=== PATIENT | female | born 1935 | race Caucasian/White ===

== ENCOUNTER 2018-08-31 19:42 | Inpatient (IN) | payer OTHER ==
--- OUTSIDE RECORDS SUMMARY | 2018-08-31 19:45 | XMS REPORT | Clinical Summary ---
:1935 Author Organization [facility] Address [address] [place] [address] Care Team Providers Name Role Phone Ranjith Pope MD Primary Care Provider Allergies No Known Allergies Medications Medication Sig Dispensed Refills Start Date End Date Status traMADol (ULTRAM) Take 50 mg by 0 Active 50 mg tablet mouth every 8 (eight) hours as needed for moderate pain. allopurinol Take 300 mg by 0 Active (ZYLOPRIM) 300 MG mouth daily. tablet candesartan Take 32 mg by 0 Active (ATACAND) 32 MG mouth daily. tablet simvastatin (ZOCOR) Take 10 mg by 0 Active 10 MG tablet mouth nightly. levothyroxine Take 75 mcg by 0 Active (SYNTHROID, mouth every LEVOXYL) 75 mcg morning. tablet DULoxetine Take 60 mg by 0 Active (CYMBALTA) 60 MG mouth daily. capsule metoprolol tartrate Take 100 mg by 0 10/05/2017 Discontinued (LOPRESSOR) 100 mg mouth daily. tablet metoprolol tartrate Take 1 tablet 60 tablet 0 10/05/2017 11/04/2017 (LOPRESSOR) 50 mg (50 mg total) tablet by mouth 2 (two) times a day for 30 days. ceFAZolin in 0.9% Infuse 50 mL 3600 mL 0 10/05/2017 10/29/2017 sodium chloride (2 g total) (ANCEF) 2 gram/50 into a venous mL IVPB catheter every 8 (eight) hours for 24 days. Active Problems Problem Noted Date HTN (hypertension), malignant 09/29/2017 Hematemesis with nausea 09/29/2017 Overview: Added automatically from request for surgery [id number] Encounters Date Type Specialty Care Team Description Anesthesia Gastroenterology Maude, 8 Event Corrie Chappell MD Surgery Gastroenterology [place], ESOPHAGOGASTRODUODENOSCOPY 8 Farideh Leos (EGD) with biopsy [facility] Internal Ranjith Pope Hematemesis with nausea 8 - Encounter Medicine MD Luci (Primary Dx) 8 after 08/30/2017 Social History Tobacco Use Types Packs/Day Years Used Date Former Smoker Sex Assigned at Date Recorded Not on file Job Start Date Occupation Industry Not on file Not on file Not on file Travel History Travel Start Travel End No recent travel history available. Last Filed Vital Signs Vital Sign Reading Time Taken Blood Pressure 165/81 10/05/2017 3:15 PM CDT Pulse 85 10/05/2017 3:15 PM CDT Temperature 35.9 C (96.6 F) 10/05/2017 3:15 PM CDT Respiratory Rate 18 10/05/2017 3:15 PM CDT Oxygen Saturation 96% 10/05/2017 3:15 PM CDT Inhaled Oxygen Concentration - - Weight 109 kg (240 lb 1 oz) 10/05/2017 5:29 AM CDT Height 172.7 cm (5' 8") 09/30/2017 9:00 AM CDT Body Mass Index 36.5 10/05/2017 5:29 AM CDT Plan of Treatment Health Maintenance Due Date Last Done Comments SHINGLES VACCINES (#1) 02/12/1986 65+ PNEUMOCOCCAL VACCINE (1 of 2 - PCV13) 02/12/2001 PNEUMOCOCCAL POLYSACCHARIDE VACCINE AGE 65 AND OVER 02/12/2001 INFLUENZA VACCINE 12/21/2018 Procedures Procedure Name Priority Date/Time Associated Comments Diagnosis ZZESTIMATED GFR Routine 10/05/2017 Results for 3:30 AM CDT this procedure are in the results section. MAGNESIUM LEVEL Routine 10/05/2017 Results for 3:30 AM CDT this procedure are in the results section. COMPREHENSIVE METABOLIC PANEL Routine 10/05/2017 Results for 3:30 AM CDT this procedure are in the results section. HC COMPLETE BLD COUNT W/AUTO Routine 10/05/2017 Results for DIFF 3:30 AM CDT this procedure are in the results section. ECHOCARDIOGRAM 2D COMPLETE W Routine 10/04/2017 Results for MMODE SPECTRAL COLOR DOPPLER 4:42 PM CDT this procedure (70013) are in the results section. SURGICAL PATHOLOGY REQUEST Routine 10/04/2017 Results for 10:50 AM CDT this procedure are in the results section. ESOPHAGOGASTRODUODENOSCOPY (EGD) 10/04/2017 Hematemesis with 10:10 AM CDT nausea POC GLUCOSE Routine 10/04/2017 Results for 7:14 AM CDT this procedure are in the results section. PROTHROMBIN TIME WITH INR Routine 10/04/2017 Results for 5:38 AM CDT this procedure are in the results section. ZZESTIMATED GFR Routine 10/04/2017 Results for 5:38 AM CDT this procedure are in the results section. MAGNESIUM LEVEL Routine 10/04/2017 Results for 5:38 AM CDT this procedure are in the results section. COMPREHENSIVE METABOLIC PANEL Routine 10/04/2017 Results for 5:38 AM CDT this procedure are in the results section. HC COMPLETE BLD COUNT W/AUTO Routine 10/04/2017 Results for DIFF 5:38 AM CDT this procedure are in the results section. CT ABDOMEN PELVIS W CONTRAST Routine 10/03/2017 Results for 7:12 PM CDT this procedure are in the results section. OCCULT BLOOD, STOOL Routine 10/03/2017 Results for 4:20 PM CDT this procedure are in the results section. POC GLUCOSE Routine 10/03/2017 Results for 11:35 AM CDT this procedure are in the results section. POC GLUCOSE Routine 10/03/2017 Results for 7:23 AM CDT this procedure are in the results section. MANUAL DIFFERENTIAL Routine 10/03/2017 Results for 4:51 AM CDT this procedure are in the results section. TROPONIN Routine 10/03/2017 Results for 4:51 AM CDT this procedure are in the results section. ZZESTIMATED GFR Routine 10/03/2017 Results for 4:51 AM CDT this procedure are in the results section. MAGNESIUM LEVEL Routine 10/03/2017 Results for 4:51 AM CDT this procedure are in the results section. COMPREHENSIVE METABOLIC PANEL Routine 10/03/2017 Results for 4:51 AM CDT this procedure are in the results section. CBC WITH PLATELET AND Routine 10/03/2017 Results for DIFFERENTIAL 4:51 AM CDT this procedure are in the results section. ECG 12-LEAD Routine 10/03/2017 Results for 3:45 AM CDT this procedure are in the results section. ECG 12-LEAD Routine 10/02/2017 Results for 10:57 PM CDT this procedure are in the results section. TROPONIN Timed 10/02/2017 Results for 10:42 PM CDT this procedure are in the results section. TYPE AND SCREEN Routine 10/02/2017 Results for 5:05 PM CDT this procedure are in the results section. ZZESTIMATED GFR STAT 10/02/2017 Results for 5:05 PM CDT this procedure are in the results section. PROTHROMBIN TIME WITH INR STAT 10/02/2017 Results for 5:05 PM CDT this procedure are in the results section. PARTIAL THROMBOPLASTIN TIME STAT 10/02/2017 Results for (PTT) 5:05 PM CDT this procedure are in the results section. COMPREHENSIVE METABOLIC PANEL STAT 10/02/2017 Results for 5:05 PM CDT this procedure are in the results section. HC COMPLETE BLD COUNT W/AUTO STAT 10/02/2017 Results for DIFF 5:05 PM CDT this procedure are in the results section. LACTIC ACID LEVEL, SEPSIS - NOW Timed 10/02/2017 Results for AND REPEAT 2X EVERY 3 HOURS 5:05 PM CDT this procedure are in the results section. ECG 12-LEAD STAT 10/02/2017 Results for 3:48 PM CDT this procedure are in the results section. TROPONIN Timed 10/02/2017 Results for 3:37 PM CDT this procedure are in the results section. XR ABDOMEN 1 VW STAT 10/02/2017 Results for 1:07 PM CDT this procedure are in the results section. OCCULT BLOOD, GASTRIC Routine 10/02/2017 Results for 11:55 AM CDT this procedure are in the results section. ZZESTIMATED GFR Routine 10/02/2017 Results for 9:20 AM CDT this procedure are in the results section. BASIC METABOLIC PANEL Routine 10/02/2017 Results for 9:20 AM CDT this procedure are in the results section. POC GLUCOSE Routine 10/02/2017 Results for 7:58 AM CDT this procedure are in the results section. HC COMPLETE BLD COUNT W/AUTO Routine 10/02/2017 Results for DIFF 6:27 AM CDT this procedure are in the results section. MRI LUMBAR SPINE WO CONTRAST Routine 10/01/2017 Results for 9:49 PM CDT this procedure are in the results section. BLOOD CULTURE, AEROBIC & Routine 10/01/2017 Results for ANAEROBIC 4:05 AM CDT this procedure are in the results section. ZZESTIMATED GFR Routine 10/01/2017 Results for 3:45 AM CDT this procedure are in the results section. BASIC METABOLIC PANEL Routine 10/01/2017 Results for 3:45 AM CDT this procedure are in the results section. BLOOD CULTURE, AEROBIC & Routine 10/01/2017 Results for ANAEROBIC 3:45 AM CDT this procedure are in the results section. URINALYSIS SCREEN AND Routine 09/30/2017 Results for MICROSCOPY, WITH REFLEX TO 12:30 PM CDT this procedure CULTURE are in the results section. GRAM STAIN Routine 09/30/2017 Results for 12:30 PM CDT this procedure are in the results section. URINE CULTURE Routine 09/30/2017 Results for 12:30 PM CDT this procedure are in the results section. CT HEAD WO CONTRAST Routine 09/30/2017 Results for 6:38 AM CDT this procedure are in the results section. MANUAL DIFFERENTIAL Routine 09/30/2017 Results for 5:10 AM CDT this procedure are in the results section. TROPONIN Routine 09/30/2017 Results for 5:10 AM CDT this procedure are in the results section. LACTIC ACID LEVEL, SEPSIS - NOW Timed 09/30/2017 Results for AND REPEAT 2X EVERY 3 HOURS 5:10 AM CDT this procedure are in the results section. ZZESTIMATED GFR Routine 09/30/2017 Results for 5:10 AM CDT this procedure are in the results section. MAGNESIUM LEVEL Routine 09/30/2017 Results for 5:10 AM CDT this procedure are in the results section. COMPREHENSIVE METABOLIC PANEL Routine 09/30/2017 Results for 5:10 AM CDT this procedure are in the results section. CBC WITH PLATELET AND Routine 09/30/2017 Results for DIFFERENTIAL 5:10 AM CDT this procedure are in the results section. LACTIC ACID LEVEL Timed 09/30/2017 Results for 2:05 AM CDT this procedure are in the results section. TROPONIN Timed 09/29/2017 Results for 11:55 PM CDT this procedure are in the results section. BLOOD CULTURE, AEROBIC & Routine 09/29/2017 Results for ANAEROBIC 10:55 PM CDT this procedure are in the results section. LACTIC ACID LEVEL, SEPSIS - NOW Timed 09/29/2017 Results for AND REPEAT 2X EVERY 3 HOURS 10:24 PM CDT this procedure are in the results section. AMMONIA LEVEL STAT 09/29/2017 Results for 10:24 PM CDT this procedure are in the results section. BLOOD CULTURE, AEROBIC & Routine 09/29/2017 Results for ANAEROBIC 10:24 PM CDT this procedure are in the results section. URINALYSIS SCREEN AND STAT 09/29/2017 Results for MICROSCOPY, WITH REFLEX TO 9:35 PM CDT this procedure CULTURE are in the results section. GRAM STAIN STAT 09/29/2017 Results for 9:35 PM CDT this procedure are in the results section. URINE CULTURE STAT 09/29/2017 Results for 9:35 PM CDT this procedure are in the results section. ARTERIAL BLOOD GAS STAT 09/29/2017 Results for 8:40 PM CDT this procedure are in the results section. MANUAL DIFFERENTIAL Timed 09/29/2017 Results for 8:15 PM CDT this procedure are in the results section. PROTHROMBIN TIME WITH INR STAT 09/29/2017 Results for 8:15 PM CDT this procedure are in the results section. ZZESTIMATED GFR Timed 09/29/2017 Results for 8:15 PM CDT this procedure are in the results section. TROPONIN Timed 09/29/2017 Results for 8:15 PM CDT this procedure are in the results section. MAGNESIUM LEVEL Timed 09/29/2017 Results for 8:15 PM CDT this procedure are in the results section. COMPREHENSIVE METABOLIC PANEL Timed 09/29/2017 Results for 8:15 PM CDT this procedure are in the results section. CBC WITH PLATELET AND Timed 09/29/2017 Results for DIFFERENTIAL 8:15 PM CDT this procedure are in the results section. ARTERIAL BLOOD GAS STAT 09/29/2017 Results for 7:40 PM CDT this procedure are in the results section. ECG 12-LEAD Routine 09/29/2017 Results for 7:35 PM CDT this procedure are in the results section. after 08/30/2017 Results Estimated GFR (10/05/2017 3:30 AM CDT)Only the most recent of8 resultswithin the time period is included. GFR Non Af Amer 69 mL/min/1.73 m2 [facility] DEPARTMENT OF PATHOLOGY AND GENOMIC MEDICINE GFR Af Amer 83 mL/min/1.73 m2 [facility] DEPARTMENT OF Comment: PATHOLOGY AND GENOMIC Chronic kidney disease: <60 mL/min/1.73m2 MEDICINE Kidney failure: <15 mL/min/1.73m2 The estimated GFR is calculated from the IDMS-traceable Modification of Diet in Renal Disease Equation. The accuracy of the calculation is poor when the creatinine is normal. Calculated values >90 mL/min/1.73m2 are not reported. This equation has not been validated in children (<18 years), women, the elderly (>70 years), or ethnic groups other than Caucasians and Americans. Specimen Plasma specimen Performing Organization Address City/State/Zipcode Phone Number [facility] DEPARTMENT OF PATHOLOGY [id number] [facility] [place] [address] AND GENOMIC MEDICINE CBC with platelet and differential (10/05/2017 3:30 AM CDT)Only the most recent of7 resultswithin the time period is included. WBC 13.1 (H) 4.5 - 11.0 k/uL [facility] DEPARTMENT OF PATHOLOGY AND GENOMIC MEDICINE RBC 3.96 (L) 4.20 - 5.50 m/uL [facility] DEPARTMENT OF PATHOLOGY AND GENOMIC MEDICINE HGB 11.3 (L) 12.0 - 16.0 g/dL [facility] DEPARTMENT OF PATHOLOGY AND GENOMIC MEDICINE HCT 33.9 (L) 37.0 - 47.0 % [facility] DEPARTMENT OF PATHOLOGY AND GENOMIC MEDICINE MCV 85.6 82.0 - 100.0 fL [facility] DEPARTMENT OF PATHOLOGY AND GENOMIC MEDICINE MCH 28.5 27.0 - 34.0 pg [facility] DEPARTMENT OF PATHOLOGY AND GENOMIC MEDICINE MCHC 33.3 31.0 - 37.0 g/dL [facility] DEPARTMENT OF PATHOLOGY AND GENOMIC MEDICINE RDW - SD 43.9 37.0 - 55.0 fL [facility] DEPARTMENT OF PATHOLOGY AND GENOMIC MEDICINE MPV 10.1 6.9 - 11.0 fL [facility] DEPARTMENT OF PATHOLOGY AND GENOMIC MEDICINE Platelet count 169 150 - 400 K/uL [facility] DEPARTMENT OF PATHOLOGY AND GENOMIC MEDICINE Nucleated RBC 0.00 /100 WBC [facility] DEPARTMENT OF PATHOLOGY AND GENOMIC MEDICINE Neutrophils 84.9 (H) 39.0 - 69.0 % [facility] DEPARTMENT OF PATHOLOGY AND GENOMIC MEDICINE Lymphocytes 4.9 (L) 25.0 - 45.0 % [facility] DEPARTMENT OF PATHOLOGY AND GENOMIC MEDICINE Monocytes 6.5 0.0 - 10.0 % [facility] DEPARTMENT OF PATHOLOGY AND GENOMIC MEDICINE Eosinophils 0.4 0.0 - 5.0 % [facility] DEPARTMENT OF PATHOLOGY AND GENOMIC MEDICINE Basophils 0.2 0.0 - 1.0 % [facility] DEPARTMENT OF PATHOLOGY AND GENOMIC MEDICINE Immature granulocytes 3.1 (H) 0.0 - 1.0 % [facility] DEPARTMENT OF PATHOLOGY AND GENOMIC MEDICINE Specimen Blood Performing Organization Address City/[facility]/Zipcode Phone Number [facility] DEPARTMENT OF PATHOLOGY [address] [place] [id number] [facility] Magnesium level (10/05/2017 3:30 AM CDT)Only the most recent of5 resultswithin the time period is included. Magnesium 2.0 1.6 - 2.4 mg/dL [facility] DEPARTMENT OF PATHOLOGY AND GENOMIC MEDICINE Specimen Plasma specimen Performing Organization Address City/[facility]/Zipcode Phone Number [facility] DEPARTMENT OF PATHOLOGY [address] [place] [phone] [facility] Comprehensive metabolic panel (10/05/2017 3:30 AM CDT)Only the most recent of6 resultswithin the time period is included. Sodium 134 (L) 135 - 148 mEq/L [facility] DEPARTMENT OF PATHOLOGY AND GENOMIC MEDICINE Potassium 3.4 (L) 3.5 - 5.0 mEq/L [facility] DEPARTMENT OF PATHOLOGY AND GENOMIC MEDICINE Chloride 95 (L) 98 - 112 mEq/L [facility] DEPARTMENT OF PATHOLOGY AND GENOMIC MEDICINE CO2 28 24 - 31 mEq/L [facility] DEPARTMENT OF PATHOLOGY AND GENOMIC MEDICINE Anion gap 11@ANIO 7 - 15 mEq/L [facility] DEPARTMENT OF PATHOLOGY AND GENOMIC MEDICINE BUN 28 (H) 8 - 23 mg/dL [facility] DEPARTMENT OF PATHOLOGY AND GENOMIC MEDICINE Creatinine 0.8 0.5 - 0.9 mg/dL [facility] DEPARTMENT OF PATHOLOGY AND GENOMIC MEDICINE Glucose 132 (H) 65 - 99 mg/dL [facility] DEPARTMENT OF PATHOLOGY AND GENOMIC MEDICINE Calcium 7.8 (L) 8.8 - 10.2 mg/dL [facility] DEPARTMENT OF PATHOLOGY AND GENOMIC MEDICINE Protein 6.1 (L) 6.3 - 8.3 g/dL [facility] DEPARTMENT OF PATHOLOGY AND GENOMIC MEDICINE Albumin 2.0 (L) 3.5 - 5.0 g/dL [facility] DEPARTMENT OF PATHOLOGY AND GENOMIC MEDICINE A/G ratio 0.5 (L) 0.7 - 3.8 [facility] DEPARTMENT OF PATHOLOGY AND GENOMIC MEDICINE Alkaline phosphatase 203 (H) 35 - 104 U/L [facility] DEPARTMENT OF PATHOLOGY AND GENOMIC MEDICINE AST 52 (H) 10 - 35 U/L [facility] DEPARTMENT OF PATHOLOGY AND GENOMIC MEDICINE ALT 28 5 - 50 U/L [facility] DEPARTMENT OF PATHOLOGY AND GENOMIC MEDICINE Total bilirubin 0.7 0.2 - 1.2 mg/dL [facility] DEPARTMENT OF PATHOLOGY AND GENOMIC MEDICINE Specimen Plasma specimen Performing Organization Address City/State/Zipcode Phone Number [facility] DEPARTMENT OF PATHOLOGY [id number] [facility] [place] [address] AND GENOMIC MEDICINE Echocardiogram complete w contrast and 3D if needed (10/04/2017 4:42 PM CDT) Ao Root Diameter 2.98 cm [facility] AoV Area, Vmax 2.84 cm2 [facility] AoV Area, VTI 2.98 cm2 [facility] AoV Mean PG 4.20 mmHg [facility] AoV Peak PG 8.10 mmHg [facility] AoV Vmax 1.42 m/s [facility] AoV VTI 0.23 m [facility] BSA Jewell 0.00 m2 [facility] BSA 0.00 m2 [facility] IVS,d 1.47 (A) 0.6 - 1.2 cm [facility] IVS/LVPW,2D 1.05 [facility] Left Atrium Dimension Anterior 4.49 cm [facility] LA Area d A4C 19.94 cm2 [facility] LV,d 3.66 cm [facility] LV EF,2D 67.49 % [facility] LV,s 2.51 cm [facility] LVOT area 3.02 cm2 [facility] LVOT Diam,S 1.96 cm [facility] LVOT Vmax 1.33 m/s [facility] LVOT VTI 0.23 m [facility] LVPWD,d 1.40 cm [facility] RVOT Vmax 1.03 m/s [facility] TR Vpeak 2.09 mm/s [facility] MV E A ratio 2.41 mmHg [facility] TR pk grad 13.08 mmHg [facility] MR Vmax 3.55 m/s [facility] E wave decelartion time 191.25 msec [facility] MV Peak A Willian 0.46 m/s [facility] MV valve area p 1/2 method 3.97 cm2 [facility] MV Peak E Willian 1.12 m/s [facility] MV stenosis pressure 1/2 time 55.46 ms [facility] AV LVOT peak gradient 7.11 mmHg [facility] Ascending aorta 2.89 cm [facility] Ao Root Diameter 2.98 cm [facility] MV mean gradient 1.39 mmHg [facility] LV SYS VOL 22.62 ml [facility] LV MOREIRA VOL 56.46 ml [facility] LV SV Teich 2D 33.84 ml [facility] LV Vol s Teich PSAX 22.62 ml [facility] MR peak grad 5.28 mmHg [facility] MV Vmax 1.15 m [facility] MV VTI Tips 0.23 m [facility] RVOT pk grad 4.24 mmHg [facility] BSA Haycock 0.00 m2 [facility] AoV Vmn 0.95 [facility] LV FS Teich 2D 31.24 [facility] MV AE ratio 0.42 [facility] LV FS Cube 2D 31.24 [facility] LVOT Vmn 0.77 [facility] Pt Size 0.00 [facility] Pt Wt 0.00 [facility] Aov area Vmn 2.45 cm2 [facility] LA Vol d MOD A4C 46.89 ml [facility] LVOT mean grad 3.03 mmHg [facility] MAX Pred HR 138.36 [facility] 85 of MPHR 117.61 [facility] Calc MPHR 138.36 bpm [facility] LV SV Cube 2D 32.96 ml [facility] LV vol d cube 2D 48.84 ml [facility] LV vol s cube 2D 15.88 ml [facility] MV Decel slope 5.84 m/s2 [facility] Pred Exer Dur R1 5.56 [facility] Pred METS R1 4.09 [facility] Velocity Ratio (V1/V2) 0.94 m/s [facility] EF 59.94 % [facility] E/A ratio 2.43 [facility] Narrative Performed At The left ventricle chamber size is normal. [facility] Left Ventricular ejection fraction is 55 - 60%. No pericardial effusion There is mild mitral valve regurgitation. Performing Organization Address City/State/Zipcode Phone Number [facility] [id number] [place] [address] Surgical pathology request (10/04/2017 10:50 AM CDT) [facility] DEPARTMENT OF PATHOLOGY AND GENOMIC MEDICINE Surgical pathology report See link below for PDF [facility] DEPARTMENT OF Lab Report PATHOLOGY AND GENOMIC MEDICINE Result status This is Final Report to [facility] DEPARTMENT OF [id number] PATHOLOGY AND GENOMIC MEDICINE Performing Organization Address City/[facility]/Zipcode Phone Number [facility] DEPARTMENT OF PATHOLOGY [id number] [facility] [place] [address] AND GENOMIC MEDICINE POC glucose (10/04/2017 7:14 AM CDT)Only the most recent of4 resultswithin the time period is included. POC glucose 92 65 - 99 mg/dL [facility] DEPARTMENT OF PATHOLOGY AND Comment: [employer] ([employer]) MEDICINE Meter ID: [id number] Home Economics Teacher: Kevin Yusuf Performing Organization Address City/State/Zipcode Phone Number [facility] DEPARTMENT OF PATHOLOGY [address] [place] [address] AND [employer] Prothrombin time with INR (10/04/2017 5:38 AM CDT)Only the most recent of3 resultswithin the time period is included. Prothrombin time 14.6 12.0 - 15.0 sec [facility] DEPARTMENT OF PATHOLOGY AND [employer] ([employer]) MEDICINE INR 1.1 [facility] DEPARTMENT OF Comment: PATHOLOGY AND GENOMIC The International Normalized Ratio (INR) is a therapeutic MEDICINE monitoring tool for patients who are stable on oral anticoagulant therapy. An INR of 2.0-3.0 is suggested for deep vein thrombosis/pulmonary embolism. Specimen Blood Performing Organization Address [facility] Centercode Phone Number [facility] DEPARTMENT OF PATHOLOGY [id number] [facility] [place] [address] [place] [address] Abdomen Pelvis W Contrast (10/03/2017 7:12 PM CDT) Narrative Performed At EXAMINATION:CT ABDOMEN PELVIS W CONTRAST RADIANT CLINICAL HISTORY:ABDOMINAL PAIN COMPARISON:None. TECHNIQUE: Multiple axial CT images of the Abdomen and pelvis were obtainedWith IV contrast Oral contrast was administered. . Sagittal and coronal reconstructions were done. CT imaging was performed with iterative reconstruction technique and/or automated exposure control to reduce radiation dose. FINDINGS: HEPATOBILIARY:Hypodensities present in the right hepatic lobe measure up to 3 cm, nonspecific. There is some mild nodularity to the liver margins. No intrahepatic biliary dilation. The main portal vein is patent. GALLBLADDER: Cholelithiasis without signs of cholecystitis. SPLEEN:No splenomegaly. PANCREAS:No focal masses or ductal dilation. ADRENALS:No adrenal nodules. KIDNEYS:No hydronephrosis, stones or solid masses. PERITONEUM/RETROPERITONEUM:No free air or free fluid. No enlarged lymph nodes. ABDOMINAL AORTA/IVC: No aneurysm or dissection. GI TRACT:The stomach is significantly distended contains air and fluid. There is no distention of the colon and small bowel. There is sequential wall thickening of the rectum with surrounding fat stranding extending to the rectosigmoid junction. A moderate amount of stool is present but without dilation. No pneumatosis. Multiple clonic diverticula present without signs of diverticulitis. There are no signs of appendicitis. PELVIC ORGANS/BLADDER:A bilobed left adnexal cyst probably ovarian combined dimension of 7.6 cm. The uterus and right ovary are unremarkable. The urinary bladder is decompressed by Casillas catheter. BONES AND SOFT TISSUES:No acute abnormalities. VISUALIZED LOWER CHEST: Small layering bilateral pleural effusions with some atelectasis of the lung bases. Heart is enlarged. A small hiatal hernia is present. 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 No pneumatosis or signs of perforation. Significant distention of the stomach. Consider gastroparesis is persistent. Complex appearing left adnexal cysts can be further evaluated with pelvic ultrasound. [facility]-[id number] Procedure Note Interface, Radiology Results Incoming - 10/03/2017 7:47 PM CDT EXAMINATION: CT ABDOMEN PELVIS W CONTRAST CLINICAL HISTORY: ABDOMINAL PAIN COMPARISON: None. TECHNIQUE: Multiple axial CT images of the Abdomen and pelvis were obtained With IV contrast Oral contrast was administered. . Sagittal and coronal reconstructions were done. CT imaging was performed with iterative reconstruction technique and/or automated exposure control to reduce radiation dose. FINDINGS: HEPATOBILIARY: Hypodensities present in the right hepatic lobe measure up to 3 cm, nonspecific. There is some mild nodularity to the liver margins. No intrahepatic biliary dilation. The main portal vein is patent. GALLBLADDER: Cholelithiasis without signs of cholecystitis. SPLEEN: No splenomegaly. PANCREAS: No focal masses or ductal dilation. ADRENALS: No adrenal nodules. KIDNEYS: No hydronephrosis, stones or solid masses. PERITONEUM/RETROPERITONEUM: No free air or free fluid. No enlarged lymph nodes. ABDOMINAL AORTA/IVC: No aneurysm or dissection. GI TRACT: The stomach is significantly distended contains air and fluid. There is no distention of the colon and small bowel. There is sequential wall thickening of the rectum with surrounding fat stranding extending to the rectosigmoid junction. A moderate amount of stool is present but without dilation. No pneumatosis. Multiple clonic diverticula present without signs of diverticulitis. There are no signs of appendicitis. PELVIC ORGANS/BLADDER: A bilobed left adnexal cyst probably ovarian combined dimension of 7.6 cm. The uterus and right ovary are unremarkable. The urinary bladder is decompressed by Casillas catheter. BONES AND SOFT TISSUES: No acute abnormalities. VISUALIZED LOWER CHEST: Small layering bilateral pleural effusions with some atelectasis of the lung bases. Heart is enlarged. A small hiatal hernia is present. 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 No pneumatosis or signs of perforation. Significant distention of the stomach. Consider gastroparesis is persistent. Complex appearing left adnexal cysts can be further evaluated with pelvic ultrasound. [facility]-[id number] Performing Organization Address City/State/Zipcode Phone Number [facility] [address] [place] [address] Occult blood, stool (10/03/2017 4:20 PM CDT) Occult blood, stool Negative for occult blood. [facility] DEPARTMENT OF Comment: PATHOLOGY AND GENOMIC Specimen Information MEDICINE Specimen Source: Stool Specimen Site: Nonpreserved Specimen Stool - Nonpreserved Performing Organization Address City/[facility]/Zipcode Phone Number [facility] DEPARTMENT OF PATHOLOGY [address] [place] [address] AND [employer] ([employer]) MEDICINE Troponin (10/03/2017 4:51 AM CDT)Only the most recent of6 resultswithin the time period is included. Troponin <0.30 0.00 - 0.30 ng/mL [facility] DEPARTMENT OF PATHOLOGY Comment: AND GENOMIC MEDICINE 0.11 - 1.49 ng/mlMay indicate increased risk of acute coronary syndrome. >=1.5 ng/mlConsistent with acute myocardial infarction. The diagnostic value of a single normal or non-diagnostic result is questionable.Serial samples at 2-6 hour intervals are required to rule out acute myocardial injury. Specimen Plasma specimen Performing Organization Address City/[facility]/Zipcode Phone Number [facility] DEPARTMENT OF PATHOLOGY [address] [place] [address] AND [employer] ([employer]) MEDICINE Manual differential (10/03/2017 4:51 AM CDT)Only the most recent of3 resultswithin the time period is included. Manual differential PERFORMED [facility] DEPARTMENT OF PATHOLOGY AND GENOMIC MEDICINE Neutrophils 75.0 (H) 39.0 - 69.0 % [facility] DEPARTMENT OF PATHOLOGY AND GENOMIC MEDICINE Lymphocytes 9.0 (L) 25.0 - 45.0 % [facility] DEPARTMENT OF PATHOLOGY AND GENOMIC MEDICINE Monocytes 15.0 (H) 0.0 - 10.0 % [facility] DEPARTMENT OF PATHOLOGY AND GENOMIC MEDICINE Eosinophils 0.0 0.0 - 5.0 % [facility] DEPARTMENT OF PATHOLOGY AND GENOMIC MEDICINE Basophils 0.0 0.0 - 1.0 % [facility] DEPARTMENT OF PATHOLOGY AND GENOMIC MEDICINE Myelocytes 1 % [facility] DEPARTMENT OF PATHOLOGY AND GENOMIC MEDICINE Nucleated RBC 1 /100 WBC [facility] DEPARTMENT OF Comment: PATHOLOGY AND GENOMIC NRBC results have been factored into the WBC count. MEDICINE No further calculation is needed. Platelet slide review Decreased (A) [facility] DEPARTMENT OF PATHOLOGY AND GENOMIC MEDICINE Anisocytosis Moderate [facility] DEPARTMENT OF PATHOLOGY AND GENOMIC MEDICINE Performing Organization Address City/[facility] Centercode Phone Number [facility] DEPARTMENT OF PATHOLOGY [id number] [place] [address] AND [employer] ([employer]) [facility] ECG 12 lead (10/03/2017 3:45 AM CDT)Only the most recent of4 resultswithin the time period is included. Ventricular rate 109 [facility] Atrial rate 102 [facility] QRSD interval 82 [facility] QT interval 318 [facility] QTC interval 428 [facility] QRS axis 1 -34 [facility] T wave axis 92 [facility] EKG impression Atrial fibrillation with rapid ventricular response with premature ventricular or aberrantly conducted complexes-Left axis deviation- Nonspecific ST and T wave abnormality-Abnormal ECG-In automated salomón [facility] MUSE rison with ECG of 02-OCT-2017 22:57,-Nonspecific T wave abnormality now evident in Lateral leads- Performing Organization Address City/[facility] Centercode Phone Number [facility] MUSE [address] [place] [address] Lactic acid level, SEPSIS - Now and repeat 2x every 3 hours (10/02/2017 5:05 PM CDT)Only the most recent of3 resultswithin the time period is included. Lactic acid 2.0 0.5 - 2.2 mmol/L [facility] DEPARTMENT OF PATHOLOGY AND GENOMIC MEDICINE Specimen Plasma specimen Performing Organization Address City/[facility] Centercode Phone Number [facility] DEPARTMENT OF PATHOLOGY [address] [place] [address] AND [facility] Partial thromboplastin time, activated (10/02/2017 5:05 PM CDT) PTT 38.2 (H) 23.0 - 36.0 sec [facility] DEPARTMENT OF Comment: PATHOLOGY AND GENOMIC PTT therapeutic range for unfractionated heparin is MEDICINE 61.0-112.0 seconds which corresponds to Anti-Xa 0.3-0.7 U/ml. Specimen Blood Performing Organization Address City/[facility]/Zipcode Phone Number [facility] DEPARTMENT OF PATHOLOGY [address] [place] [address]. [place] [address] AND [employer] ([employer]) MEDICINE Type and screen (10/02/2017 5:05 PM CDT) ABO grouping O [facility] DEPARTMENT OF PATHOLOGY AND GENOMIC MEDICINE Rh type NEG [facility] DEPARTMENT OF PATHOLOGY AND GENOMIC MEDICINE Antibody screen (gel) NEG [facility] DEPARTMENT OF PATHOLOGY AND GENOMIC MEDICINE Specimen Blood Performing Organization Address [facility] Centercode Phone Number [facility] DEPARTMENT OF PATHOLOGY [address] [place] [address]. [place] [address] AND [employer] ([employer]) [facility] XR Abdomen 1 Vw (10/02/2017 1:07 PM CDT) Narrative Performed At EXAMINATION:XR ABDOMEN 1 VW [facility] CLINICAL HISTORY:Distention, GI BLEEDING COMPARISON:None. IMPRESSION: The stomach is significantly dilated with air. No gas-filled dilated loops of large or small bowel are seen. The bones of the abdomen and pelvis are unremarkable. [id number] Procedure Note Interface, Radiology Results Incoming - 10/02/2017 1:12 PM CDT EXAMINATION: XR ABDOMEN 1 VW CLINICAL HISTORY: Distention, GI BLEEDING COMPARISON: None. IMPRESSION: The stomach is significantly dilated with air. No gas-filled dilated loops of large or small bowel are seen. The bones of the abdomen and pelvis are unremarkable. [id number] Performing Organization Address City/[facility]/Zipcode Phone Number [facility] [address] [place] [address] Occult blood, gastric (10/02/2017 11:55 AM CDT) Occult blood, fluid Positive (A) [facility] DEPARTMENT OF PATHOLOGY AND GENOMIC MEDICINE pH, gastric fluid 3.0Comment: Reference ranges [facility] DEPARTMENT OF are not established for PATHOLOGY AND GENOMIC Miscellanous specimens. MEDICINE Specimen Fluid Performing Organization Address City/[facility]/Zipcode Phone Number [facility] DEPARTMENT OF PATHOLOGY [address] [place] [address]. [place] [address] AND [employer] ([employer]) [facility] Basic metabolic panel (10/02/2017 9:20 AM CDT)Only the most recent of2 resultswithin the time period is included. Sodium 127 (L) 135 - 148 mEq/L [facility] DEPARTMENT OF PATHOLOGY AND GENOMIC MEDICINE Potassium 4.6 3.5 - 5.0 mEq/L [facility] DEPARTMENT OF PATHOLOGY AND GENOMIC MEDICINE Chloride 89 (L) 98 - 112 mEq/L [facility] DEPARTMENT OF PATHOLOGY AND GENOMIC MEDICINE CO2 28 24 - 31 mEq/L [facility] DEPARTMENT OF PATHOLOGY AND [employer]) MEDICINE Anion gap 10 7 - 15 mEq/L [facility] DEPARTMENT OF Comment: PATHOLOGY AND GENOMIC Starting from August , anion gap calculation MEDICINE no longer incorporates potassium. Please note the change. BUN 22 8 - 23 mg/dL [facility] DEPARTMENT OF PATHOLOGY AND [employer]) MEDICINE Creatinine 0.8 0.5 - 0.9 mg/dL [facility] DEPARTMENT OF PATHOLOGY AND [employer]) MEDICINE Glucose 133 (H) 65 - 99 mg/dL [facility] DEPARTMENT OF PATHOLOGY AND [employer]) MEDICINE Calcium 8.1 (L) 8.8 - 10.2 mg/dL [facility] DEPARTMENT OF PATHOLOGY AND [employer]) MEDICINE Specimen Plasma specimen Performing Organization Address City/State/Zipcode Phone Number [facility] DEPARTMENT OF PATHOLOGY [address] [facility] [place] [address] AND [employer] ([employer]) [facility] MRI Lumbar Spine Wo Contrast (10/01/2017 9:49 PM CDT) Narrative Performed At EXAMINATION: MRI LUMBAR SPINE WO CONTRAST [facility] CLINICAL HISTORY: lower back pain COMPARISON:None TECHNIQUE: Multiplanar multisequence noncontrast enhanced examination was performed of the Lumbar spine. FINDINGS: The patient cannot lie flat and is rotated on the scanner. There is some motion artifact. The patient rotation and motion limits this exam. There is rightward rotation of the lumbar spine. There are some chronic degenerative disc changes throughout the lumbar spine. There is an incidental hemangioma in the L3 vertebral body. There is multilevel spondylosis. In the lower thoracic spine at T11-T12 there is posterior spondylosis and facet hypertrophy where there appears be at least moderate severe canal narrowing with some mass effect on the distal cord. No d efinite cord signal changes identified. There is also moderate bilateral foraminal narrowing. At T12-L1 there is no definite significant canal narrowing. There is some degree of mild inferior foraminal narrowing. Axial images through the disc spaces demonstrate the following: L1-L2: There is increased T2 signal in the disc space. There is disc bulge with facet hypertrophy and moderate severe left lateral recess narrowing. There is [id number] canal and right lateral rec ess narrowing. Facet spurring and disc osteophyte complex results in moderate left foraminal stenosis. Right foramen is patent. L2-L3: There is some increased signal in the disc space. There is posterior spondylosis with canal and facet hypertrophy. There is severe left lateral recess narrowing. There is moderate severe canal na rrowing and mild to moderate right lateral recess narrowing. L3-L4: There is complete loss of disk height with posterior spondylosis and facet and ligamentum flavum hypertrophy with severe canal and bilateral lateral recess 9. There is some mass effect on the cau da equina nerve roots. Correlate for significance. There is moderate left foraminal narrowing. The right foramen is severely stenotic. L4-L5: There is disc bulge with clumping of the nerve roots posteriorly secondary to the severe stenosis above this level. There is no significant canal or lateral recess narrowing at this level. A righ t foraminal protrusion and disc osteophyte complex results in severe right foraminal narrowing. L5-S1: There is disc bulge with facet hypertrophy. There is moderate severe narrowing of the lateral recesses and spinal canal. Disc osteophyte complex and facet spurring is present with moderate severe right and minimal left foraminal narrowing. Visualized sacrum is intact. IMPRESSION: There is multilevel spondylosis with significant canal and foraminal narrowing as well as lateral recess stenosis as detailed above. All these levels could result in focal radiculopathy. Correlate for significance at each level. Despite the multilevel significant spondylosis and stenosis changes, there is no acute fracture. [facility]-[id number] Procedure Note Hm Interface, Radiology Results Incoming - 10/01/2017 10:15 PM CDT EXAMINATION: MRI LUMBAR SPINE WO CONTRAST CLINICAL HISTORY: lower back pain COMPARISON: None TECHNIQUE: Multiplanar multisequence noncontrast enhanced examination was performed of the Lumbar spine. FINDINGS: The patient cannot lie flat and is rotated on the scanner. There is some motion artifact. The patient rotation and motion limits this exam. There is rightward rotation of the lumbar spine. There are some chronic degenerative disc changes throughout the lumbar spine. There is an incidental hemangioma in the L3 vertebral body. There is multilevel spondylosis. In the lower thoracic spine at T11-T12 there is posterior spondylosis and facet hypertrophy where there appears be at least moderate severe canal narrowing with some mass effect on the distal cord. No definite cord signal changes identified. There is also moderate bilateral foraminal narrowing. At T12-L1 there is no definite significant canal narrowing. There is some degree of mild inferior foraminal narrowing. Axial images through the disc spaces demonstrate the following: L1-L2: There is increased T2 signal in the disc space. There is disc bulge with facet hypertrophy and moderate severe left lateral recess narrowing. There is [id number] canal and right lateral recess narrowing. Facet spurring and disc osteophyte complex results in moderate left foraminal stenosis. Right foramen is patent. L2-L3: There is some increased signal in the disc space. There is posterior spondylosis with canal and facet hypertrophy. There is severe left lateral recess narrowing. There is moderate severe canal narrowing and mild to moderate right lateral recess narrowing. L3-L4: There is complete loss of disk height with posterior spondylosis and facet and ligamentum flavum hypertrophy with severe canal and bilateral lateral recess 9. There is some mass effect on the cauda equina nerve roots. Correlate for significance. There is moderate left foraminal narrowing. The right foramen is severely stenotic. L4-L5: There is disc bulge with clumping of the nerve roots posteriorly secondary to the severe stenosis above this level. There is no significant canal or lateral recess narrowing at this level. A right foraminal protrusion and disc osteophyte complex results in severe right foraminal narrowing. L5-S1: There is disc bulge with facet hypertrophy. There is moderate severe narrowing of the lateral recesses and spinal canal. Disc osteophyte complex and facet spurring is present with moderate severe right and minimal left foraminal narrowing. Visualized sacrum is intact. IMPRESSION: There is multilevel spondylosis with significant canal and foraminal narrowing as well as lateral recess stenosis as detailed above. All these levels could result in focal radiculopathy. Correlate for significance at each level. Despite the multilevel significant spondylosis and stenosis changes, there is no acute fracture. [facility]-[id number] Performing Organization Address City/State/Zipcode Phone Number [facility] [address] [place] [address] Blood culture, aerobic & anaerobic (10/01/2017 4:05 AM CDT)Only the most recent of4 resultswithin the time period is included. Blood culture isolate No growth after 5 days of incubation. [facility] DEPARTMENT OF Comment: PATHOLOGY AND GENOMIC Specimen Information MEDICINE Specimen Source: Blood Specimen Site: Hand, right Specimen Blood - Hand, right Performing Organization Address City/[facility] Phone Number [facility] DEPARTMENT OF PATHOLOGY AND [address] [place] [id number] GENOMIC MEDICINE Urinalysis screen and microscopy, with reflex to culture (09/30/2017 12:30 PM CDT)Only the most recent of2 resultswithin the time period is included. Specimen site Casillas [facility] DEPARTMENT OF PATHOLOGY AND GENOMIC MEDICINE Color, UA Anne Marie [facility] DEPARTMENT OF PATHOLOGY AND GENOMIC MEDICINE Appearance, UA Sl Cloudy [facility] DEPARTMENT OF PATHOLOGY AND GENOMIC MEDICINE Specific gravity, UA 1.025 1.001 - 1.030 [facility] DEPARTMENT OF PATHOLOGY AND GENOMIC MEDICINE pH, UA 5.0 5.0 - 9.0 [facility] DEPARTMENT OF PATHOLOGY AND GENOMIC MEDICINE Protein, UA 2+ (A) Negative [facility] DEPARTMENT OF PATHOLOGY AND GENOMIC MEDICINE Glucose, UA Negative Negative [facility] DEPARTMENT OF PATHOLOGY AND GENOMIC MEDICINE Ketones, UA Negative Negative [facility] DEPARTMENT OF PATHOLOGY AND GENOMIC MEDICINE Bilirubin, UA Negative Negative [facility] DEPARTMENT OF PATHOLOGY AND GENOMIC MEDICINE Blood, UA Moderate (A) Negative [facility] DEPARTMENT OF PATHOLOGY AND GENOMIC MEDICINE Nitrite, UA Positive (A) Negative [facility] DEPARTMENT OF PATHOLOGY AND GENOMIC MEDICINE Urobilinogen, UA <2.0 <2.0 E.U./dL [facility] DEPARTMENT OF PATHOLOGY AND GENOMIC MEDICINE Leukocyte esterase, UA Negative Negative [facility] DEPARTMENT OF PATHOLOGY AND GENOMIC MEDICINE Epithelial cells, UA <1 /HPF [facility] DEPARTMENT OF PATHOLOGY AND GENOMIC MEDICINE WBC, UA 7 (H) 0 - 4 /HPF [facility] DEPARTMENT OF PATHOLOGY AND GENOMIC MEDICINE RBC, UA 4 0 - 5 /HPF [facility] DEPARTMENT OF PATHOLOGY AND GENOMIC MEDICINE Bacteria, UA Few None seen [facility] DEPARTMENT OF PATHOLOGY AND GENOMIC MEDICINE Yeast, UA None seen [facility] DEPARTMENT OF PATHOLOGY AND GENOMIC MEDICINE Yeast with pseudohyphae, UA None seen [facility] DEPARTMENT OF PATHOLOGY AND GENOMIC MEDICINE Amorphous crystals Few [facility] DEPARTMENT OF PATHOLOGY AND GENOMIC MEDICINE Specimen Urine Performing Organization Address City/[facility]/Zipcode Phone Number [facility] DEPARTMENT OF PATHOLOGY [address] [place] [address] AND GENOMIC MEDICINE Gram stain (09/30/2017 12:30 PM CDT)Only the most recent of2 resultswithin the time period is included. Gram stain result No WBC's or organisms seen. [facility] DEPARTMENT OF PATHOLOGY Comment: AND GENOMIC MEDICINE Specimen Information Specimen Source: Urine Specimen Site: Cas[place] Specimen Urine - [place] Performing Organization Address City/[facility]/Zipcode Phone Number [facility] DEPARTMENT OF PATHOLOGY AND [address] [place] [address] [facility] Urine culture (09/30/2017 12:30 PM CDT)Only the most recent of2 resultswithin the time period is included. Urine culture isolate Staphylococcus aureus [facility] DEPARTMENT OF colony count undetermined, PATHOLOGY AND GENOMIC probably due to inhibiting substance. MEDICINE This organism is Methicillin Sensitive. (A) Comment: Specimen Information Specimen Source: Urine Specimen Site: [place] Specimen Urine - Casillas Organism Antibiotic Method Susceptibility Staphylococcus aureus Ampicillin KLAUDIA mcg/mL: Resistant Staphylococcus aureus Clindamycin KLAUDIA <=0.5 mcg/mL: Susceptible Staphylococcus aureus Erythromycin KLAUDIA <=0.5 mcg/mL: Susceptible Staphylococcus aureus Nitrofurantoin KLAUDIA <=16 mcg/mL: Susceptible Staphylococcus aureus Levofloxacin KLAUDIA <=1 mcg/mL: Susceptible Staphylococcus aureus Linezolid KLAUDIA 2 mcg/mL: Susceptible Staphylococcus aureus Oxacillin KLAUDIA 1 mcg/mL: Susceptible Staphylococcus aureus Penicillin G KLAUDIA >1 mcg/mL: Resistant Staphylococcus aureus Rifampin KLAUDIA <=0.5 mcg/mL: Susceptible Staphylococcus aureus Trimethoprim/Sulfamethoxazol KLAUDIA <=0.5/9.5 mcg/mL: e Susceptible Staphylococcus aureus Tetracycline KLAUDIA <=0.5 mcg/mL: Susceptible Staphylococcus aureus Vancomycin KLAUDIA 1 mcg/mL: Susceptible Performing Organization Address City/[facility] Cent[facility]ode Phone Number [facility] DEPARTMENT OF PATHOLOGY AND [address] [place] [address] [facility] [address] Head Wo Contrast (09/30/2017 6:38 AM CDT) Narrative Performed At EXAMINATION:CT HEAD WO CONTRAST [facility] CT IMAGING WAS PERFORMED WITH ITERATIVE RECONSTRUCTION TECHNIQUE AND/OR AUTOMATED EXPOSURE CONTROL TO REDUCE RADIATION DOSE. CLINICAL HISTORY:eval for stroke COMPARISON:None. FINDINGS: 1. There is no acute intracranial abnormality. Specifically there is no intracranial hemorrhage, mass effect or acute infarction. 2.There is chronic lacunar infarction versus perivascular space in the posterior inferior basal ganglia region on the left with the latter felt to be more likely. There are minimal if any nonspecific cerebral white matter microvascular changes. 3.There is mild to moderate cerebral cortical volume loss. 4.There is minimal atherosclerotic calcification in the distal internal carotid and vertebral arteries. 5.There is minimal mucosal thickening in the ethmoid and left maxillary sinuses.. IMPRESSION: No acute abnormality. [facility]-[id number] Procedure Note [facility], Radiology Results Incoming - 09/30/2017 6:50 AM CDT EXAMINATION: CT HEAD WO CONTRAST CT IMAGING WAS PERFORMED WITH ITERATIVE RECONSTRUCTION TECHNIQUE AND/OR AUTOMATED EXPOSURE CONTROL TO REDUCE RADIATION DOSE. CLINICAL HISTORY: eval for stroke COMPARISON: None. FINDINGS: 1. There is no acute intracranial abnormality. Specifically there is no intracranial hemorrhage, mass effect or acute infarction. 2. There is chronic lacunar infarction versus perivascular space in the posterior inferior basal ganglia region on the left with the latter felt to be more likely. There are minimal if any nonspecific cerebral white matter microvascular changes. 3. There is mild to moderate cerebral cortical volume loss. 4. There is minimal atherosclerotic calcification in the distal internal carotid and vertebral arteries. 5. There is minimal mucosal thickening in the ethmoid and left maxillary sinuses.. IMPRESSION: No acute abnormality. [facility]-[id number] Performing Organization Address [facility]/Zipcode Phone Number [facility] [address] [place] [address] Lactic acid level (09/30/2017 2:05 AM CDT) Lactic acid 2.4 (H) 0.5 - 2.2 mmol/L [facility] DEPARTMENT OF PATHOLOGY AND GENOMIC MEDICINE Specimen Plasma specimen Performing Organization Address City/[facility]/Zipcode Phone Number [facility] DEPARTMENT OF PATHOLOGY [id number] [place] [address] AND [facility] Ammonia level (09/29/2017 10:24 PM CDT) Ammonia 34 11 - 51 umol/L [facility] DEPARTMENT OF PATHOLOGY AND GENOMIC MEDICINE Specimen Plasma specimen Performing Organization Address [facility]/Zipcode Phone Number [facility] DEPARTMENT OF PATHOLOGY [id number] [address] [place] [address] AND [facility] Arterial blood gas (09/29/2017 8:40 PM CDT)Only the most recent of2 resultswithin the time period is included. pH, arterial 7.45 7.35 - 7.45 [facility] DEPARTMENT OF PATHOLOGY AND GENOMIC MEDICINE pCO2, arterial 41 35 - 45 mmHg [facility] DEPARTMENT OF PATHOLOGY AND GENOMIC MEDICINE pO2, arterial 63 (L) 80 - 90 mmHg [facility] DEPARTMENT OF PATHOLOGY AND GENOMIC MEDICINE Bicarbonate, arterial 28.0 21.0 - 28.0 mmol/L [facility] DEPARTMENT OF PATHOLOGY AND GENOMIC MEDICINE Base excess, arterial 4 (H) -2 - 2 mEq/L [facility] DEPARTMENT OF PATHOLOGY AND GENOMIC MEDICINE O2 saturation, arterial 94 (L) 95 - 100 % [facility] DEPARTMENT OF PATHOLOGY AND GENOMIC MEDICINE Specimen Blood Performing Organization Address City/State/Zipcode Phone Number [facility] DEPARTMENT OF PATHOLOGY [address] [place] [address] AND [employer] MEDICINE after 08/30/2017 Insurance Payer Benefit Plan / Group Subscriber ID Type Phone Address MEDICARE MEDICARE PART A AND B xxxxxxxxxx Medicare [place], [place] TRICARE [employer] xxxxxxxxx Advance Directives Patient has advance care planning documents on file. For more information, please contact:Naif Banks[address] [place] [address]
[2018-08-31 20:21] LABS: Absolute Lymphocytes (CBC) 0.9 K/uL (0.7-4.9); Absolute Monocytes 0.3 K/uL (0.1-1.3); Absolute Neutrophil 2.2 K/uL (1.8-8.0); Basophils % 0.8 % (0-1.3); Eosinophils % 3.3 % (0-4.4); Hematocrit 41.1 % (36.0-45.0); Lymphocytes % 24.2 % (15.3-44.8); MPV 8.6 fL (7.6-11.3); Monocytes % 8.9 % (3.3-12.3); RBC Red Blood Cell Count 4.93 M/uL (3.86-4.86)
[2018-08-31 20:39] LABS: Albumin 3.3 g/dL (3.4-5.0); Bilirubin Direct 0.1 mg/dL (0-0.2); Bilirubin Total 0.4 mg/dL (0.2-1.0); Protein, Total 7.3 g/dL (6.4-8.2)
[2018-08-31 20:43] LABS: Urine Blood TRACE (NEG); Urine Glucose NEGATIVE (NEG); Urine Protein NEGATIVE (NEG); Urine pH 6.5 (5.0-7.0)
[2018-08-31 20:50] LABS: Urine Bacteria >50 /HPF (<20); Urine Culture Reflex Order REFLEXED; Urine RBC <5 /HPF (NONE SEEN)
--- NOTE | 2018-08-31 23:43 | ER ---
Nurse's Notes [facility] Name: Rachna Peña Age: 83 yrs Sex: Female : 1935 Arrival Date: 08/31/2018 Time: 19:49 Bed 14 Private MD: Diagnosis: Large bowel obstruction;Left sided colitis with intestinal obstruction;Left adnexal mass Presentation: 08/31 19:40 Presenting complaint: EMS states: Pt reports diarrhea and lower abdominal pain. Her jb4 nurse reports that she has recurrent episodes of diarrhea only this time it was much more than usual. Denies bloody/ tarry stools. Pt had some dizziness when standing, Is hydrating well. 19:40 Transition of care: patient was not received from another setting of care. Onset of jb4 symptoms was August 31, 2018. Risk Assessment: Do you want to hurt yourself or someone else? Patient reports no desire to harm self or others. Initial Sepsis Screen: Does the patient meet any 2 criteria? No. Patient's initial sepsis screen is negative. Does the patient have a suspected source of infection? No. Patient's initial sepsis screen is negative. Care prior to arrival: None. 19:40 Method Of Arrival: [facility] jb4 19:40 Acuity: JENNIFER 3 jb4 Historical: - Allergies: 19:40 No Known Allergies; jb4 - Home Meds: 19:40 allopurinol 300 mg Oral tab 1 tab once daily [Active]; metoprolol tartrate 25 mg oral jb4 tab [Active]; furosemide 20 mg Oral tab 1 tab once daily [Active]; simvastatin 10 mg Oral tab 1 tab once daily [Active]; levetiracetam 500 mg oral tab 1 tab 2 times per day [Active]; meloxicam 7.5 mg oral tab 1 tab once daily [Active]; gabapentin 400 mg oral cap 1 cap 3 times per day [Active]; duloxetine 60 mg Oral cpDR 1 cap once daily [Active]; amlodipine 2.5 mg tab 1 tab once daily [Active]; levothyroxine 75 mcg tab 1 tab once daily [Active]; - PMHx: 19:40 Arthritis; Gout; High Cholesterol; Hypertension; Hypothyroidism; knee pain; jb4 - PSHx: 19:40 foot; cataract; jb4 - Immunization history:: Adult Immunizations unknown. - Social history:: Smoking status: Patient/guardian denies using tobacco, Patient/guardian denies using alcohol. - Ebola Screening: : No symptoms or risks identified at this time. Screenin:40 Abuse screen: Denies threats or abuse. Nutritional screening: No deficits noted. jb4 Tuberculosis screening: No symptoms or risk factors identified. Fall Risk IV access (20 points). Gait- Impaired (20 pts.). Total Haile Fall Scale indicates Low Risk Score (25-44 pts). Fall prevention measures have been instituted. Side Rails Up X 2 Placed close to Nursing Station Frequent Obs/Assesments occuring Family Present and informed to notify staff if they need to leave bedside. Assessment: 19:40 General: Appears in no apparent distress. comfortable, Behavior is calm, cooperative, jb4 appropriate for age. Pain: Complains of pain in abdomen Pain does not radiate. Pain currently is 0 out of 10 on a pain scale. Quality of pain is described as crampy. Neuro: Level of Consciousness is awake, alert, obeys commands, Oriented to person, place, time, situation. Cardiovascular: Patient's skin is warm and dry. Respiratory: Airway is patent Respiratory effort is even, unlabored, Respiratory pattern is regular, symmetrical. GI: Abdomen is round non-distended, Bowel sounds present X 4 quads. Abd is soft and non tender X 4 quads. : [place] in place Urine is cloudy. EENT: No signs and/or symptoms were reported regarding the EENT system. Derm: Skin is intact, Skin is pink, warm \T\ dry. Musculoskeletal: Circulation, motion, and sensation intact. 21:00 Reassessment: Patient appears in no apparent distress at this time. Patient and/or jb4 family updated on plan of care and expected duration. Pain level reassessed. Patient is alert, oriented x 3, equal unlabored respirations, skin warm/dry/pink. 22:00 Reassessment: Patient appears in no apparent distress at this time. Patient and/or jb4 family updated on plan of care and expected duration. Pain level reassessed. Patient is alert, oriented x 3, equal unlabored respirations, skin warm/dry/pink. 23:32 Reassessment: Patient appears in no apparent distress at this time. Patient and/or jb4 family updated on plan of care and expected duration. Pain level reassessed. Patient is alert, oriented x 3, equal unlabored respirations, skin warm/dry/pink. Provider is at the bedside. 09/01 00:30 Reassessment: Patient appears in no apparent distress at this time. Patient and/or jb4 family updated on plan of care and expected duration. Pain level reassessed. Patient is alert, oriented x 3, equal unlabored respirations, skin warm/dry/pink. 01:30 Reassessment: Patient appears in no apparent distress at this time. Patient and/or jb4 family updated on plan of care and expected duration. Pain level reassessed. Patient is alert, oriented x 3, equal unlabored respirations, skin warm/dry/pink. 02:45 Reassessment: Patient appears in no apparent distress at this time. Patient and/or jb4 family updated on plan of care and expected duration. Pain level reassessed. Patient is alert, oriented x 3, equal unlabored respirations, skin warm/dry/pink. Pt taken up by bed with solution engineer. A\T\o4, family at the bedside. Vital Signs: 08/31 19:40 BP 158 / 90; Pulse 72; Resp 16; Temp 98.1(O); Pulse Ox 96% on R/A; Weight 94.8 kg (R); jb4 Height 5 ft. 8 in. (172.72 cm) (R); Pain 8/10; 20:30 BP 163 / 91; Pulse 68; Resp 16; Pulse Ox 94% on R/A; jb4 21:30 BP 156 / 87; Pulse 76; Resp 16; Pulse Ox 96% on R/A; jb4 22:30 BP 159 / 80; Pulse 81; Resp 16; Pulse Ox 94% on R/A; jb4 23:30 BP 152 / 89; Pulse 83; Resp 16; Pulse Ox 96% on R/A; jb4 09/01 00:30 BP 152 / 100; Pulse 66; Resp 16; Pulse Ox 95% on R/A; jb4 01:30 BP 160 / 89; Pulse 68; Resp 16; Pulse Ox 96% on R/A; jb4 02:30 BP 160 / 104; Pulse 77; Resp 56; Pulse Ox 94% on R/A; jb4 08/31 19:40 Body Mass Index 31.78 (94.80 kg, 172.72 cm) [facility] ED Course: 08/31 19:40 Arm band placed on left wrist. jb4 19:40 Patient has correct armband on for positive identification. Bed in low position. Call [facility] light in reach. Side rails up X 1. Pulse ox on. NIBP on. 19:49 Patient arrived in ED. jb4 19:51 Gene Holland MD is Attending Physician. tw4 19:52 Triage completed. jb4 20:00 Claus Chanel RN is Primary Nurse. jb4 20:00 Initial lab(s) drawn, by in, sent to lab. Inserted saline lock: 20 gauge in right jb4 antecubital area, using aseptic technique. Blood collected. 20:10 Radiology exam delayed due to lab results not completed at this time. (BUN/Creatinine) vr IV insertion attempt and/or patient not having appropriate IV at this time. 20:21 Radiology exam delayed due to lab results not completed at this time. (BUN/Creatinine). vm2 20:[address] vr 21:09 CT completed. Patient tolerated procedure well. Patient moved back from CT. 2 21:16 CT Abd/Pelvis - W/Contrast In Process Unspecified. EDSD 23:39 Jonnie Patel MD is Hospitalizing Provider. [facility] 04 02:45 No provider procedures requiring assistance completed. Patient admitted, IV remains in jb4 place. Administered Medications: No medications were administered Outcome: 08/31 23:41 Decision to Hospitalize by Provider. tw4 09/01 02:45 Admitted to Med/surg accompanied by tech, family with patient, via stretcher, room 211, [facility] with chart, Report called to SHAWN Valentino Condition: stable Discharge instructions given to patient, family, Instructed on the need for admit, Demonstrated understanding of follow-up care. 03:04 Patient left the ED. [facility] Signatures: Dispatcher [employer] Dacia Marrufo James, RN RN [facility] Dacia Antunez [facility] Gene Holland MD MD [facility] Corrections: (The following items were deleted from the chart) 08/31 23:32 19:40 EENT: [place] [id number]
--- NOTE | 2018-08-31 23:43 | EDPHYS ---
Physician Documentation [facility] Name: Rachna Peña Age: 83 yrs Sex: Female : 1935 Arrival Date: 08/31/2018 Time: 19:49 Bed 14 Private MD: ED Physician Gene Holland HPI: 09/01 05:44 This 83 yrs old Female presents to ER via EMS with complaints of nausea and tw4 abdominal pain. 05:44 The patient presents with abdominal pain that is diffuse. Onset: The symptoms/episode tw4 began/occurred today. The symptoms do not radiate. Associated signs and symptoms: none. Modifying factors: The symptoms are alleviated by nothing, the symptoms are aggravated by nothing. Severity of pain: At its worst the pain was moderate in the emergency department the pain is unchanged. Historical: - Allergies: 08/31 19:40 No Known Allergies; jb4 - Home Meds: 19:40 allopurinol 300 mg Oral tab 1 tab once daily [Active]; metoprolol tartrate 25 mg oral jb4 tab [Active]; furosemide 20 mg Oral tab 1 tab once daily [Active]; simvastatin 10 mg Oral tab 1 tab once daily [Active]; levetiracetam 500 mg oral tab 1 tab 2 times per day [Active]; meloxicam 7.5 mg oral tab 1 tab once daily [Active]; gabapentin 400 mg oral cap 1 cap 3 times per day [Active]; duloxetine 60 mg Oral cpDR 1 cap once daily [Active]; amlodipine 2.5 mg tab 1 tab once daily [Active]; levothyroxine 75 mcg tab 1 tab once daily [Active]; - PMHx: 19:40 Arthritis; Gout; High Cholesterol; Hypertension; Hypothyroidism; knee pain; jb4 - PSHx: 19:40 foot; cataract; jb4 - Immunization history:: Adult Immunizations unknown. - Social history:: Smoking status: Patient/guardian denies using tobacco, Patient/guardian denies using alcohol. - Ebola Screening: : No symptoms or risks identified at this time. ROS: 09/01 05:44 Constitutional: Negative for fever, chills, and weight loss, Eyes: Negative for injury, tw4 pain, redness, and discharge, Cardiovascular: Negative for chest pain, palpitations, and edema, Respiratory: Negative for shortness of breath, cough, wheezing, and pleuritic chest pain, Abdomen/GI: Negative for abdominal pain, nausea, vomiting, diarrhea, and constipation, Back: Negative for injury and pain, MS/Extremity: Negative for injury and deformity, Skin: Negative for injury, rash, and discoloration, Neuro: Negative for headache, weakness, numbness, tingling, and seizure. Exam: 05:44 Constitutional: This is a well developed, well nourished patient who is awake, alert, tw4 and in no acute distress. Head/Face: Normocephalic, atraumatic. Chest/axilla: Normal chest wall appearance and motion. Nontender with no deformity. No lesions are appreciated. Cardiovascular: Regular rate and rhythm with a normal S1 and S2. No gallops, murmurs, or rubs. Normal PMI, no JVD. No pulse deficits. Respiratory: Lungs have equal breath sounds bilaterally, clear to auscultation and percussion. No rales, rhonchi or wheezes noted. No increased work of breathing, no retractions or nasal flaring. MS/ Extremity: Pulses equal, no cyanosis. Neurovascular intact. Full, normal range of motion. Neuro: Awake and alert, GCS 15, oriented to person, place, time, and situation. Cranial nerves II-XII grossly intact. Motor strength 5/5 in all extremities. Sensory grossly intact. Cerebellar exam normal. Normal gait. 05:44 Abdomen/GI: Inspection: distension, that is moderate, Bowel sounds: diminished, in all quadrants, Palpation: mild abdominal tenderness, in all quadrants. Vital Signs: 08/31 19:40 BP 158 / 90; Pulse 72; Resp 16; Temp 98.1(O); Pulse Ox 96% on R/A; Weight 94.8 kg (R); jb4 Height 5 ft. 8 in. (172.72 cm) (R); Pain 8/10; 20:30 BP 163 / 91; Pulse 68; Resp 16; Pulse Ox 94% on R/A; jb4 21:30 BP 156 / 87; Pulse 76; Resp 16; Pulse Ox 96% on R/A; jb4 22:30 BP 159 / 80; Pulse 81; Resp 16; Pulse Ox 94% on R/A; jb4 23:30 BP 152 / 89; Pulse 83; Resp 16; Pulse Ox 96% on R/A; 09/01 00:30 BP 152 / 100; Pulse 66; Resp 16; Pulse Ox 95% on R/A; 01:30 BP 160 / 89; Pulse 68; Resp 16; Pulse Ox 96% on R/A; 4 02:30 BP 160 / 104; Pulse 77; Resp 56; Pulse Ox 94% on R/A; 4 08/31 19:40 Body Mass Index 31.78 (94.80 kg, 172.72 cm) [facility] MDM: 08/31 19:51 Patient medically screened. 09/01 05:44 Differential diagnosis: bowel obstruction, diverticulitis, Peritonitis, Pyelonephritis, tw4 Ureterolithiasis. Data reviewed: vital signs, nurses notes. Data interpreted: Pulse oximetry: Interpretation: normal. Counseling: I had a detailed discussion with the patient and/or guardian regarding: the historical points, exam findings, and any diagnostic results supporting the discharge/admit diagnosis. Physician consultation: Jonnie Patel MD regarding admission, need to come to ED to see patient, and will see patient in ED. Special discussion:. ED course: Pts Ct scan revealed left ovarian mass measuring 7.7 cm with colitis in the rectal and sigmoid colon. 08/31 19:52 Order name: Basic Metabolic Panel 08/31 19:52 Order name: CBC with Diff; Complete Time: 23:36 08/31 23:36 Interpretation: Normal except: WBC 3.5; RBC 4.93; MCV 83.5; PLT 107. 08/31 19:52 Order name: Creatinine for Radiology; Complete Time: 23:37 08/31 19:52 Order name: Hepatic Function; Complete Time: 23:36 08/31 23:36 Interpretation: AST 13; ALB 3.3; GLOB 4.0; A/G 0.8. 08/31 19:52 Order name: Lipase; Complete Time: 23:36 08/31 23:37 Interpretation: Within normal limits: LIP 41. 08/31 19:52 Order name: Urine Microscopic Only; Complete Time: 23:37 08/31 23:37 Interpretation: Normal except: UWBC >50; UBACT >50. 08/31 20:39 Order name: Urine Dipstick--Ancillary (enter results); Complete Time: 23:35 cm6 08/31 20:51 Order name: Urine Culture [facility] 09/01 01:23 Order name: CBC with Automated Diff [facility] 09/01 01:23 Order name: Comprehensive Metabolic Panel [facility] 09/01 01:23 Order name: Lipase [facility] 09/01 01:23 Order name: Magnesium [facility] 09/01 01:23 Order name: Phosphorus [facility] 09/01 01:23 Order name: Protime (+INR) [facility] 08/31 19:52 Order name: IV Saline Lock; Complete Time: 20:24 tw 08/31 19:52 Order name: Labs collected and sent; Complete Time: 20:24 [facility] 08/31 19:52 Order name: Urine Dipstick-Ancillary (obtain specimen); Complete Time: 20:55 [facility] 08/31 20:09 Order name: CT Abd/Pelvis - W/Contrast [facility] 09/01 01:23 Order name: CONS Physician Consult [facility] 09/01 01:23 Order name: NPO [facility] 09/01 01:23 Order name: PTT, Activated Partial Thromb [facility] Administered Medications: No medications were administered Disposition: 08/31/18 23:41 Hospitalization ordered by Jonnie Patel for Inpatient Admission. Preliminary diagnosis are Large bowel obstruction, Left sided colitis with intestinal obstruction, Left adnexal mass. - Bed requested for Telemetry/MedSurg (Inpatient). - Status is Inpatient Admission. jb4 - Condition is Stable. - Problem is an ongoing problem. - Symptoms are unchanged. UTI on Admission? No Signatures: Dispatcher [facility] William Cornelia Claus Ortiz, RN RN jb4 Gene Holland MD MD tw4 Corrections: (The following items were deleted from the chart) :08/31 23:41 Hospitalization Ordered by Jonnie Patel MD for Inpatient Admission. ms Preliminary diagnosis is Large bowel obstruction; Left sided colitis with intestinal obstruction; Left adnexal mass. Bed requested for Telemetry/MedSurg (Inpatient). Status is Inpatient Admission. Condition is Stable. Problem is an ongoing problem. Symptoms are unchanged. UTI on Admission? No. tw4 09/01 03:04 01:29 08/31/2018 23:41 Hospitalization Ordered by Jonnie Patel MD for Inpatient jb4 Admission. Preliminary diagnosis is Large bowel obstruction; Left sided colitis with intestinal obstruction; Left adnexal mass. Bed requested for Telemetry/MedSurg (Inpatient). Status is Inpatient Admission. Condition is Stable. Problem is an ongoing problem. Symptoms are unchanged. UTI on Admission? No. ms
[2018-09-01] MEDS ORDERED: HYDROMORPHONE HCL 1 MG/ML INJ IV PRN (01:11)
[2018-09-01] MEDS ORDERED: ACETAMINOPHEN 650MG/RECT SUPP RECT PRN (01:11)
[2018-09-01] MEDS ORDERED: ONDANSETRON 4 MG/2 ML VIAL IV PRN (01:11)
[2018-09-01] MEDS ORDERED: Levofloxacin500mg IV 500 MG/100 ML BAG IV SCH (02:00)
[2018-09-01] MEDS: Ringers Lactate 1,000 ML IV SCH ×2 (03:11→18:00)
[2018-09-01] MEDS: KCL 20 MEQ/100 mL IVPB 20 MEQ/100 ML BAG IV SCH ×2 (04:27→06:00)
[2018-09-01 06:57] LABS: Absolute Lymphocytes (CBC) 0.8 K/uL (0.7-4.9); Absolute Monocytes 0.3 K/uL (0.1-1.3); Absolute Neutrophil 2.6 K/uL (1.8-8.0); Basophils % 0.4 % (0-1.3); Eosinophils % 2.9 % (0-4.4); Hematocrit 39.9 % (36.0-45.0); Lymphocytes % 21.3 % (15.3-44.8); MPV 9.9 fL (7.6-11.3); Monocytes % 8.8 % (3.3-12.3); RBC Red Blood Cell Count 4.82 M/uL (3.86-4.86)
[2018-09-01 06:58] LABS: Protime INR 1.08
[2018-09-01 07:18] LABS: Albumin 3.1 g/dL (3.4-5.0); Bilirubin Total 0.5 mg/dL (0.2-1.0); Magnesium 2.1 mg/dL (1.8-2.4); Phosphorus 2.8 mg/dL (2.5-4.9); Potassium 3.2 mmol/L (3.5-5.1); Protein, Total 6.9 g/dL (6.4-8.2)
--- NOTE | 2018-09-01 08:33 | P.HP ---
Certification for Inpatient Patient admitted to: Inpatient With expected LOS: >2 Midnights Patient will require the following post-hospital care: None Practitioner: I am a practitioner with admitting privileges, knowledge of patient current condition, hospital course, and medical plan of care. Services: Services provided to patient in accordance with Admission requirements found in Title 42 Section 412.3 of the Code of Federal Regulations Patient History Date of Service: 09/01/18 Reason for admission: QUESTIONABLE LARGE BOWEL OBSTRUCTION AND ADNEXAL MASS History of Present Illness: PATIENT IS AN 83-YEAR-OLD FEMALE WHO CAME TO THE HOSPITAL WITH ABDOMINAL DISTENTION. SHE HAS NOT HAD ANY NAUSEA OR VOMITING BUT HAS FELT VERY NAUSEATED OVER THE LAST FEW DAYS. HER ABDOMEN HAS BECOME MORE AND MORE DISTENDED. PATIENT HAS AN ADNEXAL MASS WHICH SHE HAS KNOWN ABOUT. SHE WAS TOLD THAT IT PROBABLY WAS NOT MALIGNANT. HOWEVER, OUR IMAGING STUDIES APPEAR TO SHOW SOMETHING DIFFERENT. SHE ALSO APPEARS SO POSSIBLY HAVE A COLONIC MASS WHICH IS CAUSING THE SIGMOID COLON TO BE DISTENDED. SHE HAS NOT HAD A COLONOSCOPY IN OVER 5 YEARS. WILL GO AND KEEP HER NPO AND GET GENERAL SURGERY AND GI EVALUATION. SHE WILL PROBABLY NEED TO FOLLOW WITH GYNECOLOGY AN OUTPATIENT. WILL SEE IF THE ADNEXAL MASSES CAUSING THE COLONIC OBSTRUCTION. PATIENT IS ALSO BEEN HARD OF HEARING FOR MANY YEARS. THIS STARTED WHEN SHE WAS A CHILD. SHE WEARS A DEVICE THAT HELPS WITH HER CARING WHEN SHE IS TALKING WITH PEOPLE. SHE APPEARS TO BE A LITTLE FORGETFUL WHEN I ASK HER QUESTIONS BECAUSE SHE HAS A LOT OF HER FAMILY MEMBERS ANSWER THE QUESTIONS. BUT THEN AT THE SAME TIME HER FAMILY TELLS ME THAT HER MEMORY IS BETTER THAN THEIRS. AT THIS TIME WILL WIRE COATER HER FOR HER COLONIC OBSTRUCTION AND NEUROLOGIC WORKUP CAN BE DONE AN OUTPATIENT. Allergies No Known Allergies Allergy (Unverified 03/15/17 01:19) Home Medications: Allopurinol [Zyloprim*] 300 mg PO DAILY 09/01/18 Amlodipine Besylate [Norvasc] 2.5 mg PO DAILY 09/01/18 Duloxetine [Cymbalta Dalayed Release Pellets] 60 mg PO DAILY 09/01/18 Furosemide [Lasix] 20 mg PO DAILY 09/01/18 Gabapentin [Neurontin] 400 mg PO TID 09/01/18 Levetiracetam [Keppra Xr] 500 mg PO BID 09/01/18 Levothyroxine [Synthroid] 75 mcg PO [id number] 09/01/18 Meloxicam [Mobic] 7.5 mg PO DAILY 09/01/18 Metoprolol Tartrate [Lopressor] 25 mg PO BID 09/01/18 Simvastatin 10 mg PO DAILY 09/01/18 - Past Medical/Surgical History Has patient received pneumonia vaccine in the past: No Diabetic: No -: arthritis -: gout -: HLD -: HTN -: knee pain -: hypothyroid -: irwin cataract -: right foot sx - Family History Father Family History: Reviewed- Non-Contributory - Social History Smoking Status: Never smoker Alcohol use: No CD- Drugs: No Caffeine use: No Place of Residence: Home Review of Systems 10-point ROS is otherwise unremarkable Physical Examination - Vital Signs Temperature: 97.9 F Blood Pressure: 165/77 Pulse: 77 Respirations: 16 Pulse Ox (%): 95 - Physical Exam General: Alert, In no apparent distress, Oriented x3 HEENT: Atraumatic, PERRLA, Mucous membr. moist/pink, EOMI, Sclerae nonicteric Neck: Supple, 2+ carotid pulse no bruit, No LAD, Without JVD or thyroid abnormality Respiratory: Clear to auscultation bilaterally, Normal air movement Cardiovascular: Regular rate/rhythm, Normal S1 S2, No murmurs Gastrointestinal: Normal bowel sounds, Soft and benign, No tenderness, No rebound, No guarding, Distended Musculoskeletal: No clubbing, No swelling, No tenderness Integumentary: No rashes Neurological: Normal speech, Normal tone, Sensation intact, Cranial nerves 3-12 intact, Normal affect, Abnormal gait, Abnormal strength Lymphatics: No axilla or inguinal lymphadenopathy - Studies Laboratory Data (last 24 hrs) 08/31/18 20:00: Creatinine 0.75 08/31/18 20:00: WBC 3.5 L, Hgb 13.3, Hct 41.1, Plt Count 107 L 08/31/18 20:00: Sodium 141, Potassium 3.0 L, BUN 12, Creatinine 0.76, Glucose 113 H, Total Bilirubin 0.4, AST 13 L, ALT 19, Alkaline Phosphatase 64, Lipase 41 L Assessment & Plan - Problems (Diagnosis) (1) Adnexal mass Current Visit: Yes Status: Acute (2) Large bowel obstruction Current Visit: Yes Status: Acute (3) Osteoarthritis Current Visit: Yes Status: Acute (4) Gout Current Visit: Yes Status: Acute (5) Hypothyroid Current Visit: Yes Status: Acute - Plan Plan: 1. General surgery and GI consultation 2. NPO 3. Aggressive IV hydration 4. Outpatient gynecology follow-up 5. Ultrasound of the abdomen to the workup hepatic lesions 6. Outpatient follow with Neurology as she does appear little forgetful 7. GI and DVT prophylaxis Discharge Plan: Home Plan to discharge in: Greater than 2 days - Advance Directives Does patient have a Living Will: Yes Does patient have a Durable POA for Healthcare: Yes - Code Status/Comfort Care Code Status Assessed: Yes Code Status: Full Code Critical Care: No Time Spent Managing PTS Care (In Minutes): 55
[2018-09-01] MEDS ORDERED: ENOXAPARIN 30 MG/0.3 ML SQ SCH (09:00)
--- NOTE | 2018-09-01 10:30 | RAD REPORT ---
EXAM DESCRIPTION: US - Abdomen Exam Complete - 09/01/2018 10:07 am CLINICAL HISTORY: Liver lesions, abnormal CT study COMPARISON: None. FINDINGS: Gallbladder size is normal. Several small gallstones are present. No active gallbladder pr ocess. Common bile duct is normal with no common duct stone identified. The liver and spleen are both normal in size. No suspicious splenic finding seen. There is poor sonographic penetrance of the live r. This is believed to be due to body habitus. Fatty liver disease is not suspected in was not eviden t on the CT study. The multiple cystic lesions seen on the CT study are very poorly visualized on the examination. Confirmation of simple cyst cannot be made on this examination. Based on the CT study, likely of an aggressive process is felt to be low. The pancreas is too obscured for assessment No hydronephrosis or suspicious mass in either kidney. Aorta and IVC mostly obscured. No acute findings on the CT study reported separately. No bulky lympha denopathy. IMPRESSION: Small gallstones are seen but no acute gallbladder process suspected. No biliary tree di latation. The liver was too poorly visualized to evaluate the multiple liver parenchymal cystic structures seen on the prior day CT study. Likelihood of a more aggressive liver process is felt to be low. If the additional findings detailed on the CT report are not malignant or worrisome, a follow-up exam ination in 4-[address] or MRI could be performed to evaluate the liver.
--- NOTE | 2018-09-01 11:41 | RAD REPORT ---
EXAM DESCRIPTION: CT - Abdomen Pelvis W Contrast - 08/31/2018 10:19 pm CLINICAL HISTORY: 83 years Female ABD PAIN COMPARISON: None TECHNIQUE: Images were obtained in axial, sagittal, and coronal planes. Intravenous contrast was adm inistered. This exam was performed according to our departmental dose-optimization program which includes use of Automated Exposure Control, adjustment of the mA and/or kV according to patient size and/or use of i terative reconstruction technique. FINDINGS: Abnormal mucosal thickening rectosigmoid colon and rectum. Marked dilatation sigmoid colon proximal to region of mucosal thickening. Focal stricture or mucosal thickening at zone of transitio n in this region difficult to exclude. Sigmoid colon measures 9.8 cm in greatest anterior posterior d imension. No perforation or abscess. No associated diverticular change. No definite evidence for volv ulus. Marked stool right colon. Appendix not well identified. No secondary signs for appendicitis. Multiple low-attenuation lesions involving the liver likely hepatic cysts. Additional calcified granu irving involving the liver. Calcified granuloma involving the spleen. Mild fatty replacement of pancrea s. Cholelithiasis. No obstructing renal calcifications bilaterally. Right renal cyst. No hydronephrosis bilaterally. Fol ey catheter balloon within the bladder. Bladder is decompressed. Septated cystic lesion left pelvis measuring 7.7 cm in transverse dimension, 5.8 cm superior-inferior dimension, and 3.8 cm in anterior posterior dimension. Septal calcification is present. 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 Minimal pelvic fluid. Right pleural effusion. Airspace attenuation right lower lobe consistent with infiltrate and atelecta tic change. Chronic parenchymal stranding lower lobes bilaterally. Pleural thickening on left. No acute osseous abnormality. Severe multilevel osteoarthritic change. IMPRESSION: Abnormal mucosal thickening rectosigmoid colon and rectum likely colitis. Critically dil ated sigmoid and rectosigmoid colon proximal to region of mucosal thickening. Possible stricture or n eoplasm at transition zone. Correlation with colonoscopy would be suggested to further characterize t hese findings. No associated perforation. 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 Pelvic ultrasound correlat ion suggested for further characterization. Cholelithiasis. Suspected multiple hepatic cysts. Ultrasound correlation could be performed for confi rmation and to exclude more aggressive etiology. Small right pleural effusion. Chronic changes lower lungs bilaterally. Electronically signed by: Christine Ballesteros MD 08/31/2018 10:10 PM CDT Due to temporary technical issues with the PACS/Fluency reporting system, reports are being signed by the in house radiologist as a courtesy to ensure prompt reporting. The interpreting radiologist is f ully responsible for the content of the report.
[2018-09-01] MEDS: METRONIDAZOLE 500mg IVPB 500 MG/100 ML BAG IV SCH ×2 (12:36→18:06)
--- NOTE | 2018-09-01 18:49 | CON ---
Date of Consultation: 09/01/2018 Diagnoses: Abdominal distention, large bowel obstruction, adnexal mass, colitis, probably colonic tu mor. History Of Present Illness: This is a case of an 83-year-old patient, comes to us with abdominal dis tention. The patient has some mild tenderness all over the area. She was told in the past that she has an adnexal mass, but apparently what we can get from the information from her since it is limited , she is saying it was nothing malignant. Now on the CAT scan shows, she has a colonic mass with sev ere colitis causing a great distention and causing bowel obstruction. She was admitted here to the [facility] now in the afternoon and tell me about it and they asked me to see the patient. We have no molina llection of any colonoscopy within the last 5 years or least. Most of the information is obtained fr om the chart. She is hard of hearing and she also has some limitation and knowledge of her condition s. Allergies: NONE. Past Medical Problems: Include gout, hypertension. Past Surgical History: Include cataract and right foot surgery. Family History: Unknown. Social History: She does smoke. She does drink alcohol. Review of Systems: General: The patient is awake, in no distress. Chest: No shortness of breath. Abdomen: Distended. She has been like that for a long time, very distended and hard, although there is no rebound tenderness. Extremities: Good capillary refill. Rectal: Deferred. Laboratory Data: Blood work shows WBC count of 3.9 with hemoglobin of 13.1. White count of 36. CAT scan of abdomen and pelvis shows what they claimed last night as a critical distention of her colon due to a colonic mass with severe thickening of that area. There is also a septated adnexal mass rig ht near the area of obstruction too, may be a combination of a colonic obstruction from a mass plus t he adnexal mass, not allowing this to properly distend and causing a colon obstruction. Assessment And Plan: An 83-year-old patient with colonic obstruction, colonic mass associated with a dnexal mass. I believe this patient should be in a tertiary center with Colorectal Service and Oncol ogical Service for child care. This institution does not provide those 2 services. I further disc ussed that with the primary doctor in this area. This patient, I believe should be moved from the ER to Colorectal Surgery. They came to this floor and still I believe it should be by a colorectal amanda geon while they can address not only colonic mass and the obstruction, but also if they find that the adnexa is associated with it at least they have the way how to get any specialty in that area to jus t address 2 issues at the same time. I fully instructed the primary doctor to initiate transfers to a place where they can provide a service that she needs. Right now, she does not have peritonitis. If she stay here overnight, we would like to do an x-ray tomorrow morning to look out for any worseni ng of her condition. RODRIGUEZ/MAUDE Voice ID: [id number] Report ID: [id number]
[2018-09-01] MEDS ORDERED: KCL 20 MEQ/100 mL IVPB 20 MEQ/100 ML BAG IV SCH (20:00)
== END 2018-09-01 22:20 | disposition short-term general hospital (02) | DRG 390 ==
LOC: ER 19:42 → ERHOLD 09-01 01:28 → 2ND 09-01 02:37
PROVIDERS: ADMIT Hospitalist; ATTEND Family Medicine
DX: K56.609 Unspecified intestinal obstruction, unspecified as to partial versus complete obstruction (principal); E03.9 Hypothyroidism, unspecified; E78.5 Hyperlipidemia, unspecified; M10.9 Gout, unspecified; M19.90 Unspecified osteoarthritis, unspecified site; R19.09 Other intra-abdominal and pelvic swelling, mass and lump; K52.9 Noninfective gastroenteritis and colitis, unspecified; I10 Essential (primary) hypertension
CPT/HCPCS: 36415; 74177; 76700; 80048; 80053; 80076; 81003; 81015; 83690; 83735; 84100; 84132; 85025; 85610; 85730; 87077; 87086; 87088; 87186; 99285; J1170; J1650; Q9967

== ENCOUNTER 2019-01-11 04:37 | Emergency (ER) | payer OTHER ==
--- OUTSIDE RECORDS SUMMARY | 2019-01-11 04:39 | XMS REPORT | Clinical Summary ---
:1935 Author Organization [facility] Address [address] [place] [address] Care Team Providers Name Role Phone Ranjith Pope MD Primary Care Provider Allergies No Known Allergies Medications Medication Sig Dispensed Refills Start Date End Date Status traMADol (ULTRAM) 50 mg Take 50 mg by 0 Active tablet mouth every 8 (eight) hours as needed for moderate pain. allopurinol (ZYLOPRIM) Take 300 mg by 0 Active 300 MG tablet mouth daily. candesartan (ATACAND) Take 32 mg by 0 Active 32 MG tablet mouth daily. simvastatin (ZOCOR) 10 Take 10 mg by 0 Active MG tablet mouth nightly. levothyroxine Take 75 mcg by 0 Active (SYNTHROID, LEVOXYL) 75 mouth every mcg tablet morning. DULoxetine (CYMBALTA) Take 60 mg by 0 Active 60 MG capsule mouth daily. Active Problems Problem Noted Date HTN (hypertension), malignant 09/29/2017 Hematemesis with nausea 09/29/2017 Overview: Added automatically from request for surgery [id number] Social History Tobacco Use Types Packs/Day Years Used Date Former Smoker Sex Assigned at Date Recorded Not on file Job Start Date Occupation Industry Not on file Not on file Not on file Travel History Travel Start Travel End No recent travel history available. Last Filed Vital Signs Not on file Plan of Treatment Health Maintenance Due Date Last Done Comments SHINGLES VACCINES (#1) 02/12/1986 65+ PNEUMOCOCCAL VACCINE (1 of 2 - PCV13) 02/12/2001 INFLUENZA VACCINE 12/21/2018 Results Not on fileafter 01/10/2018 Insurance Payer Benefit Plan / Subscriber ID Effective Dates Phone Address Type Group MEDICARE MEDICARE PART A xxxxxxxxxx 2001-Present [place], [place] Medicare AND B [facility] xxxxxxxxx 2017-Present [employer] (Home) [place] [address] Advance Directives For more information, please contact: [phone] Type Date Recorded Patient Network Desktop Support Specialist Explanation Advance Directives, Living Will and Medical Power of [employer]
--- OUTSIDE RECORDS SUMMARY | 2019-01-11 04:40 | XMS REPORT | Clinical Summary ---
:[address] [facility] Address [address] [place] [address] Care Team Providers Name Role Phone Unavailable Primary Care Provider Unavailable Allergies No Known Allergies Medications Medication Sig Dispensed Refills Start Date End Date Status DULoxetine Take 60 mg by 0 Active (CYMBALTA) 20 MG mouth daily. capsule levothyroxine Take 75 mcg 0 Active (SYNTHROID, by mouth LEVOTHROID) 75 MCG Every morning tablet on an empty stomach. metoprolol Take 25 mg by 0 Active (LOPRESSOR) 25 MG mouth 2 (two) tablet times daily. meloxicam (MOBIC) Take 7.5 mg 0 Active 7.5 MG tablet by mouth daily. gabapentin Take 400 mg 0 Active (NEURONTIN) 400 MG by mouth 3 capsule (three) times daily. simvastatin (ZOCOR) Take 10 mg by 0 Active 10 MG tablet mouth daily. allopurinol Take 300 mg 0 Active (ZYLOPRIM) 300 MG by mouth tablet daily. levETIRAcetam Take 500 mg 0 Active (KEPPRA) 500 MG by mouth 2 tablet (two) times daily. amLODIPine (NORVASC) Take 1 tablet 30 tablet 0 09/08/2018 Active 5 MG tablet (5 mg total) by mouth daily. polyethylene glycol Take 17 g by 30 each 0 09/07/2018 Active (GLYCOLAX) 17 gram mouth daily. packet amLODIPine (NORVASC) Take 2.5 mg 0 09/07/2018 Discontinued 2.5 MG tablet by mouth daily. furosemide (LASIX) Take 20 mg by 0 09/07/2018 Discontinued 20 MG tablet mouth daily. Active Problems Problem Noted Date Partial small bowel obstruction 09/02/2018 Bowel obstruction 09/02/2018 Encounters Date Type Specialty Care Team Description 09/03/2018 Surgery Gastroenterology Hudson Alejandra SIGMOIDOSCOPY MD Anthony 09/03/2018 Anesthesia Event [facility]astroenterology [facility] ([facility] (Primary Dx); - Encounter Gabe Wyman MD Partial small bowel obstruction (HCC); 09/07/2018 Brann, Uncontrolled hypertension; Christopher Hypothyroidism, unspecified type MD Jose Angel Martin Heather Renee, MD after 01/10/2018 Social History Tobacco Use Types Packs/Day Years Used Date Never Smoker Smokeless Tobacco: Never Used Alcohol Use Drinks/Week oz/Week Comments No Alcohol Habits Answer Date Recorded How often do you have a drink containing alcohol? Never 09/03/2018 How many drinks containing alcohol do you have on a typical Not asked day when you are drinking? How often do you have six or more drinks on one occasion? Not asked Sex Assigned at Date Recorded Not on file Job Start Date Occupation Industry Not on file Not on file Not on file Travel History Travel Start Travel End No recent travel history available. Last Filed Vital Signs Vital Sign Reading Time Taken Blood Pressure 135/69 09/07/2018 11:33 AM CDT Pulse 84 09/07/2018 11:33 AM CDT Temperature 35.8 C (96.5 F) 09/07/2018 11:33 AM CDT Respiratory Rate 18 09/07/2018 11:33 AM CDT Oxygen Saturation 96% 09/07/2018 11:33 AM CDT Inhaled Oxygen Concentration 21% 09/04/2018 10:00 PM CDT Weight - - Height - - Body Mass Index - - Plan of Treatment Not on file Procedures Procedure Name Priority Date/Time Associated Comments Diagnosis RHYTHM STRIP - SCAN 09/08/2018 11:50 AM CDT BASIC METABOLIC PANEL Routine 09/07/2018 8:37 Results for this (7) AM CDT procedure are in the results section. PHOSPHORUS Routine 09/07/2018 8:37 Results for this AM CDT procedure are in the results section. MAGNESIUM Routine 09/07/2018 8:37 Results for this AM CDT procedure are in the results section. POCT-GLUCOSE METER Routine 09/07/2018 7:43 Results for this AM CDT procedure are in the results section. BASIC METABOLIC PANEL Routine 09/06/2018 8:01 Results for this (7) AM CDT procedure are in the results section. PHOSPHORUS Routine 09/06/2018 8:01 Results for this AM CDT procedure are in the results section. MAGNESIUM Routine 09/06/2018 8:01 Results for this AM CDT procedure are in the results section. CBC W/PLT COUNT & AUTO Routine 09/05/2018 4:35 Results for this DIFFERENTIAL AM CDT procedure are in the results section. PHOSPHORUS Routine 09/05/2018 4:35 Results for this AM CDT procedure are in the results section. MAGNESIUM Routine 09/05/2018 4:35 Results for this AM CDT procedure are in the results section. COMPREHENSIVE METABOLIC Routine 09/05/2018 4:35 Results for this PANEL AM CDT procedure are in the results section. CBC W/PLT COUNT & AUTO Routine 09/05/2018 4:35 Results for this DIFFERENTIAL AM CDT procedure are in the results section. CARCINOEMBRYONIC ANTIGEN Routine 09/04/2018 5:59 Results for this (CEA) PM CDT procedure are in the results section. CANCER ANTIGEN 125 (CA Routine 09/04/2018 5:59 Results for this 125) PM CDT procedure are in the results section. CARBOHYDRATE ANTIGEN Routine 09/04/2018 5:59 Results for this 19-9 (CA 19-9) PM CDT procedure are in the results section. CBC W/PLT COUNT & AUTO Routine 09/04/2018 4:28 Results for this DIFFERENTIAL AM CDT procedure are in the results section. COMPREHENSIVE METABOLIC Routine 09/04/2018 4:28 Results for this PANEL AM CDT procedure are in the results section. CBC W/PLT COUNT & AUTO Routine 09/04/2018 4:28 Results for this DIFFERENTIAL AM CDT procedure are in the results section. US PELVIS Routine 09/04/2018 2:21 Results for this AM CDT procedure are in the results section. POCT-GLUCOSE METER Routine 09/03/2018 5:35 Results for this PM CDT procedure are in the results section. REPORT OF PROCEDURE - 09/03/2018 3:30 ENDOSCOPY URL PM CDT SIGMOIDOSCOPY 09/03/2018 3:16 ESRD (end stage PM CDT renal disease) (HCC) POCT-GLUCOSE METER Routine 09/03/2018 12:59 Results for this PM CDT procedure are in the results section. XR ABDOMEN 1 VIEW Routine 09/03/2018 12:08 Results for this PM CDT procedure are in the results section. POCT-GLUCOSE METER Routine 09/03/2018 8:21 Results for this AM CDT procedure are in the results section. CBC W/PLT COUNT & AUTO Routine 09/02/2018 3:26 Results for this DIFFERENTIAL AM CDT procedure are in the results section. MAGNESIUM Routine 09/02/2018 3:26 Results for this AM CDT procedure are in the results section. COMPREHENSIVE METABOLIC Routine 09/02/2018 3:26 Results for this PANEL AM CDT procedure are in the results section. CBC W/PLT COUNT & AUTO Routine 09/02/2018 3:26 Results for this DIFFERENTIAL AM CDT procedure are in the results section. after 01/10/2018 Results RHYTHM STRIP - SCAN (09/08/2018 11:50 AM CDT) Narrative Performed At Phosphorus (09/07/2018 8:37 AM CDT)Only the most recent of3 resultswithin the time period is included. Phosphorus 3.9 2.3 - 4.7 mg/dL [facility] Specimen Blood Performing Organization Address City/[facility] Phone Number [address] [address] [phone] CENTER Magnesium (09/07/2018 8:37 AM CDT)Only the most recent of4 resultswithin the time period is included. Magnesium 2.1 1.6 - 2.6 mg/dL [facility] Specimen Blood Performing Organization Address City/[facility]/Zipcode Phone Number [address] [phone] [place] Basic Metabolic Panel (09/07/2018 8:37 AM CDT)Only the most recent of2 resultswithin the time period is included. Sodium 140 136 - 145 meq/L [facility] Potassium 3.8 3.5 - 5.1 meq/L [facility] Chloride 105 98 - 107 meq/L [facility] CO2 28 22 - 29 meq/L [facility] BUN 10 7 - 21 mg/dL [facility] Creatinine 0.70 0.57 - 1.25 mg/dL [facility] Glucose 99 70 - 105 mg/dL [facility] Calcium 9.2 8.4 - 10.2 mg/dL [facility] EGFR 80Comment: ESTIMATED GFR IS mL/min/1.73 sq m [facility] NOT ACCURATE CREATININE [facility] CENTER CLEARANCE IN PREDICTING GLOMERULAR FILTRATION RATE. ESTIMATED GFR IS NOT APPLICABLE FOR DIALYSIS PATIENTS. Specimen Blood Performing Organization Address City/[facility]/[place] [address] [place] POC-Glucose meter (09/07/2018 7:43 AM CDT)Only the most recent of4 resultswithin the time period is included. POC-Glucose Meter 106Comment: TESTED AT 70 - 110 mg/dL [facility] BSC [address] [place] [address] Specimen Blood Performing Organization Address City/[facility] [place] [address] [phone] [place] CBC with platelet count + automated diff (09/05/2018 4:35 AM CDT)Only the most recent of3 resultswithin the time period is included. WBC 5.1 3.5 - 10.5 K/L [facility] RBC 4.59 3.93 - 5.22 M/L [facility] Hemoglobin 12.3 11.2 - 15.7 GM/DL [facility] Hematocrit 38.0 34.1 - 44.9 % [facility] MCV 82.8 79.4 - 94.8 fL [facility] MCH 26.8 25.6 - 32.2 pg [facility] MCHC 32.4 32.2 - 35.5 GM/DL [facility] RDW 16.4 (H) 11.7 - 14.4 % [facility] Platelets 120 (L) 150 - 450 K/CU MM [facility] MPV 11.2 9.4 - 12.3 fL [facility] nRBC 0 0 - 0 /100 WBC [facility] % Neutros 71 % [facility] % Lymphs 15 % [facility] % Monos 12 % [facility] % Eos 1 % [facility] % Baso 0 % [facility] # Neutros 3.63 1.56 - 6.13 K/L [facility] # Lymphs 0.77 (L) 1.18 - 3.74 K/L [facility] # Monos 0.61 (H) 0.24 - 0.36 K/L [facility] # Eos 0.07 0.04 - 0.36 K/L [facility] # Baso 0.01 0.01 - 0.08 K/L [facility] Immature Granulocytes-Relative 0 0 - 1 % [facility] Specimen Blood Performing Organization Address City/State/Zipcode Phone Number [facility] [address] [place] [address] CENTER Comprehensive metabolic panel (09/05/2018 4:35 AM CDT)Only the most recent of3 resultswithin the time period is included. Protein, Total 6.1 6.0 - 8.3 gm/dL [facility] Albumin 3.1 (L) 3.5 - 5.0 g/dL [facility] Alkaline Phosphatase 56 40 - 150 U/L [facility] Total Bilirubin 1.0 0.2 - 1.2 mg/dL [facility] Sodium 137 136 - 145 meq/L [facility] Potassium 2.8 (L) 3.5 - 5.1 meq/L [facility] Chloride 103 98 - 107 meq/L [facility] CO2 25 22 - 29 meq/L [facility] BUN 6 (L) 7 - 21 mg/dL [facility] Creatinine 0.61 0.57 - 1.25 mg/dL [facility] Glucose 101 70 - 105 mg/dL [facility] Calcium 9.0 8.4 - 10.2 mg/dL [facility] AST 19 5 - 34 U/L [facility] ALT 17 6 - 55 U/L [facility] EGFR 94Comment: ESTIMATED GFR mL/min/1.73 sq m [facility] IS NOT ACCURATE [facility] CREATININE CLEARANCE IN PREDICTING GLOMERULAR FILTRATION RATE. ESTIMATED GFR IS NOT APPLICABLE FOR DIALYSIS PATIENTS. Specimen Blood Performing Organization Address City/[facility] Phone Number [facility] [address] [place] [address] [phone] CENTER Carbohydrate antigen 19-9 (CA 19-9) (09/04/2018 5:59 PM CDT) CA 19-9 16 <34 U/mL [facility] Comment: This test was performed using the Siemens Chemiluminescent method. Values obtained from different assay methods cannot be used interchangeably. CA19-9 levels, regardless of value, should not be interpreted as absolute evidence of the presence or absence of disease. Specimen Blood Narrative Performed At Performing Lab [facility] [place] [address] [place] [address] Nuria Payan MD, PhD, ZEFERINO Performing Organization Address City/[facility] Hospital[facility] [place] [address] [facility]OR[facility] [address] [facility] Cancer Antigen 125 (CA 125) (09/04/2018 5:59 PM CDT) CA 125 11 <35 U/mL [facility] Comment: This test was performed using the Khur[employer] [place] Chemiluminescent method. Values obtained from different assay methods cannot be used interchangeably. CA 125 levels, regardless of value, should not be interpreted as absolute evidence of the presence or absence of disease. Specimen Blood Narrative Performed At Performing Lab [facility] [employer] [facility] [address] [place] [address] Nuria Payan MD, PhD, ZEFERINO Performing Organization Address City/[facility]/Zipcode Phone Number [facility], [place] [address] [facility] [address] [facility] Carcinoembryonic Antigen (CEA) (09/04/2018 5:59 PM CDT) CEA, SERUM 3.0 0.0 - 5.0 ng/mL [facility] Specimen Blood Performing Organization Address City/[facility] Phone Number [place] [phone] [place] [address] CENTER US pelvis (09/04/2018 2:21 AM CDT) Specimen Narrative Performed At FINAL REPORT [facility] US, PELVIS CLINICAL INDICATION: large adnexal mass per outside hospital COMPARISON: None TECHNIQUE:Ultrasound imaging of the pelvis was performed transabdominally through a distended urinary bladder followed by transvaginal examination postvoid. Color and spectral Doppler evaluation was also performed. FINDINGS: Uterus Orientation: Anteverted Size: 5.9 x 8.7 x 2.9 cm Masses: None Endometrial thickness: 0.8 cm. Cervix: Unremarkable Adnexa: Right Ovary: Right ovary is not definitely identified Left Ovary: Left ovary is not definitely identified Free fluid: None. Additional findings: None IMPRESSION: Limited transabdominal exam due to patient discomfort. Per the electronic medical record, outside images indicate and a left adnexal mass obstructing the sigmoid colon, which is not well-seen on current exam. Additionally, multiple gas-filled loops of bowel obscured the adnexa on transabdominal imaging. Uploading outside images referenced with an electronic medical record would be very helpful for targeted transvaginal exam given degree of patient discomfort. If these are not available, recommend repeat CT imaging. Signed: Magda Abel MD Report Verified Date/Time:09/04/2018 04:00:55 Reading Location: [address] Neuro Reading Room Procedure Note Interface, External Ris In - 09/04/2018 4:03 AM CDT FINAL REPORT US, PELVIS CLINICAL INDICATION: large adnexal mass per outside hospital COMPARISON: None TECHNIQUE: Ultrasound imaging of the pelvis was performed transabdominally through a distended urinary bladder followed by transvaginal examination postvoid. Color and spectral Doppler evaluation was also performed. FINDINGS: Uterus Orientation: Anteverted Size: 5.9 x 8.7 x 2.9 cm Masses: None Endometrial thickness: 0.8 cm. Cervix: Unremarkable Adnexa: Right Ovary: Right ovary is not definitely identified Left Ovary: Left ovary is not definitely identified Free fluid: None. Additional findings: None IMPRESSION: Limited transabdominal exam due to patient discomfort. Per the electronic medical record, outside images indicate and a left adnexal mass obstructing the sigmoid colon, which is not well-seen on current exam. Additionally, multiple gas-filled loops of bowel obscured the adnexa on transabdominal imaging. Uploading outside images referenced with an electronic medical record would be very helpful for targeted transvaginal exam given degree of patient discomfort. If these are not available, recommend repeat CT imaging. Signed: Magda Abel MD Report Verified Date/Time: 09/04/2018 04:00:55 Reading Location: [address] Neuro Reading Room Performing Organization Address City/State/Zipcode Phone Number [facility] REPORT OF PROCEDURE - ENDOSCOPY URL (09/03/2018 3:30 PM CDT) Narrative Performed At XR abdomen / KUB 1 view (09/03/2018 12:08 PM CDT) Specimen Narrative Performed At FINAL REPORT [facility] Abdomen , one view History: Evaluate for colonic obstruction Comparison:none Findings: Moderate diffuse colonic distention.No definite pneumoperitoneum, although assessment is limited by supine patient positioning.No definite bowel pneumatosis or portal venous gas.No calcifications along the expected course of the urinary tract. Impression: Moderate diffuse colonic distention. Distal large bowel obstruction cannot be excluded. Signed: Kai Uriostegui MD Report Verified Date/Time:09/03/2018 13:20:58 Reading Location: [facility] B1 C013Y CT Body Reading Room Procedure Note Interface, External Ris In - 09/03/2018 1:23 PM CDT FINAL REPORT Abdomen , one view History: Evaluate for colonic obstruction Comparison:none Findings: Moderate diffuse colonic distention. No definite pneumoperitoneum, although assessment is limited by supine patient positioning. No definite bowel pneumatosis or portal venous gas. No calcifications along the expected course of the urinary tract. Impression: Moderate diffuse colonic distention. Distal large bowel obstruction cannot be excluded. Signed: Kai Uriostegui MD Report Verified Date/Time: 09/03/2018 13:20:58 Reading Location: [facility] B1 C013Y CT Body Reading Room Performing Organization Address City/State/Zipcode Phone Number [facility] after 01/10/2018 Insurance Payer Benefit Plan / Group Subscriber ID Type Phone Address MEDICARE MEDICARE A B xxxxxxxxxxx Medicare FOR LIFE xxxxxxxxx Other Govt (, [place], [facility], etc.) (Home) [place] [address] Advance Directives For more information, please contact:[address] [phone] Code Status Date Activated Date Inactivated Comments Full Code 09/02/2018 1:47 AM 09/07/2018 5:52 PM This code status was determined by: Patient
--- OUTSIDE RECORDS SUMMARY | 2019-01-11 04:40 | XMS REPORT ---
:1935 Author Organization [facility] Address [address] [place] [address] [address] [place] [address] Care Team Providers Name Role Phone ANA PATEL Unavailable Unavailable Problems This patient has no known problems. Allergies, Adverse Reactions, Alerts This patient has no known allergies or adverse reactions. Medications This patient has no known medications. Results Test Description Test Time Test Comments Text Results Atomic Results Result Comments PHOSPHORUS 2018-09-07 09:22:00 Test Item Value Reference Range Comments PHOSPHORUS (BEAKER) (test gsrm=771) 3.9 mg/dL 2.3-4.7 [id number] 09:22:00 Test Item Value Reference Range Comments MAGNESIUM (BEAKER) (test bkss=114) 2.1 mg/dL 1.6-2.6 BASIC METABOLIC [id number] 09:22:00 Test Item Value Reference Range Comments SODIUM (BEAKER) (test 140 meq/L 136-145 iqrx=408) POTASSIUM (BEAKER) (test 3.8 meq/L 3.5-5.1 rovz=400) CHLORIDE (BEAKER) (test 105 meq/L 98-107 dwws=110) CO2 (BEAKER) (test 28 meq/L 22-29 oxnr=278) BLOOD UREA NITROGEN 10 mg/dL 7-21 (BEAKER) (test zqyd=152) CREATININE (BEAKER) (test 0.70 mg/dL 0.57-1.25 tdwc=320) GLUCOSE RANDOM (BEAKER) 99 mg/dL 70-105 (test eami=107) CALCIUM (BEAKER) (test 9.2 mg/dL 8.4-10.2 wtqg=233) EGFR (BEAKER) (test 80 mL/min/1.73 sq m ESTIMATED GFR IS NOT bnam=6327) ACCURATE CREATININE CLEARANCE IN PREDICTING GLOMERULAR FILTRATION RATE. ESTIMATED GFR IS NOT APPLICABLE FOR DIALYSIS PATIENTS. POCT-GLUCOSE [id number] 07:46:00 Test Item Value Reference Range Comments POC-GLUCOSE METER (BEAKER) 106 mg/dL 70-110 TESTED AT [facility] [address] [facility] (test mvaw=4769) [facility] [address] [id number] 08:36:00 Test Item Value Reference Range Comments PHOSPHORUS (BEAKER) (test aljv=867) 3.4 mg/dL 2.3-4.7 [id number] 08:36:00 Test Item Value Reference Range Comments MAGNESIUM (BEAKER) (test wrst=828) 2.1 mg/dL 1.6-2.6 BASIC METABOLIC [id number] 08:36:00 Test Item Value Reference Range Comments SODIUM (BEAKER) (test 140 meq/L 136-145 hmyx=386) POTASSIUM (BEAKER) (test 3.7 meq/L 3.5-5.1 jrsq=150) CHLORIDE (BEAKER) (test 106 meq/L 98-107 bqqo=383) CO2 (BEAKER) (test 29 meq/L 22-29 mrwb=006) BLOOD UREA NITROGEN 9 mg/dL 7-21 (BEAKER) (test fhui=908) CREATININE (BEAKER) (test 0.69 mg/dL 0.57-1.25 nyoy=881) GLUCOSE RANDOM (BEAKER) 97 mg/dL 70-105 (test wpmk=252) CALCIUM (BEAKER) (test 9.1 mg/dL 8.4-10.2 qodg=126) EGFR (BEAKER) (test 81 mL/min/1.73 sq m ESTIMATED GFR IS NOT szvr=7081) ACCURATE CREATININE CLEARANCE IN PREDICTING GLOMERULAR FILTRATION RATE. ESTIMATED GFR IS NOT APPLICABLE FOR DIALYSIS PATIENTS. [id number] 06:08:00 Test Item Value Reference Range Comments PHOSPHORUS (BEAKER) (test csoa=073) 2.9 mg/dL 2.3-4.7 [id number] 06:08:00 Test Item Value Reference Range Comments MAGNESIUM (BEAKER) (test uxkz=943) 1.8 mg/dL 1.6-2.6 COMPREHENSIVE METABOLIC [id number] 06:08:00 Test Item Value Reference Range Comments TOTAL PROTEIN (BEAKER) 6.1 gm/dL 6.0-8.3 (test xjmk=857) ALBUMIN (BEAKER) (test 3.1 g/dL 3.5-5.0 bqzd=7854) ALKALINE PHOSPHATASE 56 U/L 40-150 (BEAKER) (test mdpb=410) BILIRUBIN TOTAL (BEAKER) 1.0 mg/dL 0.2-1.2 (test nmwf=267) SODIUM (BEAKER) (test 137 meq/L 136-145 lvum=394) POTASSIUM (BEAKER) (test 2.8 meq/L 3.5-5.1 ivlb=342) CHLORIDE (BEAKER) (test 103 meq/L 98-107 bbdk=931) CO2 (BEAKER) (test 25 meq/L 22-29 bywo=126) BLOOD UREA NITROGEN 6 mg/dL 7-21 (BEAKER) (test aotq=027) CREATININE (BEAKER) (test 0.61 mg/dL 0.57-1.25 okwi=382) GLUCOSE RANDOM (BEAKER) 101 mg/dL 70-105 (test okbd=399) CALCIUM (BEAKER) (test 9.0 mg/dL 8.4-10.2 ebew=099) AST (SGOT) (BEAKER) (test 19 U/L 5-34 gjig=555) ALT (SGPT) (BEAKER) (test 17 U/L 6-55 xawr=412) EGFR (BEAKER) (test 94 mL/min/1.73 sq m ESTIMATED GFR IS NOT fwad=2544) ACCURATE CREATININE CLEARANCE IN PREDICTING GLOMERULAR FILTRATION RATE. ESTIMATED GFR IS NOT APPLICABLE FOR DIALYSIS PATIENTS. CBC W/PLT COUNT & AUTO [id number] 05:28:00 Test Item Value Reference Range Comments WHITE BLOOD CELL COUNT (BEAKER) (test xhym=263) 5.1 K/ L 3.5-10.5 RED BLOOD CELL COUNT (BEAKER) (test piqi=119) 4.59 M/ L 3.93-5.22 HEMOGLOBIN (BEAKER) (test vxbx=193) 12.3 GM/DL 11.2-15.7 HEMATOCRIT (BEAKER) (test mdbr=876) 38.0 % 34.1-44.9 MEAN CORPUSCULAR VOLUME (BEAKER) (test nwpx=372) 82.8 fL 79.4-94.8 MEAN CORPUSCULAR HEMOGLOBIN (BEAKER) (test 26.8 pg 25.6-32.2 ynow=669) MEAN CORPUSCULAR HEMOGLOBIN CONC (BEAKER) (test 32.4 GM/DL 32.2-35.5 thkf=514) RED CELL DISTRIBUTION WIDTH (BEAKER) (test 16.4 % 11.7-14.4 ycjx=514) PLATELET COUNT (BEAKER) (test inao=761) 120 K/CU MM 150-450 MEAN PLATELET VOLUME (BEAKER) (test nskf=097) 11.2 fL 9.4-12.3 NUCLEATED RED BLOOD CELLS (BEAKER) (test 0 /100 WBC 0-0 gnxi=636) NEUTROPHILS RELATIVE PERCENT (BEAKER) (test 71 % sibh=863) LYMPHOCYTES RELATIVE PERCENT (BEAKER) (test 15 % erid=936) MONOCYTES RELATIVE PERCENT (BEAKER) (test 12 % idci=798) EOSINOPHILS RELATIVE PERCENT (BEAKER) (test 1 % cinv=473) BASOPHILS RELATIVE PERCENT (BEAKER) (test 0 % jlsg=848) NEUTROPHILS ABSOLUTE COUNT (BEAKER) (test 3.63 K/ L 1.56-6.13 ryhw=220) LYMPHOCYTES ABSOLUTE COUNT (BEAKER) (test 0.77 K/ L 1.18-3.74 knfj=512) MONOCYTES ABSOLUTE COUNT (BEAKER) (test 0.61 K/ L 0.24-0.36 omza=511) EOSINOPHILS ABSOLUTE COUNT (BEAKER) (test 0.07 K/ L 0.04-0.36 bitb=774) BASOPHILS ABSOLUTE COUNT (BEAKER) (test 0.01 K/ L 0.01-0.08 usjk=050) IMMATURE GRANULOCYTES-RELATIVE PERCENT (BEAKER) 0 % 0-1 (test ppwa=9456) CARCINOEMBRYONIC ANTIGEN (CEA)2018-09-04 19:23:00 Test Item Value Reference Range Comments CARCINOEMBRYONIC ANTIGEN (BEAKER) (test gcxr=551) 3.0 ng/mL 0.0-5.0 COMPREHENSIVE METABOLIC [id number] 07:54:00 Test Item Value Reference Range Comments TOTAL PROTEIN (BEAKER) 6.6 gm/dL 6.0-8.3 (test yluk=444) ALBUMIN (BEAKER) (test 3.4 g/dL 3.5-5.0 axbf=9901) ALKALINE PHOSPHATASE 61 U/L 40-150 (BEAKER) (test blfq=949) BILIRUBIN TOTAL (BEAKER) 0.8 mg/dL 0.2-1.2 (test hhin=344) SODIUM (BEAKER) (test 130 meq/L 136-145 zmlf=141) POTASSIUM (BEAKER) (test 2.7 meq/L 3.5-5.1 puka=520) CHLORIDE (BEAKER) (test 96 meq/L 98-107 pooa=610) CO2 (BEAKER) (test 26 meq/L 22-29 obng=981) BLOOD UREA NITROGEN 9 mg/dL 7-21 (BEAKER) (test umqm=872) CREATININE (BEAKER) (test 0.62 mg/dL 0.57-1.25 tcce=165) GLUCOSE RANDOM (BEAKER) 110 mg/dL 70-105 (test htbw=190) CALCIUM (BEAKER) (test 9.1 mg/dL 8.4-10.2 wthv=856) AST (SGOT) (BEAKER) (test 15 U/L 5-34 covu=056) ALT (SGPT) (BEAKER) (test 10 U/L 6-55 cddt=381) EGFR (BEAKER) (test 92 mL/min/1.73 sq m ESTIMATED GFR IS NOT fcdm=9497) ACCURATE CREATININE CLEARANCE IN PREDICTING GLOMERULAR FILTRATION RATE. ESTIMATED GFR IS NOT APPLICABLE FOR DIALYSIS PATIENTS. CBC W/PLT COUNT & AUTO [id number] 07:28:00 Test Item Value Reference Range Comments WHITE BLOOD CELL COUNT (BEAKER) (test qcnv=930) 7.4 K/ L 3.5-10.5 RED BLOOD CELL COUNT (BEAKER) (test akhk=783) 4.79 M/ L 3.93-5.22 HEMOGLOBIN (BEAKER) (test mczt=798) 13.0 GM/DL 11.2-15.7 HEMATOCRIT (BEAKER) (test jrer=905) 39.7 % 34.1-44.9 MEAN CORPUSCULAR VOLUME (BEAKER) (test syne=128) 82.9 fL 79.4-94.8 MEAN CORPUSCULAR HEMOGLOBIN (BEAKER) (test 27.1 pg 25.6-32.2 wxqj=298) MEAN CORPUSCULAR HEMOGLOBIN CONC (BEAKER) (test 32.7 GM/DL 32.2-35.5 jguk=229) RED CELL DISTRIBUTION WIDTH (BEAKER) (test 16.1 % 11.7-14.4 jxwf=887) PLATELET COUNT (BEAKER) (test kahu=372) 127 K/CU MM 150-450 MEAN PLATELET VOLUME (BEAKER) (test oqhk=362) 11.2 fL 9.4-12.3 NUCLEATED RED BLOOD CELLS (BEAKER) (test 0 /100 WBC 0-0 zwpn=358) NEUTROPHILS RELATIVE PERCENT (BEAKER) (test 81 % oktc=721) LYMPHOCYTES RELATIVE PERCENT (BEAKER) (test 9 % rdys=843) MONOCYTES RELATIVE PERCENT (BEAKER) (test 9 % cbbe=133) EOSINOPHILS RELATIVE PERCENT (BEAKER) (test 0 % jgqj=677) BASOPHILS RELATIVE PERCENT (BEAKER) (test 0 % poxx=373) NEUTROPHILS ABSOLUTE COUNT (BEAKER) (test 6.00 K/ L 1.56-6.13 wqxb=798) LYMPHOCYTES ABSOLUTE COUNT (BEAKER) (test 0.67 K/ L 1.18-3.74 aett=687) MONOCYTES ABSOLUTE COUNT (BEAKER) (test 0.63 K/ L 0.24-0.36 mfal=258) EOSINOPHILS ABSOLUTE COUNT (BEAKER) (test 0.02 K/ L 0.04-0.36 cgpc=779) BASOPHILS ABSOLUTE COUNT (BEAKER) (test 0.02 K/ L 0.01-0.08 raab=412) IMMATURE GRANULOCYTES-RELATIVE PERCENT (BEAKER) 0 % 0-1 (test pycp=4968) U/S, [id number] 04:00:00Reason for exam:->large adnexal mass per outside hospitalFINAL REPORT US, PELVIS CLINICAL INDICATION: large adnexal mass per outside hospital COMPARISON: None TECHNIQUE : Ultrasound imaging of the pelvis was performed transabdominallythrough a distended urinary bladder followed by transvaginal examination postvoid. Color and spectral Doppler evaluation was also performed. FINDINGS: Uterus Orientation: Anteverted Size: 5.9 x 8.7 x 2.9 cm Masses: None Endometrial thickness: 0.8 cm. Cervix: Unremarkable Adnexa:Right Ovary: Right ovary is not definitely identified Left Ovary: Left ovary is not definitely identified Free fluid: None. Additional findings: None IMPRESSION: Limited transabdominal exam due to patient discomfort. Per the electronic medical record, outside images indicate and a left adnexal massobstructing the sigmoid colon, which is not well-seen on current exam. Additionally, multiple gas-filled loops of bowel obscured the adnexa on transabdominal imaging. Uploading outside images referenced with an electronic medical record would be very helpful for targeted transvaginal exam given degreeof patient discomfort. If these are not available, recommend repeat CT imaging. Signed: Magda Abel Verified Date/Time: 09/04/2018 04:00:55 Reading Location: [facility] B1 C013V Neuro Reading Room POCT-GLUCOSE [id number] 17:44:00 Test Item Value Reference Range Comments POC-GLUCOSE METER (BEAKER) 111 mg/dL 70-110 TESTED AT [address] (test bthn=0963) [place] [address] RAD, ABDOMEN/KUB, 1 VIEW [id number] 13:20:00Reason for exam:->evaluate for colonic obstructionFINAL REPORT Abdomen , one view History: Evaluate for colonic obstruction Comparison:none Findings:Moderate diffuse colonic distention. No definite pneumoperitoneum, although assessment is limited by supine patient positioning. No definite bowel pneumatosis or portal venous gas. No calcifications along the expected course of the urinary tract. Impression:Moderate diffuse colonic distention. Distal large bowel obstruction cannot be excluded. Signed: Kai Uriostegui Verified Date/ Time: 09/03/2018 13:20:58 Reading Location: [facility] C013Y CT Body Reading Room POCT- GLUCOSE [id number] 13:01:00 Test Item Value Reference Range Comments POC-GLUCOSE METER (BEAKER) 88 mg/dL 70-110 TESTED AT [address] (test qkca=4171) [place] [address] POCT-GLUCOSE [id number] 08:32:00 Test Item Value Reference Range Comments POC-GLUCOSE METER (BEAKER) 86 mg/dL 70-110 TESTED AT [address] (test vcib=5736) [place] [address] [id number] 09:48:00 Test Item Value Reference Range Comments MAGNESIUM (BEAKER) (test 2.2 mg/dL 1.6-2.6 Specimen slightly hemolyzed tkvq=584) COMPREHENSIVE METABOLIC [id number] 09:48:00 Test Item Value Reference Range Comments TOTAL PROTEIN (BEAKER) 7.0 gm/dL 6.0-8.3 Specimen slightly (test iebm=117) hemolyzed ALBUMIN (BEAKER) (test 3.4 g/dL 3.5-5.0 Specimen slightly buoq=1403) hemolyzed ALKALINE PHOSPHATASE 52 U/L 40-150 (BEAKER) (test uthm=296) BILIRUBIN TOTAL (BEAKER) 0.6 mg/dL 0.2-1.2 Specimen slightly (test skfm=220) hemolyzed SODIUM (BEAKER) (test 139 meq/L 136-145 rlod=941) POTASSIUM (BEAKER) (test 3.5 meq/L 3.5-5.1 Specimen slightly njki=170) hemolyzed CHLORIDE (BEAKER) (test 102 meq/L 98-107 back=674) CO2 (BEAKER) (test 24 meq/L 22-29 biwz=076) BLOOD UREA NITROGEN 11 mg/dL 7-21 (BEAKER) (test havm=595) CREATININE (BEAKER) (test 0.73 mg/dL 0.57-1.25 Specimen slightly vqgy=439) hemolyzed GLUCOSE RANDOM (BEAKER) 91 mg/dL 70-105 (test gmjd=704) CALCIUM (BEAKER) (test 9.1 mg/dL 8.4-10.2 xmcg=884) AST (SGOT) (BEAKER) (test 13 U/L 5-34 Specimen slightly bije=952) hemolyzed ALT (SGPT) (BEAKER) (test 9 U/L 6-55 Specimen slightly ohzz=543) hemolyzed EGFR (BEAKER) (test 76 mL/min/1.73 sq m ESTIMATED GFR IS NOT bdhy=4413) ACCURATE CREATININE CLEARANCE IN PREDICTING GLOMERULAR FILTRATION RATE. ESTIMATED GFR IS NOT APPLICABLE FOR DIALYSIS PATIENTS. CBC W/PLT COUNT & AUTO [id number] 06:28:00 Test Item Value Reference Range Comments WHITE BLOOD CELL COUNT (BEAKER) (test kspj=165) 4.6 K/ L 3.5-10.5 RED BLOOD CELL COUNT (BEAKER) (test gdtm=072) 4.72 M/ L 3.93-5.22 HEMOGLOBIN (BEAKER) (test jlwo=792) 12.6 GM/DL 11.2-15.7 HEMATOCRIT (BEAKER) (test zsbt=395) 40.1 % 34.1-44.9 MEAN CORPUSCULAR VOLUME (BEAKER) (test pwze=620) 85.0 fL 79.4-94.8 MEAN CORPUSCULAR HEMOGLOBIN (BEAKER) (test 26.7 pg 25.6-32.2 ekmj=285) MEAN CORPUSCULAR HEMOGLOBIN CONC (BEAKER) (test 31.4 GM/DL 32.2-35.5 eynp=755) RED CELL DISTRIBUTION WIDTH (BEAKER) (test 15.8 % 11.7-14.4 yoir=387) PLATELET COUNT (BEAKER) (test eiqz=949) 109 K/CU MM 150-450 MEAN PLATELET VOLUME (BEAKER) (test sist=445) 11.1 fL 9.4-12.3 NUCLEATED RED BLOOD CELLS (BEAKER) (test 0 /100 WBC 0-0 nznq=775) NEUTROPHILS RELATIVE PERCENT (BEAKER) (test 77 % qhui=561) LYMPHOCYTES RELATIVE PERCENT (BEAKER) (test 14 % aqbs=321) MONOCYTES RELATIVE PERCENT (BEAKER) (test 7 % uajj=885) EOSINOPHILS RELATIVE PERCENT (BEAKER) (test 1 % ezqh=122) BASOPHILS RELATIVE PERCENT (BEAKER) (test 0 % xfar=604) NEUTROPHILS ABSOLUTE COUNT (BEAKER) (test 3.56 K/ L 1.56-6.13 gywt=654) LYMPHOCYTES ABSOLUTE COUNT (BEAKER) (test 0.63 K/ L 1.18-3.74 hfuc=227) MONOCYTES ABSOLUTE COUNT (BEAKER) (test 0.33 K/ L 0.24-0.36 nyib=757) EOSINOPHILS ABSOLUTE COUNT (BEAKER) (test 0.06 K/ L 0.04-0.36 okes=398) BASOPHILS ABSOLUTE COUNT (BEAKER) (test 0.02 K/ L 0.01-0.08 feew=183) IMMATURE GRANULOCYTES-RELATIVE PERCENT (BEAKER) 0 % 0-1 (test ycrb=9181)
[2019-01-11 05:43] LABS: Absolute Lymphocytes (CBC) 0.7 K/uL (0.7-4.9); Basophils % 0.2 % (0-1.3); Hematocrit 40.4 % (36.0-45.0); Lymphocytes % 8.7 % (15.3-44.8); MPV 8.4 fL (7.6-11.3); RBC Red Blood Cell Count 4.57 M/uL (3.86-4.86)
[2019-01-11 06:00] LABS: ALT/SGPT 29 U/L (12-78); AST/SGOT 19 U/L (15-37); Albumin 3.4 g/dL (3.4-5.0); Alkaline Phosphatase 74 U/L (45-117); BUN Blood Urea Nitrogen 18 mg/dL (7-18); Bicarbonate 31 mmol/L (21-32); Bilirubin Direct < 0.1 mg/dL (0-0.2); Bilirubin Total 0.3 mg/dL (0.2-1.0); Glucose Level 108 mg/dL (74-106); Lipase 74 U/L (73-393); Potassium 4.3 mmol/L (3.5-5.1); Protein, Total 7.4 g/dL (6.4-8.2); Sodium Level 136 mmol/L (136-145)
[2019-01-11] MEDS ORDERED: NA CHLORIDE 0.9% 1,000 ML ONE (06:14)
--- NOTE | 2019-01-11 09:01 | RAD REPORT ---
EXAM DESCRIPTION: CT - Abdomen Pelvis W Contrast - 01/11/2019 8:32 am CLINICAL HISTORY: Rectal bleeding, abdominal pain, possible rectal mass COMPARISON: CT study August 2018, pelvic ultrasound June 2014 TECHNIQUE: Biphasic, helical CT imaging of the abdomen and pelvis was performed following 100 ml non -ionic IV contrast. Oral contrast was given. All CT scans are performed using dose optimization technique as appropriate and may include automated exposure control or mA/KV adjustment according to patient size. FINDINGS: Small right pleural effusion is present. This is smaller than the August examination. No le ft-sided pleural effusion. No pericardial effusion seen. Arterial phase imaging shows an overall nodular liver capsule contour. No portal vein thrombosis seen . A few punctate liver parenchymal calcifications are present. In the subcapsular dome of the right l obe liver there is a 20 mm AP x 12 mm TR homogeneous fluid attenuation mass. In the medial inferior r ight lobe there is a 31 mm AP x 26 mm TR homogeneous fluid attenuation mass. Attenuation characterist ics do not change between arterial and venous phase imaging. No clearly solid mass or suspicious mass of the liver seen. Liver findings are stable from the short interval August study. Numerous granulomatous calcifications present in the spleen. No focal splenic abnormality. No acute p ancreatic process seen. Several gallstones are seen in the small gallbladder. No active biliary or ga llbladder process seen. Symmetric renal function is seen with no hydronephrosis or suspicious renal mass. No pyelonephritis o r acute parenchymal process. Small cyst is seen in the lateral mid right kidney. Urinary bladder is f ully contracted around a Cas[place] catheter. No adrenal abnormalities. No gastric dilatation or gastric wall thickening. No dilation of small bowel. No appendicitis finding s. Oral contrast has reached the proximal descending colon. From cecum through the descending colon n o wall thickening, mass or acute colon process identified. Patient has diverticulosis within a tortuo us and redundant sigmoid colon. Sigmoid colon loops into the anterior upper abdomen. The distal porti on of the sigmoid colon in the right mid abdomen shows wall thickening without adjacent inflammatory stranding. This portion of the colon is decompressed. Mild circumferential wall thickening is seen al ellen the course of the rectum. There is stranding in the perirectal fat. Colon moralez are prominent ny r the rectal anal junction. No gross mass lesions seen. No free air, free fluid or pneumatosis. Small uterine fibroids are present matching the prior study. Right ovary contains a 2.[address] Left ovary contains 2 cysts measuring 4.1 cm and 4.2 cm in size. These remnant ovarian or paraova roe cysts are not clearly different over this short interval back to August. Complex cystic mass in t he left adnexum was detailed on the 2014 study likely representing the currently visualized cysts. Di rect comparison is limited. The general description would support that the left adnexal mass has not substantially changed and therefore not likely malignant. No hernia, mass or bulky lymphadenopathy. Patient has advanced bony degenerative change. Degenerative changes relatively mild at the hip joints , advanced at each SI joint and advanced in the lumbar spine. No clearly pathologic bone process seen . IMPRESSION: Patient has mild circumferential rectal wall thickening more pronounced near the rectal anal junction. A larger clearly defined mass is not identified in this region. Long segment of the distal sigmoid colon shows wall thickening in a decompressed limiting compared to all the remaining portions of the colon. A long segment mass is unusual. This could be colitis elder e. Patient has a redundant and tortuous sigmoid colon that extends to the upper abdomen. The degree of d ilation seen on the August study is not present on the current examination. Nodular liver capsule questionable for cirrhosis or hepatic parenchymal disease. No solid mass lesion of the liver seen. Bilateral ovarian or paraovarian cystic masses. From limited available comparison the dominant left a dnexal cystic mass structures are probably not substantially different from 2015.
--- NOTE | 2019-01-11 09:41 | ER ---
Nurse's Notes [facility] Name: Rachna Peña Age: 83 yrs Sex: Female : 1935 Arrival Date: 01/11/2019 Time: 04:42 Bed 17 Private MD: Diagnosis: Rectal Bleeding;Proctitis Presentation: 01/11 04:54 Presenting complaint: EMS states: Called for patient with rectal mass; Patient states lp1 going to bathroom this morning and when she wiped "it felt like a ball and there was blood"; Patient's daughter states seeing mass to rectum; Patient denies any pain on arrival to ED. Transition of care: patient was not received from another setting of care. Onset of symptoms was January 11, 2019. Risk Assessment: Do you want to hurt yourself or someone else? Patient reports no desire to harm self or others. Initial Sepsis Screen: Does the patient meet any 2 criteria? No. Patient's initial sepsis screen is negative. Does the patient have a suspected source of infection? No. Patient's initial sepsis screen is negative. Care prior to arrival: None. 04:54 Method Of Arrival: EMS: [facility] lp1 04:54 Acuity: JENNIFER 3 lp1 Historical: - Allergies: 04:59 No Known Allergies; lp1 - Home Meds: 04:59 allopurinol 300 mg Oral tab 1 tab once daily [Active]; duloxetine 60 mg Oral cpDR 1 cap lp1 once daily [Active]; amlodipine 2.5 mg tab 1 tab once daily [Active]; metoprolol tartrate 25 mg Oral tab [Active]; levothyroxine 75 mcg tab 1 tab once daily [Active]; meloxicam 7.5 mg Oral tab 1 tab once daily [Active]; levetiracetam 500 mg Oral tab 1 tab 2 times per day [Active]; gabapentin 400 mg Oral cap 1 cap 3 times per day [Active]; simvastatin 10 mg Oral tab 1 tab once daily [Active]; - PMHx: 04:59 Arthritis; Hypertension; Hypothyroidism; High Cholesterol; Gout; knee pain; lp1 - PSHx: 04:59 Tubal ligation; cataract surgery; foot surgery; lp1 - Immunization history:: Adult Immunizations up to date. - Social history:: Smoking status: Patient/guardian denies using tobacco. - Ebola Screening: : No symptoms or risks identified at this time. Screenin:00 Abuse screen: Denies threats or abuse. Denies injuries from another. Nutritional lp1 screening: No deficits noted. Tuberculosis screening: No symptoms or risk factors identified. Fall Risk Total Haile Fall Scale indicates High Risk Score (45 or more points). Fall prevention measures have been instituted. Side Rails Up X 2 As available patient and family educated on Fall Prevention Program and Strategies. Assessment: 05:00 General: Appears in no apparent distress. Behavior is calm, cooperative, appropriate lp1 for age. Pain: Denies pain. Neuro: Level of Consciousness is awake, alert, obeys commands, Oriented to person, place, situation. Cardiovascular: Patient's skin is warm and dry. Respiratory: Respiratory effort is even, unlabored. GI: Abdomen is non-distended, Abd is soft and non tender X 4 quads. : [place] in place to gravity drainage. EENT: No signs and/or symptoms were reported regarding the EENT system. Derm: Skin is intact, is thin, Skin is dry, Skin is pink, warm \\T\\ dry. Musculoskeletal: Range of motion: intact in all extremities. 06:20 Reassessment: Patient drinking oral contrast at this time. lp1 06:27 Reassessment: CT notified of patient completing oral contrast. lp1 07:50 Reassessment: Patient is alert, oriented x 3, equal unlabored respirations, skin aa5 warm/dry/pink. Patient denies pain at this time. Pt's daughter at bedside. Awaiting CT scan, pt and family notified of wait time. . 08:30 Reassessment: Patient is alert, oriented x 3, equal unlabored respirations, skin aa5 warm/dry/pink. Pt to CT via stretcher. . 09:28 Reassessment: PA at bedside. Rectal exam completed by PA. . aa5 09:48 Reassessment: Patient is alert, oriented x 3, equal unlabored respirations, skin aa5 warm/dry/pink. Vital Signs: 04:55 BP 114 / 77; Pulse 62; Resp 18; Temp 97.7(O); Pulse Ox 99% on R/A; Weight 100.7 kg; lp1 Height 5 ft. 8 in. (172.72 cm); Pain 0/10; 06:00 BP 118 / 64; Pulse 65; Resp 18; Pulse Ox 97% on R/A; lp1 07:55 BP 122 / 61; Pulse 73; Resp 16 S; Temp 97.9(TE); Pulse Ox 98% on R/A; Pain 0/10; aa5 04:55 Body Mass Index 33.75 (100.70 kg, 172.72 cm) lp1 ED Course: 04:42 Patient arrived in ED. ag3 04:55 Triage completed. lp1 04:55 Arm band placed on left wrist. lp1 05:00 Patient has correct armband on for positive identification. Bed in low position. Call lp1 light in reach. Side rails up X2. Pulse ox on. NIBP on. 05:08 Reese Mario MD is Attending Physician. pkl 05:35 Missed attempt(s): 22 gauge in right antecubital area. Inserted saline lock: 22 gauge lp1 in left antecubital area, using aseptic technique. 06:19 Kaylee Almodovar, SHAWN is Primary Nurse. lp1 07:10 Jigar Pizano PA is PHCP. jr8 07:22 Warm blanket given. jl7 08:33 CT Abd/Pelvis - PO and IV Contrast In Process Unspecified. EDMS 09:39 Lucas Onofre MD is Referral Physician. jr8 09:48 No provider procedures requiring assistance completed. IV discontinued, intact, aa5 bleeding controlled, No redness/swelling at site. Pressure dressing applied. Administered Medications: 06:19 Drug: NS 0.9% 1000 ml Route: IV; Rate: 125 ml/hr; Site: left antecubital; lp1 09:48 Follow up: IV Status: Order to discontinue infusion aa5 09:48 Drug: Cipro 500 mg Route: PO; aa5 09:48 Follow up: Response: Medication administered at discharge. aa5 09:48 Drug: Flagyl 500 mg Route: PO; aa5 09:48 Follow up: Response: Medication administered at discharge. aa5 Point of Care Testing: Guaiac: 05:15 Stool Guaiac: Positive; Stool Hemoccult Control: Pass; lp1 Outcome: 09:40 Discharge ordered by . jr8 10:10 Discharged to home via [facility] aa5 10:10 Condition: stable 10:10 Discharge instructions given to patient, family, Instructed on discharge instructions, follow up and referral plans. medication usage, Demonstrated understanding of instructions, follow-up care, medications, Prescriptions given X 2. 10:12 Patient left the ED. aa5 Signatures: Dispatcher [employer] EDMS Reese Mario MD MD pkBrittany Cortez RN RN aa5 Kaylee Almodovar RN RN lp1 Jigar Pizano PA PA 8 Jumana Cooper RN RN jl7 Jenifer [id number] Corrections: (The following items were deleted from the chart) 15:12 09:28 Reassessment: PA at bedside . aa5 aa5
--- NOTE | 2019-01-11 09:42 | EDPHYS ---
Physician Documentation [facility] Name: Rachna Peña Age: 83 yrs Sex: Female : 1935 Arrival Date: 01/11/2019 Time: 04:42 Bed 17 Private MD: ED Physician Reese Mario HPI: 01/11 05:22 This 83 yrs old Female presents to ER via EMS with complaints of Rectal pkl Bleeding - Mass. 05:22 The patient presents to the emergency department with bleeding from the rectum/anus, pkl Possible rectal mass. Onset: The symptoms/episode began/occurred just prior to arrival, 1 hour(s) ago. Patient was admitted here in August this year for colitis and possible bowel obstruction. Was [place] [facility] [place] [facility] [place] [place]. Historical: - Allergies: 04:59 No Known Allergies; lp1 - Home Meds: 04:59 allopurinol 300 mg Oral tab 1 tab once daily [Active]; duloxetine 60 mg Oral cpDR 1 cap lp1 once daily [Active]; amlodipine 2.5 mg tab 1 tab once daily [Active]; metoprolol tartrate 25 mg Oral tab [Active]; levothyroxine 75 mcg tab 1 tab once daily [Active]; meloxicam 7.5 mg Oral tab 1 tab once daily [Active]; levetiracetam 500 mg Oral tab 1 tab 2 times per day [Active]; gabapentin 400 mg Oral cap 1 cap 3 times per day [Active]; simvastatin 10 mg Oral tab 1 tab once daily [Active]; - PMHx: 04:59 Arthritis; Hypertension; Hypothyroidism; High Cholesterol; Gout; knee pain; lp1 - PSHx: 04:59 Tubal ligation; cataract surgery; foot surgery; lp1 - Immunization history:: Adult Immunizations up to date. - Social history:: Smoking status: Patient/guardian denies using tobacco. - Ebola Screening: : No symptoms or risks identified at this time. ROS: 05:22 Eyes: Negative for injury, pain, redness, and discharge, ENT: Negative for injury, pkl pain, and discharge, Neck: Negative for injury, pain, and swelling, Cardiovascular: Negative for chest pain, palpitations, and edema, Respiratory: Negative for shortness of breath, cough, wheezing, and pleuritic chest pain. 05:22 Abdomen/GI: Positive for rectal bleeding. 05:22 Back: Negative for acute changes. 05:22 : Negative for urinary symptoms. 05:22 MS/extremity: Negative for acute changes. 05:22 Skin: Negative for rash. 05:22 Neuro: Negative for altered mental status. Exam: 05:22 Head/Face: Normocephalic, atraumatic. Eyes: Pupils equal round and reactive to light, pkl extra-ocular motions intact. Lids and lashes normal. Conjunctiva and sclera are non-icteric and not injected. Cornea within normal limits. Periorbital areas with no swelling, redness, or edema. ENT: Nares patent. No nasal discharge, no septal abnormalities noted. Tympanic membranes are normal and external auditory canals are clear. Oropharynx with no redness, swelling, or masses, exudates, or evidence of obstruction, uvula midline. Mucous membranes moist. Neck: Trachea midline, no thyromegaly or masses palpated, and no cervical lymphadenopathy. Supple, full range of motion without nuchal rigidity, or vertebral point tenderness. No Meningismus. Chest/axilla: Normal chest wall appearance and motion. Nontender with no deformity. No lesions are appreciated. Cardiovascular: Regular rate and rhythm with a normal S1 and S2. No gallops, murmurs, or rubs. Normal PMI, no JVD. No pulse deficits. Respiratory: Lungs have equal breath sounds bilaterally, clear to auscultation and percussion. No rales, rhonchi or wheezes noted. No increased work of breathing, no retractions or nasal flaring. 05:22 Abdomen/GI: Inspection: distension, that is mild, Bowel sounds: normal, Palpation: abdomen is soft and non-tender, in all quadrants, Rectal exam: Stool: guaiac positive, mass, is not appreciated, the exam is chaperoned by the nurse. 05:22 Back: Exam negative for acute changes. 05:22 : Exam negative for acute changes. 05:22 Musculoskeletal/extremity: Exam is negative for acute changes. 05:22 Skin: Exam negative for rash. 05:22 Neuro: Orientation: is normal, Mentation: is normal, Cranial nerves: grossly normal, Motor: is normal. Vital Signs: 04:55 BP 114 / 77; Pulse 62; Resp 18; Temp 97.7(O); Pulse Ox 99% on R/A; Weight 100.7 kg; lp1 Height 5 ft. 8 in. (172.72 cm); Pain 0/10; 06:00 BP 118 / 64; Pulse 65; Resp 18; Pulse Ox 97% on R/A; lp1 07:55 BP 122 / 61; Pulse 73; Resp 16 S; Temp 97.9(TE); Pulse Ox 98% on R/A; Pain 0/10; aa5 04:55 Body Mass Index 33.75 (100.70 kg, 172.72 cm) lp1 MDM: 05:08 Patient medically screened. pkl 09:24 Data reviewed: vital signs, nurses notes, lab test result(s), radiologic studies, CT jr8 scan. Data interpreted: Pulse oximetry: on room air is 98 %. Interpretation: normal. 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 ED course: Rechecked rectum. No active bleeding currently. Brown stool. No pain. VS stable. No anemia present. No active bleeding present. CT shows rectal inflammation without identifiable mass. Recommended abx and to schedule to f/u for sigmoidoscopy and/or colonoscopy. Knows to come back if bleeding occurs again . 01/11 05:21 Order name: Basic Metabolic Panel; Complete Time: 06:09 pkl 01/11 05:21 Order name: CBC with Diff; Complete Time: 06:09 pkl 01/11 05:21 Order name: Creatinine for Radiology; Complete Time: 06:09 pkl 01/11 05:21 Order name: Hepatic Function; Complete Time: 06:09 pkl 01/11 05:21 Order name: Lipase; Complete Time: 06:09 pkl 01/11 05:21 Order name: Type And Screen; Complete Time: 07:53 pkl 01/11 05:21 Order name: IV Saline Lock; Complete Time: 05:46 pkl 01/11 05:21 Order name: Labs collected and sent; Complete Time: 05:46 pkl 01/11 05:56 Order name: CT Abd/Pelvis - PO and IV Contrast; Complete Time: 09:20 pkl Administered Medications: 06:19 Drug: NS 0.9% 1000 ml Route: IV; Rate: 125 ml/hr; Site: left antecubital; lp1 09:48 Follow up: IV Status: Order to discontinue infusion aa5 09:48 Drug: Cipro 500 mg Route: PO; aa5 09:48 Follow up: Response: Medication administered at discharge. aa5 09:48 Drug: Flagyl 500 mg Route: PO; aa5 09:48 Follow up: Response: Medication administered at discharge. aa5 Point of Care Testing: Guaiac: 05:15 Stool Guaiac: Positive; Stool Hemoccult Control: Pass; lp1 Disposition: 01/11/19 09:40 Discharged to Home. Impression: Rectal Bleeding, Proctitis . - Condition is Stable. - Discharge Instructions: Rectal Bleeding, Proctitis. - Prescriptions for Cipro 500 mg Oral Tablet - take 1 tablet by ORAL route every 12 hours for 10 days; 20 tablet. Flagyl 500 mg Oral Tablet - take 1 tablet by ORAL route every 6 hours for 10 days; 40 tablet. - Medication Reconciliation Form, Thank You Letter, Antibiotic Education, Prescription Opioid Use form. - Follow up: Lucas Onofre MD; When: 5 - 6 days; Reason: Recheck today's complaints, Continuance of care, Re-evaluation by your physician. - Problem is new. - Symptoms have improved. Addendum: 01/14/2019 19:02 Co-signature as Attending Physician, Reese Mario MD. p chris Signatures: Dispatcher [employer] EDUT Reese Mario MD MD pkl Brittany García RN RN aa5 Kaylee Almodovar RN RN lp1 Jigar Pizano PA PA jr8 Corrections: (The following items were deleted from the chart) 01/11 10:12 09:40 01/11/2019 09:40 Discharged to Home. Impression: Rectal Bleeding; Proctitis . aa5 Condition is Stable. Forms are Medication Reconciliation Form, Thank You Letter, Antibiotic Education, Prescription Opioid Use. Follow up: Lucas Onofre; When: 5 - 6 days; Reason: Recheck today's complaints, Continuance of care, Re-evaluation by your physician. Problem is new. Symptoms have improved. jr8
[2019-01-11] MEDS ORDERED: CIPROFLOXACIN HCL 500 MG TAB ONE (09:51)
[2019-01-11] MEDS ORDERED: metroNIDAZOLE 500 MG TABLET ONE (09:51)
== END 2019-01-11 10:12 | disposition home or self-care (01) ==
LOC: ER 04:37
DX: K62.89 Other specified diseases of anus and rectum (principal); I10 Essential (primary) hypertension; E03.9 Hypothyroidism, unspecified; E78.00 Pure hypercholesterolemia, unspecified
CPT/HCPCS: 96361; 85025; 80048; 36415; 86900; 86850; 86901; 80076; 83690; 74177; 96360; 99284; Q9967; J7030

== ENCOUNTER 2019-04-25 16:41 | Emergency (ER) | payer OTHER ==
--- OUTSIDE RECORDS SUMMARY | 2019-04-25 16:44 | XMS REPORT ---
:1935 [facility] Address [address] [place] [address] [address]. [address] [place] [address] Care Team Providers Name Role Phone ANA PATEL Unavailable Unavailable Problems This patient has no known problems. Allergies, Adverse Reactions, Alerts This patient has no known allergies or adverse reactions. Medications This patient has no known medications. Results Test Description Test Time Test Comments Text Results Atomic Results Result Comments PHOSPHORUS 2018-09-07 09:22:00 Test Item Value Reference Range Comments PHOSPHORUS (BEAKER) (test enzh=951) 3.9 mg/dL 2.3-4.7 [id number] 09:22:00 Test Item Value Reference Range Comments MAGNESIUM (BEAKER) (test naat=302) 2.1 mg/dL 1.6-2.6 BASIC METABOLIC [id number] 09:22:00 Test Item Value Reference Range Comments SODIUM (BEAKER) (test 140 meq/L 136-145 bdqh=506) POTASSIUM (BEAKER) (test 3.8 meq/L 3.5-5.1 bppx=596) CHLORIDE (BEAKER) (test 105 meq/L 98-107 fmfi=303) CO2 (BEAKER) (test 28 meq/L 22-29 gtqv=226) BLOOD UREA NITROGEN 10 mg/dL 7-21 (BEAKER) (test qidr=333) CREATININE (BEAKER) (test 0.70 mg/dL 0.57-1.25 nfud=896) GLUCOSE RANDOM (BEAKER) 99 mg/dL 70-105 (test fhcr=745) CALCIUM (BEAKER) (test 9.2 mg/dL 8.4-10.2 ovms=860) EGFR (BEAKER) (test 80 mL/min/1.73 sq m ESTIMATED GFR IS NOT ulvm=9403) ACCURATE CREATININE CLEARANCE IN PREDICTING GLOMERULAR FILTRATION RATE. ESTIMATED GFR IS NOT APPLICABLE FOR DIALYSIS PATIENTS. POCT-GLUCOSE [id number] 07:46:00 Test Item Value Reference Range Comments POC-GLUCOSE METER (BEAKER) 106 mg/dL 70-110 [facility] AT [facility] [address] [facility] (test nqrq[facility]6380) [facility] [address] [id number] 08:36:00 Test Item Value Reference Range Comments PHOSPHORUS (BEAKER) (test ioix=290) 3.4 mg/dL 2.3-4.7 [id number] 08:36:00 Test Item Value Reference Range Comments MAGNESIUM (BEAKER) (test pkfg=927) 2.1 mg/dL 1.6-2.6 BASIC METABOLIC [id number] 08:36:00 Test Item Value Reference Range Comments SODIUM (BEAKER) (test 140 meq/L 136-145 loxd=870) POTASSIUM (BEAKER) (test 3.7 meq/L 3.5-5.1 tmak=427) CHLORIDE (BEAKER) (test 106 meq/L 98-107 qvvi=268) CO2 (BEAKER) (test 29 meq/L 22-29 ievp=169) BLOOD UREA NITROGEN 9 mg/dL 7-21 (BEAKER) (test hcwu=833) CREATININE (BEAKER) (test 0.69 mg/dL 0.57-1.25 mpdp=705) GLUCOSE RANDOM (BEAKER) 97 mg/dL 70-105 (test cuye=021) CALCIUM (BEAKER) (test 9.1 mg/dL 8.4-10.2 guwm=657) EGFR (BEAKER) (test 81 mL/min/1.73 sq m ESTIMATED GFR IS NOT hfyx=8497) ACCURATE CREATININE CLEARANCE IN PREDICTING GLOMERULAR FILTRATION RATE. ESTIMATED GFR IS NOT APPLICABLE FOR DIALYSIS PATIENTS. [id number] 06:08:00 Test Item Value Reference Range Comments PHOSPHORUS (BEAKER) (test szmx=966) 2.9 mg/dL 2.3-4.7 [id number] 06:08:00 Test Item Value Reference Range Comments MAGNESIUM (BEAKER) (test fubs=196) 1.8 mg/dL 1.6-2.6 COMPREHENSIVE METABOLIC [id number] 06:08:00 Test Item Value Reference Range Comments TOTAL PROTEIN (BEAKER) 6.1 gm/dL 6.0-8.3 (test xfbn=231) ALBUMIN (BEAKER) (test 3.1 g/dL 3.5-5.0 vmme=7844) ALKALINE PHOSPHATASE 56 U/L 40-150 (BEAKER) (test lkbc=335) BILIRUBIN TOTAL (BEAKER) 1.0 mg/dL 0.2-1.2 (test nhjd=904) SODIUM (BEAKER) (test 137 meq/L 136-145 fmet=097) POTASSIUM (BEAKER) (test 2.8 meq/L 3.5-5.1 dbvu=479) CHLORIDE (BEAKER) (test 103 meq/L 98-107 trny=504) CO2 (BEAKER) (test 25 meq/L 22-29 dgwm=024) BLOOD UREA NITROGEN 6 mg/dL 7-21 (BEAKER) (test obgu=397) CREATININE (BEAKER) (test 0.61 mg/dL 0.57-1.25 gpar=879) GLUCOSE RANDOM (BEAKER) 101 mg/dL 70-105 (test nbig=797) CALCIUM (BEAKER) (test 9.0 mg/dL 8.4-10.2 jmib=395) AST (SGOT) (BEAKER) (test 19 U/L 5-34 amdn=694) ALT (SGPT) (BEAKER) (test 17 U/L 6-55 thlo=759) EGFR (BEAKER) (test 94 mL/min/1.73 sq m ESTIMATED GFR IS NOT ezmg=9726) ACCURATE CREATININE CLEARANCE IN PREDICTING GLOMERULAR FILTRATION RATE. ESTIMATED GFR IS NOT APPLICABLE FOR DIALYSIS PATIENTS. CBC W/PLT COUNT & AUTO [id number] 05:28:00 Test Item Value Reference Range Comments WHITE BLOOD CELL COUNT (BEAKER) (test snjv=648) 5.1 K/ L 3.5-10.5 RED BLOOD CELL COUNT (BEAKER) (test hcsb=700) 4.59 M/ L 3.93-5.22 HEMOGLOBIN (BEAKER) (test spar=842) 12.3 GM/DL 11.2-15.7 HEMATOCRIT (BEAKER) (test ydvb=380) 38.0 % 34.1-44.9 MEAN CORPUSCULAR VOLUME (BEAKER) (test dwvl=684) 82.8 fL 79.4-94.8 MEAN CORPUSCULAR HEMOGLOBIN (BEAKER) (test 26.8 pg 25.6-32.2 jcxf=787) MEAN CORPUSCULAR HEMOGLOBIN CONC (BEAKER) (test 32.4 GM/DL 32.2-35.5 oumb=620) RED CELL DISTRIBUTION WIDTH (BEAKER) (test 16.4 % 11.7-14.4 fpbr=338) PLATELET COUNT (BEAKER) (test iark=387) 120 K/CU MM 150-450 MEAN PLATELET VOLUME (BEAKER) (test hiaq=368) 11.2 fL 9.4-12.3 NUCLEATED RED BLOOD CELLS (BEAKER) (test 0 /100 WBC 0-0 sxkp=280) NEUTROPHILS RELATIVE PERCENT (BEAKER) (test 71 % kxww=841) LYMPHOCYTES RELATIVE PERCENT (BEAKER) (test 15 % oujm=827) MONOCYTES RELATIVE PERCENT (BEAKER) (test 12 % ccju=529) EOSINOPHILS RELATIVE PERCENT (BEAKER) (test 1 % mqvv=044) BASOPHILS RELATIVE PERCENT (BEAKER) (test 0 % vnbu=687) NEUTROPHILS ABSOLUTE COUNT (BEAKER) (test 3.63 K/ L 1.56-6.13 zqth=768) LYMPHOCYTES ABSOLUTE COUNT (BEAKER) (test 0.77 K/ L 1.18-3.74 qzhu=617) MONOCYTES ABSOLUTE COUNT (BEAKER) (test 0.61 K/ L 0.24-0.36 dyyr=392) EOSINOPHILS ABSOLUTE COUNT (BEAKER) (test 0.07 K/ L 0.04-0.36 ssyi=370) BASOPHILS ABSOLUTE COUNT (BEAKER) (test 0.01 K/ L 0.01-0.08 jvvz=055) IMMATURE GRANULOCYTES-RELATIVE PERCENT (BEAKER) 0 % 0-1 (test wwmt=4479) CARCINOEMBRYONIC ANTIGEN (CEA)2018-09-04 19:23:00 Test Item Value Reference Range Comments CARCINOEMBRYONIC ANTIGEN (BEAKER) (test imnf=128) 3.0 ng/mL 0.0-5.0 COMPREHENSIVE METABOLIC [id number] 07:54:00 Test Item Value Reference Range Comments TOTAL PROTEIN (BEAKER) 6.6 gm/dL 6.0-8.3 (test azor=767) ALBUMIN (BEAKER) (test 3.4 g/dL 3.5-5.0 sdzk=4472) ALKALINE PHOSPHATASE 61 U/L 40-150 (BEAKER) (test accs=654) BILIRUBIN TOTAL (BEAKER) 0.8 mg/dL 0.2-1.2 (test oygw=801) SODIUM (BEAKER) (test 130 meq/L 136-145 sbcw=749) POTASSIUM (BEAKER) (test 2.7 meq/L 3.5-5.1 srdb=422) CHLORIDE (BEAKER) (test 96 meq/L 98-107 wqdb=427) CO2 (BEAKER) (test 26 meq/L 22-29 zboy=718) BLOOD UREA NITROGEN 9 mg/dL 7-21 (BEAKER) (test ekcx=141) CREATININE (BEAKER) (test 0.62 mg/dL 0.57-1.25 gywd=366) GLUCOSE RANDOM (BEAKER) 110 mg/dL 70-105 (test zsjj=488) CALCIUM (BEAKER) (test 9.1 mg/dL 8.4-10.2 ceat=697) AST (SGOT) (BEAKER) (test 15 U/L 5-34 tzlk=132) ALT (SGPT) (BEAKER) (test 10 U/L 6-55 ftts=259) EGFR (BEAKER) (test 92 mL/min/1.73 sq m ESTIMATED GFR IS NOT qpsj=6089) ACCURATE CREATININE CLEARANCE IN PREDICTING GLOMERULAR FILTRATION RATE. ESTIMATED GFR IS NOT APPLICABLE FOR DIALYSIS PATIENTS. CBC W/PLT COUNT & AUTO [id number] 07:28:00 Test Item Value Reference Range Comments WHITE BLOOD CELL COUNT (BEAKER) (test uvpj=478) 7.4 K/ L 3.5-10.5 RED BLOOD CELL COUNT (BEAKER) (test cfse=683) 4.79 M/ L 3.93-5.22 HEMOGLOBIN (BEAKER) (test lfyf=440) 13.0 GM/DL 11.2-15.7 HEMATOCRIT (BEAKER) (test miyc=703) 39.7 % 34.1-44.9 MEAN CORPUSCULAR VOLUME (BEAKER) (test jjmx=489) 82.9 fL 79.4-94.8 MEAN CORPUSCULAR HEMOGLOBIN (BEAKER) (test 27.1 pg 25.6-32.2 kimq=110) MEAN CORPUSCULAR HEMOGLOBIN CONC (BEAKER) (test 32.7 GM/DL 32.2-35.5 xrsc=064) RED CELL DISTRIBUTION WIDTH (BEAKER) (test 16.1 % 11.7-14.4 wnnp=811) PLATELET COUNT (BEAKER) (test gusg=274) 127 K/CU MM 150-450 MEAN PLATELET VOLUME (BEAKER) (test zxth=864) 11.2 fL 9.4-12.3 NUCLEATED RED BLOOD CELLS (BEAKER) (test 0 /100 WBC 0-0 vxrt=187) NEUTROPHILS RELATIVE PERCENT (BEAKER) (test 81 % qhzj=550) LYMPHOCYTES RELATIVE PERCENT (BEAKER) (test 9 % lqbr=980) MONOCYTES RELATIVE PERCENT (BEAKER) (test 9 % agew=050) EOSINOPHILS RELATIVE PERCENT (BEAKER) (test 0 % aivm=414) BASOPHILS RELATIVE PERCENT (BEAKER) (test 0 % zewg=551) NEUTROPHILS ABSOLUTE COUNT (BEAKER) (test 6.00 K/ L 1.56-6.13 mdsa=458) LYMPHOCYTES ABSOLUTE COUNT (BEAKER) (test 0.67 K/ L 1.18-3.74 tizs=233) MONOCYTES ABSOLUTE COUNT (BEAKER) (test 0.63 K/ L 0.24-0.36 jxgw=390) EOSINOPHILS ABSOLUTE COUNT (BEAKER) (test 0.02 K/ L 0.04-0.36 ujub=898) BASOPHILS ABSOLUTE COUNT (BEAKER) (test 0.02 K/ L 0.01-0.08 azim=605) IMMATURE GRANULOCYTES-RELATIVE PERCENT (BEAKER) 0 % 0-1 (test retp=4397) U/S, [id number] 04:00:00Reason for exam:->large adnexal mass per outside [...] Abel Verified Date/Time: 09/04/2018 04:00:55 Reading Location: [facility] B1 C013V Neuro Reading Room POCT-GLUCOSE [id number] 17:44:00 Test Item Value Reference Range Comments POC-GLUCOSE METER (BEAKER) 111 mg/dL 70-110 TESTED AT [address] (test otam=5175) [place] [address] RAD, ABDOMEN/KUB, 1 VIEW [id number] 13:20:00Reason for exam:->evaluate for colonic obstructionFINAL REPORT [...] Verified Date/ Time: 09/03/2018 13:20:58 Reading Location: [facility] C013Y CT Body Reading Room POCT- GLUCOSE [id number] 13:01:00 Test Item Value Reference Range Comments POC-GLUCOSE METER (BEAKER) 88 mg/dL 70-110 TESTED AT [address] (test bhei=8873) [place] [address] POCT-GLUCOSE [id number] 08:32:00 Test Item Value Reference Range Comments POC-GLUCOSE METER (BEAKER) 86 mg/dL 70-110 TESTED AT [address] (test eyzh=6820) [place] [address] [id number] 09:48:00 Test Item Value Reference Range Comments MAGNESIUM (BEAKER) (test 2.2 mg/dL 1.6-2.6 Specimen slightly hemolyzed ztep=333) COMPREHENSIVE METABOLIC [id number] 09:48:00 Test Item Value Reference Range Comments TOTAL PROTEIN (BEAKER) 7.0 gm/dL 6.0-8.3 Specimen slightly (test vtxc=157) hemolyzed ALBUMIN (BEAKER) (test 3.4 g/dL 3.5-5.0 Specimen slightly jhid=6395) hemolyzed ALKALINE PHOSPHATASE 52 U/L 40-150 (BEAKER) (test gqoj=593) BILIRUBIN TOTAL (BEAKER) 0.6 mg/dL 0.2-1.2 Specimen slightly (test noaf=424) hemolyzed SODIUM (BEAKER) (test 139 meq/L 136-145 ussf=352) POTASSIUM (BEAKER) (test 3.5 meq/L 3.5-5.1 Specimen slightly qpph=679) hemolyzed CHLORIDE (BEAKER) (test 102 meq/L 98-107 mgzk=385) CO2 (BEAKER) (test 24 meq/L 22-29 uodj=014) BLOOD UREA NITROGEN 11 mg/dL 7-21 (BEAKER) (test vcar=203) CREATININE (BEAKER) (test 0.73 mg/dL 0.57-1.25 Specimen slightly gxws=412) hemolyzed GLUCOSE RANDOM (BEAKER) 91 mg/dL 70-105 (test caog=161) CALCIUM (BEAKER) (test 9.1 mg/dL 8.4-10.2 nbqy=384) AST (SGOT) (BEAKER) (test 13 U/L 5-34 Specimen slightly syor=350) hemolyzed ALT (SGPT) (BEAKER) (test 9 U/L 6-55 Specimen slightly cibv=125) hemolyzed EGFR (BEAKER) (test 76 mL/min/1.73 sq m ESTIMATED GFR IS NOT pvnb=2550) ACCURATE CREATININE CLEARANCE IN PREDICTING GLOMERULAR FILTRATION RATE. ESTIMATED GFR IS NOT APPLICABLE FOR DIALYSIS PATIENTS. CBC W/PLT COUNT & AUTO [id number] 06:28:00 Test Item Value Reference Range Comments WHITE BLOOD CELL COUNT (BEAKER) (test gaoq=502) 4.6 K/ L 3.5-10.5 RED BLOOD CELL COUNT (BEAKER) (test vksk=044) 4.72 M/ L 3.93-5.22 HEMOGLOBIN (BEAKER) (test uena=870) 12.6 GM/DL 11.2-15.7 HEMATOCRIT (BEAKER) (test trqt=490) 40.1 % 34.1-44.9 MEAN CORPUSCULAR VOLUME (BEAKER) (test ybqb=236) 85.0 fL 79.4-94.8 MEAN CORPUSCULAR HEMOGLOBIN (BEAKER) (test 26.7 pg 25.6-32.2 hdwx=457) MEAN CORPUSCULAR HEMOGLOBIN CONC (BEAKER) (test 31.4 GM/DL 32.2-35.5 xmrl=346) RED CELL DISTRIBUTION WIDTH (BEAKER) (test 15.8 % 11.7-14.4 xppp=724) PLATELET COUNT (BEAKER) (test gfsm=597) 109 K/CU MM 150-450 MEAN PLATELET VOLUME (BEAKER) (test uguk=961) 11.1 fL 9.4-12.3 NUCLEATED RED BLOOD CELLS (BEAKER) (test 0 /100 WBC 0-0 thcl=192) NEUTROPHILS RELATIVE PERCENT (BEAKER) (test 77 % oltr=664) LYMPHOCYTES RELATIVE PERCENT (BEAKER) (test 14 % nsuy=864) MONOCYTES RELATIVE PERCENT (BEAKER) (test 7 % dtbh=813) EOSINOPHILS RELATIVE PERCENT (BEAKER) (test 1 % bktl=767) BASOPHILS RELATIVE PERCENT (BEAKER) (test 0 % vqdw=937) NEUTROPHILS ABSOLUTE COUNT (BEAKER) (test 3.56 K/ L 1.56-6.13 geeq=433) LYMPHOCYTES ABSOLUTE COUNT (BEAKER) (test 0.63 K/ L 1.18-3.74 vrxo=976) MONOCYTES ABSOLUTE COUNT (BEAKER) (test 0.33 K/ L 0.24-0.36 holv=984) EOSINOPHILS ABSOLUTE COUNT (BEAKER) (test 0.06 K/ L 0.04-0.36 fhdo=303) BASOPHILS ABSOLUTE COUNT (BEAKER) (test 0.02 K/ L 0.01-0.08 kuia=240) IMMATURE GRANULOCYTES-RELATIVE PERCENT (BEAKER) 0 % 0-1 (test ashi=1224)
[2019-04-25 18:20] LABS: Absolute Lymphocytes (CBC) 0.3 K/uL (0.7-4.9); Basophils % 0.4 % (0-1.3); Hematocrit 31.3 % (36.0-45.0); Lymphocytes % 3.7 % (15.3-44.8); MPV 7.6 fL (7.6-11.3); RBC Red Blood Cell Count 3.68 M/uL (3.86-4.86)
[2019-04-25 18:29] LABS: Protime INR 1.17
[2019-04-25 18:59] LABS: Albumin 2.3 g/dL (3.4-5.0); Bilirubin Total 0.4 mg/dL (0.2-1.0); Potassium 3.6 mmol/L (3.5-5.1); Protein, Total 6.3 g/dL (6.4-8.2)
--- NOTE | 2019-04-25 18:59 | ER ---
Nurse's Notes [facility] [place], [place] Name: Rachna Peña Age: 84 yrs Sex: Female : 1935 Arrival Date: 04/25/2019 Time: 16:43 Bed 19 Private MD: Diagnosis: Candidiasis;Drug reaction;Petechial rash Presentation: 04/25 16:43 Presenting complaint: EMS states: GEN WEAKNESS AND LEFT LEG RASH x3 DAYS. Transition of bp care: patient was not received from another setting of care. Onset of symptoms is unknown. Risk Assessment: Do you want to hurt yourself or someone else? Patient reports no desire to harm self or others. Initial Sepsis Screen: Does the patient meet any 2 criteria? No. Patient's initial sepsis screen is negative. Does the patient have a suspected source of infection? No. Patient's initial sepsis screen is negative. Care prior to arrival: IV initiated. 20 GA, in the right wrist, Glucose check: 183. 16:43 Method Of Arrival: EMS[facility] bp 16:43 Acuity: JENNIFER 3 bp Triage Assessment: 16:49 General: Appears in no apparent distress. comfortable, obese, Behavior is calm, bp cooperative, appropriate for age. Pain: Denies pain. EENT: No deficits noted. Neuro: No deficits noted. Cardiovascular: No deficits noted. Respiratory: No deficits noted. GI: No signs and/or symptoms were reported involving the gastrointestinal system. : No signs and/or symptoms were reported regarding the genitourinary system. Derm: Rash noted that is red. Musculoskeletal: No deficits noted. Historical: - Allergies: 16:49 No Known Allergies; bp - Home Meds: 16:49 allopurinol 300 mg Oral tab 1 tab once daily [Active]; gabapentin 400 mg Oral cap 1 cap bp 3 times per day [Active]; levetiracetam 500 mg Oral tab 1 tab 2 times per day [Active]; metoprolol tartrate 25 mg Oral tab [Active]; simvastatin 10 mg Oral tab 1 tab once daily [Active]; levothyroxine 75 mcg tab 1 tab once daily [Active]; amlodipine 2.5 mg tab 1 tab once daily [Active]; meloxicam 7.5 mg Oral tab 1 tab once daily [Active]; duloxetine 60 mg Oral cpDR 1 cap once daily [Active]; - PMHx: 16:49 Hypertension; Atrial Fib; COPD; Seizures; Arthritis; Gout; Sleep Apnea; Hypothyroidism; bp High Cholesterol; knee pain; Myocardial infarction; - Immunization history:: Adult Immunizations up to date. - Social history:: Smoking status: Patient/guardian denies using tobacco. - Ebola Screening: : No symptoms or risks identified at this time. Screenin:30 Abuse screen: Denies threats or abuse. Denies injuries from another. Nutritional bp screening: No deficits noted. Tuberculosis screening: No symptoms or risk factors identified. Fall Risk None identified. Assessment: 17:00 General: SEE TRIAGE NOTE. bp 18:29 Reassessment: PER HOME HEALTH REQUEST, POSADAS EXCHANGED. bp 19:15 Reassessment: Patient appears in no apparent distress at this time. Patient and/or family updated on plan of care and expected duration. Pain level reassessed. Patient is alert, oriented x 3, equal unlabored respirations, skin warm/dry/pink. Vital Signs: 16:49 BP 123 / 63; Pulse 81; Resp 16; Temp 98.1; Pulse Ox 94% ; Weight 104.33 kg; bp 17:00 BP 105 / 61; Pulse 82; Resp 16; Pulse Ox 94% ; bp 18:00 BP 114 / 65; Pulse 89; Resp 16; Pulse Ox 96% ; bp 19:30 BP 126 / 77; Pulse 79; Resp 18; Pulse Ox 94% on R/A; ED Course: 16:43 Patient arrived in ED. bp 16:44 Triage completed. bp 16:49 Arm band placed on. bp 16:51 Bulmaro Montague RN is Primary Nurse. bp 16:53 Ervin Treadwell MD is Attending Physician. ps1 17:00 Maintain EMS IV. Dressing intact. Good blood return noted. Site clean \T\ dry. Gauge \T\ bp site: 20 GAUGE R WRIST. 18:30 Patient has correct armband on for positive identification. Bed in low position. Call bp light in reach. Side rails up X2. Adult w/ patient. 18:35 Posadas cath removed intact, balloon deflated. dh3 18:40 Posadas cath inserted, using sterile technique, 16 Fr., by ks, balloon inflated, to dh3 gravity drainage, urine specimen collected. returned clear yellow urine. Patient tolerated well. 19:30 No provider procedures requiring assistance completed. IV discontinued, intact, bleeding controlled, No redness/swelling at site. Administered Medications: No medications were administered Outcome: 18:58 Discharge ordered by . ps1 19:30 Discharged to home Via ambulance, Pt bed bound, notified Charge Nurse, EMS on the way for transport 19:30 Condition: stable 19:30 Discharge instructions given to patient, family, Instructed on discharge instructions, follow up and referral plans. medication usage, POC Demonstrated understanding of instructions, follow-up care, medications, POC Prescriptions given X 2. 20:15 Condition: Report given to [facility] 20:15 Patient left the ED. Signatures: Elizabeth Schilling 3 Les Ding Bulmaro Montague, RN RN Ervin Kirkland MD MD ps1
--- NOTE | 2019-04-25 18:59 | EDPHYS ---
Physician Documentation [facility] Name: Rachna Peña Age: 84 yrs Sex: Female : 1935 Arrival Date: 04/25/2019 Time: 16:43 Bed 19 Private MD: ED Physician Ervin Treadwell HPI: 04/25 18:35 This 84 yrs old Female presents to ER via EMS with complaints of General ps1 Weakness, Rash. 18:35 Patient has been treated with Bactrim DS for a "staph" infection localized to the left ps1 leg. She has been on the medication for 8 days and developed a hemorrhagic / petechial rash covering the majority of her body. She does not have a fever. Has a history of CAD/Afib not on anticoagulants. . Historical: - Allergies: 16:49 No Known Allergies; bp - Home Meds: 16:49 allopurinol 300 mg Oral tab 1 tab once daily [Active]; gabapentin 400 mg Oral cap 1 cap bp 3 times per day [Active]; levetiracetam 500 mg Oral tab 1 tab 2 times per day [Active]; metoprolol tartrate 25 mg Oral tab [Active]; simvastatin 10 mg Oral tab 1 tab once daily [Active]; levothyroxine 75 mcg tab 1 tab once daily [Active]; amlodipine 2.5 mg tab 1 tab once daily [Active]; meloxicam 7.5 mg Oral tab 1 tab once daily [Active]; duloxetine 60 mg Oral cpDR 1 cap once daily [Active]; - PMHx: 16:49 Hypertension; Atrial Fib; COPD; Seizures; Arthritis; Gout; Sleep Apnea; Hypothyroidism; bp High Cholesterol; knee pain; Myocardial infarction; - Immunization history:: Adult Immunizations up to date. - Social history:: Smoking status: Patient/guardian denies using tobacco. - Ebola Screening: : No symptoms or risks identified at this time. ROS: 18:35 Constitutional: Negative for fever, chills, and weight loss, Eyes: Negative for injury, ps1 pain, redness, and discharge, Cardiovascular: Negative for chest pain, palpitations, and edema, Respiratory: Negative for shortness of breath, cough, wheezing, and pleuritic chest pain, Abdomen/GI: Negative for abdominal pain, nausea, vomiting, diarrhea, and constipation, MS/Extremity: Negative for injury and deformity, Neuro: Negative for headache, weakness, numbness, tingling, and seizure, Psych: Negative for depression, anxiety, suicide ideation, homicidal ideation, and hallucinations. 18:35 Skin: Positive for rash, diffusely. Exam: 18:35 Constitutional: This is a well developed, well nourished patient who is awake, alert, ps1 and in no acute distress. Head/Face: Normocephalic, atraumatic. Eyes: Pupils equal round and reactive to light, extra-ocular motions intact. Lids and lashes normal. Conjunctiva and sclera are non-icteric and not injected. Cardiovascular: Regular rate and rhythm. No gallops, murmurs, or rubs. Normal PMI, no JVD. No pulse deficits. Respiratory: Lungs have equal breath sounds bilaterally, clear to auscultation and percussion. No rales, rhonchi or wheezes noted. No increased work of breathing, no retractions or nasal flaring. Abdomen/GI: Soft, non-tender, with normal bowel sounds. No distension or tympany. No guarding or rebound. No evidence of tenderness throughout. Back: No spinal tenderness. No costovertebral tenderness. Full range of motion. 18:35 : a rodriguez is noted, to gravity drainage, urine is cloudy, blood tinged. 18:35 Skin: rash a moderate rash is noted, rash can be described as papular, ps1 petechial/hemorrhagic rash diffusely. . Vital Signs: 16:49 BP 123 / 63; Pulse 81; Resp 16; Temp 98.1; Pulse Ox 94% ; Weight 104.33 kg; bp 17:00 BP 105 / 61; Pulse 82; Resp 16; Pulse Ox 94% ; bp 18:00 BP 114 / 65; Pulse 89; Resp 16; Pulse Ox 96% ; bp 19:30 BP 126 / 77; Pulse 79; Resp 18; Pulse Ox 94% on R/A; wh MDM: 18:22 Patient medically screened. ps1 18:35 Data reviewed: vital signs, nurses notes, lab test result(s), and as a result, I will ps1 discharge patient. 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 04/25 17:44 Order name: CBC with Diff [facility] 04/25 17:44 Order name: CMP [facility] 04/25 17:45 Order name: PT-INR; Complete Time: 18:42 ps1 04/25 18:54 Order name: Urine Microscopic Only dh3 04/25 18:55 Order name: Urine Dipstick--Ancillary (enter results) 04/25 19:20 Order name: Urine Culture EDAK 04/25 17:44 Order name: Urine Dipstick-Ancillary (obtain specimen); Complete Time: 18:48 ps1 04/25 19:43 Order name: CBC Smear Scan EDAK Administered Medications: No medications were administered Disposition: 04/25/19 18:58 Discharged to Home. Impression: Candidiasis, Drug reaction, Petechial rash. - Condition is Stable. - Discharge Instructions: Drug Rash, Skin Yeast Infection. - Prescriptions for Fluconazole 150 mg Oral Tablet - take 1 tablet by ORAL route once daily for 7 days; 7 tablet. Nystatin- Triamcinolone 100,000-0.1 unit/g-% Topical Cream - apply 1 application by TOPICAL route 2 times per day; 1 tube. - Medication Reconciliation Form, Thank You Letter, Antibiotic Education, Prescription Opioid Use form. - SBAR form (04/25/19 20:18). cm6 - Follow up: Emergency Department; When: As needed; Reason: Fever > 102 F, Worsening of condition. Follow up: Private Physician; When: 48 Hours; Reason: Further diagnostic work-up, Recheck today's complaints, Continuance of care, Re-evaluation by your physician. - Problem is new. - Symptoms have improved. Signatures: Dispatcher [employer] EDMS Les Ding Brian, RN RN Ervin Kirkland MD MD ps1 Dot Paula cm6 Corrections: (The following items were deleted from the chart) 20:15 18:58 04/25/2019 18:58 Discharged to Home. Impression: Candidiasis; Drug reaction; wh Petechial rash. Condition is Stable. Forms are Medication Reconciliation Form, Thank You Letter, Antibiotic Education, Prescription Opioid Use. Follow up: Emergency Department; When: As needed; Reason: Fever > 102 F, Worsening of condition. Follow up: Private Physician; When: 48 Hours; Reason: Further diagnostic work-up, Recheck today's complaints, Continuance of care, Re-evaluation by your physician. Problem is new. Symptoms have improved. ps1
[2019-04-25 19:07] LABS: Urine Blood 2+ (NEG); Urine Glucose NEGATIVE (NEG); Urine Protein NEGATIVE (NEG); Urine pH 6.5 (5.0-7.0)
[2019-04-25 19:19] LABS: Urine Bacteria 20-50 /HPF (<20); Urine Culture Reflex Order REFLEXED; Urine RBC <5 /HPF (NONE SEEN)
[2019-04-25 19:42] LABS: Blood Morphology Comment NOT SEEN (NOT SEEN); Platelet Estimate DECR; Urine White Blood Cell Casts OK
[2019-04-25 22:07] VITALS: TEMP 98.1
[2019-04-26 20:56] VITALS: BP 126/77; O2SAT 94
== END 2019-04-25 20:15 | disposition home or self-care (01) ==
LOC: ER 16:41
DX: B37.9 Candidiasis, unspecified (principal); R23.3 Spontaneous ecchymoses; T36.8X5A Adverse effect of other systemic antibiotics, initial encounter; Y92.9 Unspecified place or not applicable; I25.10 Atherosclerotic heart disease of native coronary artery without angina pectoris; I48.91 Unspecified atrial fibrillation; I10 Essential (primary) hypertension; E03.9 Hypothyroidism, unspecified; E78.00 Pure hypercholesterolemia, unspecified; I25.2 Old myocardial infarction; J44.9 Chronic obstructive pulmonary disease, unspecified
CPT/HCPCS: 36415; 80053; 81003; 81015; 85025; 85610; 87086; 87088; 99284

== ENCOUNTER 2021-03-22 20:43 | Inpatient (IN) | payer OTHER ==
[2021-03-22 21:57] LABS: Absolute Lymphocytes (CBC) 0.2 K/uL (0.7-4.9); Basophils % 0.2 % (0-1.3); Hematocrit 41.2 % (36.0-45.0); Lymphocytes % 1.8 % (15.3-44.8); RBC Red Blood Cell Count 4.76 M/uL (3.86-4.86)
[2021-03-22 22:00] LABS: Protime INR 1.28
--- NOTE | 2021-03-22 22:07 | RAD REPORT ---
EXAM DESCRIPTION: [facility] Single View03/22/2021 9:09 pm CLINICAL HISTORY: Confusion COMPARISON: none FINDINGS: The lungs appear clear of acute infiltrate. The heart is mildly enlarged IMPRESSION: No acute abnormalities displayed
[2021-03-22 22:12] LABS: ALT/SGPT 27 U/L (12-78); AST/SGOT 17 U/L (15-37); Albumin 2.8 g/dL (3.4-5.0); Alkaline Phosphatase 61 U/L (45-117); Amylase 23 U/L (25-115); BUN Blood Urea Nitrogen 15 mg/dL (7-18); Bicarbonate 30 mmol/L (21-32); Bilirubin Direct 0.3 mg/dL (0-0.2); Bilirubin Total 0.8 mg/dL (0.2-1.0); Creatine Phosphokinase 17 U/L (26-192); Glucose Level 189 mg/dL (74-106); Lipase 46 U/L (73-393); Potassium 3.9 mmol/L (3.5-5.1); Protein, Total 7.9 g/dL (6.4-8.2); Sodium Level 134 mmol/L (136-145); Troponin (Emerg Dept Use Only) < 0.02 ng/mL (0.0-0.045)
[2021-03-22 22:13] LABS: CKMB Creatine Kinase MB < 1.0 ng/mL (1.0-3.6)
[2021-03-22 22:15] LABS: Urine Bacteria LOADED /HPF (<20); Urine RBC 20-50 /HPF (NONE SEEN)
[2021-03-22 22:51] LABS: Blood Morphology Comment NOT SEEN (NOT SEEN); Platelet Estimate ADEQ
[2021-03-22] MEDS ORDERED: NA CHLORIDE 0.9% 3,000 ML ONE (22:54)
--- NOTE | 2021-03-22 22:54 | ER ---
Nurse's Notes [facility] Name: Rachna Peña Age: 86 yrs Sex: Female : 1935 Arrival Date: 03/22/2021 Time: 20:49 Bed 3 Private MD: Diagnosis: UTI/ Urinary tract infection, site not specified;Altered mental status, unspecified Presentation: 03/22 20:56 Chief complaint: Patient states: that she fell the other day and that her back is lh3 aching. EMS states: that daughter says that patient has had increase AMS, since yesterday. Casillas catheter was changed 2 days ago and patient tends to get a UTI after it has been changed. BG 142, Temp 99.0, BP- 178/106. Pt has hearing device. Allergy to bactrim, COVID vaccinated. Patient is bed bound and lives at home with daughter. Coronavirus screen: Vaccine status: Patient reports receiving the 2nd dose of the covid vaccine. Date March 22, 2021. Ebola Screen: Patient negative for fever greater than or equal to 101.5 degrees Fahrenheit, and additional compatible Ebola Virus Disease symptoms Patient denies exposure to infectious person. Patient denies travel to an Ebola-affected area in the 21 days before illness onset. No symptoms or risks identified at this time. Initial Sepsis Screen: Does the patient meet any 2 criteria? Altered Mental Status. Yes Does the patient have a suspected source of infection? Yes:. Risk Assessment: Do you want to hurt yourself or someone else? Patient reports no desire to harm self or others. Onset of symptoms was March 22, 2021. Care prior to arrival:. Care prior to arrival: IV access and NS. 20:56 Method Of Arrival: EMS 3 20:56 Acuity: JENNIFER 2 lh3 21:07 Chief complaint:. lh3 Triage Assessment: 21:05 General: Appears in no apparent distress. Behavior is calm, cooperative, appropriate lh3 for age. Pain: Complains of pain in back. Historical: - Allergies: 21:05 Bactrim; lh3 - PMHx: 21:05 Arthritis; Atrial Fib; COPD; Gout; High Cholesterol; Hypertension; Hypothyroidism; knee lh3 pain; Myocardial infarction; Seizures; Sleep Apnea; - Immunization history:: Client reports receiving the 2nd dose of the Covid vaccine, Date received: 2020. - Social history:: Smoking status: Patient/guardian denies using tobacco. Screenin/01 01:13 Abuse screen: Denies threats or abuse. Denies injuries from another. Nutritional 3 screening: No deficits noted. Tuberculosis screening: No symptoms or risk factors identified. Fall Risk IV access (20 points). Assessment: 03/22 21:08 General: Appears in no apparent distress. Behavior is calm, cooperative, appropriate [facility] for age. 03/23 01:38 Reassessment: ED provider notified pt is moaning saying hurt, hurt, cold new orders bb received pt medicated see JUL. 02:05 Reassessment: ED provider notified pt has temp of 101.5 rectal new orders received pt bb medicated see JUL. Vital Signs: 03/22 20:56 BP 140 / 74; Pulse 102; Resp 18; Temp 99(O); Pulse Ox 90% on R/A; Weight 108.77 kg; 3 Height 5 ft. 8 in. (172.72 cm); 22:00 BP 120 / 61; Pulse 96; Resp 18; Pulse Ox 97% on 3 lpm NC; 3 03/23 00:00 BP 142 / 68; Pulse 92; Resp 18; Pulse Ox 95% on 3 lpm NC; 3 01:00 BP 141 / 76; Pulse 91; Resp 18; Pulse Ox 95% on 3 lpm NC; 3 03/22 20:56 Body Mass Index 36.46 (108.77 kg, 172.72 cm) [facility] ED Course: 03/22 20:49 Patient arrived in ED. mw2 20:52 Lucy Tena MD is Attending Physician. sp3 21:05 Triage completed. lh3 21:05 Arm band placed on left wrist. lh3 21:08 Chest Single View XRAY In Process Unspecified. EDMS 21:49 Nusrat Redmond, SHAWN is Primary Nurse. lh3 21:50 Amylase, Serum Sent. lh3 21:50 Basic Metabolic Panel Sent. lh3 21:50 Blood Culture Adult (2) Sent. lh3 21:50 CBC with Diff Sent. lh3 21:50 CPK Sent. lh3 21:50 Ckmb Sent. lh3 21:50 LFT's Sent. lh3 21:50 Lactate Sent. lh3 21:50 Lipase Sent. lh3 21:50 Procalcitonin Sent. lh3 21:50 Protime (+inr) Sent. lh3 21:50 Ptt, Activated Sent. lh3 21:50 Troponin (emerg Dept Use Only) Sent. lh3 21:50 Urine Microscopic Only Sent. lh3 22:53 Samir Weir DO is Hospitalizing Provider. sp3 23:05 CT Head Brain wo Cont In Process Unspecified. EDMS 23:23 CT Abd/Pelvis - IV Contrast Only In Process Unspecified. EDMS 03/23 00:00 Jonnie Patel MD is Hospitalizing Provider. la1 01:14 Patient has correct armband on for positive identification. Bed in low position. Call 3 light in reach. Side rails up X 1. 01:14 No provider procedures requiring assistance completed. Inserted saline lock: 22 gauge 3 in right hand, using aseptic technique. 01:14 Patient admitted, IV remains in place. 3 Administered Medications: 03/22 22:10 Drug: NS 0.9% (30 ml/kg) 30 ml/kg Route: IV; Rate: bolus; Site: right wrist; lh3 03/23 00:51 Follow up: Response: No adverse reaction; IV Status: Infusion continued upon admission lh3 00:20 Drug: Cefepime 2 grams Route: IVPB; Rate: 200 ml/hr; Infused Over: 30 mins; Site: right lh3 wrist; 01:43 Drug: Zofran (Ondansetron) 4 mg Route: IVP; Site: right hand; bb 02:23 Follow up: Response: No adverse reaction bb 01:45 Drug: morphine 4 mg {Note: RASS 0.} Route: IVP; Site: right hand; bb 02:22 Follow up: Response: No adverse reaction; RASS: Restless (+1) bb 02:07 Drug: Tylenol Suppository 650 mg Route: NE; bb Outcome: 03/22 22:53 Decision to Hospitalize by Provider. sp3 03/23 01:23 Admitted to Med/surg accompanied by nurse, room 212. [facility] Condition: good 02:25 Patient left the ED. bb Signatures: Dispatcher [employer] EDUT Evelyn Hays RN RN bb Juni Mg, KITCHEN AND COUNTER WORKER-C KITCHEN AND COUNTER WORKER-Carmel1 Aide Mejia mw2 Lucy Tena MD MD sp3 Nusrat Redmond RN RN lh3 Corrections: (The following items were deleted from the chart) 03/22 21:08 20:56 Chief complaint: Patient states: that she fell the other day and that her back is lh3 aching. EMS states: that daughter says that patient has had increase AMS, since yesterday. Casillas catheter was changed 2 days ago and patient tends to get a UTI after it has been changed. BG 142, Temp 99.0, BP- 178/106. Pt has hearing device. Allergy to bactrim, COVID vaccinated lh3
--- NOTE | 2021-03-22 22:54 | EDPHYS ---
Physician Documentation [facility] Name: Rachna Peña Age: 86 yrs Sex: Female : 1935 Arrival Date: 03/22/2021 Time: 20:49 Bed 3 Private MD: ED Physician Lucy Tena HPI: 03/22 21:04 This 86 yrs old Female presents to ER via Unassigned with complaints of sp3 Altered mental status. 21:04 86-year-old female with multiple medical problems including hypertension, seizure sp3 history, COPD, obesity, hearing impairment now presents from home for altered mental status. Patient has an indwelling Casillas which allegedly was changed several days ago. There is limited history and limited physical secondary to patient's baseline mental status. In 2019 she had a colonic mass requiring admission.. Historical: - Allergies: 21:05 Bactrim; lh3 - PMHx: 21:05 Arthritis; Atrial Fib; COPD; Gout; High Cholesterol; Hypertension; Hypothyroidism; knee lh3 pain; Myocardial infarction; Seizures; Sleep Apnea; - Immunization history:: Client reports receiving the 2nd dose of the Covid vaccine, Date received: 2020. - Social history:: Smoking status: Patient/guardian denies using tobacco. ROS: 21:07 Unable to obtain ROS due to altered mental status, baseline dementia. sp3 Exam: 21:07 Chest/axilla: Normal chest wall appearance and motion. Nontender with no deformity. sp3 No lesions are appreciated. Cardiovascular: Regular rate and rhythm with a normal S1 and S2. No gallops, murmurs, or rubs. Normal PMI, no JVD. No pulse deficits. Respiratory: Lungs have equal breath sounds bilaterally, clear to auscultation and percussion. No rales, rhonchi or wheezes noted. No increased work of breathing, no retractions or nasal flaring. Abdomen/GI: Soft, non-tender, with normal bowel sounds. No distension or tympany. No guarding or rebound. No evidence of tenderness throughout. 21:07 Constitutional: The patient appears Patient is alert and follows commands but does not give coherent answers to questions. She cannot answer as to why she is in the hospital or if she is having any pain or not. Patient appears no acute distress. 21:07 Neuro: Neurologically patient is grossly intact with cranial nerves II through XII grossly intact; patient moves all extremities and withdraws to pain without any difficulty.. 22:17 ECG was reviewed by the Attending Physician. Demonstrates normal sinus rhythm at 96 bpm sp3 with mild left axis deviation and nonspecific ST/T changes diffusely without evidence of ischemia. Vital Signs: 20:56 BP 140 / 74; Pulse 102; Resp 18; Temp 99(O); Pulse Ox 90% on R/A; Weight 108.77 kg; 3 Height 5 ft. 8 in. (172.72 cm); 22:00 BP 120 / 61; Pulse 96; Resp 18; Pulse Ox 97% on 3 lpm NC; 3 11 00:00 BP 142 / 68; Pulse 92; Resp 18; Pulse Ox 95% on 3 lpm NC; 3 01:00 BP 141 / 76; Pulse 91; Resp 18; Pulse Ox 95% on 3 lpm NC; 3 03/22 20:56 Body Mass Index 36.46 (108.77 kg, 172.72 cm) [facility] MDM: 03/22 20:55 Patient medically screened. 3 21:09 Data reviewed: vital signs, nurses notes. ED course: Given complex medical history and 3 past medical history, we will cast a wide net including CT scans of the head, abdomen and pelvis, laboratory values, UA, Casillas change, cardiac markers, EKG. At this point I am not highly suspicious for intracranial hemorrhage, meningitis, acute coronary syndrome, pulmonary embolism, vascular compromise including thoracic aortic aneurysm or AAA. Patient likely has UTI/pyelonephritis or early sepsis. Patient will require admission regardless to the hospitalist service. We will start empiric antibiotics as needed and get patient admitted.. 22:52 ED course: Cefepime started for UTI. Casillas has also been changed. Will admit to [facility] hospital service.. 03/22 20:54 Order name: Amylase, Serum sp3 03/22 20:54 Order name: Basic Metabolic Panel 3 03/22 20:54 Order name: Blood Culture Adult (2) sp3 03/22 20:54 Order name: CBC with Diff sp3 03/22 20:54 Order name: CPK; Complete Time: 22:19 sp3 03/22 20:54 Order name: Ckmb; Complete Time: 22:19 3 03/22 20:54 Order name: LFT's; Complete Time: 22:19 [facility] 03/22 20:54 Order name: Lactate; Complete Time: 22:12 [facility] 03/22 20:54 Order name: Lipase; Complete Time: 22:19 [facility] 03/22 20:54 Order name: Procalcitonin; Complete Time: 22:43 [facility] 03/22 20:54 Order name: Protime (+inr); Complete Time: 22:12 [facility] 03/22 20:54 Order name: Ptt, Activated; Complete Time: 22:12 [facility] 03/22 20:54 Order name: Troponin (emerg Dept Use Only); Complete Time: 22:19 [facility] 03/22 20:54 Order name: Urine Microscopic Only; Complete Time: 22:19 [facility] 03/22 20:54 Order name: Chest Single View XRAY; Complete Time: 22:12 [facility] 03/22 20:54 Order name: CT Head Brain wo Cont [facility] 03/22 20:55 Order name: Amylase; Complete Time: 22:19 [facility] 03/22 20:55 Order name: Basic Metabolic Panel; Complete Time: 22:19 [facility] 03/22 20:55 Order name: Blood Culture [facility] 03/22 20:55 Order name: CBC with Automated Diff; Complete Time: 22:51 [facility] 03/22 21:10 Order name: CT Abd/Pelvis - IV Contrast Only [facility] 03/22 22:02 Order name: Manual Differential; Complete Time: 22:51 [facility] 03/22 22:16 Order name: Urine Culture [facility] 03/22 23:45 Order name: SARS-COV-2 RT PCR [facility] 03/22 20:54 Order name: Accucheck; Complete Time: 21:51 [facility] 03/22 20:54 Order name: Cardiac monitoring; Complete Time: 21:50 [facility] 03/22 20:54 Order name: EKG - Nurse/Tech; Complete Time: 21:50 [facility] 03/22 20:54 Order name: IV Saline Lock - Large Bore; Complete Time: 21:50 [facility] 03/22 20:54 Order name: Labs collected and sent; Complete Time: 21:50 [facility] 03/22 20:54 Order name: O2 Per Protocol; Complete Time: 21:50 [facility] 03/22 20:54 Order name: O2 Sat Monitoring; Complete Time: 21:50 [facility] 03/22 20:54 Order name: Urine Dipstick-Ancillary (obtain specimen); Complete Time: 21:50 sp3 03/22 22:54 Order name: Misc. Order: Please replace Casillas catheter; Complete Time: 00:51 la1 Administered Medications: 22:10 Drug: NS 0.9% (30 ml/kg) 30 ml/kg Route: IV; Rate: bolus; Site: right wrist; 3 03/23 00:51 Follow up: Response: No adverse reaction; IV Status: Infusion continued upon admission 3 00:20 Drug: Cefepime 2 grams Route: IVPB; Rate: 200 ml/hr; Infused Over: 30 mins; Site: right lh3 wrist; 01:43 Drug: Zofran (Ondansetron) 4 mg Route: IVP; Site: right hand; bb 02:23 Follow up: Response: No adverse reaction bb 01:45 Drug: morphine 4 mg {Note: RASS 0.} Route: IVP; Site: right hand; bb 02:22 Follow up: Response: No adverse reaction; RASS: Restless (+1) bb 02:07 Drug: Tylenol Suppository 650 mg Route: RI; bb Disposition Summary: 03/22/21 22:53 Hospitalization Ordered Hospitalization Status: Inpatient Admission sp3 Location: Telemetry/[facility] (Inpatient) sp3 Condition: Stable sp3 Problem: an acute exacerbation sp3 Symptoms: have worsened sp3 Bed/Room Type: Standard sp3 Provider: Jonnie Patel(03/23/21 00:00) la1 Room Assignment: [facility](03/23/21 00:42) Diagnosis - UTI/ Urinary tract infection, site not specified sp3 - Altered mental status, unspecified sp3 Forms: - Medication Reconciliation Form sp3 - SBAR form sp3 Signatures: Dispatcher [employer] EDMS Evelyn Hays RN RN bb Juni Mg FNP-C BUSINESS EDITOR-Cla1 Caitie Simeon RN RN cg Lucy Tena MD MD sp3 Nusrat Redmond RN RN 3 Corrections: (The following items were deleted from the chart) 03/22 23:45 23:02 CORONAVIRUS+MR.LAB.BRZ ordered. EDMS EDMS 11/01 00:00 03/22 22:53 Samir Weir sp3 la1 03/23 00:42 03/22 22:53 sp3 cg
--- NOTE | 2021-03-23 00:18 | P.HP ---
Certification for Inpatient Patient admitted to: Inpatient With expected LOS: >2 Midnights Patient will require the following post-hospital care: None Practitioner: I am a practitioner with admitting privileges, knowledge of patient current condition, hospital course, and medical plan of care. Services: Services provided to patient in accordance with Admission requirements found in Title 42 Section 412.3 of the Code of Federal Regulations <Juni Mg - Last Filed: 03/23/21 00:11> Patient History Date of Service: 03/23/21 Primary Care Provider: Dr. Zelaya Reason for admission: UTI, AMS History of Present Illness: 86-year-old female with history of atrial fibrillation not on chronic anticoagulation, hypertension, hyperlipidemia, gout, sleep apnea, hypothyroidism, severe arthritis and chronic Casillas catheter use presents emerge department for altered mental status. Patient lives with her daughter is mostly bedbound but can get up and ambulate, typically oriented x4 daughter reports patient is been more altered last few days and urine has been very cloudy in catheter. Daughter believes catheter was likely replaced a few days ago by home health. Patient was evaluated in the emergency department labs were significant for white blood cell count 11.9 platelet 104 8% bands sodium 134 chloride 97 glucose 189 procalcitonin 3.99 lactic acid 1.3 urinalysis white blood cell too numerous to count bacteria loaded urine and blood cultures obtained patient given cefepime in the emergency department, ED provider wishes to admit for further evaluation and management. - Past Medical/Surgical History Diabetic: No -: arthritis -: gout -: HLD -: HTN -: knee pain -: hypothyroid -: AF -: irwin cataract -: right foot sx Psychosocial/ Personal History: Lives at home with daughter - Family History Family History: Reviewed- Non-Contributory - Social History Smoking Status: Never smoker Alcohol use: No CD- Drugs: No Caffeine use: No Place of Residence: Home <Juni Mg - Last Filed: 03/23/21 00:11> Date of Service: 03/23/21 <Jonnie Patel - Last Filed: 03/27/21 02:41> Allergies No Known Allergies Allergy (Unverified 03/15/17 01:19) Home Medications: Amlodipine Besylate [Norvasc] 2 tab PO DAILY 09/01/18 Duloxetine [Cymbalta Dalayed Release Pellets] 60 mg PO DAILY 09/01/18 Gabapentin [Neurontin] 400 mg PO TID 09/01/18 Levothyroxine [Synthroid] 75 mcg PO [id number] 09/01/18 Meloxicam [Mobic] 7.5 mg PO DAILY 09/01/18 Metoprolol Tartrate [Lopressor] 25 mg PO BID 09/01/18 Simvastatin 10 mg PO DAILY 09/01/18 allopurinoL [Zyloprim*] 300 mg PO DAILY 09/01/18 Review of Systems 10-point ROS is otherwise unremarkable General: Chills, Weakness, Malaise Neurological: Confusion <Juni Mg - Last Filed: 03/23/21 00:11> Physical Examination - Physical Exam General: Alert, In no apparent distress, Oriented x3, Obese HEENT: Atraumatic Neck: Supple Respiratory: Diminished Cardiovascular: No edema, Normal S1 S2 Capillary refill: <2 Seconds Gastrointestinal: Normal bowel sounds, Soft and benign Musculoskeletal: No contractures, No erythema, No tenderness Integumentary: No significant lesion, No tenderness/swelling, No erythema Neurological: Normal speech, Normal tone - Studies Laboratory Data (last 24 hrs) 03/22/21 21:27: PT 14.7 H, INR 1.28, APTT 38.7 H 03/22/21 21:27: WBC 11.90 H, Hgb 13.3, Hct 41.2, Plt Count 104 L 03/22/21 21:27: Sodium 134 L, Potassium 3.9, BUN 15, Creatinine 1.00, Glucose 189 H, Total Bilirubin 0.8, AST 17, ALT 27, Alkaline Phosphatase 61, Amylase 23 L, Lipase 46 L <Juni Mg - Last Filed: 03/23/21 00:11> - Studies Microbiology Data (last 24 hrs): 03/22/21 21:39 Clean Catch Urine [place] Count - Final >100,000 CFU/ML. 03/22/21 21:39 Clean Catch Urine - Final Enterococcus Faecalis Escherichia Coli Morganella Morganii <Jonnie Patel - Last Filed: 03/27/21 02:41> Assessment and Plan - Plan Assessment: Toxic metabolic encephalopathy secondary to complicated urinary tract infection with chronic Casillas catheter use Atrial fibrillation not on chronic anticoagulation therapy Hypertension Hyperlipidemia Hypothyroidism Severe arthritis Gout Plan: Toxic metabolic encephalopathy secondary to complicated urinary tract infection with chronic Casillas catheter use: Blood and urine cultures obtained, continue with cefepime at this time. Patient with periodic episodes of confusion, extremely difficult of hearing wears device with headphones to assist in hearing. Daughter reports patient thickly ANO x4 mostly bedbound but can get up and exercise a few times per day. Physical therapy evaluate patient as well. Atrial fibrillation not on chronic anticoagulation therapy: Metoprolol continued, patient not on any chronic anticoagulation therapy. Hypertension: Have continued home medications Hyperlipidemia: Have continued home medications Hypothyroidism: Have continued home medications Severe arthritis: Have continued home medications Gout: Have continued home medications DVT PPX: Lovenox Code status: Full Discharge Plan: Home Plan to discharge in: Greater than 2 days - Advance Directives Does patient have a Living Will: Yes Does patient have a Durable POA for Healthcare: Yes - Code Status/Comfort Care Code Status Assessed: Yes (full code ) Critical Care: No Time Spent Managing Pts Care (In Minutes): 55 <Juni Mg - Last Filed: 03/23/21 00:11> - Problems (Diagnosis) (1) UTI (urinary tract infection) Current Visit: Yes Status: Acute (2) Sepsis Current Visit: Yes Status: Acute (3) Hard of hearing Current Visit: Yes Status: Acute <Jonnie Patel - Last Filed: 03/27/21 02:41> Date of Service: 03/23/21 Subjective Agree with HPI a as mentioned above. Continue with plan of care as mentioned below Review of Systems 10-point ROS is otherwise unremarkable Physical Examination - Vital Signs Reviewed - Physical Exam General: Alert, In no apparent distress HEENT: Atraumatic, PERRLA, EOMI Neck: Supple, JVD not distended Respiratory: Clear to auscultation bilaterally, Normal air movement Cardiovascular: Regular rate/rhythm, Normal S1 S2 Gastrointestinal: Normal bowel sounds, No tenderness Musculoskeletal: No tenderness Integumentary: No rashes Neurological: Normal speech, Normal tone, Normal affect Lymphatics: No axilla or inguinal lymphadenopathy Assessment & Plan - Problems (Diagnosis) (1) UTI (urinary tract infection) with bacteremia Current Visit: Yes Status: Acute (2) Sepsis Current Visit: Yes Status: Acute (3) Hard of hearing Current Visit: Yes Status: Acute - Plan Continue with plan of care as mentioned below: 1. IVFS 2. ANTIBIOTICS 3. MONITOR LABS 4. CULTURES PENDING 5. OOB AND AMBULATE Discharge Plan: Home Plan to discharge in: Greater than 2 days - Advance Directives Does patient have a Living Will: Yes Does patient have a Durable POA for Healthcare: Yes - Code Status/Comfort Care Code Status Assessed: Yes Code Status: Full Code Critical Care: No Time Spent Managing PTS Care (In Minutes): 35 <Jonnie Patel - Last Filed: 03/27/21 02:41>
[2021-03-23] MEDS ORDERED: CEFEPIME 1 GM/VIAL ONE (01:09)
[2021-03-23] MEDS ORDERED: NA CHLORIDE 0.9% 100 ML ONE (01:11)
[2021-03-23] MEDS ORDERED: ONDANSETRON 4 MG/2 ML VIAL IV PRN (01:20)
[2021-03-23] MEDS ORDERED: MORPHINE 4 MG/ML SYR ONE (02:39)
[2021-03-23] MEDS ORDERED: ONDANSETRON 4 MG/2 ML VIAL ONE (02:39)
[2021-03-23] MEDS ORDERED: ACETAMINOPHEN 650MG/RECT SUPP PR ONE (03:10)
[2021-03-23] MEDS: NA CHLORIDE 0.9% 1,000 ML IV SCH ×2 (03:23→10:59)
[2021-03-23 04:45] VITALS: BMI 36.4
[2021-03-23 05:57] LABS: Absolute Lymphocytes (CBC) 0.2 K/uL (0.7-4.9); Basophils % 0.1 % (0-1.3); Hematocrit 38.8 % (36.0-45.0); Lymphocytes % 1.3 % (15.3-44.8); MPV 7.9 fL (7.6-11.3); RBC Red Blood Cell Count 4.45 M/uL (3.86-4.86)
[2021-03-23 06:19] LABS: Albumin 2.5 g/dL (3.4-5.0); Bilirubin Total 0.6 mg/dL (0.2-1.0); Magnesium 2.1 mg/dL (1.8-2.4); Potassium 3.5 mmol/L (3.5-5.1); Protein, Total 7.1 g/dL (6.4-8.2); Thyroid Stimulating Hormone 1.04 uIU/mL (0.360-3.740)
[2021-03-23] MEDS: METOPROLOL TAR 25 MG TAB PO SCH ×2 (08:00→17:27)
[2021-03-23] MEDS ORDERED: CEFEPIME 1 GM/VIAL IV SCH (09:00)
[2021-03-23] MEDS: AMLODIPINE 2.5 MG TAB PO SCH (09:00)
[2021-03-23] MEDS: ENOXAPARIN 40 MG/0.4 ML SQ SCH (10:59)
[2021-03-23] MEDS: allopurinoL 300 MG TAB PO SCH (11:00)
--- NOTE | 2021-03-23 11:00 | RAD REPORT ---
EXAM DESCRIPTION: CT - Head Brain Wo Cont - 03/23/2021 6:02 am CLINICAL HISTORY: 86 years Female Altered mental status TECHNIQUE: Contiguous axial CT images obtained through the brain without IV contrast. This CT exam was performed according to our departmental dose-optimization program, which includes on e or more of the following dose reduction techniques: automated exposure control, adjustment of the m A and/or kV according to patient size, and/or use of iterative reconstruction technique. COMPARISON: No prior exams provided for comparison. FINDINGS: There is no intracranial hemorrhage, extraaxial collection, or evidence of acute transcort ical infarction. Scattered foci of low attenuation within the periventricular and subcortical white matter are most co mpatible with chronic microvascular disease. The ventricles and sulci are symmetric without midline s hift or mass effect. Vascular calcifications are noted. No lesion of the skull base or calvarium is identified. The parana tammi sinuses and mastoid air cells are clear. IMPRESSION: Mild chronic microvascular changes without acute intracranial finding. Electronically signed by: Kelley Mario MD 03/22/2021 11:18 PM CDT Due to temporary technical issues with the PACS/Fluency reporting system, reports are being signed by the in house radiologists without review as a courtesy to insure prompt reporting. The interpreting radiologist is fully responsible for the content of the report.
[2021-03-23] MEDS: LEVOTHYROXINE SOD 0.075 MG TAB PO SCH (11:01)
[2021-03-23] MEDS: GABAPENTIN 300 MG CAP PO PRN ×2 (11:01→20:25)
[2021-03-23] MEDS: DULOXETINE 30 MG CAP PO SCH (11:02)
[2021-03-23] MEDS: MELOXICAM 7.5 MG TAB PO SCH (11:02)
[2021-03-23] MEDS: levETIRAcetam 500 MG TAB PO SCH ×2 (11:02→20:23)
--- NOTE | 2021-03-23 11:08 | RAD REPORT ---
EXAM DESCRIPTION: CT - Abdomen Pelvis W Contrast - 03/23/2021 6:03 am COMPARISON: None. CLINICAL HISTORY: [facility] MAIN ABD PAIN TECHNIQUE: CT of the abdomen and pelvis was acquired with IV contrast material. Coronal and sagitt al reconstructions were obtained. Automated exposure control was utilized on this examination as a dose lowering technique. FINDINGS: Lung bases: Cardiomegaly with bibasilar atelectasis. Liver: The liver is enlarged measuring 18.5 cm with mild nodularity. Hypoenhancing circumscribed lesi ons are noted in the right liver measuring up to 5.8 cm. These are favored to represent Gallbladder and biliary: Small gallstones are present. Unremarkable biliary tree. Pancreas: Normal. Spleen: Punctate granulomas are noted in the spleen. Adrenal glands: Normal adrenal glands. Kidneys: Mild bilateral perinephric stranding with mild hydroureter bilaterally. Punctate nonobstruct ing left renal calculus is present. Stomach and Small Bowel: Normal stomach. A few mildly dilated loops of small bowel are noted. Urinary bladder: Decompressed with Casillas catheter in place. Uterus and Adnexa: Bilateral ovarian cysts are present measuring up to 5.4 cm on the left and 5.7 cm on the right. Colon and Appendix: Moderate sigmoid diverticulosis. No evidence of appendicitis. Retroperitoneum and lymph nodes: Normal. Vascular: Moderate multivessel atherosclerosis. Peritoneal cavity: Trace dependent fluid. Musculoskeletal and soft tissues: Soft tissues are unremarkable. S-shaped lumbar scoliosis. Severe dustin mbar spondylosis is present. Chronic degenerative changes of the sacroiliac joints. No aggressive bon e lesions. No compression fracture. IMPRESSION: ABDOMEN/PELVIS IMPRESSION 1. A few mildly dilated loops of small bowel are noted. Findings may represent ileus or enteritis. 2. Mild hepatomegaly with mild hepatic nodularity which could indicate early cirrhosis. Hypoenhanci ng circumscribed lesions of the right liver could represent benign lesions such as cysts or hemangiom as, however if liver disease is present, recommend further evaluation with MRI or CT with multiphasic liver protocol to exclude neoplasm. 3. Mild bilateral perinephric stranding with mild hydroureter bilaterally. This is nonspecific but could indicate ascending urinary tract infection. 4. Bilateral ovarian cysts measuring up to 5.4 cm on the left and 5.7 cm on the right. Recommend fo llow-up ultrasound in 6-12 months. 5. Cholelithiasis. 6. Moderate sigmoid diverticulosis. 7. Cardiomegaly. Electronically signed by: Chema Miranda MD 03/22/2021 11:43 PM CDT Due to temporary technical issues with the PACS/Fluency reporting system, reports are being signed by the in house radiologists without review as a courtesy to insure prompt reporting. The interpreting radiologist is fully responsible for the content of the report.
[2021-03-23] MEDS ORDERED: POTASSIUM 25 MEQ EFFERV TAB PO ONE (16:00)
[2021-03-23] MEDS: ATORVASTATIN 10 MG TAB PO SCH (20:23)
[2021-03-24 03:59] LABS: Absolute Lymphocytes (CBC) 0.3 K/uL (0.7-4.9); Basophils % 0.1 % (0-1.3); Hematocrit 34.9 % (36.0-45.0); Lymphocytes % 2.5 % (15.3-44.8); MPV 7.8 fL (7.6-11.3); RBC Red Blood Cell Count 3.95 M/uL (3.86-4.86)
[2021-03-24] MEDS: NA CHLORIDE 0.9% 1,000 ML IV SCH ×2 (04:00→17:20)
[2021-03-24 04:06] LABS: Albumin 2.1 g/dL (3.4-5.0); Bilirubin Total 0.3 mg/dL (0.2-1.0); Magnesium 2.3 mg/dL (1.8-2.4); Potassium 4.5 mmol/L (3.5-5.1); Protein, Total 6.7 g/dL (6.4-8.2)
[2021-03-24] MEDS: METOPROLOL TAR 25 MG TAB PO SCH ×2 (05:09→17:29)
[2021-03-24] MEDS: LEVOTHYROXINE SOD 0.075 MG TAB PO SCH (05:10)
[2021-03-24] MEDS: ACETAMINOPHEN 500 MG TAB PO PRN (05:10)
[2021-03-24] MEDS: DULOXETINE 30 MG CAP PO SCH (08:33)
[2021-03-24] MEDS: levETIRAcetam 500 MG TAB PO SCH ×2 (08:33→19:46)
[2021-03-24] MEDS: MELOXICAM 7.5 MG TAB PO SCH (08:34)
[2021-03-24] MEDS: AMLODIPINE 2.5 MG TAB PO SCH (08:34)
[2021-03-24] MEDS: ENOXAPARIN 40 MG/0.4 ML SQ SCH ×2 (08:34→08:47)
[2021-03-24] MEDS: allopurinoL 300 MG TAB PO SCH (08:35)
[2021-03-24] MEDS: ATORVASTATIN 10 MG TAB PO SCH (19:46)
[2021-03-24] MEDS: CEFEPIME 1 GM/100 ML BAG IV SCH ×2 (23:08)
[2021-03-25] MEDS: ACETAMINOPHEN 500 MG TAB PO PRN ×3 (00:16→13:08)
[2021-03-25 03:47] LABS: Absolute Lymphocytes (CBC) 0.3 K/uL (0.7-4.9); Basophils % 0.2 % (0-1.3); Hematocrit 33.3 % (36.0-45.0); Lymphocytes % 4.7 % (15.3-44.8); MPV 7.9 fL (7.6-11.3); RBC Red Blood Cell Count 3.78 M/uL (3.86-4.86)
[2021-03-25 04:00] LABS: Albumin 2.1 g/dL (3.4-5.0); Bilirubin Total 0.3 mg/dL (0.2-1.0); Magnesium 2.4 mg/dL (1.8-2.4); Potassium 4.2 mmol/L (3.5-5.1); Protein, Total 6.7 g/dL (6.4-8.2)
[2021-03-25] MEDS: METOPROLOL TAR 25 MG TAB PO SCH ×2 (05:08→16:53)
[2021-03-25] MEDS: LEVOTHYROXINE SOD 0.075 MG TAB PO SCH (05:09)
[2021-03-25] MEDS: allopurinoL 300 MG TAB PO SCH (08:50)
[2021-03-25] MEDS: AMLODIPINE 2.5 MG TAB PO SCH (08:50)
[2021-03-25] MEDS: levETIRAcetam 500 MG TAB PO SCH ×2 (08:50→22:05)
[2021-03-25] MEDS: DULOXETINE 30 MG CAP PO SCH (08:51)
[2021-03-25] MEDS: MELOXICAM 7.5 MG TAB PO SCH (08:51)
[2021-03-25] MEDS: NA CHLORIDE 0.9% 1,000 ML IV SCH ×2 (08:55→20:00)
[2021-03-25 10:58] VITALS: O2SAT 94
[2021-03-25] MEDS: ATORVASTATIN 10 MG TAB PO SCH (22:04)
[2021-03-26] MEDS ORDERED: HYDRALAZINE HCL 20 MG/ML VIAL IV PRN (00:33)
[2021-03-26] MEDS: CEFEPIME 1 GM/100 ML BAG IV SCH ×3 (00:43→23:42)
[2021-03-26] MEDS: ACETAMINOPHEN 500 MG TAB PO PRN ×2 (01:25→23:57)
[2021-03-26 04:08] LABS: Absolute Lymphocytes (CBC) 0.2 K/uL (0.7-4.9); Basophils % 0.3 % (0-1.3); Hematocrit 33.9 % (36.0-45.0); Lymphocytes % 5.7 % (15.3-44.8); MPV 7.8 fL (7.6-11.3); RBC Red Blood Cell Count 3.83 M/uL (3.86-4.86)
[2021-03-26 04:47] LABS: Albumin 2.1 g/dL (3.4-5.0); Bilirubin Total 0.3 mg/dL (0.2-1.0); Magnesium 2.4 mg/dL (1.8-2.4); Potassium 4.2 mmol/L (3.5-5.1); Protein, Total 6.9 g/dL (6.4-8.2)
[2021-03-26] MEDS ORDERED: MORPHINE 2 MG/ML SYR IV ONE (04:53)
[2021-03-26] MEDS: METOPROLOL TAR 25 MG TAB PO SCH ×2 (05:53→17:51)
[2021-03-26] MEDS: NA CHLORIDE 0.9% 1,000 ML IV SCH ×2 (05:53→22:40)
[2021-03-26] MEDS: LEVOTHYROXINE SOD 0.075 MG TAB PO SCH (06:30)
[2021-03-26] MEDS: DULOXETINE 30 MG CAP PO SCH (09:41)
[2021-03-26] MEDS: allopurinoL 300 MG TAB PO SCH (09:42)
[2021-03-26] MEDS: levETIRAcetam 500 MG TAB PO SCH ×2 (09:42→20:40)
[2021-03-26] MEDS: MELOXICAM 7.5 MG TAB PO SCH (09:42)
[2021-03-26] MEDS: AMLODIPINE 2.5 MG TAB PO SCH (09:42)
--- NOTE | 2021-03-26 16:44 | P.PN ---
Subjective Date of Service: 03/24/21 Patient awake and following commands; clinically doing ok Review of Systems 10-point ROS is otherwise unremarkable Physical Examination - Vital Signs Temperature: 98.2 F Blood Pressure: 135/63 Pulse: 94 Respirations: 20 Pulse Ox (%): 95 - Physical Exam General: Alert, In no apparent distress HEENT: Atraumatic, PERRLA, EOMI Neck: Supple, JVD not distended Respiratory: Clear to auscultation bilaterally, Normal air movement Cardiovascular: Regular rate/rhythm, Normal S1 S2 Gastrointestinal: Normal bowel sounds, No tenderness Musculoskeletal: No tenderness Integumentary: No rashes Neurological: Normal speech, Normal tone, Normal affect Lymphatics: No axilla or inguinal lymphadenopathy - Studies Microbiology Data (last 24 hrs): 03/22/21 21:39 Clean Catch Urine [place] Count - Final >100,000 CFU/ML. 03/22/21 21:39 Clean Catch Urine - Final Enterococcus Faecalis Escherichia Coli Morganella Morganii Medications List Reviewed: Yes Assessment & Plan - Problems (Diagnosis) (1) UTI (urinary tract infection) Current Visit: Yes Status: Acute (2) Sepsis Current Visit: Yes Status: Acute (3) Hard of hearing Current Visit: Yes Status: Acute - Plan Plan: 1. IVFS 2. ANTIBIOTICS 3. MONITOR LABS 4. CULTURES PENDING 5. OOB AND AMBULATE Discharge Plan: Home Plan to discharge in: Greater than 2 days - Advance Directives Does patient have a Living Will: Yes Does patient have a Durable POA for Healthcare: Yes - Code Status/Comfort Care Code Status Assessed: Yes Code Status: Full Code Critical Care: No Time Spent Managing PTS Care (In Minutes): 35
--- NOTE | 2021-03-26 16:45 | P.PN ---
Date of Service: 03/25/21 Subjective PT DOING WELL WITH NO NEW COMPLAINTS Review of Systems 10-point ROS is otherwise unremarkable Physical Examination - Vital Signs REVIEWED - Physical Exam General: Alert, In no apparent distress Respiratory: Clear to auscultation bilaterally, Normal air movement Cardiovascular: Regular rate/rhythm, Normal S1 S2 Gastrointestinal: Normal bowel sounds, No tenderness Neurological: Normal speech, Normal tone, Normal affect Assessment & Plan - Problems (Diagnosis) (1) UTI (urinary tract infection) Current Visit: Yes Status: Acute (2) Sepsis Current Visit: Yes Status: Acute (3) Hard of hearing Current Visit: Yes Status: Acute - Plan Plan: CONT. POC MENTIONED BELOW: 1. IVFS 2. ANTIBIOTICS 3. MONITOR LABS 4. CULTURES PENDING 5. OOB AND AMBULATE
[2021-03-26] MEDS: ATORVASTATIN 10 MG TAB PO SCH (20:40)
[2021-03-27] MEDS: CEFEPIME 1 GM/100 ML BAG IV SCH (00:50)
--- NOTE | 2021-03-27 02:40 | P.PN ---
Date of Service: 03/26/21 Subjective Patient had been doing well. However, was having some pain in the morning and was given morphine. Patient has been a little lethargic since then. Will reassess. Continue with antibiotic therapy. Schedule for evaluation. If mentation not improving then will give further imaging. Review of Systems 10-point ROS is otherwise unremarkable Physical Examination - Vital Signs REVIEWED - Physical Exam General: Lethargic Respiratory: Clear to auscultation bilaterally, Normal air movement Cardiovascular: Regular rate/rhythm, Normal S1 S2 Gastrointestinal: Normal bowel sounds, No tenderness Neurological: Normal speech, Normal tone, Normal affect Assessment & Plan - Problems (Diagnosis) (1) UTI (urinary tract infection) with bacteremia Current Visit: Yes Status: Acute (2) Sepsis Current Visit: Yes Status: Acute (3) Hard of hearing Current Visit: Yes Status: Acute (4) Generalized weakness Current Visit: Yes Status: Acute - Plan Plan: CONT. POC MENTIONED BELOW: 1. Continue with IVFS 2. continue with ANTIBIOTICS; Levaquin and Zosyn 3. MONITOR LABS 4. Cultures and urine positive for E coli, Enterococcus, Morganella; blood cultures positive for E coli 5. Continue with physical therapy evaluation 6. Hold pain medications are all sedatives 7. Discharge planning
[2021-03-27] MEDS: METOPROLOL TAR 25 MG TAB PO SCH ×2 (05:17→17:17)
[2021-03-27] MEDS: LEVOTHYROXINE SOD 0.075 MG TAB PO SCH (05:17)
[2021-03-27] MEDS: ACETAMINOPHEN 500 MG TAB PO PRN (05:25)
[2021-03-27 05:38] LABS: Absolute Lymphocytes (CBC) 0.3 K/uL (0.7-4.9); Basophils % 0.3 % (0-1.3); Hematocrit 33.8 % (36.0-45.0); Lymphocytes % 7.3 % (15.3-44.8); MPV 7.7 fL (7.6-11.3); RBC Red Blood Cell Count 3.81 M/uL (3.86-4.86)
[2021-03-27 05:53] LABS: Albumin 2.2 g/dL (3.4-5.0); Bilirubin Total 0.4 mg/dL (0.2-1.0); Protein, Total 6.9 g/dL (6.4-8.2)
[2021-03-27] MEDS: NA CHLORIDE 0.9% 1,000 ML IV SCH (08:26)
[2021-03-27] MEDS: levETIRAcetam 500 MG TAB PO SCH (08:27)
[2021-03-27] MEDS: DULOXETINE 30 MG CAP PO SCH ×2 (08:27→08:28)
[2021-03-27] MEDS: allopurinoL 300 MG TAB PO SCH (08:28)
[2021-03-27] MEDS: GABAPENTIN 300 MG CAP PO PRN ×2 (08:28→14:59)
--- NOTE | 2021-03-27 08:29 | RAD REPORT ---
EXAM DESCRIPTION: CT Head/Brain Without Contrast CLINICAL HISTORY: Altered mental status COMPARISON: CT Head/Brain Without Contrast 03/22/2021 TECHNIQUE: Head/brain axial images acquired without contrast. Coronal and sagittal reformats created . Exam performed according to departmental dose-optimization program which includes automated exposur e control, adjustment of mA and/or kV according to patient size, and/or use of iterative reconstructi on technique. FINDINGS: No midline shift, mass effect, intracranial hemorrhage, or hydrocephalus. Paranasal sinuses clear. Mastoid air cells clear. Frontal skull hyperostosis (normal variant). Calcified atherosclerotic intracranial internal carotid and vertebral arteries. IMPRESSION: No CT evidence of acute intracranial abnormality. Electronically signed by: Giles Coto MD 03/27/2021 3:57 AM CDT Due to temporary technical issues with the PACS/Fluency reporting system, reports are being signed by the in house radiologist without review as a courtesy to ensure prompt reporting. The interpreting r adiologist is fully responsible for the content of the report.
[2021-03-27] MEDS: AMLODIPINE 2.5 MG TAB PO SCH (08:32)
[2021-03-27] MEDS: MELOXICAM 7.5 MG TAB PO SCH (08:32)
--- NOTE | 2021-03-27 11:34 | RAD REPORT ---
EXAM DESCRIPTION: MRI - Brain Wo Cont - 03/27/2021 10:59 am CLINICAL HISTORY: AMS Headache, drowsiness COMPARISON: Head Brain Wo Cont dated 03/27/2021 TECHNIQUE: Multi-sequence, multiplanar MR imaging of the brain was performed without contrast. FINDINGS: No intracranial hemorrhage, hydrocephalus or extra-axial fluid collections.Moderate genera lized brain atrophy is present. No edema or shift of midline structures. No findings to suspect brain mass. DWI is negative for acute CVA. Midline structures are normally formed. Mastoid air cells and paranasal sinuses are clear. IMPRESSION: Negative for acute CVA or other acute intracranial abnormality. Moderate generalized brain atrophy.
[2021-03-27 17:38] VITALS: TEMP 99.1
--- NOTE | 2021-03-27 17:43 | P.DS ---
Discharge Date: 03/27/21 Primary Care Provider: Dr. Zelaya Disposition: DC HOME/HOME HEALTH CARE Discharge Condition: GOOD Reason for Admission: UTI, AMS - Problems (1) UTI (urinary tract infection) Current Visit: Yes Status: Acute (2) Sepsis Current Visit: Yes Status: Acute (3) Hard of hearing Current Visit: Yes Status: Acute Brief History of Present Illness: Patient is an 86-year-old female with history of atrial fibrillation not on chronic anticoagulation, hypertension, hyperlipidemia, gout, sleep apnea, hypothyroidism, severe arthritis and chronic Casillas catheter use presents emerge department for altered mental status. Patient lives with her daughter is mostly bedbound but can get up and ambulate, typically oriented x4 daughter reports patient is been more altered last few days and urine has been very cloudy in catheter. Daughter believes catheter was likely replaced a few days ago by home health. Patient was evaluated in the emergency department labs were significant for white blood cell count 11.9 platelet 104 8% bands sodium 134 chloride 97 glucose 189 procalcitonin 3.99 lactic acid 1.3 urinalysis white blood cell too numerous to count bacteria loaded urine and blood cultures obtained patient given cefepime in the emergency department, ED provider wishes to admit for further evaluation and management. Hospital Course: Patient has done well. Patient did have an episode were patient was confused. CT of the brain was negative. MRI the following day was negative. Most likely related to morphine that patient had received. Patient had multiple positive cultures including Morganella, Enterococcus, and E coli. Patient will be discharged on antibiotic therapy. Patient was bacteremic as well. We will need to arrange for home health. At this time, patient is stable for discharge home. Vital Signs/Physical Exam: Temp Pulse Resp BP Pulse Ox 99.1 F 109 H 22 H 175/77 H 97 03/27/21 16:00 03/27/21 17:17 03/27/21 16:00 03/27/21 17:17 03/27/21 16:00 General: Alert, In no apparent distress, Oriented x2 Laboratory Data at Discharge: WBC 4.30 K/uL (4.3-10.9) 03/27/21 05:12 Hgb 10.7 g/dL (12.0-15.0) L 03/27/21 05:12 Hct 33.8 % (36.0-45.0) L 03/27/21 05:12 Plt Count 103 K/uL (152-406) L 03/27/21 05:12 PT 14.7 SECONDS (9.5-12.5) H 03/22/21 21:27 INR 1.28 03/22/21 21:27 APTT 38.7 SECONDS (24.3-36.9) H 03/22/21 21:27 Sodium 143 mmol/L (136-145) 03/27/21 05:12 Potassium 4.0 mmol/L (3.5-5.1) 03/27/21 05:12 BUN 19 mg/dL (7-18) H 03/27/21 05:12 Creatinine 0.78 mg/dL (0.55-1.3) 03/27/21 05:12 Glucose 130 mg/dL (74-106) H 03/27/21 05:12 Magnesium 2.4 mg/dL (1.8-2.4) 03/26/21 03:22 Total Bilirubin 0.4 mg/dL (0.2-1.0) 03/27/21 05:12 AST 56 U/L (15-37) H 03/27/21 05:12 ALT 104 U/L (12-78) H 03/27/21 05:12 Alkaline Phosphatase 79 U/L (45-117) 03/27/21 05:12 Triglycerides 94 mg/dL (<150) 03/23/21 05:36 Cholesterol 94 mg/dL (<200) 03/23/21 05:36 HDL Cholesterol 40 mg/dL (40-60) 03/23/21 05:36 Cholesterol/HDL Ratio 2.35 03/23/21 05:36 Amylase 23 U/L (25-115) L 03/22/21 21:27 Lipase 46 U/L (73-393) L 03/22/21 21:27 Home Medications: Amlodipine Besylate [Norvasc] 2 tab PO DAILY 09/01/18 Duloxetine [Cymbalta *] 60 mg PO DAILY 09/01/18 Gabapentin [Neurontin*] 400 mg PO TID 09/01/18 Levothyroxine [Synthroid*] 75 mcg PO [id number] 09/01/18 Meloxicam [Mobic*] 7.5 mg PO DAILY 09/01/18 Simvastatin 10 mg PO DAILY 09/01/18 allopurinoL [Zyloprim*] 300 mg PO DAILY 09/01/18 Amoxicillin/Potassium Clav [Augmentin 875-125 Tablet] 1 each PO BID #10 tablet 03/27/21 Metoprolol Tartrate 50 mg PO BID #60 tablet 03/27/21 levETIRAcetam [Keppra*] 500 mg PO BID #60 tab 03/27/21 levoFLOXacin [Levaquin] 500 mg PO DAILY #7 tab 03/27/21 New Medications: Amoxicillin/Potassium Clav [Augmentin 875-125 Tablet] 1 each PO BID #10 tablet levETIRAcetam [Keppra*] 500 mg PO BID #60 tab levoFLOXacin [Levaquin] 500 mg PO DAILY #7 tab Metoprolol Tartrate 50 mg PO BID #60 tablet Physician Discharge Instructions: OK TO DC IV AND DC HOME FOLLOW-UP WITH PRIMARY CARE PROVIDER IN 1-2 WEEKS FOLLOW-UP WITH NEUROLOGY IN 1-2 WEEKS RETURN TO THE ER IF symptoms worsen CALL or TEXT DR. VEGA AT [phone] IF ANY QUESTIONS REGARDING HOSPITAL STAY. PLEASE CALL THE FLOOR AT [phone] IF ANY MEDICATION OR NURSING QUESTIONS. Diet: AHA Activity: Fall precautions Followup: Gordon Yeung MD [ASSOCIATE-ACTIVE - CAN ADMIT] - Unknown,U [Primary Care Provider] -
[2021-03-27 17:49] VITALS: BP 157/93
--- OUTSIDE RECORDS SUMMARY | 2021-04-04 03:51 | XMS REPORT | Continuity of Care Document ---
:1935 Author Organization [facility] t Address [address] [place] [address] Care Team Providers Name Role Phone Doctor Unassigned, Name Attending Clinician Unavailable Garo PATEL Attending Clinician Unavailable Garo PATEL Admitting Clinician Unavailable Payers Payer Name Policy Type Policy Number Effective Date Expiration Date S ource Problems Condition Condition Condition Status Onset Resolution Last Treating Co mments Source Name Details Category Date Date Treatment Clinician Date Hypercapni Hypercapni Disease Active U nivers a a 02-11 ity of 00:00: [address] Allergies, Adverse Reactions, Alerts This patient has no known allergies or adverse reactions. Social History Social Habit Start Date Stop Date Quantity Comments Source Tobacco use and 2018-02-12 2018-02-12 Never used Universit y of exposure 00:00:00 00:00:00 [facility] Alcohol intake 2018-02-12 2018-02-12 Current University of 00:00:00 00:00:00 non-drinker of [facility] alcohol Branch (finding) Tobacco Comment 2018-02-11 2018-02-11 second hand Universi ty of 00:00:00 00:00:00 exposure [facility] Sex Assigned At [birth year] Universit y of 00:00:00 00:00:00 [facility] Smoking Status Start Date Stop Date Source Never smoker [facility] Medications Ordered Filled Start Stop Current Ordering Indication Dosage Frequency Signature Comments Components Source Medication Medication Date Date Medication? Clinician (SIG) Name Name furosemide Yes 40mg Take 40 mg U nivers 40 mg - by mouth ity of tablet 00:13: daily. [place] [address] Medical Branch meloxicam 2017-0 Yes 7.5mg Take 7.5 Uni vers 7.5 mg 9-29 mg by ity of tablet 00:13: mouth [place] [address] daily. Medical Branch levothyroxi 2017-0 Yes 75ug Take 75 Uni vers ne 75 mcg 9-29 mcg by ity of tablet 00:13: mouth [place] [address] every Medical morning. Branch allopurinol 2018-0 Yes 300mg Take 300 U nivers 300 mg 9-29 mg by ity of tablet 00:13: mouth [place] [address] daily. Medical Branch DULoxetine 2018-0 Yes 60mg Take 60 mg U nivers 60 mg 9-29 by mouth ity of capsule 00:13: daily. [place] [address] Medical Branch atorvastati 2017-0 Yes 10mg Take 10 mg Univers n 10 mg 9-29 by mouth ity of tablet 00:13: at [place] [address] bedtime. Medical Branch gabapentin 2017-0 Yes 300mg Take 300 Un shy 300 mg 9-29 mg by ity of capsule 00:13: mouth 2 [place] [address] (two) Medical times Branch daily. docusate 2018-0 Yes 100mg Take 100 Univ ers 100 mg 9-29 mg by ity of capsule 00:13: mouth 2 [place] [address] (two) Medical times Branch daily. traMADOL 50 2018-0 Yes 50mg Take 50 mg Univers mg tablet 9-29 by mouth 3 ity of 00:13: (three) [place] [address] times Medical daily. Branch furosemide 0 Yes 40mg Take 40 mg U nivers 40 mg 9-29 by mouth ity of tablet 00:13: daily. [place] [address] Medical Branch meloxicam 2017-0 Yes 7.5mg Take 7.5 Uni vers 7.5 mg 9-29 mg by ity of tablet 00:13: mouth [place] [address] daily. Medical Branch levothyroxi 2018-0 Yes 75ug Take 75 Uni vers ne 75 mcg 9-29 mcg by ity of tablet 00:13: mouth [place] [address] every Medical morning. Branch allopurinol 2018-0 Yes 300mg Take 300 U nivers 300 mg 9-29 mg by ity of tablet 00:13: mouth [place] [address] daily. Medical Branch DULoxetine 2018-0 Yes 60mg Take 60 mg U nivers 60 mg 9-29 by mouth ity of capsule 00:13: daily. [place] [address] Medical Branch atorvastati 2018-0 Yes 10mg Take 10 mg Univers n 10 mg 9-29 by mouth ity of tablet 00:13: at [place] [address] bedtime. Medical Branch gabapentin 2017-0 Yes 300mg Take 300 Un shy 300 mg 9-29 mg by ity of capsule 00:13: mouth 2 [place] [address] (two) Medical times Branch daily. docusate 2018 Yes 100mg Take 100 Univ ers 100 mg 9-29 mg by ity of capsule 00:13: mouth 2 [place] [address] (two) Medical times Branch daily. traMADOL 50 Yes 50mg Take 50 mg Univers mg tablet 9-29 by mouth 3 ity of 00:13: (three) [place] 52 times Medical daily. Branch Procedures Procedure Date / Time Performed Performing Clinician [facility] e HOME HEALTH - OTHER 2020-11-10 05:01:00 Doctor Unassigned, No Un iversity of [facility] HOME HEALTH - OTHER 2019-11-03 05:01:00 Doctor Unassigned, No Un iversity of [facility] Encounters Start End Encounter Admission Attending Care Care Encounter Source Date/Time Date/Time Type Type Clinicians Facility Department ID 2020-11-10 2020-11-10 Orders Doctor XIN [id number] Univers 00:00:00 00:00:00 Only Unassigned, SALEEM [id number] ity of [facility] [id number] Leon[place] as [id number] [facility] 009 Branch 2019-11-03 2019-11-03 Orders Doctor XIN [id number] 00:00:00 00:00:00 Only Unassigned, SALEEM [id number] [facility] [id number] [id number] 009 2019-11-03 2019-11-03 Orders Doctor XIN [id number] Univers 00:00:00 00:00:00 Only Unassigned, SALEEM [id number] ity of [facility] [id number] [place] as [id number] [place] [address] Branch Results Test Description Test Time Test Comments Results Result Comments Source PHOSPHORUS 2018-09-07 09:22:00 Test Item Value Reference Range Interpretation Comme nts PHOSPHORUS (BEAKER) (test code = 604) 3.9 mg/dL 2.3-4.7 [id number] 09:22:00 Test Item Value Reference Range Interpretation Comments MAGNESIUM (BEAKER) (test code = 2.1 mg/dL 1.6-2.6 627) BASIC METABOLIC [id number] 09:22:00 Test Item Value Reference Range Interpretation Comments SODIUM (BEAKER) 140 meq/L 136-145 (test code = 381) POTASSIUM (BEAKER) 3.8 meq/L 3.5-5.1 (test code = 379) CHLORIDE (BEAKER) 105 meq/L 98-107 (test code = 382) CO2 (BEAKER) (test 28 meq/L 22-29 code = 355) BLOOD UREA NITROGEN 10 mg/dL 7-21 (BEAKER) (test code = 354) CREATININE (BEAKER) 0.70 mg/dL 0.57-1.25 (test code = 358) GLUCOSE RANDOM 99 mg/dL 70-105 (BEAKER) (test code = 652) CALCIUM (BEAKER) 9.2 mg/dL 8.4-10.2 (test code = 697) EGFR (BEAKER) (test 80 mL/min/1.73 ESTIMA NOLAN GFR IS code = 1092) sq m NOT ACCURATE CREATININE CLEARANCE IN PREDICTING GLOMERULAR FILTRATION RATE . ESTIMATED GFR I S NOT APPLICABLE FOR DIALYSIS PATIEN TS. POCT-GLUCOSE [id number] 07:46:00 Test Item Value Reference Range Interpretation Comments POC-GLUCOSE METER 106 mg/dL 70-110 TESTED AT [facility] 6720 (BEAKER) (test code = [place] 1538) [address] [id number] 08:36:00 Test Item Value Reference Range Interpretation Comments PHOSPHORUS (BEAKER) (test code = 3.4 mg/dL 2.3-4.7 604) [id number] 08:36:00 Test Item Value Reference Range Interpretation Comments MAGNESIUM (BEAKER) (test code = 2.1 mg/dL 1.6-2.6 627) BASIC METABOLIC [id number] 08:36:00 Test Item Value Reference Range Interpretation Comments SODIUM (BEAKER) 140 meq/L 136-145 (test code = 381) POTASSIUM (BEAKER) 3.7 meq/L 3.5-5.1 (test code = 379) CHLORIDE (BEAKER) 106 meq/L 98-107 (test code = 382) CO2 (BEAKER) (test 29 meq/L 22-29 code = 355) BLOOD UREA NITROGEN 9 mg/dL 7-21 (BEAKER) (test code = 354) CREATININE (BEAKER) 0.69 mg/dL 0.57-1.25 (test code = 358) GLUCOSE RANDOM 97 mg/dL 70-105 (BEAKER) (test code = 652) CALCIUM (BEAKER) 9.1 mg/dL 8.4-10.2 (test code = 697) EGFR (BEAKER) (test 81 mL/min/1.73 ESTIMA NOLAN GFR IS code = 1092) sq m NOT ACCURATE CREATININE CLEARANCE IN PREDICTING GLOMERULAR FILTRATION RATE . ESTIMATED GFR I S NOT APPLICABLE FOR DIALYSIS PATIEN TS. [id number] 06:08:00 Test Item Value Reference Range Interpretation Comments PHOSPHORUS (BEAKER) (test code = 2.9 mg/dL 2.3-4.7 604) [id number] 06:08:00 Test Item Value Reference Range Interpretation Comments MAGNESIUM (BEAKER) (test code = 1.8 mg/dL 1.6-2.6 627) COMPREHENSIVE METABOLIC [id number] 06:08:00 Test Item Value Reference Range Interpretation Comments TOTAL PROTEIN 6.1 gm/dL 6.0-8.3 (BEAKER) (test code = 770) ALBUMIN (BEAKER) 3.1 g/dL 3.5-5.0 L (test code = 1145) ALKALINE PHOSPHATASE 56 U/L 40-150 (BEAKER) (test code = 346) BILIRUBIN TOTAL 1.0 mg/dL 0.2-1.2 (BEAKER) (test code = 377) SODIUM (BEAKER) (test 137 meq/L 136-145 code = 381) POTASSIUM (BEAKER) 2.8 meq/L 3.5-5.1 L (test code = 379) CHLORIDE (BEAKER) 103 meq/L 98-107 (test code = 382) CO2 (BEAKER) (test 25 meq/L 22-29 code = 355) BLOOD UREA NITROGEN 6 mg/dL 7-21 L (BEAKER) (test code = 354) CREATININE (BEAKER) 0.61 mg/dL 0.57-1.25 (test code = 358) GLUCOSE RANDOM 101 mg/dL 70-105 (BEAKER) (test code = 652) CALCIUM (BEAKER) 9.0 mg/dL 8.4-10.2 (test code = 697) AST (SGOT) (BEAKER) 19 U/L 5-34 (test code = 353) ALT (SGPT) (BEAKER) 17 U/L 6-55 (test code = 347) EGFR (BEAKER) (test 94 mL/min/1.73 ESTIMA NOLAN GFR IS code = 1092) sq m NOT ACCURATE CREATININE CLEARANCE IN PREDICTING GLOMERULAR FILTRATION RATE . ESTIMATED GFR I S NOT APPLICABLE FOR DIALYSIS PATIEN TS. CBC W/PLT COUNT & AUTO [id number] 05:28:00 Test Item Value Reference Range Interpretation Comments WHITE BLOOD CELL COUNT (BEAKER) 5.1 K/ L 3.5-10.5 (test code = 775) RED BLOOD CELL COUNT (BEAKER) 4.59 M/ L 3.93-5.22 (test code = 761) HEMOGLOBIN (BEAKER) (test code = 12.3 GM/DL 11.2-15.7 410) HEMATOCRIT (BEAKER) (test code = 38.0 % 34.1-44.9 411) MEAN CORPUSCULAR VOLUME (BEAKER) 82.8 fL 79.4-94.8 (test code = 753) MEAN CORPUSCULAR HEMOGLOBIN 26.8 pg 25.6-32.2 (BEAKER) (test code = 751) MEAN CORPUSCULAR HEMOGLOBIN CONC 32.4 GM/DL 32.2-35.5 (BEAKER) (test code = 752) RED CELL DISTRIBUTION WIDTH 16.4 % 11.7-14.4 H (BEAKER) (test code = 412) PLATELET COUNT (BEAKER) (test 120 K/CU MM 150-450 L code = 756) MEAN PLATELET VOLUME (BEAKER) 11.2 fL 9.4-12.3 (test code = 754) NUCLEATED RED BLOOD CELLS 0 /100 WBC 0-0 (BEAKER) (test code = 413) NEUTROPHILS RELATIVE PERCENT 71 % (BEAKER) (test code = 429) LYMPHOCYTES RELATIVE PERCENT 15 % (BEAKER) (test code = 430) MONOCYTES RELATIVE PERCENT 12 % (BEAKER) (test code = 431) EOSINOPHILS RELATIVE PERCENT 1 % (BEAKER) (test code = 432) BASOPHILS RELATIVE PERCENT 0 % (BEAKER) (test code = 437) NEUTROPHILS ABSOLUTE COUNT 3.63 K/ L 1.56-6.13 (BEAKER) (test code = 670) LYMPHOCYTES ABSOLUTE COUNT 0.77 K/ L 1.18-3.74 L (BEAKER) (test code = 414) MONOCYTES ABSOLUTE COUNT (BEAKER) 0.61 K/ L 0.24-0.36 H (test code = 415) EOSINOPHILS ABSOLUTE COUNT 0.07 K/ L 0.04-0.36 (BEAKER) (test code = 416) BASOPHILS ABSOLUTE COUNT (BEAKER) 0.01 K/ L 0.01-0.08 (test code = 417) IMMATURE GRANULOCYTES-RELATIVE 0 % 0-1 PERCENT (BEAKER) (test code = 2801) CARCINOEMBRYONIC ANTIGEN (CEA)2018-09-04 19:23:00 Test Item Value Reference Range Interpretation Comments CARCINOEMBRYONIC ANTIGEN (BEAKER) 3.0 ng/mL 0.0-5.0 (test code = 685) COMPREHENSIVE METABOLIC [id number] 07:54:00 Test Item Value Reference Range Interpretation Comments TOTAL PROTEIN 6.6 gm/dL 6.0-8.3 (BEAKER) (test code = 770) ALBUMIN (BEAKER) 3.4 g/dL 3.5-5.0 L (test code = 1145) ALKALINE PHOSPHATASE 61 U/L 40-150 (BEAKER) (test code = 346) BILIRUBIN TOTAL 0.8 mg/dL 0.2-1.2 (BEAKER) (test code = 377) SODIUM (BEAKER) (test 130 meq/L 136-145 L code = 381) POTASSIUM (BEAKER) 2.7 meq/L 3.5-5.1 L (test code = 379) CHLORIDE (BEAKER) 96 meq/L 98-107 L (test code = 382) CO2 (BEAKER) (test 26 meq/L 22-29 code = 355) BLOOD UREA NITROGEN 9 mg/dL 7-21 (BEAKER) (test code = 354) CREATININE (BEAKER) 0.62 mg/dL 0.57-1.25 (test code = 358) GLUCOSE RANDOM 110 mg/dL 70-105 H (BEAKER) (test code = 652) CALCIUM (BEAKER) 9.1 mg/dL 8.4-10.2 (test code = 697) AST (SGOT) (BEAKER) 15 U/L 5-34 (test code = 353) ALT (SGPT) (BEAKER) 10 U/L 6-55 (test code = 347) EGFR (BEAKER) (test 92 mL/min/1.73 ESTIMA NOLAN GFR IS code = 1092) sq m NOT ACCURATE CREATININE CLEARANCE IN PREDICTING GLOMERULAR FILTRATION RATE . ESTIMATED GFR I S NOT APPLICABLE FOR DIALYSIS PATIEN TS. CBC W/PLT COUNT & AUTO [id number] 07:28:00 Test Item Value Reference Range Interpretation Comments WHITE BLOOD CELL COUNT (BEAKER) 7.4 K/ L 3.5-10.5 (test code = 775) RED BLOOD CELL COUNT (BEAKER) 4.79 M/ L 3.93-5.22 (test code = 761) HEMOGLOBIN (BEAKER) (test code = 13.0 GM/DL 11.2-15.7 410) HEMATOCRIT (BEAKER) (test code = 39.7 % 34.1-44.9 411) MEAN CORPUSCULAR VOLUME (BEAKER) 82.9 fL 79.4-94.8 (test code = 753) MEAN CORPUSCULAR HEMOGLOBIN 27.1 pg 25.6-32.2 (BEAKER) (test code = 751) MEAN CORPUSCULAR HEMOGLOBIN CONC 32.7 GM/DL 32.2-35.5 (BEAKER) (test code = 752) RED CELL DISTRIBUTION WIDTH 16.1 % 11.7-14.4 H (BEAKER) (test code = 412) PLATELET COUNT (BEAKER) (test 127 K/CU MM 150-450 L code = 756) MEAN PLATELET VOLUME (BEAKER) 11.2 fL 9.4-12.3 (test code = 754) NUCLEATED RED BLOOD CELLS 0 /100 WBC 0-0 (BEAKER) (test code = 413) NEUTROPHILS RELATIVE PERCENT 81 % (BEAKER) (test code = 429) LYMPHOCYTES RELATIVE PERCENT 9 % (BEAKER) (test code = 430) MONOCYTES RELATIVE PERCENT 9 % (BEAKER) (test code = 431) EOSINOPHILS RELATIVE PERCENT 0 % (BEAKER) (test code = 432) BASOPHILS RELATIVE PERCENT 0 % (BEAKER) (test code = 437) NEUTROPHILS ABSOLUTE COUNT 6.00 K/ L 1.56-6.13 (BEAKER) (test code = 670) LYMPHOCYTES ABSOLUTE COUNT 0.67 K/ L 1.18-3.74 L (BEAKER) (test code = 414) MONOCYTES ABSOLUTE COUNT (BEAKER) 0.63 K/ L 0.24-0.36 H (test code = 415) EOSINOPHILS ABSOLUTE COUNT 0.02 K/ L 0.04-0.36 L (BEAKER) (test code = 416) BASOPHILS ABSOLUTE COUNT (BEAKER) 0.02 K/ L 0.01-0.08 (test code = 417) IMMATURE GRANULOCYTES-RELATIVE 0 % 0-1 PERCENT (BEAKER) (test code = 2801) U/S, [id number] 04:00:00Reason for exam:->large adnexal mass per outside [...] recommend repeat CT imaging. Signed: Magda Abel MDReport Verified Date/Time: 09/04/2018 04:00:55 Reading Location: [address] Neuro Reading Room POCT-GLUCOSE [id number] 17:44:00 Test Item Value Reference Range Interpretation Comments POC-GLUCOSE METER 111 mg/dL 70-110 H TESTED AT [facility] 67 ([facility]) (test code = [place] [facility] 1538) [address] RAD, ABDOMEN/KUB, 1 VIEW [id number] 13:20:00Reason for exam:->evaluate for colonic obstructionFINAL REPORT [...] obstruction cannot be excluded. Signed: Kai Uriostegui MDReport Verified Date/Time: 09/03/2018 13:20:58 Reading Location: [address] Body Reading Room -GLUCOSE [id number] 13:01:00 Test Item Value Reference Range Interpretation Comments POC-GLUCOSE METER 88 mg/dL 70-110 TESTED AT [facility] 67 ([facility]) (test code = [place] [facility] [address] 1538) POCT-GLUCOSE [id number] 08:32:00 Test Item Value Reference Range Interpretation Comments POC-GLUCOSE METER 86 mg/dL 70-110 TESTED AT [place] [address] ([facility]) (test code = [place] [facility] [address] 1538) [id number] 09:48:00 Test Item Value Reference Range Interpretation Comments MAGNESIUM ([facility]) 2.2 mg/dL 1.6-2.6 Specimen slightly (test code = 627) hemolyzed COMPREHENSIVE METABOLIC [id number] 09:48:00 Test Item Value Reference Range Interpretation Comments TOTAL PROTEIN 7.0 gm/dL 6.0-8.3 Specimen sl[facility]ly [facility] (test code = hemoly zed 770) ALBUMIN ([facility]) 3.4 g/dL 3.5-5.0 L Specimen sl ightly (test code = 1145) hemolyzed ALKALINE PHOSPHATASE 52 U/L 40-150 (BEAKER) (test code = 346) BILIRUBIN TOTAL 0.6 mg/dL 0.2-1.2 Specimen sli ghtly (BEAKER) (test code = hemoly zed 377) SODIUM (BEAKER) (test 139 meq/L 136-145 code = 381) POTASSIUM (BEAKER) 3.5 meq/L 3.5-5.1 Specimen slightly (test code = 379) hemolyzed CHLORIDE (BEAKER) 102 meq/L 98-107 (test code = 382) CO2 (BEAKER) (test 24 meq/L 22-29 code = 355) BLOOD UREA NITROGEN 11 mg/dL 7-21 (BEAKER) (test code = 354) CREATININE (BEAKER) 0.73 mg/dL 0.57-1.25 Specimen slightly (test code = 358) hemolyzed GLUCOSE RANDOM 91 mg/dL 70-105 (BEAKER) (test code = 652) CALCIUM (BEAKER) 9.1 mg/dL 8.4-10.2 (test code = 697) AST (SGOT) (BEAKER) 13 U/L 5-34 Specimen slightly (test code = 353) hemolyzed ALT (SGPT) (BEAKER) 9 U/L 6-55 Specimen slightly (test code = 347) hemolyzed EGFR (BEAKER) (test 76 mL/min/1.73 ESTIMA NOLAN GFR IS code = 1092) sq m NOT ACCURATE CREATININE CLEARANCE IN PREDICTING GLOMERULAR FILTRATION RATE . ESTIMATED GFR I S NOT APPLICABLE FOR DIALYSIS PATIEN TS. CBC W/PLT COUNT & AUTO [id number] 06:28:00 Test Item Value Reference Range Interpretation Comments WHITE BLOOD CELL COUNT (BEAKER) 4.6 K/ L 3.5-10.5 (test code = 775) RED BLOOD CELL COUNT (BEAKER) 4.72 M/ L 3.93-5.22 (test code = 761) HEMOGLOBIN (BEAKER) (test code = 12.6 GM/DL 11.2-15.7 410) HEMATOCRIT (BEAKER) (test code = 40.1 % 34.1-44.9 411) MEAN CORPUSCULAR VOLUME (BEAKER) 85.0 fL 79.4-94.8 (test code = 753) MEAN CORPUSCULAR HEMOGLOBIN 26.7 pg 25.6-32.2 (BEAKER) (test code = 751) MEAN CORPUSCULAR HEMOGLOBIN CONC 31.4 GM/DL 32.2-35.5 L (BEAKER) (test code = 752) RED CELL DISTRIBUTION WIDTH 15.8 % 11.7-14.4 H (BEAKER) (test code = 412) PLATELET COUNT (BEAKER) (test 109 K/CU MM 150-450 L code = 756) MEAN PLATELET VOLUME (BEAKER) 11.1 fL 9.4-12.3 (test code = 754) NUCLEATED RED BLOOD CELLS 0 /100 WBC 0-0 (BEAKER) (test code = 413) NEUTROPHILS RELATIVE PERCENT 77 % (BEAKER) (test code = 429) LYMPHOCYTES RELATIVE PERCENT 14 % (BEAKER) (test code = 430) MONOCYTES RELATIVE PERCENT 7 % (BEAKER) (test code = 431) EOSINOPHILS RELATIVE PERCENT 1 % (BEAKER) (test code = 432) BASOPHILS RELATIVE PERCENT 0 % (BEAKER) (test code = 437) NEUTROPHILS ABSOLUTE COUNT 3.56 K/ L 1.56-6.13 (BEAKER) (test code = 670) LYMPHOCYTES ABSOLUTE COUNT 0.63 K/ L 1.18-3.74 L (BEAKER) (test code = 414) MONOCYTES ABSOLUTE COUNT (BEAKER) 0.33 K/ L 0.24-0.36 (test code = 415) EOSINOPHILS ABSOLUTE COUNT 0.06 K/ L 0.04-0.36 (BEAKER) (test code = 416) BASOPHILS ABSOLUTE COUNT (BEAKER) 0.02 K/ L 0.01-0.08 (test code = 417) IMMATURE GRANULOCYTES-RELATIVE 0 % 0-1 PERCENT (BEAKER) (test code = 1)
== END 2021-03-27 17:59 | disposition home health service (06) | DRG 871 ==
LOC: ER 20:43 → ERHOLD 03-23 00:04 → 2ND 03-23 02:25
PROVIDERS: ADMIT Hospitalist; ATTEND Hospitalist
DX: A41.9 Sepsis, unspecified organism (principal); G92.8 Other toxic encephalopathy; J96.00 Acute respiratory failure, unspecified whether with hypoxia or hypercapnia; N39.0 Urinary tract infection, site not specified; I48.91 Unspecified atrial fibrillation; I10 Essential (primary) hypertension; E78.5 Hyperlipidemia, unspecified; R65.20 Severe sepsis without septic shock; M10.9 Gout, unspecified; B95.2 Enterococcus as the cause of diseases classified elsewhere; B96.20 Unspecified Escherichia coli [E. coli] as the cause of diseases classified elsewhere; B96.89 Other specified bacterial agents as the cause of diseases classified elsewhere; E03.9 Hypothyroidism, unspecified; G47.30 Sleep apnea, unspecified; M19.90 Unspecified osteoarthritis, unspecified site; H91.90 Unspecified hearing loss, unspecified ear; Z20.822 Contact with and (suspected) exposure to COVID-19; Z96.0 Presence of urogenital implants
CPT/HCPCS: 36415; 70450; 70551; 71045; 74177; 80048; 80053; 80061; 80076; 81015; 82150; 82550; 82553; 83605; 83690; 83735; 84145; 84439; 84443; 84484; 85025; 85610; 85730; 87040; 87077; 87086; 87088; 87186; 87205; 93005; 97110; 97116; 97161; 97530; 99285; J0360; J0692; J1650; J2270; J2405; J7030; Q9967; U0003

== ENCOUNTER 2021-10-06 09:25 | Inpatient (IN) | payer OTHER ==
--- OUTSIDE RECORDS SUMMARY | 2021-10-06 09:28 | XMS REPORT | Continuity of Care Document ---
:1935 Author Organization [facility] t Address [address] [place] [address] Care Team Providers Name Role Phone Doctor [...] nivers a a 02-11 ity of 00:00: [address] Allergies, Adverse Reactions, Alerts This patient has no known allergies or adverse reactions. Social History Social Habit Start Date Stop Date Quantity Comments Source Tobacco use and 2018-02-12 2018-02-12 Never used Universit y of exposure 00:00:00 00:00:00 [facility] Alcohol intake 2018-02-12 2018-02-12 Current University of 00:00:00 00:00:00 non-drinker of [facility] alcohol Branch (finding) Tobacco Comment 2018-02-11 2018-02-11 second hand Universi ty of 00:00:00 00:00:00 exposure [facility] Sex Assigned At [birth year] Universit y of 00:00:00 00:00:00 [facility] Smoking Status Start Date Stop Date Source Never smoker [facility] Medications Ordered Filled Start Stop Current Ordering Indication Dosage Frequency Signature Comments Components Source Medication Medication Date Date Medication? Clinician (SIG) Name Name furosemide Yes 40mg Take 40 mg U nivers 40 mg - by mouth ity of tablet 00:13: daily. [place] [address] Medical Branch meloxicam 2017-0 Yes 7.5mg Take 7.5 Uni vers 7.5 mg 9-29 mg by ity of tablet 00:13: mouth [place] [address] daily. Medical Branch levothyroxi 2017-0 Yes 75ug Take 75 Uni vers ne 75 mcg 9-29 mcg by ity of tablet 00:13: mouth [place] [address] every Medical morning. Branch allopurinol 2018-0 Yes 300mg Take 300 U nivers 300 mg 9-29 mg by ity of tablet 00:13: mouth [place] [address] daily. Medical Branch DULoxetine 2018-0 Yes 60mg Take 60 mg U nivers 60 mg 9-29 by mouth ity of capsule 00:13: daily. [place] [address] Medical Branch atorvastati 2017-0 Yes 10mg Take 10 mg Univers n 10 mg 9-29 by mouth ity of tablet 00:13: at [place] [address] bedtime. Medical Branch gabapentin 2017-0 Yes 300mg Take 300 Un shy 300 mg 9-29 mg by ity of capsule 00:13: mouth 2 [place] [address] (two) Medical times Branch daily. docusate 2018-0 Yes 100mg Take 100 Univ ers 100 mg 9-29 mg by ity of capsule 00:13: mouth 2 [place] [address] (two) Medical times Branch daily. traMADOL 50 2018-0 Yes 50mg Take 50 mg Univers mg tablet 9-29 by mouth 3 ity of 00:13: (three) [place] [address] times Medical daily. Branch furosemide 0 Yes 40mg Take 40 mg U nivers 40 mg 9-29 by mouth ity of tablet 00:13: daily. [place] [address] Medical Branch meloxicam 2017-0 Yes 7.5mg Take 7.5 Uni vers 7.5 mg 9-29 mg by ity of tablet 00:13: mouth [place] [address] daily. Medical Branch levothyroxi 2018-0 Yes 75ug Take 75 Uni vers ne 75 mcg 9-29 mcg by ity of tablet 00:13: mouth [place] [address] every Medical morning. Branch allopurinol 2018-0 Yes 300mg Take 300 U nivers 300 mg 9-29 mg by ity of tablet 00:13: mouth [place] [address] daily. Medical Branch DULoxetine 2018-0 Yes 60mg Take 60 mg U nivers 60 mg 9-29 by mouth ity of capsule 00:13: daily. [place] [address] Medical Branch atorvastati 2018-0 Yes 10mg Take 10 mg Univers n 10 mg 9-29 by mouth ity of tablet 00:13: at [place] [address] bedtime. Medical Branch gabapentin 2017- Yes 300mg Take 300 Un shy 300 mg 9-29 mg by ity of capsule 00:13: mouth 2 [place] [address] (two) Medical times Branch daily. docusate 2018 Yes 100mg Take 100 Univ ers 100 mg 9-29 mg by ity of capsule 00:13: mouth 2 [place] [address] (two) Medical times Branch daily. traMADOL 50 Yes 50mg Take 50 mg Univers mg tablet 9-29 by mouth 3 ity of 00:13: (three) [place] 52 times Medical daily. Branch Procedures Procedure Date / Time Performed Performing Clinician [facility] e HOME HEALTH - OTHER 2020-11-10 05:01:00 Doctor Unassigned, No Un iversity of [facility] HOME HEALTH - OTHER 2019-11-03 05:01:00 Doctor Unassigned, No Un i[facility]ity of [facility] Encounters Start End Encounter Admission Attending Care Care Encounter Source Date/Time Date/Time Type Type Clinicians Facility Department ID 2020-11-10 2020-11-10 Orders Doctor XIN [id number] Univers 00:00:00 00:00:00 Only Unassigned, SALE[place] [id number] [facility] [id number] Leon[place] as [id number] [address] 2019-11-03 2019-11-03 Orders Doctor XIN [id number] Univers 00:00:00 00:00:00 Only Unassigned, SALE[place] [id number] [facility] [id number] Leonidas as [id number] [address] 2019-11-03 2019-11-03 Orders Doctor XIN [id number] 00:00:00 00:00:00 Only Unassigned, [place] [id number] [facility] [id number] Results Test Description Test Time Test Comments Results Result Comments Source PHOSPHORUS 2018-09-07 09:22:00 Test Item Value Reference Range Interpretation Comme nts PHOSPHORUS (BEAKER) (test code = 604) 3.9 mg/dL 2.3-4.7 [id number] 09:22:00 Test Item Value Reference Range Interpretation Comments MAGNESIUM (BEAKER) (test code = 2.1 mg/dL 1.6-2.6 627) BASIC METABOLIC [id number] 09:22:00 Test Item Value Reference Range Interpretation [...] NOT APPLICABLE FOR DIALYSIS PATIEN TS. POCT-GLUCOSE [id number] 07:46:00 Test Item Value Reference Range Interpretation Comments POC-GLUCOSE METER 106 mg/dL 70-[address] [facility] (BEAKER) (test code = [place] 1538) [address] [id number] 08:36:00 Test Item Value Reference Range Interpretation Comments PHOSPHORUS (BEAKER) (test code = 3.4 mg/dL 2.3-4.7 604) [id number] 08:36:00 Test Item Value Reference Range Interpretation Comments MAGNESIUM (BEAKER) (test code = 2.1 mg/dL 1.6-2.6 627) BASIC METABOLIC [id number] 08:36:00 Test Item Value Reference Range Interpretation [...] S NOT APPLICABLE FOR DIALYSIS PATIEN TS. [id number] 06:08:00 Test Item Value Reference Range Interpretation Comments PHOSPHORUS (BEAKER) (test code = 2.9 mg/dL 2.3-4.7 604) [id number] 06:08:00 Test Item Value Reference Range Interpretation Comments MAGNESIUM (BEAKER) (test code = 1.8 mg/dL 1.6-2.6 627) COMPREHENSIVE METABOLIC [id number] 06:08:00 Test Item Value Reference Range Interpretation [...] PATIEN TS. CBC W/PLT COUNT & AUTO [id number] 05:28:00 Test Item Value Reference Range Interpretation [...] 0.0-5.0 (test code = 685) COMPREHENSIVE METABOLIC [id number] 07:54:00 Test Item Value Reference Range Interpretation [...] PATIEN TS. CBC W/PLT COUNT & AUTO [id number] 07:28:00 Test Item Value Reference Range Interpretation [...] PERCENT (BEAKER) (test code = 2801) U/S, [id number] 04:00:00Reason for exam:->large adnexal mass per outside [...] MDReport Verified Date/Time: 09/04/2018 04:00:55 Reading Location: [address] Neuro Reading Room POCT-GLUCOSE [id number] 17:44:00 Test Item Value Reference Range Interpretation Comments POC-GLUCOSE METER 111 mg/dL 70-[address] [facility] ([facility]) (test code = BEATRICE Echeverria [facility] 1538) [address] RAD, ABDOMEN/KUB, 1 VIEW [id number] 13:20:00Reason for exam:->evaluate for colonic obstructionFINAL REPORT [...] MDReport Verified Date/Time: 09/03/2018 13:20:58 Reading Location: [address] Body Reading Room -GLUCOSE [id number] 13:01:00 Test Item Value Reference Range Interpretation Comments POC-GLUCOSE METER 88 mg/dL 70-[address] [facility] ([facility]) (test code = BEATRICE Echeverria [facility] [address] 1538) POCT-GLUCOSE [id number] 08:32:00 Test Item Value Reference Range Interpretation Comments POC-GLUCOSE METER 86 mg/dL 70-110 TESTED AT [place] [address] ([facility]) (test code = BEATRICE Echeverria [facility] [address] 1538) [id number] 09:48:00 Test Item Value Reference Range Interpretation Comments MAGNESIUM ([facility]) 2.2 mg/dL 1.6-2.6 Specimen slightly (test code = 627) hemolyzed COMPREHENSIVE METABOLIC [id number] 09:48:00 Test Item Value Reference Range Interpretation Comments TOTAL PROTEIN 7.0 gm/dL 6.0-8.3 Specimen sligh tly ([facility]) (test code = hemoly zed 770) ALBUMIN ([facility]) 3.4 g/dL 3.5-5.0 L Specimen sl ightly [...] PATIEN TS. CBC W/PLT COUNT & AUTO [id number] 06:28:00 Test Item Value Reference Range Interpretation [...] % 0-1 PERCENT (BEAKER) (test code = 4451)
[2021-10-06 10:35] LABS: Absolute Lymphocytes (CBC) 0.6 K/uL (0.7-4.9); Hematocrit 41.3 % (36.0-45.0); Lymphocytes % 7.6 % (15.3-44.8); MPV 7.9 fL (7.6-11.3); RBC Red Blood Cell Count 4.82 M/uL (3.86-4.86)
[2021-10-06] MEDS ORDERED: ONDANSETRON 4 MG/2 ML VIAL ONE ×3 (10:35→18:11)
[2021-10-06 10:36] LABS: Protime INR 1.06
[2021-10-06 10:49] LABS: Albumin 3.4 g/dL (3.4-5.0); Bilirubin Total 0.4 mg/dL (0.2-1.0); Potassium 3.7 mmol/L (3.5-5.1); Protein, Total 7.8 g/dL (6.4-8.2)
[2021-10-06 11:36] LABS: Urine Blood 3+ (Negative); Urine Glucose Negative (Negative); Urine Protein 3+ (Negative); Urine Specific Gravity 1.025 (1.005-1.030)
[2021-10-06 14:50] LABS: Urine Amorphous Sediment 2+ /HPF (NONE SEEN); Urine Bacteria >50 /HPF (<20); Urine Mucus 1+ /HPF (NONE SEEN); Urine RBC 20-50 /HPF (NONE SEEN); Urine Urothelial Cells <5 /HPF (NONE SEEN)
--- NOTE | 2021-10-06 14:53 | EDPHYS ---
Physician Documentation [facility] Name: Rachna Peña Age: 86 yrs Sex: Female : 1935 Arrival Date: 10/06/2021 Time: 09:38 Bed 25 Private MD: ED Physician Leo Davis HPI: 10/06 09:54 This 86 yrs old Female presents to ER via EMS with complaints of Urinary Problem. pm1 09:54 The patient presents with urinary symptoms, hematuria. Onset: The symptoms/episode pm1 began/occurred today. Modifying factors: The symptoms are alleviated by nothing, the symptoms are aggravated by nothing. Associated signs and symptoms: Pertinent positives: nausea, Pertinent negatives: diarrhea, fever, vomiting. Severity of symptoms: in the emergency department the symptoms are unchanged. Patient with history of urinary tract infections and indwelling Casillas catheter for many months. The patient has not recently seen a physician. Historical: - Allergies: 09:41 Bactrim; ph - Home Meds: 09:41 allopurinol 300 mg Oral tab 1 tab once daily [Active]; gabapentin 400 mg Oral cap 1 cap ph 3 times per day [Active]; levetiracetam 500 mg Oral tab 1 tab 2 times per day [Active]; simvastatin 10 mg Oral tab 1 tab once daily [Active]; metoprolol tartrate 25 mg Oral tab [Active]; amlodipine 2.5 mg tab 1 tab once daily [Active]; duloxetine 60 mg Oral cpDR 1 cap once daily [Active]; levothyroxine 75 mcg tab 1 tab once daily [Active]; - PMHx: 09:41 Arthritis; Atrial Fib; COPD; Gout; High Cholesterol; Hypertension; Hypothyroidism; knee ph pain; Myocardial infarction; Seizures; Sleep Apnea; - Immunization history:: Adult Immunizations unknown. - Social history:: Smoking status: Patient denies any tobacco usage or history of. ROS: 09:54 Positive for hematuria, Negative for flank pain. pm1 09:54 Constitutional: Negative for fever, chills, and weight loss, Cardiovascular: Negative for chest pain, palpitations, and edema, Respiratory: Negative for shortness of breath, cough, wheezing, and pleuritic chest pain. 09:54 MS/Extremity: Negative for injury and deformity, Skin: Negative for injury, rash, and discoloration. 09:54 Abdomen/GI: Positive for nausea, Negative for abdominal pain, vomiting, diarrhea, constipation. 09:54 All other systems are negative. Exam: 09:54 Constitutional: This is a well developed, well nourished patient who is awake, alert, pm1 and in no acute distress. Head/Face: Normocephalic, atraumatic. 09:54 Back: No spinal tenderness. No costovertebral tenderness. Full range of motion. Skin: Warm, dry with normal turgor. Normal color with no rashes, no lesions, and no evidence of cellulitis. MS/ Extremity: Pulses equal, no cyanosis. Neurovascular intact. Full, normal range of motion. 09:54 Cardiovascular: Exam negative for acute changes, Rate: normal, Rhythm: regular, Pulses: no pulse deficits are appreciated. 09:54 Respiratory: Exam negative for acute changes, respiratory distress, shortness of breath. 09:54 Abdomen/GI: Exam negative for acute changes, Inspection: obese Palpation: abdomen is soft and non-tender, in all quadrants. 09:54 Neuro: Exam negative for acute changes, Orientation: is normal, Mentation: is normal, Motor: is normal, moves all fours. 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 Vital Signs: 09:56 BP 174 / 101; Pulse 74; Resp 18; Temp 97.9; Pulse Ox 97% on R/A; ph 11:01 BP 168 / 98; Pulse 72; Resp 18; Pulse Ox 98% on R/A; ph 13:09 BP 168 / 94; Pulse 86; Resp 18; Pulse Ox 95% on R/A; ph 14:00 BP 152 / 78; Pulse 81; Resp 18; Pulse Ox 98% on R/A; ph 15:00 BP 168 / 92; Pulse 84; Resp 16; Pulse Ox 97% on R/A; ph 16:30 BP 149 / 89; Pulse 76; Resp 16; Pulse Ox 97% on R/A; ph 18:30 BP 154 / 101; Pulse 78; Resp 18; Temp 97.9(TE); Pulse Ox 97% on R/A; ph MDM: 09:42 Patient medically screened. pm1 14:51 Data reviewed: vital signs. Data interpreted: Pulse oximetry: on room air is 95 %. pm1 Interpretation: normal. 14:51 Counseling: I had a detailed discussion with the patient and/or guardian regarding: the pm1 historical points, exam findings, and any diagnostic results supporting the discharge/admit diagnosis, lab results, the need for outpatient follow up, to return to the emergency department if symptoms worsen or persist or if there are any questions or concerns that arise at home. 19:27 ED course: Patient with vomiting prior to EMS picking her up to take home from pm1 discharge. Patient without episodes of vomiting throughout ER visit but has been nauseated. EMS reports that when they picked her up she was vomiting. Will admit the patient due to concerns that she might get dehydrated and unable to keep her antibiotic treatment down due to continued nausea despite antiemetic treatment. 10/06 09:54 Order name: Urine Microscopic Only; Complete Time: 14:51 pm1 10/06 09:54 Order name: CBC with Diff; Complete Time: 10:40 pm1 10/06 09:54 Order name: CMP; Complete Time: 11:42 pm1 10/06 09:54 Order name: PT-INR; Complete Time: 10:40 pm1 10/06 11:36 Order name: Urine Dipstick-Ancillary; Complete Time: 11:42 EDVT 10/06 14:53 Order name: Urine Culture [facility] 10/06 09:54 Order name: Casillas; Complete Time: 10:39 pm1 10/06 09:54 Order name: Urine Dipstick-Ancillary (obtain specimen); Complete Time: 10:39 pm1 10/06 09:54 Order name: IV Saline Lock; Complete Time: 10:39 pm1 10/06 18:56 Order name: COVID-19 SARS RT PCR (Document "Date of Onset" if Symptomatic) iw Administered Medications: 10:40 Drug: Zofran (Ondansetron) 4 mg Route: IVP; Site: left antecubital; ph 11:30 Follow up: Response: No adverse reaction ph 15:00 Drug: Zofran (Ondansetron) 4 mg Route: IVP; Site: left antecubital; ph 16:00 Follow up: Response: No adverse reaction ph 20:03 Not Given (Pt actively vomitingg): LevaQUIN (levofloxacin) 500 mg PO once ph Disposition Summary: 10/06/21 18:47 Hospitalization Ordered Provider: Daysi Walker pm1 Condition: Stable(10/06/21 18:47) pm1 Problem: new(10/06/21 18:47) pm1 Symptoms: have improved(10/06/21 18:47) pm1 Bed/Room Type: Standard pm1 Hospitalization Status: Inpatient Admission(10/07/21 12:16) ss Location: Telemetry/MedSurg (Inpatient)(10/07/21 12:16) Room Assignment: [facility](10/07/21 12:16) Diagnosis - UTI/ Urinary tract infection, site not specified(10/06/21 18:47) pm1 - Vomiting pm1 Forms: - Medication Reconciliation Form pm1 - SBAR form pm1 Signatures: Dispatcher [employer] EDJacinda Reinoso RN RN ss Renate Gandhi RN SHAWN Caitie Simeon RN RN cg Marinas, Patrick, HAND MEAT SALTER HAND MEAT SALTER pm1 Corrections: (The following items were deleted from the chart) 18:46 14:52 Home pm1 pm1 18:46 14:52 new pm1 pm1 18:46 14:52 have improved pm1 pm1 18:46 14:52 Stable pm1 pm1 18:46 14:52 UTI/ Urinary tract infection, site not specified pm1 pm1 19:39 19:21 Abdomen/GI: Rectal exam: Stool: guaiac negative, hemorrhoid(s), external, without pm1 bleeding, without inflammation, without thrombosis, without pain, pm1 20:18 18:47 Telemetry/MedSurg (observation) pm1 cg 20:18 18:47 pm1 cg 10/07 12:16 10/06 18:47 Observation pm1 ss 10/07 12:16 10/06 20:[address] [facility] ER HOLD cg 10/07 12:16 10/06 20:18 ERHOLD- [facility]
--- NOTE | 2021-10-06 14:53 | ER ---
Nurse's Notes [facility] Name: Rachna Peña Age: 86 yrs Sex: Female : 1935 Arrival Date: 10/06/2021 Time: 09:38 Bed 25 Private MD: Diagnosis: UTI/ Urinary tract infection, site not specified;Vomiting Presentation: 10/06 09:39 Chief complaint: EMS states: Pt from home, has a rodriguez, blood in urine x 2 days, family ph believes she has a UTI, VSS 124/69, 72 HR, 18 R, 97.6 T, 128 BGL. Coronavirus screen: Vaccine status: Patient reports receiving the 2nd dose of the covid vaccine. Ebola Screen: No symptoms or risks identified at this time. Initial Sepsis Screen: Does the patient meet any 2 criteria? No. Patient's initial sepsis screen is negative. Does the patient have a suspected source of infection? Yes: Catheter related infection (Rodriguez/dialysis/PICC/central line). Risk Assessment: Do you want to hurt yourself or someone else? Patient reports no desire to harm self or others. Onset of symptoms was October 06, 2021. 09:39 Method Of Arrival: [facility] 09:39 Acuity: JENNIFER 3 ph Historical: - Allergies: 09:41 Bactrim; ph - Home Meds: 09:41 allopurinol 300 mg Oral tab 1 tab once daily [Active]; gabapentin 400 mg Oral cap 1 cap ph 3 times per day [Active]; levetiracetam 500 mg Oral tab 1 tab 2 times per day [Active]; simvastatin 10 mg Oral tab 1 tab once daily [Active]; metoprolol tartrate 25 mg Oral tab [Active]; amlodipine 2.5 mg tab 1 tab once daily [Active]; duloxetine 60 mg Oral cpDR 1 cap once daily [Active]; levothyroxine 75 mcg tab 1 tab once daily [Active]; - PMHx: 09:41 Arthritis; Atrial Fib; COPD; Gout; High Cholesterol; Hypertension; Hypothyroidism; knee ph pain; Myocardial infarction; Seizures; Sleep Apnea; - Immunization history:: Adult Immunizations unknown. - Social history:: Smoking status: Patient denies any tobacco usage or history of. Screenin:56 Abuse screen: Denies threats or abuse. Denies injuries from another. Nutritional ph screening: No deficits noted. Tuberculosis screening: No symptoms or risk factors identified. Fall Risk None identified. Assessment: 09:53 General: Appears in no apparent distress. comfortable, obese, well groomed, Behavior is ph calm, cooperative, appropriate for age. Pain: Denies pain. Neuro: Level of Consciousness is awake, alert, obeys commands, Oriented to person, place, time, situation. Cardiovascular: Capillary refill < 3 seconds in bilateral fingers Patient's skin is warm and dry. Respiratory: Airway is patent Respiratory effort is even, unlabored. GI: Abdomen is round Reports nausea, Patient currently denies abdominal pain. : Rodriguez in place to gravity drainage Urine is cloudy, blood tinged, blood tinged urine noted in diaper, urine appears to be leaking around catheter. Derm: Skin is fragile, is thin, Skin is pink, warm \T\ dry. Musculoskeletal: Circulation, motion, and sensation intact. Range of motion: intact in all extremities. 13:09 Reassessment: Patient appears in no apparent distress at this time. Patient and/or ph family updated on plan of care and expected duration. Pain level reassessed. Patient is alert, oriented x 3, equal unlabored respirations, skin warm/dry/pink. 14:00 Reassessment: Patient appears in no apparent distress at this time. Patient and/or ph family updated on plan of care and expected duration. Pain level reassessed. Patient is alert, oriented x 3, equal unlabored respirations, skin warm/dry/pink. 15:00 Reassessment: Patient appears in no apparent distress at this time. Patient and/or ph family updated on plan of care and expected duration. Pain level reassessed. Patient is alert, oriented x 3, equal unlabored respirations, skin warm/dry/pink. 15:30 Reassessment: Contacted pt's daughter for a ride home who stated that she needed to be ph transported home by ambulance. 16:30 Reassessment: Patient appears in no apparent distress at this time. Patient and/or ph family updated on plan of care and expected duration. Pain level reassessed. Patient is alert, oriented x 3, equal unlabored respirations, skin warm/dry/pink. Awaiting transport. 17:22 Reassessment: Patient appears in no apparent distress at this time. ph 18:15 Reassessment: [facility] at bedside, pt actively vomiting, ERP notified. ph 18:30 Reassessment: Pt actively vomiting, ERP to admit pt for vomiting, concerned that pt ph will be unable to tolerate PO antibiotics at home. Vital Signs: 09:56 BP 174 / 101; Pulse 74; Resp 18; Temp 97.9; Pulse Ox 97% on R/A; ph 11:01 BP 168 / 98; Pulse 72; Resp 18; Pulse Ox 98% on R/A; ph 13:09 BP 168 / 94; Pulse 86; Resp 18; Pulse Ox 95% on R/A; ph 14:00 BP 152 / 78; Pulse 81; Resp 18; Pulse Ox 98% on R/A; ph 15:00 BP 168 / 92; Pulse 84; Resp 16; Pulse Ox 97% on R/A; ph 16:30 BP 149 / 89; Pulse 76; Resp 16; Pulse Ox 97% on R/A; ph 18:30 BP 154 / 101; Pulse 78; Resp 18; Temp 97.9(TE); Pulse Ox 97% on R/A; ph Vitals: 13:09 Cardiac Rhythm Assessment Atrial fibrillation. ph ED Course: 09:38 Patient arrived in ED. ph 09:41 Triage completed. ph 09:41 Arm band placed on Patient placed in a hallway bed, on a stretcher, on monitor technician, ph on pulse oximetry. 09:42 Maxi Cueto NP is PHCP. pm1 09:42 Leo Davis MD is Attending Physician. pm1 09:53 Renate Gandhi, RN is Primary Nurse. ph 09:56 Patient has correct armband on for positive identification. Placed in gown. Bed in low ph position. Call light in reach. Side rails up X2. Pulse ox on. NIBP on. 10:30 Initial lab(s) drawn, by me, sent to lab. Inserted saline lock: 22 gauge in left ph antecubital area, using aseptic technique. Blood collected. 10:38 Urine collected: Rodriguez catheter specimen, cloudy. Rodriguez cath inserted, using sterile mh5 technique, 18 Fr., by me. 10:38 EKG done, by ED staff, reviewed by Leo Davis MD. [facility] 10:39 phototypesetting equipment monitor on. [facility] 10:39 Urine Microscopic Only Sent. [facility] 18:47 Daysi Walker PA is Hospitalizing Provider. pm1 19:11 Primary Nurse role handed off by Renate Gandhi, RN mw2 20:09 No provider procedures requiring assistance completed. Patient admitted, IV remains in ph place. Administered Medications: 10:40 Drug: Zofran (Ondansetron) 4 mg Route: IVP; Site: left antecubital; ph 11:30 Follow up: Response: No adverse reaction ph 15:00 Drug: Zofran (Ondansetron) 4 mg Route: IVP; Site: left antecubital; ph 16:00 Follow up: Response: No adverse reaction ph 20:03 Not Given (Pt actively vomitingg): LevaQUIN (levofloxacin) 500 mg PO once ph Medication: 09:56 VIS not applicable for this client. ph Outcome: 14:52 Discharge ordered by MD. pm1 18:47 Decision to Hospitalize by Provider. pm1 20:09 Condition: stable ph 21:10 Admitted to ER Hold. Please see [facility] for further documentation. naman 21:10 Instructed on the need for admit. 10/07 13:40 Patient left the ED. ss Signatures: Jacinda Talbert RN RN Renate Gandhi RN RN Maxi Cueto NP ORDER TAKERS SUPERVISOR [facility] Cornelia Mayes [facility] Qasim Castillo RN RN Aide Mejia mw2 Corrections: (The following items were deleted from the chart) 10/06 19:34 16:02 LevaQUIN (levofloxacin) 500 mg PO ph ph
[2021-10-06] MEDS ORDERED: levoFLOXacin 500 MG TAB ONE (15:49)
[2021-10-06] MEDS ORDERED: ONDANSETRON 4 MG (ODT) TAB ONE (18:11)
[2021-10-06] MEDS ORDERED: Levofloxacin500mg IV 500 MG/100 ML BAG IV SCH (21:03)
[2021-10-06] MEDS ORDERED: ACETAMINOPHEN 500 MG TAB PO PRN (21:03)
[2021-10-06] MEDS ORDERED: HYDRALAZINE HCL 20 MG/ML VIAL IV PRN (21:03)
--- NOTE | 2021-10-06 21:42 | P.HP ---
Certification for Inpatient Patient admitted to: Observation With expected LOS: <2 Midnights Patient will require the following post-hospital care: None Practitioner: I am a practitioner with admitting privileges, knowledge of patient current condition, hospital course, and medical plan of care. Services: Services provided to patient in accordance with Admission requirements found in Title 42 Section 412.3 of the Code of Federal Regulations Patient History Date of Service: 10/06/21 Primary Care Provider: Nathalie Reason for admission: UTI, Intractable Vomiting History of Present Illness: Patient is an 86-year-old female with past medical history of hypertension, hypothyroidism, afib (not on chronic anticoagulation), indwelling Casillas catheter with recurrent UTIs who presented to the ED with family with concern for hematuria and UTI. Urine did reveal UTI with hematuria. New Casillas was placed. WBC WNL. Urine culture sent. Patient orientedx4. ED was planning to discharge, however patient had several episodes of emesis without relief despite antiemetics and could not tolerate PO. Will admit patient for observ ation. Allergies No Known Allergies Allergy (Unverified 03/15/17 01:19) Home medications list reviewed: Yes Home Medications: Amlodipine Besylate [Norvasc] 10 mg PO DAILY 09/01/18 Duloxetine [Cymbalta *] 60 mg PO DAILY 09/01/18 Gabapentin [Neurontin*] 400 mg PO TID 09/01/18 Levothyroxine [Synthroid*] 75 mcg PO [id number] 09/01/18 Simvastatin 10 mg PO BEDTIME 09/01/18 allopurinoL [Zyloprim*] 300 mg PO DAILY 09/01/18 levETIRAcetam [Keppra*] 500 mg PO BID #60 tab 03/27/21 Docusate [Colace Cap] 100 mg PO DAILY PRN 10/06/21 Metoprolol Tartrate 25 mg PO BID 10/06/21 - Past Medical/Surgical History Diabetic: No -: arthritis -: gout -: HLD -: HTN -: atrial fibrillation -: hypothyroid -: HI -: irwin cataract -: right foot sx Psychosocial/ Personal History: Patient is a and lives at home alone. Her daughter lives nearby. - Family History Father -: Cancer (throat) - Social History Smoking Status: Never smoker Alcohol use: No CD- Drugs: No Caffeine use: No Place of Residence: Home Review of Systems Gastrointestinal: Nausea, Vomiting Genitourinary: Hematuria Physical Examination - Physical Exam General: Alert, In no apparent distress, Oriented x3 HEENT: Atraumatic, PERRLA, EOMI, Sclerae nonicteric Neck: Supple, 2+ carotid pulse no bruit, No LAD, Without JVD or thyroid abnormality Respiratory: Clear to auscultation bilaterally, Normal air movement Cardiovascular: Regular rate/rhythm, Normal S1 S2 Gastrointestinal: Normal bowel sounds, No tenderness Musculoskeletal: No tenderness Integumentary: No rashes Neurological: Normal speech, Normal strength at 5/5 x4 extr, Normal tone Urinary: Casillas catheter - Studies Laboratory Data (last 24 hrs) 10/06/21 10:25: PT 11.7, INR 1.06 10/06/21 10:25: Sodium 129 L, Potassium 3.7, BUN 15, Creatinine 0.85, Glucose 117 H, Total Bilirubin 0.4, AST 14 L, ALT 25, Alkaline Phosphatase 67 10/06/21 10:25: WBC 8.0, Hgb 13.8, Hct 41.3, Plt Count 150 L Assessment and Plan - Problems (Diagnosis) (1) UTI (urinary tract infection) Current Visit: Yes Status: Acute Qualifiers: Urinary tract infection type: catheter-associated UTI Indwelling urinary catheter type: indwelling urethral catheter Encounter type: initial encounter Qualified Code(s): T83.511A - Infection and inflammatory reaction due to indwelling urethral catheter, initial encounter; N39.0 - Urinary tract infection, site not specified (2) Hypertension Current Visit: Yes Status: Chronic Qualifiers: Hypertension type: primary hypertension Qualified Code(s): I10 - Essential (primary) hypertension (3) Intractable vomiting Current Visit: Yes Status: Acute (4) Hyperlipidemia Current Visit: No Status: Chronic Qualifiers: Hyperlipidemia type: mixed hyperlipidemia Qualified Code(s): E78.2 - Mixed hyperlipidemia (5) Hypothyroid Current Visit: No Status: Chronic Qualifiers: Hypothyroidism type: acquired Qualified Code(s): E03.9 - Hypothyroidism, unspecified (6) Atrial fibrillation Current Visit: No Status: Chronic Qualifiers: Atrial fibrillation type: unspecified Qualified Code(s): I48.91 - Unspecified atrial fibrillation (7) Hyponatremia Current Visit: Yes Status: Acute (8) Hard of hearing Current Visit: Yes Status: Chronic Qualifiers: Hearing loss type: unspecified Laterality: bilateral Qualified Code(s): H91.93 - Unspecified hearing loss, bilateral - Plan -Reviewed previous urine culture and sensitivities-start IV Levaquin and pend urine culture results -Zofran as needed nausea -NS at 50 cc/hr -diet as tolerated -Reconcile and continue home medications -Lovenox for DVT prophylaxis Discharge Plan: Home Plan to discharge in: 24 Hours - Advance Directives Does patient have a Living Will: Yes Does patient have a Durable POA for Healthcare: Yes - Code Status/Comfort Care Code Status Assessed: Yes (Full) Critical Care: No Time Spent Managing Pts Care (In Minutes): 70
[2021-10-06] MEDS: NA CHLORIDE 0.9% 1,000 ML IV SCH (23:01)
[2021-10-06] MEDS ORDERED: Levofloxacin500mg IV 500 MG/100 ML BAG IV ONE (23:05)
[2021-10-06] MEDS ORDERED: NA CHLORIDE 0.9% 1,000 ML ONE (23:05)
[2021-10-06 23:45] VITALS: BMI 37.4
[2021-10-07] MEDS ORDERED: ENOXAPARIN 40 MG/0.4 ML SQ ONE (08:13)
[2021-10-07] MEDS: ENOXAPARIN 40 MG/0.4 ML SQ SCH (08:53)
[2021-10-07] MEDS: Levofloxacin 750mg IV 750 MG/150 ML BAG IV SCH (16:01)
[2021-10-07] MEDS ORDERED: DOCUSATE NA 100 MG CAP PO PRN (18:11)
--- NOTE | 2021-10-07 18:11 | P.PN ---
Subjective Date of Service: 10/07/21 Primary Care Provider: Nathalie Chief Complaint: UTI, Intractable Vomiting Patient with nausea and vomiting this morning. She is awake but confused. She denies any pain. She has chronic indwelling Casillas catheter. Physical Examination - Vital Signs Temperature: 98.4 F Blood Pressure: 168/91 Pulse: 89 Respirations: 20 Pulse Ox (%): 91 - Physical Exam General: In no apparent distress, Confused, Obese HEENT: Mucous membr. moist/pink, Sclerae nonicteric Neck: Supple, JVD not distended Respiratory: Clear to auscultation bilaterally, Normal air movement Cardiovascular: No edema, Normal S1 S2, Irregular heart rate/rhythm Gastrointestinal: Soft and benign, Non-distended, No tenderness Musculoskeletal: No swelling Integumentary: No cyanosis Neurological: Other (No focal motor deficit) Assessment And Plan - Current Problems (Diagnosis) (1) Urinary tract infection associated with catheterization of urinary tract Current Visit: Yes Status: Acute (2) Intractable nausea and vomiting Current Visit: Yes Status: Acute (3) Hypertension Current Visit: Yes Status: Chronic Qualifiers: Hypertension type: primary hypertension Qualified Code(s): I10 - Essential (primary) hypertension (4) Atrial fibrillation Current Visit: No Status: Chronic Qualifiers: Atrial fibrillation type: unspecified Qualified Code(s): I48.91 - Unspecified atrial fibrillation (5) Hyponatremia Current Visit: Yes Status: Acute - Plan Patient is high risk for ESBL infection given history of recurrent UTI multiple antibiotic treatment. She was also not tolerating feeding with nausea and vomiting. Keep as inpatient and continue IV antibiotics. Follow urine culture. Resume home antihypertensives. Supportive measures with antiemetics. Resume other home medications. Continue IV normal saline and monitor BMP to follow hyponatremia.
[2021-10-07] MEDS: GABAPENTIN 400 MG CAP PO SCH (20:37)
[2021-10-07] MEDS: ATORVASTATIN 10 MG TAB PO SCH (20:37)
[2021-10-07] MEDS: levETIRAcetam 500 MG TAB PO SCH (20:37)
[2021-10-07] MEDS: NA CHLORIDE 0.9% 1,000 ML IV SCH (20:37)
[2021-10-07] MEDS: METOPROLOL TAR 25 MG TAB PO SCH (20:38)
[2021-10-07] MEDS: ONDANSETRON 4 MG/2 ML VIAL IV PRN (22:30)
[2021-10-08] MEDS: PROMETHAZINE INJ 25 MG/ML AMP IV PRN ×3 (00:14→20:38)
[2021-10-08 04:23] LABS: Absolute Lymphocytes (CBC) 0.3 K/uL (0.7-4.9); Hematocrit 40.7 % (36.0-45.0); Lymphocytes % 3.2 % (15.3-44.8); MPV 8.1 fL (7.6-11.3); RBC Red Blood Cell Count 4.72 M/uL (3.86-4.86)
[2021-10-08 04:38] LABS: Potassium 3.1 mmol/L (3.5-5.1)
[2021-10-08 05:08] LABS: Blood Morphology Comment NOT SEEN (NOT SEEN); Platelet Estimate ADEQ
[2021-10-08] MEDS: LEVOTHYROXINE SOD 0.075 MG TAB PO SCH (05:22)
--- NOTE | 2021-10-08 07:45 | EKG ---
Test Date: 2021-10-06 Test Time: 09:57:00 Front End Web Developer: IRIS MEASUREMENT RESULTS: Intervals: Rate: 87 SD: QRSD: 82 QT: 408 QTc: 490 [place]: P: SD: QRS: 25 T: 60 INTERPRETIVE STATEMENTS: Atrial fibrillation with premature ventricular or aberrantly conducted complexes Prolonged QT Abnormal ECG Compared to ECG 03/22/2021 21:44:53 Ventricular premature complex(es) now present Prolonged QT interval now present Electronically Signed On 10-08-21 07:38:01 CDT by Peterson Delgado
[2021-10-08] MEDS: ONDANSETRON 4 MG/2 ML VIAL IV PRN ×2 (08:09→16:34)
[2021-10-08] MEDS: ENOXAPARIN 40 MG/0.4 ML SQ SCH (08:11)
[2021-10-08] MEDS: GABAPENTIN 400 MG CAP PO SCH ×3 (08:21→20:31)
[2021-10-08] MEDS: METOPROLOL TAR 25 MG TAB PO SCH ×2 (08:22→20:31)
[2021-10-08] MEDS: DULOXETINE 30 MG CAP PO SCH (08:22)
[2021-10-08] MEDS: levETIRAcetam 500 MG TAB PO SCH ×2 (08:22→20:31)
[2021-10-08] MEDS: AMLODIPINE 10 MG TAB PO SCH (08:22)
[2021-10-08] MEDS: allopurinoL 300 MG TAB PO SCH (08:23)
--- NOTE | 2021-10-08 13:23 | P.PN ---
Subjective Date of Service: 10/08/21 Primary Care Provider: Nathalie Chief Complaint: UTI, Intractable Vomiting Patient with persistent nausea. She vomited once this morning She is awake and interactive. Hard of hearing She has chronic indwelling Casillas catheter. Physical Examination - Vital Signs Temperature: 99 F Blood Pressure: 167/84 Pulse: 87 Respirations: 16 Pulse Ox (%): 91 - Physical Exam General: In no apparent distress, Oriented x3, Obese, Other HEENT: Mucous membr. moist/pink, Sclerae nonicteric Neck: Supple, JVD not distended Respiratory: Clear to auscultation bilaterally, Normal air movement Cardiovascular: No edema, Regular rate/rhythm, Normal S1 S2 Capillary refill: <2 Seconds Gastrointestinal: Normal bowel sounds, Soft and benign, Non-distended, No tenderness Musculoskeletal: No swelling Integumentary: No rashes, No cyanosis Neurological: Normal strength at 5/5 x4 extr Assessment And Plan - Current Problems (Diagnosis) (1) Urinary tract infection associated with catheterization of urinary tract Current Visit: Yes Status: Acute (2) Intractable nausea and vomiting Current Visit: Yes Status: Acute (3) Hypertension Current Visit: Yes Status: Chronic Qualifiers: Hypertension type: primary hypertension Qualified Code(s): I10 - Essential (primary) hypertension (4) Atrial fibrillation Current Visit: No Status: Chronic Qualifiers: Atrial fibrillation type: unspecified Qualified Code(s): I48.91 - Unspecified atrial fibrillation (5) Hyponatremia Current Visit: Yes Status: Acute - Plan Patient is high risk for ESBL infection given history of recurrent UTI multiple antibiotic treatment. Urine culture is growing mixed growth/gram-negative rods She has persistent nausea Keep as inpatient and continue IV antibiotics. Follow urine culture organism identification and antibiotic sensitivity Continue home dose antihypertensives. Supportive measures with antiemetics. Check KUB to assess for constipation and treat accordingly Continue other home medications. Hyponatremia improving with IV normal saline. Continue IV fluid given persistent nausea.
[2021-10-08] MEDS: NA CHLORIDE 0.9% 1,000 ML IV SCH (14:19)
--- NOTE | 2021-10-08 14:47 | RAD REPORT ---
EXAM DESCRIPTION: RAD - Abdomen 1 View (KUB) - 10/08/2021 2:26 pm CLINICAL HISTORY: Constipation Pain COMPARISON: No comparisons FINDINGS: There is quite pronounced gaseous distention of the stomach seen. No suspicious calcificat ions. No significant bony findings. Mild stool burden. IMPRESSION: Quite significant gaseous distention of the stomach.
[2021-10-08] MEDS: ATORVASTATIN 10 MG TAB PO SCH (20:31)
[2021-10-08] MEDS: JUVEN PACKET PO SCH (20:31)
[2021-10-09 03:53] LABS: Potassium 3.2 mmol/L (3.5-5.1)
[2021-10-09] MEDS: LEVOTHYROXINE SOD 0.075 MG TAB PO SCH (05:17)
[2021-10-09] MEDS: NA CHLORIDE 0.9% 1,000 ML IV SCH ×2 (05:42→22:32)
[2021-10-09] MEDS: ENOXAPARIN 40 MG/0.4 ML SQ SCH (08:19)
[2021-10-09] MEDS: DULOXETINE 30 MG CAP PO SCH (08:20)
[2021-10-09] MEDS: METOPROLOL TAR 25 MG TAB PO SCH ×2 (08:20→22:24)
[2021-10-09] MEDS: allopurinoL 300 MG TAB PO SCH (08:20)
[2021-10-09] MEDS: GABAPENTIN 400 MG CAP PO SCH ×3 (08:20→22:24)
[2021-10-09] MEDS: ONDANSETRON 4 MG/2 ML VIAL IV PRN ×2 (08:20→22:32)
[2021-10-09] MEDS: AMLODIPINE 10 MG TAB PO SCH (08:20)
[2021-10-09] MEDS: levETIRAcetam 500 MG TAB PO SCH ×2 (08:20→22:24)
[2021-10-09] MEDS: JUVEN PACKET PO SCH ×2 (08:22→21:00)
[2021-10-09] MEDS: Levofloxacin 750mg IV 750 MG/150 ML BAG IV SCH (15:13)
--- NOTE | 2021-10-09 17:29 | P.PN ---
Subjective Date of Service: 10/09/21 Primary Care Provider: Nathalie Chief Complaint: UTI, Intractable Vomiting Patient she feels much better today. She reports generalized weakness. She was seen sitting up in a chair. Seen by PT for functional status evaluation. She has chronic indwelling Casillas catheter. Physical Examination - Vital Signs Temperature: 97.8 F Blood Pressure: 113/57 Pulse: 70 Respirations: 16 Pulse Ox (%): 97 - Physical Exam General: Alert, In no apparent distress HEENT: Mucous membr. moist/pink Neck: Supple, JVD not distended Respiratory: Clear to auscultation bilaterally, Normal air movement Cardiovascular: No edema, Regular rate/rhythm, Normal S1 S2 Gastrointestinal: Soft and benign, Non-distended, No tenderness Musculoskeletal: No swelling Integumentary: No cyanosis Neurological: Normal strength at 5/5 x4 extr Assessment And Plan - Current Problems (Diagnosis) (1) Urinary tract infection associated with catheterization of urinary tract Current Visit: Yes Status: Acute (2) Intractable nausea and vomiting Current Visit: Yes Status: Acute (3) Hypertension Current Visit: Yes Status: Chronic Qualifiers: Hypertension type: primary hypertension Qualified Code(s): I10 - Essential (primary) hypertension (4) Atrial fibrillation Current Visit: No Status: Chronic Qualifiers: Atrial fibrillation type: unspecified Qualified Code(s): I48.91 - Unspecified atrial fibrillation (5) Hyponatremia Current Visit: Yes Status: Acute - Plan Patient is high risk for ESBL infection given history of recurrent UTI multiple antibiotic treatment. Urine culture is growing providentia sensitive to fluoroquinolones and Bactrim. Patient is now tolerating diet though reports intermittent nausea. KUB shows significant gaseous distention which could explain patient's intermittent nausea. Continue IV antibiotics. Continue home dose antihypertensives. Supportive measures with antiemetics. Continue other home medications. Hyponatremia improved with IV normal saline. Discontinue IV fluid given good oral intake.
[2021-10-09] MEDS: ATORVASTATIN 10 MG TAB PO SCH (21:00)
[2021-10-10] MEDS: LEVOTHYROXINE SOD 0.075 MG TAB PO SCH (05:08)
[2021-10-10] MEDS: JUVEN PACKET PO SCH ×2 (09:00→21:04)
[2021-10-10] MEDS: DULOXETINE 30 MG CAP PO SCH (09:41)
[2021-10-10] MEDS: AMLODIPINE 10 MG TAB PO SCH (09:41)
[2021-10-10] MEDS: levETIRAcetam 500 MG TAB PO SCH ×2 (09:41→21:03)
[2021-10-10] MEDS: METOPROLOL TAR 25 MG TAB PO SCH ×2 (09:42→21:03)
[2021-10-10] MEDS: GABAPENTIN 400 MG CAP PO SCH ×3 (09:42→21:03)
[2021-10-10] MEDS: allopurinoL 300 MG TAB PO SCH (09:42)
[2021-10-10] MEDS: ENOXAPARIN 40 MG/0.4 ML SQ SCH (09:42)
--- NOTE | 2021-10-10 11:09 | P.PN ---
Subjective Date of Service: 10/10/21 Primary Care Provider: Nathalie Chief Complaint: UTI, Intractable Vomiting No issues overnight. She is needing assistance with transfer. She reports chest pain last night. She described sternal chest pain worse with chest and arm movement. Physical Examination - Vital Signs Temperature: 97.6 F Blood Pressure: 123/57 Pulse: 88 Respirations: 16 Pulse Ox (%): 91 - Physical Exam General: Alert, In no apparent distress, Oriented x3 HEENT: Mucous membr. moist/pink Neck: JVD not distended Respiratory: Clear to auscultation bilaterally, Normal air movement Cardiovascular: Regular rate/rhythm, Normal S1 S2 Gastrointestinal: Normal bowel sounds, Soft and benign, Non-distended, No tenderness Musculoskeletal: Tenderness (Anterior chest wall, more pronounced in the sternal area) Integumentary: No rashes Neurological: Normal strength at 5/5 x4 extr - Studies Microbiology Data (last 24 hrs): 10/06/21 14:15 Clean Catch Urine [place] Count - Final >100,000 CFU/ML. 10/06/21 14:15 Clean Catch Urine - Final Providencia Stuartii Pseudomonas Aeruginosa Assessment And Plan - Current Problems (Diagnosis) (1) Urinary tract infection associated with catheterization of urinary tract Current Visit: Yes Status: Acute (2) Intractable nausea and vomiting Current Visit: Yes Status: Acute (3) Hypertension Current Visit: Yes Status: Chronic Qualifiers: Hypertension type: primary hypertension Qualified Code(s): I10 - Essential (primary) hypertension (4) Atrial fibrillation Current Visit: No Status: Chronic Qualifiers: Atrial fibrillation type: unspecified Qualified Code(s): I48.91 - Unspecified atrial fibrillation (5) Hyponatremia Current Visit: Yes Status: Acute - Plan Patient is high risk for ESBL infection given history of recurrent UTI multiple antibiotic treatment. Urine culture is growing providentia and Pseudomonas. Patient will need double antibiotic coverage based on antibiotic sensitivity. Patient is now tolerating diet though reports intermittent nausea. KUB shows significant gaseous distention which could explain patient's intermittent nausea. Continue Levaquin. We will add IV meropenem. She will need placement in SNF for antibiotics and physical therapy. Continue home dose antihypertensives. Supportive measures with antiemetics. Continue other home medications. Hyponatremia improved with IV normal saline. Continue PT. Disposition: SNF
[2021-10-10] MEDS: NA CHLORIDE 0.9% 1,000 ML IV SCH (21:01)
[2021-10-10] MEDS: Meropenem 1,000 MG in NA CHLORIDE 0.9% 100 ML IV SCH (21:02)
[2021-10-10] MEDS: ATORVASTATIN 10 MG TAB PO SCH (21:03)
[2021-10-11] MEDS: LEVOTHYROXINE SOD 0.075 MG TAB PO SCH (05:54)
[2021-10-11 06:10] LABS: Absolute Lymphocytes (CBC) 0.7 K/uL (0.7-4.9); Hematocrit 37.9 % (36.0-45.0); Lymphocytes % 11.2 % (15.3-44.8); MPV 7.9 fL (7.6-11.3); RBC Red Blood Cell Count 4.28 M/uL (3.86-4.86)
[2021-10-11 06:25] LABS: Potassium 3.5 mmol/L (3.5-5.1)
[2021-10-11] MEDS: Meropenem 1,000 MG in NA CHLORIDE 0.9% 100 ML IV SCH ×2 (08:57→20:49)
[2021-10-11] MEDS: DULOXETINE 30 MG CAP PO SCH (08:58)
[2021-10-11] MEDS: METOPROLOL TAR 25 MG TAB PO SCH ×2 (08:58→20:50)
[2021-10-11] MEDS: levETIRAcetam 500 MG TAB PO SCH ×2 (08:58→20:49)
[2021-10-11] MEDS: allopurinoL 300 MG TAB PO SCH (08:58)
[2021-10-11] MEDS: ENOXAPARIN 40 MG/0.4 ML SQ SCH (08:58)
[2021-10-11] MEDS: AMLODIPINE 10 MG TAB PO SCH (08:58)
[2021-10-11] MEDS: GABAPENTIN 400 MG CAP PO SCH ×3 (08:58→20:50)
[2021-10-11] MEDS: JUVEN PACKET PO SCH ×2 (08:59→20:52)
--- NOTE | 2021-10-11 10:31 | P.PN ---
Subjective Date of Service: 10/11/21 Primary Care Provider: Nathalie Chief Complaint: UTI, Intractable Vomiting No issues overnight. She has no new complaint. Physical Examination - Vital Signs Temperature: 97.6 F Blood Pressure: 126/63 Pulse: 76 Respirations: 19 Pulse Ox (%): 96 - Physical Exam General: In no apparent distress, Oriented x3 HEENT: Mucous membr. moist/pink Neck: JVD not distended Respiratory: Clear to auscultation bilaterally, Normal air movement Cardiovascular: No edema, Normal S1 S2 Gastrointestinal: Soft and benign, Non-distended Musculoskeletal: No swelling Neurological: Normal strength at 5/5 x4 extr - Studies Microbiology Data (last 24 hrs): 10/06/21 14:15 Clean Catch Urine [place] Count - Final >100,000 CFU/ML. 10/06/21 14:15 Clean Catch Urine - Final Providencia Stuartii Pseudomonas Aeruginosa Assessment And Plan - Current Problems (Diagnosis) (1) Urinary tract infection associated with catheterization of urinary tract Current Visit: Yes Status: Acute (2) Intractable nausea and vomiting Current Visit: Yes Status: Acute (3) Hypertension Current Visit: Yes Status: Chronic Qualifiers: Hypertension type: primary hypertension Qualified Code(s): I10 - Essential (primary) hypertension (4) Atrial fibrillation Current Visit: No Status: Chronic Qualifiers: Atrial fibrillation type: unspecified Qualified Code(s): I48.91 - Unspecified atrial fibrillation (5) Hyponatremia Current Visit: Yes Status: Acute - Plan Urine culture is growing providentia and Pseudomonas. Patient will need double antibiotic coverage based on antibiotic sensitivity. Patient is now tolerating diet though reports intermittent nausea. KUB shows significant gaseous distention which could explain patient's intermittent nausea. Continue Levaquin and IV meropenem. She will need placement in SNF for antibiotics and physical therapy. PICC Line for outpatient IV antibiotics Continue home dose antihypertensives. Supportive measures with antiemetics. Continue other home medications. Hyponatremia improved with IV normal saline. Continue PT. Disposition: [facility]
[2021-10-11] MEDS: Levofloxacin 750mg IV 750 MG/150 ML BAG IV SCH (14:02)
[2021-10-11] MEDS: ATORVASTATIN 10 MG TAB PO SCH (20:50)
[2021-10-11] MEDS: NA CHLORIDE 0.9% 1,000 ML IV SCH (23:20)
[2021-10-12] MEDS: LEVOTHYROXINE SOD 0.075 MG TAB PO SCH (06:21)
[2021-10-12] MEDS: JUVEN PACKET PO SCH ×2 (09:00→21:20)
[2021-10-12] MEDS ORDERED: NA CHLORIDE 0.9% 100 ML ONE (09:54)
[2021-10-12] MEDS: allopurinoL 300 MG TAB PO SCH (09:55)
[2021-10-12] MEDS: levETIRAcetam 500 MG TAB PO SCH ×2 (09:55→21:19)
[2021-10-12] MEDS: DULOXETINE 30 MG CAP PO SCH (09:55)
[2021-10-12] MEDS: ENOXAPARIN 40 MG/0.4 ML SQ SCH (09:55)
[2021-10-12] MEDS: GABAPENTIN 400 MG CAP PO SCH ×3 (09:55→21:19)
[2021-10-12] MEDS: METOPROLOL TAR 25 MG TAB PO SCH ×2 (09:56→21:19)
[2021-10-12] MEDS: Meropenem 1,000 MG in NA CHLORIDE 0.9% 100 ML IV SCH ×2 (09:56→21:18)
[2021-10-12] MEDS: AMLODIPINE 10 MG TAB PO SCH (09:58)
--- NOTE | 2021-10-12 11:51 | P.PN ---
Subjective Date of Service: 10/12/21 Primary Care Provider: Nathalie Chief Complaint: UTI, Intractable Vomiting No issues overnight. No new complaint. Patient is eating well. Physical Examination - Vital Signs Temperature: 97.0 F Blood Pressure: 142/65 Pulse: 89 Respirations: 18 Pulse Ox (%): 97 - Physical Exam General: Alert, In no apparent distress HEENT: Mucous membr. moist/pink, Other (Hard of hearing) Neck: JVD not distended Respiratory: Clear to auscultation bilaterally, Normal air movement Cardiovascular: No edema, Regular rate/rhythm, Normal S1 S2 Gastrointestinal: Soft and benign, Non-distended, No tenderness Musculoskeletal: No swelling Neurological: Normal strength at 5/5 x4 extr Assessment And Plan - Current Problems (Diagnosis) (1) Urinary tract infection associated with catheterization of urinary tract Current Visit: Yes Status: Acute (2) Intractable nausea and vomiting Current Visit: Yes Status: Acute (3) Hypertension Current Visit: Yes Status: Chronic Qualifiers: Hypertension type: primary hypertension Qualified Code(s): I10 - Essential (primary) hypertension (4) Atrial fibrillation Current Visit: No Status: Chronic Qualifiers: Atrial fibrillation type: unspecified Qualified Code(s): I48.91 - Unspecified atrial fibrillation (5) Hyponatremia Current Visit: Yes Status: Acute - Plan Urine culture: providentia and Pseudomonas. Continue meropenem and Levaquin. PICC Line for outpatient IV antibiotics. She has been tolerating diet. Continue home dose antihypertensives. Supportive measures with antiemetics. Continue other home medications. Hyponatremia improved with IV normal saline and stable Continue PT. Social service assisting with arrangement for SNF placement for antibiotics and physical therapy. Disposition: SNF
--- NOTE | 2021-10-12 18:30 | RAD REPORT ---
EXAM DESCRIPTION: RAD - Chest Single View - 10/12/2021 5:51 pm CLINICAL HISTORY: PICC line placement COMPARISON: February 2021 FINDINGS: Portable chest was obtained following placement of a right upper extremity PICC line. The catheter tip is in the mid SVC.
[2021-10-12] MEDS: NA CHLORIDE 0.9% 1,000 ML IV SCH (19:00)
--- NOTE | 2021-10-12 20:31 | P.PN ---
Date of Service: 10/13/21 Subjective: ROS: 10 point RoS as noted above, otherwise negative Physical Exam General: NAD, alert HEENT: Mucous membr. moist/pink, sclera anicteric Respiratory: Clear to auscultation bilaterally, Normal air movement Cardiovascular: No edema, Regular rate/rhythm, Normal S1 S2 Gastrointestinal: Soft, Non-distended, No tenderness Musculoskeletal: No swelling, No tenderness Integumentary: No rashes, No erythema, No cyanosis Neurological: Normal strength, normal speech, hard of hearing indwelling rodriguez Assessment/Plan UTI, indwelling rodriguez catheter associated nausea/vomiting Hyponatremia, mild h/o recurrent UTIs, indwelling rodriguez h/o HTN h/o Afib, not on anticoagulation h/o hypothyroidism Urine culture: providentia and Pseudomonas. Continue meropenem and Levaquin. PICC placed 10.12 for outpatient IV antibiotics. She has been tolerating diet. IVF dc'd 10/12 Continue home dose antihypertensives. Supportive measures with antiemetics. Continue other home medications. Hyponatremia improved/stable Continue PT. Social service assisting with arrangement for SNF placement for antibiotics and physical therapy. VTE: lovenox Code: full Disposition: SNF, 1-2 days
[2021-10-12] MEDS: ATORVASTATIN 10 MG TAB PO SCH (21:19)
[2021-10-13 04:52] LABS: Absolute Lymphocytes (CBC) 0.6 K/uL (0.7-4.9); Hematocrit 32.6 % (36.0-45.0); Lymphocytes % 12.8 % (15.3-44.8); MPV 7.8 fL (7.6-11.3)
[2021-10-13 05:05] LABS: Potassium 3.9 mmol/L (3.5-5.1)
[2021-10-13] MEDS: LEVOTHYROXINE SOD 0.075 MG TAB PO SCH (05:17)
[2021-10-13] MEDS: JUVEN PACKET PO SCH (09:00)
[2021-10-13] MEDS: DULOXETINE 30 MG CAP PO SCH (11:07)
[2021-10-13] MEDS: METOPROLOL TAR 25 MG TAB PO SCH (11:07)
[2021-10-13] MEDS: levETIRAcetam 500 MG TAB PO SCH (11:07)
[2021-10-13] MEDS: GABAPENTIN 400 MG CAP PO SCH ×2 (11:08→14:41)
[2021-10-13] MEDS: AMLODIPINE 10 MG TAB PO SCH (11:08)
[2021-10-13] MEDS: allopurinoL 300 MG TAB PO SCH (11:08)
[2021-10-13] MEDS: Meropenem 1,000 MG in NA CHLORIDE 0.9% 100 ML IV SCH (11:09)
[2021-10-13] MEDS: ENOXAPARIN 40 MG/0.4 ML SQ SCH (11:09)
[2021-10-13 12:42] VITALS: O2SAT 98
[2021-10-13] MEDS: Levofloxacin 750mg IV 750 MG/150 ML BAG IV SCH (14:41)
[2021-10-13 17:43] VITALS: BP 127/66; TEMP 97.7
--- NOTE | 2021-10-13 22:51 | P.DS ---
Admission Date: 10/07/21 Discharge Date: 10/13/21 Primary Care Provider: Nathalie Disposition: TRANSFER TO SNF - MEDICAL Discharge Condition: GOOD Reason for Admission: UTI, Intractable Vomiting Procedures: Problem List UTI, indwelling rodriguez catheter associated nausea/vomiting Hyponatremia, mild h/o recurrent UTIs, indwelling rodriguez h/o HTN h/o Afib, not on anticoagulation h/o hypothyroidism Brief History of Present Illness: 86-year-old female with past medical history of hypertension, hypothyroidism, afib (not on chronic anticoagulation), indwelling Rodriguez catheter with recurrent UTIs who presented to the ED with family with concern for hematuria and UTI. Urine did reveal UTI with hematuria. New Rodriguez was placed. WBC WNL. Urine culture sent. Patient orientedx4. ED was planning to discharge, however patient had several episodes of emesis without relief despite antiemetics and could not tolerate PO. Will admit patient for observation. Hospital Course: Patient was treated for UTI. Urine grew providencia and pseudomonas. Due to sensitivities. Antibiotics were changed accordingly to meropenem (10/10) and levaquin. Patient remained afebrile, without leukocytosis. She had continued improvement of her symptoms. Discharged to SNF to complete 10 more days of antibiotics Patient has had a chronic rodriguez catheter for a very long time. It does not seem as though she has followed up with Urology in a very long time as well. Discussed with patient's daughter - recommend follow up with Urologist in near future for further evaluation. Patient is otherwise to continue on chronic home medications. Follow up with PCP within 1 week of discharge from SNF Vital Signs/Physical Exam: Temp Pulse Resp BP Pulse Ox 97.7 F 68 18 127/66 98 10/13/21 16:00 10/13/21 16:00 10/13/21 16:00 10/13/21 16:00 10/13/21 16:00 Physical Exam General: NAD, alert HEENT: Mucous membr. moist/pink, sclera anicteric Respiratory: Clear to auscultation bilaterally, Normal air movement Cardiovascular: No edema, Regular rate/rhythm Gastrointestinal: Soft, Non-distended, No tenderness Musculoskeletal: No swelling, No tenderness Neurological: Normal strength, normal speech, hard of hearing indwelling rodriguez Laboratory Data at Discharge: WBC 4.9 K/uL (4.3-10.9) D 10/13/21 04:30 Hgb 10.9 g/dL (12.0-15.0) L 10/13/21 04:30 Hct 32.6 % (36.0-45.0) L 10/13/21 04:30 Plt Count 114 K/uL (152-406) L 10/13/21 04:30 PT 11.7 SECONDS (9.5-12.5) 10/06/21 10:25 INR 1.06 10/06/21 10:25 Sodium 137 mmol/L (136-145) 10/13/21 04:30 Potassium 3.9 mmol/L (3.5-5.1) 10/13/21 04:30 BUN 19 mg/dL (7-18) H 10/13/21 04:30 Creatinine 0.88 mg/dL (0.55-1.3) 10/13/21 04:30 Glucose 148 mg/dL (74-106) H 10/13/21 04:30 Total Bilirubin 0.4 mg/dL (0.2-1.0) 10/06/21 10:25 AST 14 U/L (15-37) L 10/06/21 10:25 ALT 25 U/L (12-78) 10/06/21 10:25 Alkaline Phosphatase 67 U/L (45-117) 10/06/21 10:25 Home Medications: Amlodipine Besylate [Norvasc] 10 mg PO DAILY 09/01/18 Duloxetine [Cymbalta *] 60 mg PO DAILY 09/01/18 Gabapentin [Neurontin*] 400 mg PO TID 09/01/18 Levothyroxine [Synthroid*] 75 mcg PO [id number] 09/01/18 Simvastatin 10 mg PO BEDTIME 09/01/18 allopurinoL [Zyloprim*] 300 mg PO DAILY 09/01/18 levETIRAcetam [Keppra*] 500 mg PO BID #60 tab 03/27/21 Docusate [Colace Cap*] 100 mg PO DAILY PRN 10/06/21 Metoprolol Tartrate 25 mg PO BID 10/06/21 Followup: Jeremie Zelaya MD [Primary Care Provider] - (follow up in 1 week after discharge from [facility]. ) Time spent managing pt's care (in minutes): 45
== END 2021-10-13 18:27 | DRG 698 ==
LOC: ER 09:25 → ERHOLD 20:43 → 4TH 10-07 12:48 → OBSVTOIN 10-07 18:06 → 2ND 10-09 20:08
PROVIDERS: ADMIT Internal Medicine; ATTEND Internal Medicine
PROC: 02HV33Z Insertion of Infusion Device into Superior Vena Cava, Percutaneous Approach (ICD-10-PCS; principal; 2021-10-12)
PROC: 3E04329 Introduction of Other Anti-infective into Central Vein, Percutaneous Approach (ICD-10-PCS; 2021-10-12)
DX: T83.511A Infection and inflammatory reaction due to indwelling urethral catheter, initial encounter (principal); G93.41 Metabolic encephalopathy; E87.1 Hypo-osmolality and hyponatremia; N39.0 Urinary tract infection, site not specified; B96.5 Pseudomonas (aeruginosa) (mallei) (pseudomallei) as the cause of diseases classified elsewhere; B96.89 Other specified bacterial agents as the cause of diseases classified elsewhere; R31.9 Hematuria, unspecified; I10 Essential (primary) hypertension; I48.91 Unspecified atrial fibrillation; E03.9 Hypothyroidism, unspecified; L89.152 Pressure ulcer of sacral region, stage 2; H91.93 Unspecified hearing loss, bilateral; M10.9 Gout, unspecified; I25.2 Old myocardial infarction; E78.2 Mixed hyperlipidemia; Z87.440 Personal history of urinary (tract) infections; Z20.822 Contact with and (suspected) exposure to COVID-19
CPT/HCPCS: 36415; 36569; 51702; 71045; 74018; 80048; 80053; 81003; 81015; 85025; 85610; 87077; 87086; 87088; 87186; 93005; 96374; 97110; 97116; 97161; 97530; 99285; G0378; J0360; J1650; J2185; J2405; J2550; J7030; U0003

== ENCOUNTER 2022-06-25 21:28 | Emergency (ER) | payer OTHER ==
--- OUTSIDE RECORDS SUMMARY | 2022-06-25 21:33 | XMS REPORT | Continuity of Care Document ---
:1935 Author Organization [facility] t Address [address] [place] [place] [address] Care Team Providers Name Role Phone RIAN GLASER Primary Care Physician Unavailable NICOLÁS MORENO Attending Clinician Unavailable Nicolás Moreno MD Attending Clinician Doctor Unassigned, Innovation Attending Clinician Unavailable ANA PATEL Attending Clinician Unavailable ANA PATEL Admitting Clinician Unavailable Payers Payer Name Policy Type Policy Number Effective Date Expiration Date S ource MEDICARE PART A [id number] 2001 AND B 00:00:00 MEDICARE PART A [id number] 2001 \T\ B 00:00:00 FOR LIFE [id number] 2021 00:00:00 Problems Condition Condition Condition Status Onset Resolution Last Treating Co mments Source Name Details Category Date Date Treatment Clinician Date Postmenopa Postmenopa Disease Active 2021-05 U nivers usal usal 1-07 ity of bleeding bleeding 00:00: [place] 00 Medical Branch Partial Partial Disease Active [facility] small 4-13 [facility] bowel bowel 00:00: Medical obstructio obstructio 00 Ce nter n n Bowel Bowel Disease Active [facility] obstructio obstructio 4-13 [facility] n 00:[facility]: [facility] Hypercapni Hypercapni Disease Active U nivers a a - ity of 00:00: [address] HTN HTN Disease Active [facility] (hypertens (hypertens 5-10 st ion), ion), 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 Added automatic ally from request for surgery [id number] Allergies, Adverse Reactions, Alerts Allergy Allergy Status Severity Reaction(s) Onset Inactive Treating Comm ents Source Name Type Date Date Clinician NO KNOWN Drug Active Univers ALLERGIE Class ity of S [facility] Social History Social Habit Start Date Stop Date Quantity Comments Source History SDOH [facility] Std [facility] Cent[facility] r Drinks History SDOH [facility] Alcohol Binge Medical Guero ter History SDOH [facility] Alcohol Comment Medical C enter History of Current smoker [facility] tobacco use Exposure to 2022-03-19 2022-03-29 Not sure [facility]-CoV-2 00:00:00 14:36:00 [facility] (event) [place] Tobacco Comment 2022-03-29 2022-03-29 second hand Universi ty of 00:00:00 00:00:00 exposure [facility] Alcohol intake 2018-09-07 2018-09-[address] [facility] 00:00:00 00:00:00 non-drinker of Medical Ce nter alcohol (finding) Tobacco use and 2018-09-03 2018-09-[address] [facility] exposure 00:00:00 00:00:00 Medical Center History SDOH 2018-09-03 2018-09-[address] [facility] Alcohol Frequency 00:00:00 00:00:00 [facility] Sex Assigned At [birth year] [facility] 00:00:00 00:00:00 Smoking Status Start Date Stop Date Source Never smoked tobacco [facility] Ex-smoker 2017-09-30 00:00:00 2017-09-30 00:00:00 [facility] Medications Ordered Filled Start Stop Current Ordering Indication Dosage Frequency Signature Comments Components Source Medication Medication Date Date Medication? Clinician (SIG) Name Name simvastatin 2021-05 Yes 10mg Take 10 mg Univers 10 mg 1-07 by mouth. ity of tablet 16:03: [address] spironolact 2021-05 Yes 25mg Take 25 mg Univers one 25 mg 1-07 by mouth ity of tablet 16:03: in the [place] [address] morning. Medical Branch simvastatin 2021-05 Yes 10mg Take 10 mg Univers 10 mg 1-07 by mouth. ity of tablet 16:03: [address] spironolact 2021-05 Yes 25mg Take 25 mg Univers one 25 mg 1-07 by mouth ity of tablet 16:03: in the [place] [address] morning. Medical Branch simvastatin 2021-05 Yes 10mg Take 10 mg Univers 10 mg 1-07 by mouth. ity of tablet 16:03: [address] spironolact 2021-05 Yes 25mg Take 25 mg Univers one 25 mg 1-07 by mouth ity of tablet 16:03: in the [place] [address] morning. Medical Branch simvastatin 2021-05 Yes 10mg Take 10 mg Univers 10 mg 1-07 by mouth. ity of tablet 16:03: [address] spironolact 2021-05 Yes 25mg Take 25 mg Univers one 25 mg 1-07 by mouth ity of tablet 16:03: in the [place] [address] morning. Medical Branch simvastatin 2021-05 Yes 10mg Take 10 mg Univers 10 mg 1-07 by mouth. ity of tablet 16:03: [address] spironolact 2021-05 Yes 25mg Take 25 mg Univers one 25 mg 1-07 by mouth ity of tablet 16:03: in the [place] [address] morning. Medical Branch docusate 2021-05 Yes 100mg Take 100 Univ ers 100 mg 1-07 mg by ity of capsule 16:00: mouth 2 [place] [address] (two) Medical times Branch daily. traMADOL 50 2021-05 Yes 50mg Take 50 mg Univers mg tablet 1-07 by mouth 3 ity of 16:00: (three) [place] [address] times Medical daily. Branch furosemide 2021-05 Yes 40mg Take 40 mg U nivers 40 mg 1-07 by mouth ity of tablet 16:00: daily. [place] [address] Medical Branch meloxicam 2021-05 Yes 7.5mg Take 7.5 Uni vers 7.5 mg 1-07 mg by ity of tablet 16:00: mouth [place] [address] daily. Medical Branch levothyroxi 2021-05 Yes 75ug Take 75 Uni vers ne 75 mcg 1-07 mcg by ity of tablet 16:00: mouth [place] [address] every Medical morning. Branch allopurinol 2021-05 Yes 300mg Take 300 U nivers 300 mg 1-07 mg by ity of tablet 16:00: mouth [place] [address] daily. Medical Branch DULoxetine 2021-05 Yes 60mg Take 60 mg U nivers 60 mg 1-07 by mouth ity of capsule 16:00: daily. [place] [address] Medical Branch atorvastati 2021-05 Yes 10mg Take 10 mg Univers n 10 mg 1-07 by mouth ity of tablet 16:00: at [place] [address] bedtime. Medical Branch gabapentin 2021-05 Yes 300mg Take 300 Un shy 300 mg 1-07 mg by ity of capsule 16:00: mouth 2 [place] [address] (two) Medical times Branch daily. docusate 2021-05 Yes 100mg Take 100 Univ ers 100 mg 1-07 mg by ity of capsule 16:00: mouth 2 [place] [address] (two) Medical times Branch daily. traMADOL 50 2021-05 Yes 50mg Take 50 mg Univers mg tablet 1-07 by mouth 3 ity of 16:00: (three) [place] [address] times [facility] daily. Branch furosemide 2021-05 Yes 40mg Take 40 mg U nivers 40 mg 1-07 by mouth ity of tablet 16:00: daily. [place] [address] Medical Branch meloxicam 2021-05 Yes 7.5mg Take 7.5 Uni vers 7.5 mg 1-07 mg by ity of tablet 16:00: mouth [place] [address] daily. Medical Branch levothyroxi 2021-05 Yes 75ug Take 75 Uni vers ne 75 mcg 1-07 mcg by ity of tablet 16:00: mouth [place] [address] every Medical morning. Branch allopurinol 2021-05 Yes 300mg Take 300 U nivers 300 mg 1-07 mg by ity of tablet 16:00: mouth [place] [address] daily. Medical Branch DULoxetine 2021-05 Yes 60mg Take 60 mg U nivers 60 mg 1-07 by mouth ity of capsule 16:00: daily. [place] [address] Medical Branch atorvastati 2021-05 Yes 10mg Take 10 mg Univers n 10 mg 1-07 by mouth ity of tablet 16:00: at [place] [address] bedtime. Medical Branch gabapentin 2021-05 Yes 300mg Take 300 Un shy 300 mg 1-07 mg by ity of capsule 16:00: mouth 2 [place] [address] (two) Medical times Branch daily. docusate 2021-05 Yes 100mg Take 100 Univ ers 100 mg 1-07 mg by ity of capsule 16:00: mouth 2 [place] [address] (two) Medical times Branch daily. traMADOL 50 2021-05 Yes 50mg Take 50 mg Univers mg tablet 1-07 by mouth 3 ity of 16:00: (three) [place] [address] times Medical daily. Branch furosemide 2021-05 Yes 40mg Take 40 mg U nivers 40 mg 1-07 by mouth ity of tablet 16:00: daily. [place] [address] Medical Branch meloxicam 2021-05 Yes 7.5mg Take 7.5 Uni vers 7.5 mg 1-07 mg by ity of tablet 16:00: mouth [place] [address] daily. Medical Branch levothyroxi 2021-05 Yes 75ug Take 75 Uni vers ne 75 mcg 1-07 mcg by ity of tablet 16:00: mouth [place] [address] every Medical morning. Branch allopurinol 2021-05 Yes 300mg Take 300 U nivers 300 mg 1-07 mg by ity of tablet 16:00: mouth [place] [address] daily. Medical Branch DULoxetine 2021-05 Yes 60mg Take 60 mg U nivers 60 mg 1-07 by mouth ity of capsule 16:00: daily. [place] [address] Medical Branch atorvastati 2021-05 Yes 10mg Take 10 mg Univers n 10 mg 1-07 by mouth ity of tablet 16:00: at [place] [address] bedtime. Medical Branch gabapentin 2021-05 Yes 300mg Take 300 Un shy 300 mg 1-07 mg by ity of capsule 16:00: mouth [address] [place] [address] (two) Medical times Branch daily. docusate 2021-05 Yes 100mg Take 100 Univ ers 100 mg 1-07 mg by ity of capsule 16:00: mouth 2 [place] [address] (two) Medical times Branch daily. traMADOL 50 2021-05 Yes 50mg Take 50 mg Univers mg tablet 1-07 by mouth 3 ity of 16:00: (three) [place] [address] times Medical daily. Branch furosemide 2021-05 Yes 40mg Take 40 mg U nivers 40 mg 1-07 by mouth ity of tablet 16:00: daily. [place] [address] Medical Branch meloxicam 2021-05 Yes 7.5mg Take 7.5 Uni vers 7.5 mg 1-07 mg by ity of tablet 16:00: mouth [place] [address] daily. Medical Branch levothyroxi 2021-05 Yes 75ug Take 75 Uni vers ne 75 mcg 1-07 mcg by ity of tablet 16:00: mouth [place] [address] every Medical morning. Branch allopurinol 2021-05 Yes 300mg Take 300 U nivers 300 mg 1-07 mg by ity of tablet 16:00: mouth [place] [address] daily. Medical Branch DULoxetine 2021-05 Yes 60mg Take 60 mg U nivers 60 mg 1-07 by mouth ity of capsule 16:00: daily. [place] [address] Medical Branch atorvastati 2021-05 Yes 10mg Take 10 mg Univers n 10 mg 1-07 by mouth ity of tablet 16:00: at [place] [address] bedtime. Medical Branch gabapentin 2021-05 Yes 300mg Take 300 Un shy 300 mg 1-07 mg by ity of capsule 16:00: mouth 2 [place] [address] (two) Medical times Branch daily. docusate 2021-05 Yes 100mg Take 100 Univ ers 100 mg 1-07 mg by ity of capsule 16:00: mouth 2 [place] [address] (two) Medical times Branch daily. traMADOL 50 2021-05 Yes 50mg Take 50 mg Univers mg tablet 1-07 by mouth 3 ity of 16:00: (three) [place] [address] times [facility] daily. Branch furosemide 2021-05 Yes 40mg Take 40 mg U nivers 40 mg 1-07 by mouth ity of tablet 16:00: daily. [place] [address] Medical Branch meloxicam 2021-05 Yes 7.5mg Take 7.5 Uni vers 7.5 mg 1-07 mg by ity of tablet 16:00: mouth [place] [address] daily. Medical Branch levothyroxi 2021-05 Yes 75ug Take 75 Uni vers ne 75 mcg 1-07 mcg by ity of tablet 16:00: mouth [place] [address] every Medical morning. Branch allopurinol 2021-05 Yes 300mg Take 300 U nivers 300 mg 1-07 mg by ity of tablet 16:00: mouth [place] [address] daily. Medical Branch DULoxetine 2021-05 Yes 60mg Take 60 mg U nivers 60 mg 1-07 by mouth ity of capsule 16:00: daily. [place] [address] Medical Branch atorvastati 2021-05 Yes 10mg Take 10 mg Univers n 10 mg -07 by mouth ity of tablet 16:00: at [place] [address] bedtime. Medical Branch gabapentin 2021-05 Yes 300mg Take 300 Un shy 300 mg 1-07 mg by ity of capsule 16:00: mouth 2 [place] [address] (two) Medical times Branch daily. ciprofloxac 2021-05 Yes TAKE 1 Univ ers in HCl 500 1-03 TABLET BY ity of mg tablet 00:00: MOUTH [place] 00 EVERY 12 Medical HOURS FOR Branch 7 DAYS ciprofloxac 2021-05 Yes TAKE 1 Univ ers in HCl 500 1-03 TABLET BY ity of mg tablet 00:00: MOUTH [place] 00 EVERY 12 Medical HOURS FOR Branch 7 DAYS ciprofloxac 2021-05 Yes TAKE 1 Univ ers in HCl 500 1-03 TABLET BY ity of mg tablet 00:00: MOUTH [place] 00 EVERY 12 Medical HOURS FOR Branch 7 DAYS ciprofloxac 2021-05 Yes TAKE 1 Univ ers in HCl 500 1-03 TABLET BY ity of mg tablet 00:00: MOUTH [place] 00 EVERY 12 Medical HOURS FOR Branch 7 DAYS ciprofloxac 2021-05 Yes TAKE 1 Univ ers in HCl 500 1-03 TABLET BY ity of mg tablet 00:00: MOUTH [place] 00 EVERY 12 Medical HOURS FOR Branch 7 DAYS bumetanide 2021-0 Yes Univers 1 mg tablet 9- ity of 00:00: [place] [facility] levETIRAcet 2021-0 Yes Univer s am 500 mg 9- ity of tablet 00:00: [place] 00 Medical Branch amLODIPine 2021-0 Yes Univers 5 mg tablet 9- ity of 00:00: [place] 00 Medical Branch bumetanide 2021-0 Yes Univers 1 mg tablet 9- ity of 00:00: [place] [facility] levETIRAcet 2021-0 Yes Univer s am 500 mg 9- ity of tablet 00:00: [place] [facility] amLODIPine 2021-0 Yes Univers 5 mg tablet - ity of 00:00: [place] 00 Medical Branch bumetanide 2022-0 Yes Univers 1 mg tablet 02-12 ity of 00:00: [place] [facility] levETIRAcet 0 Yes Univer s am 500 mg 02-12 ity of tablet 00:00: [place] [facility] amLODIPine 0 Yes Univers 5 mg tablet 02-12 ity of 00:00: [place] [facility] bumetanide 0 Yes Univers 1 mg tablet 02-12 ity of 00:00: [place] [facility] levETIRAcet 0 Yes Univer s am 500 mg 02-12 ity of tablet 00:00: [place] [facility] amLODIPine 0 Yes Univers 5 mg tablet 02-12 ity of 00:00: [place] [facility] bumetanide Yes Univers 1 mg tablet 02-12 ity of 00:00: [place] [facility] levETIRAcet Yes Univer s am 500 mg 02-12 ity of tablet 00:00: [place] [facility] amLODIPine Yes Univers 5 mg tablet 02-12 ity of 00:00: [place] [facility] metoprolol Yes Univers tartrate 8-25 ity of 100 mg 00:00: [place] tablet 00 [facility] metoprolol Yes Univers tartrate 8-25 ity of 100 mg 00:00: [place] tablet 00 [facility] metoprolol 0 Yes Univers tartrate 8-25 ity of 100 mg 00:00: [place] tablet 00 [facility] metoprolol 0 Yes Univers tartrate 8-25 ity of 100 mg 00:00: [place] tablet 00 [facility] metoprolol 0 Yes Univers tartrate 8-25 ity of 100 mg 00:00: [place] tablet 00 [facility] amLODIPine Yes 5mg QD Take 1 [facility] (NORVASC) 5 4-19 tablet (5 [facility]ad es MG tablet 00:00: mg total) Med ical 00 by mouth Center daily. DULoxetine Yes 60mg QD Take [address] (CYMBALTA) 4-18 by mouth [facility] 20 MG 15:52: daily. Medical capsule 35 Center levothyroxi 2018- Yes 75ug Take [address] ne 4-18 mcg by [facility] (SYNTHROID, 15:52: mouth Medic al LEVOTHROID) 35 Every Center 75 MCG morning on tablet an empty stomach. metoprolol 2019 Yes 25mg Q.5D Take [address] (LOPRESSOR) 4-18 by mouth 2 [facility] 25 MG 15:52: (two) Medical tablet 35 times Center daily. meloxicam Yes 7.5mg QD Take 7.[address] (MOBIC) 7.5 4-18 mg by [facility] MG tablet 15:52: mouth Medical 35 daily. Center gabapentin 0 Yes 400mg [id number] Take [address] (NEURONTIN) 4-18 [id number] mg by L ukes 400 MG 15:52: 3D mouth 3 Medical capsule 35 (three) Center times daily. simvastatin Yes 10mg QD Take [address] (ZOCOR) 10 4-18 by mouth [facility] MG tablet 15:52: daily. Medica l 35 Center allopurinol Yes 300mg QD Take [address] (ZYLOPRIM) 4-18 mg by [facility] 300 MG 15:52: mouth Medical tablet 35 daily. [place] levETIRAcet Yes 500mg Q.5D Take [address] am (KEPPRA) 4-18 mg by [facility] 500 MG 15:52: mouth 2 Medical tablet 35 (two) Center times daily. polyethylen Yes 17g QD Take [address] e glycol 4-18 by mouth [facility] (GLYCOLAX) 00:00: daily. Medic al 17 gram 00 Center packet furosemide Yes 40mg Take 40 mg U nivers 40 mg 9-29 by mouth ity of tablet 00:13: daily. [place] [address] Medical Branch meloxicam Yes 7.5mg Take 7.5 Uni vers 7.5 mg 9-29 mg by ity of tablet 00:13: mouth [place] [address] daily. Medical Branch levothyroxi Yes 75ug Take 75 Uni vers ne 75 mcg 9-29 mcg by ity of tablet 00:13: mouth [place] [address] every Medical morning. Branch allopurinol Yes 300mg Take 300 U nivers 300 mg 9-29 mg by ity of tablet 00:13: mouth [place] [address] daily. Medical Branch DULoxetine Yes 60mg Take 60 mg U nivers 60 mg 9-29 by mouth ity of capsule 00:13: daily. [place] [address] Medical Branch atorvastati 2018-0 Yes 10mg Take 10 mg Univers n 10 mg 9-29 by mouth ity of tablet 00:13: at [place] [address] bedtime. Medical Branch gabapentin 2018-0 Yes 300mg Take 300 Un shy 300 mg 9-29 mg by ity of capsule 00:13: mouth 2 [place] [address] (two) Medical times Branch daily. docusate 2018-0 Yes 100mg Take 100 Univ ers 100 mg 9-29 mg by ity of capsule 00:13: mouth 2 [place] [address] (two) Medical times Branch daily. traMADOL 50 2017-0 Yes 50mg Take 50 mg Univers mg tablet 9-29 by mouth 3 ity of 00:13: (three) [place] [address] times Medical daily. Branch furosemide 2017-0 Yes 40mg Take 40 mg U nivers 40 mg 9-29 by mouth ity of tablet 00:13: daily. [place] [address] Medical Branch meloxicam 2018-0 Yes 7.5mg Take 7.5 Uni vers 7.5 mg 9-29 mg by ity of tablet 00:13: mouth [place] [address] daily. Medical Branch levothyroxi 2018-0 Yes 75ug Take 75 Uni vers ne 75 mcg 9-29 mcg by ity of tablet 00:13: mouth [place] [address] every Medical morning. Branch allopurinol 2017-0 Yes 300mg Take 300 U nivers 300 mg 9-29 mg by ity of tablet 00:13: mouth [place] [address] daily. Medical Branch DULoxetine 2018-0 Yes 60mg Take 60 mg U nivers 60 mg 9-29 by mouth ity of capsule 00:13: daily. [place] [address] Medical Branch atorvastati 2018-0 Yes 10mg Take 10 mg Univers n 10 mg 9-29 by mouth ity of tablet 00:13: at [place] [address] bedtime. Medical Branch gabapentin 2018-0 Yes 300mg Take 300 Un shy 300 mg 9-29 mg by ity of capsule 00:13: mouth 2 [place] [address] (two) Medical times Branch daily. docusate 2018-0 Yes 100mg Take 100 Univ ers 100 mg 9-29 mg by ity of capsule 00:13: mouth [address] [place] [address] (two) Medical times Branch daily. traMADOL 50 2018-0 Yes 50mg Take 50 mg Univers mg tablet 9-29 by mouth 3 ity of 00:13: (three) [place] [address] times Medical daily. Branch gabapentin 2018-0 Yes 300mg Take 300 Un shy 300 mg 9-28 mg by ity of capsule 19:13: mouth 2 [place] 52 (two) Medical times Branch daily. docusate 2018-0 Yes 100mg Take 100 Univ ers 100 mg 9-28 mg by ity of capsule 19:13: mouth 2 [place] [address] (two) Medical times Branch daily. traMADOL 50 2018-0 Yes 50mg Take 50 mg Univers mg tablet 9-28 by mouth 3 ity of 19:13: (three) [place] [address] times Medical daily. Branch furosemide 2018-0 Yes 40mg Take 40 mg U nivers 40 mg 9-28 by mouth ity of tablet 19:13: daily. [place] [address] Medical Branch meloxicam 2017-0 Yes 7.5mg Take 7.5 Uni vers 7.5 mg 9-28 mg by ity of tablet 19:13: mouth [place] 52 daily. Medical Branch levothyroxi 2018-0 Yes 75ug Take 75 Uni vers ne 75 mcg 9-28 mcg by ity of tablet 19:13: mouth [place] 52 every Medical morning. Branch allopurinol 2017-0 Yes 300mg Take 300 U nivers 300 mg 9-28 mg by ity of tablet 19:13: mouth [place] [address] daily. Medical Branch DULoxetine 2017-0 Yes 60mg Take 60 mg U nivers 60 mg 9-28 by mouth ity of capsule 19:13: daily. [place] [address] Medical Branch atorvastati 2018-0 Yes 10mg Take 10 mg Univers n 10 mg 9-28 by mouth ity of tablet 19:13: at [place] [address] bedtime. Medical Branch gabapentin 2018-0 Yes 300mg Take 300 Un shy 300 mg 9-28 mg by ity of capsule 19:13: mouth 2 [place] [address] (two) Medical times Branch daily. docusate 2018-0 Yes 100mg Take 100 Univ ers 100 mg 9-28 mg by ity of capsule 19:13: mouth 2 [place] [address] (two) Medical times Branch daily. traMADOL 50 2018-0 Yes 50mg Take 50 mg Univers mg tablet 9-28 by mouth 3 ity of 19:13: (three) [place] [address] times Medical daily. Branch furosemide 2018-0 Yes 40mg Take 40 mg U nivers 40 mg 9-28 by mouth ity of tablet 19:13: daily. [place] [address] Medical Branch meloxicam 2018-0 Yes 7.5mg Take 7.5 Uni vers 7.5 mg 9-28 mg by ity of tablet 19:13: mouth [place] [address] daily. Medical Branch levothyroxi 2018-0 Yes 75ug Take 75 Uni vers ne 75 mcg 9-28 mcg by ity of tablet 19:13: mouth [place] [address] every Medical morning. Branch allopurinol 2018-0 Yes 300mg Take 300 U nivers 300 mg 9-28 mg by ity of tablet 19:13: mouth [place] [address] daily. Medical Branch DULoxetine 2018-0 Yes 60mg Take 60 mg U nivers 60 mg 9-28 by mouth ity of capsule 19:13: daily. [place] [address] Medical Branch atorvastati 2017-0 Yes 10mg Take 10 mg Univers n 10 mg 9-28 by mouth ity of tablet 19:13: at [place] [address] bedtime. Medical Branch simvastatin 0 Yes 10mg QD Take 10 mg [facility] (ZOCOR) 10 5-[address] MG tablet 16:23: nightly. [facility] 46 l levothyroxi 20180 Yes 75ug QD Take 75 Met hodi ne 5-[address] (SYNTHROID, 16:23: mouth Hospi ta LEVOXYL) 75 46 every l mcg tablet morning. DULoxetine 0 Yes 60mg QD Take 60 mg M ethodi (CYMBALTA) 5-[address] 60 MG 16:23: daily. Hospita capsule 46 l traMADol 0 Yes 50mg Q8H Take 50 mg Met hodi (ULTRAM) 50 5-[address] mg tablet 16:23: every 8 Hospi ta 46 (eight) l hours as needed for moderate pain. allopurinol 20180 Yes 300mg QD Take 300 M [facility]i (ZYLOPRIM) 5-[address] 300 MG 16:23: mouth Hospita tablet 46 daily. l candesartan 2018-0 Yes 32mg QD Take 32 mg [facility]i (ATACAND) 5-[address] 32 MG 16:23: daily. Hospita tablet 46 l Vital Signs Vital Name Observation Time Observation Value Comments Source Systolic blood 2022-05-28 21:05:00 130 mm[Hg] Univer sity of pressure [facility] Diastolic blood 2022-05-28 21:05:00 84 mm[Hg] Unive rsity of pressure [place] [facility] Heart rate 2022-05-28 21:03:00 83 /min [facility] [place] [facility] Body temperature 2022-05-28 21:03:00 36.33 [place] Univ ers[facility] [place] [facility] Respiratory rate 2022-05-28 21:03:00 18 /min Univ ersity of [place] [facility] Body height 2022-05-28 21:03:00 175.3 cm [facility] [place] [facility] Body weight 2022-05-28 21:03:00 111.585 kg [facility] [place] [facility] BMI 2022-05-28 21:03:00 36.33 kg/m2 [facility] [place] [facility] Systolic blood 2022-03-29 21:57:00 121 mm[Hg] Univer sity of pressure [place] [facility] Diastolic blood 2022-03-29 21:57:00 75 mm[Hg] Unive rsity of pressure [place] [facility] Heart rate 2022-03-29 21:57:00 101 /min [facility] [place] [facility] Body temperature 2022-03-29 21:57:00 36.72 [place] Univ [facility] [place] [facility] Respiratory rate 2022-03-29 21:57:00 18 /min Univ ersity [facility] [place] [facility] Body height 2022-03-29 21:57:00 172.7 cm [facility] [place] [facility] Body weight 2022-03-29 21:57:00 109.317 kg [facility] [place] [facility] BMI 2022-03-29 21:57:00 36.64 kg/m2 [facility] [place] [facility] Procedures Procedure Date / Time Performed Performing Clinician Sour e EXTERNAL PROVIDER 2022-04-07 06:01:00 Doctor Unassigned, No Univ ersity of [facility] Medical Branch ASSIGNMENT OF BENEFITS 2022-03-29 20:35:08 Doctor Unassigned, No [facility] Medical Branch HOME HEALTH - OTHER 2021-12-16 05:01:00 Doctor Unassigned, No Un iversity of [facility] Medical Branch HOME HEALTH - OTHER 2020-11-10 05:01:00 Doctor Unassigned, No Un iversity of [facility] Medical Branch HOME HEALTH - OTHER 2019-11-03 05:01:00 Doctor Unassigned, No Un iversity of [facility] Medical Branch Plan of Care Planned Activity Planned Date Details Comments Source Future Scheduled 2022-05-08 COVID-19 VACCINE (#1) [facility] Test 12:36:51 [code = COVID-19 VACCINE (#1)] Future Scheduled 2022-05-08 SHINGLES VACCINES (1 Met [facility] Test 12:36:51 of 2) [code = SHINGLES VACCINES (1 of 2)] Future Scheduled 2022-05-08 65+ P[facility]UMOCOCCAL [facility] Test 12:36:51 VACCINE (1 - PCV) [code = 65+ PNEUMOCOCCAL VACCINE (1 - PCV)] Future Scheduled 2022-05-08 INFLUENZA VACCINE [facility] Test 12:36:51 [code = INFLUENZA VACCINE] Encounters Start End Encounter Admission Attending Care Care Encounter Source Date/Time Date/Time Type Type Clinicians Facility Department ID 2021-12-10 Outpatient [facility] [id number] [place] 07:24:10 [id number] Health 2022-05-28 2022-05-28 Outpatient [facility] [id number] Univers 14:30:00 15:26:38 ity of [facility] 2022-05-28 2022-05-28 Office Nicolás Moreno MARTIN [id number] Univers 14:30:00 15:26:[address] HUGGINS [id number] it y of [facility] [id number] [place] [id number] [facility] 134 Branch 2022-04-07 2022-04-07 Orders Doctor XIN [id number] Univers 00:00:00 00:00:00 Only Unassigned, [place] [id number] ity of Innovation [facility] [id number] [place] as [id number] [facility] 009 Branch 2022-03-29 2022-03-29 Outpatient [facility] [id number] Univers 15:00:00 16:39:34 ity [facility] 2022-03-29 2022-03-29 Office Nicolás Moreno GABOBBY [id number] Univers 15:00:00 16:39:[address] [place] [id number] i ty of [facility] [id number] [place] [phone] Wy dical [facility] [address] [facility] 2022-03-29 2022-03-29 Orders Doctor XIN [id number] Univers 00:00:00 00:00:00 Only Unassigned, [place] [id number] ity [facility] 4.2.7.2.686 Leon[place] as [phone] [address] 2021-12-16 2021-12-16 Orders Doctor XIN [place].[id number] [id number] Univers 00:00:00 00:00:00 Only Unassigned, [place] [id number] [facility]y [facility] 4.2.7.2.686 Leon[place] as [phone] [address] 2020-11-10 2020-11-10 Orders Doctor XIN [place].[id number] [id number] Univers 00:00:00 00:00:00 Only Unassigned, [place] [id number] [facility]y [facility] 4.2.7.2.686 [place] as [phone] [address] 2019-11-03 2019-11-03 Orders Doctor XIN [place].[id number] 00:00:00 00:00:00 Only Unassigned, [place] [id number] [facility] [id number] [phone] [facility] 2019-11-03 2019-11-03 Orders Doctor XIN [id number] Univers 00:00:00 00:00:00 Only Unassigned, [place] [id number] [facility]y [facility] 4.2.7.2.686 [place] as [phone] [address] Results Test Description Test Time Test Comments Results Result Comments Source PHOSPHORUS 2018-09-07 09:22:00 Test Item Value Reference Range Interpretation Comme nts PHOSPHORUS (BEAKER) (test code = 604) 3.9 mg/dL 2.3-4.7 [id number] 09:22:00 Test Item Value Reference Range Interpretation Comments MAGNESIUM (BEAKER) (test code = 2.1 mg/dL 1.6-2.6 627) BASIC METABOLIC [id number] 09:22:00 Test Item Value Reference Range Interpretation [...] NOT APPLICABLE FOR DIALYSIS PATIEN TS. POCT-GLUCOSE [id number] 07:46:00 Test Item Value Reference Range Interpretation Comments POC-GLUCOSE METER 106 mg/dL 70-110 TESTED AT [facility] 6720 (BEAKER) (test code = [place] 1538) [address] [id number] 08:36:00 Test Item Value Reference Range Interpretation Comments PHOSPHORUS (BEAKER) (test code = 3.4 mg/dL 2.3-4.7 604) [id number] 08:36:00 Test Item Value Reference Range Interpretation Comments MAGNESIUM (BEAKER) (test code = 2.1 mg/dL 1.6-2.6 627) BASIC METABOLIC [id number] 08:36:00 Test Item Value Reference Range Interpretation [...] S NOT APPLICABLE FOR DIALYSIS PATIEN TS. [id number] 06:08:00 Test Item Value Reference Range Interpretation Comments PHOSPHORUS (BEAKER) (test code = 2.9 mg/dL 2.3-4.7 604) [id number] 06:08:00 Test Item Value Reference Range Interpretation Comments MAGNESIUM (BEAKER) (test code = 1.8 mg/dL 1.6-2.6 627) COMPREHENSIVE METABOLIC [id number] 06:08:00 Test Item Value Reference Range Interpretation [...] PATIEN TS. CBC W/PLT COUNT & AUTO [id number] 05:28:00 Test Item Value Reference Range Interpretation [...] 0.0-5.0 (test code = 685) COMPREHENSIVE METABOLIC [id number] 07:54:00 Test Item Value Reference Range Interpretation [...] PATIEN TS. CBC W/PLT COUNT & AUTO [id number] 07:28:00 Test Item Value Reference Range Interpretation [...] PERCENT (BEAKER) (test code = 2801) U/S, [id number] 04:00:00Reason for exam:->large adnexal mass per outside [...] not available, recommend repeat CT imaging. Signed: Bean Alvarado MDReport Verified Date/Time: 09/04/2018 04:00:55 Reading Location: [facility] C013V Neuro Reading Room POCT-GLUCOSE [id number] 17:44:00 Test Item Value Reference Range Interpretation Comments POC-GLUCOSE METER 111 mg/dL 70-110 H TESTED AT [place] [address] ([facility]) (test code = BEATRICE [place] [facility] 1538) [address] RAD, ABDOMEN/KUB, 1 VIEW [id number] 13:20:00Reason for exam:->evaluate for colonic obstructionFINAL REPORT Abdomen , one view History: Evaluate for colonic obstruction Comparison:none Findings:Moderate diffuse colonic distention. No definite pneumoperitoneum, although assessment is limited by supine patient positioning. No definite bowel pneumatosis or portal venous gas. No calcifications along the expected course of the urinary tract. Impression:Moderate diffuse colonic distention. Distal large bowel obstruction cannot be excluded. Signed: Rick Uriostegui MDReport Verified Date/Time: 09/03/2018 13:20:58 Reading Location: [facility] C013Y CT Body Reading Room Electronicallysigned by: RICK URIOSTEGUI MD on 09/03/2018 01:20 PMPOCT-GLUCOSE [id number] 13:01:00 Test Item Value Reference Range Interpretation Comments POC-GLUCOSE METER 88 mg/dL 70-110 TESTED AT [place] [address] ([facility]) (test code = BEATRICE [place] [facility] [address] 1538) POCT-GLUCOSE [id number] 08:32:00 Test Item Value Reference Range Interpretation Comments POC-GLUCOSE METER 86 mg/dL 70-110 TESTED AT [place] [address] ([facility]) (test code = BEATRICE [place] [facility] [address] 1538) [id number] 09:48:00 Test Item Value Reference Range Interpretation Comments MAGNESIUM ([facility]) 2.2 mg/dL 1.6-2.6 Specimen slightly (test code = 627) hemolyzed COMPREHENSIVE METABOLIC [id number] 09:48:00 Test Item Value Reference Range Interpretation Comments TOTAL PROTEIN 7.0 gm/dL 6.0-8.3 Specimen sligh tly ([facility]) (test code = hemoly zed 770) ALBUMIN ([facility]) 3.4 g/dL 3.5-5.0 L Specimen sl ightly (test code = 1145) hemolyzed ALKALINE PHOSPHATASE 52 U/L 40-150 ([facility]) (test code = 346) BILIRUBIN TOTAL 0.6 [...] PATIEN TS. CBC W/PLT COUNT & AUTO [id number] 06:28:00 Test Item Value Reference Range Interpretation [...] % 0-1 PERCENT (BEAKER) (test code = 6071)
[2022-06-25] MEDS ORDERED: ACETAMINOPHEN 500 MG TAB ONE (22:29)
[2022-06-25 22:56] LABS: Urine Blood Negative (Negative); Urine Glucose Negative (Negative); Urine Protein Negative (Negative); Urine Specific Gravity <=1.005 (1.005-1.030); Urine pH 5.5 (5.0-7.0)
[2022-06-25 22:59] LABS: Albumin 2.7 g/dL (3.4-5.0); Bilirubin Total 0.3 mg/dL (0.2-1.0); Potassium 4.3 mmol/L (3.5-5.1); Protein, Total 7.1 g/dL (6.4-8.2)
[2022-06-25 23:17] LABS: SARS-COV-2 RT PCR POSITIVE (NEGATIVE)
[2022-06-25 23:22] LABS: Urine Bacteria <20 /HPF (<20); Urine Mucus Slight /HPF (None Seen); Urine RBC None Seen /HPF (None Seen)
--- NOTE | 2022-06-26 00:32 | EDPHYS ---
Physician Documentation [facility] Name: Rachna Peña Age: 87 yrs Sex: Female : 1935 Arrival Date: 06/25/2022 Time: 21:36 Bed 6 Private MD: ED Physician Oskar Davidson HPI: 06/25 21:52 This 87 yrs old Female presents to ER via EMS with complaints of back pain and jr11 sorethroat . 21:52 Patient is an 87-year-old female who comes in with 3-day history of lower back pain, jr11 worse with movement, denies urinary problems but has been feeling somewhat constipated. Patient also with sore throat, denies runny nose congestion. Pain is overall moderate, worsening. No fever denies exertional pain, no tearing pain, does not radiate to the back, does not cross the diaphragm. No diaphoresis, no vomiting. No syncope or near-syncope. . Historical: - Allergies: 21:47 Bactrim; pf1 - PMHx: 21:47 Arthritis; Atrial Fib; COPD; Gout; High Cholesterol; Hypertension; Hypothyroidism; pf1 - Immunization history:: Adult Immunizations unknown. - Social history:: Smoking status: unknown. ROS: 21:52 All other systems are negative. jr11 Exam: 21:52 Constitutional: no acute distress, appears chronically ill Head/Face: Normocephalic, jr11 atraumatic. Eyes: Extra-ocular motions intact. Lids and lashes normal. Conjunctiva and sclera are non-icteric and not injected. Cornea within normal limits. Periorbital areas with no swelling, redness, or edema. ENT: Nares patent. No nasal discharge, no septal abnormalities noted. Oropharynx with no redness, swelling, or masses, exudates, or evidence of obstruction, uvula midline. Mucous membranes moist. Neck: Trachea midline, no thyromegaly or masses palpated, and no cervical lymphadenopathy. Supple, full range of motion without nuchal rigidity, or vertebral point tenderness. No Meningismus. Chest/axilla: Normal chest wall appearance and motion. Nontender with no deformity. No lesions are appreciated. Cardiovascular: Regular rate and rhythm with a normal S1 and S2. No gallops, murmurs, or rubs. Normal PMI, no JVD. No pulse deficits. Respiratory: diminished at the bases Abdomen/GI: Soft, non-tender, with normal bowel sounds. No distension or tympany. No guarding or rebound. No evidence of tenderness throughout. Back: TTP lumbar, N/V intact distally Skin: Warm, dry with normal turgor. Normal color with no rashes, no lesions, and no evidence of cellulitis. Neuro: Awake and alert, GCS 15, oriented to person, place, time, and situation. No gross motor or sensory deficits. Vital Signs: 21:46 BP 102 / 54; Pulse 75; Resp 18; Temp 98.3; Pulse Ox 96% on R/A; Weight 112.04 kg; pf1 Height 5 ft. 8 in. (172.72 cm); 23:19 BP 114 / 59; Pulse 85; Resp 17; Pulse Ox 94% on R/A; jb4 06/26 00:13 BP 113 / 49; Pulse 68; Resp 18; Pulse Ox 94% on R/A; jb4 01:30 BP 103 / 51; Pulse 71; Resp 16; Pulse Ox 97% on 2 lpm NC; jb4 02:30 BP 114 / 63; Pulse 56; Resp 18; Pulse Ox 96% on 2 lpm NC; jb4 06/25 21:46 Body Mass Index 37.56 (112.04 kg, 172.72 cm) pf1 MDM: 06/25 21:40 Patient medically screened. jr11 21:52 Differential Diagnosis Patient with 2 complaints, back pain and sore throat, sore jr11 throat differential includes postnasal drip, strep, will swab also for viral markers. Patient also with back pain, differential includes sprain strain lumbago, arthritis, will rule out AAA, UTI, Henrik.. Data reviewed: vital signs, nurses notes. Care significantly affected by the following chronic conditions: Obesity. Care significantly affected by the following Social Determinants of Health: Poor access to transportation. 06/26 00:29 Consideration of Admission/Observation Escalation of care including jr11 admission/observation considered. not hypoxic but also has O2 at home, will start antiviral. Independent interpretation of the following test(s) in the Emergency Department CT Scan: My interpretation is no free fluid, no AAA. fisher swordfish: rate is 80 beats/min, Interpretation: normal rate, normal rhythm. ED course: Patient with CT evidence of arthritis, constipation, no hypoxia, will get antiviral and strict return precautions for COVID-19.. 06/25 21:47 Order name: CMP; Complete Time: 23:10 [facility] 06/25 21:47 Order name: Lipase; Complete Time: 23:10 jr 06/25 21:47 Order name: Urine Microscopic Only; Complete Time: 23:48 11 06/25 21:47 Order name: Strep; Complete Time: 00:37 jr 06/25 21:47 Order name: COVID-19/FLU A+B/RSV; Complete Time: 23:22 jr11 06/25 21:47 Order name: CT Abd/Pelvis - Without Contrast jr 06/25 21:47 Order name: Labs collected and sent; Complete Time: 23:04 [facility] 06/25 21:47 Order name: Cath; Complete Time: 22:53 [facility] 06/25 22:56 Order name: Urine Dipstick-Ancillary; Complete Time: 23:10 EDTN 06/26 00:38 Order name: Throat Culture EDMS Administered Medications: 06/25 22:30 Drug: Tylenol 1000 mg Route: PO; jb4 06/26 02:56 Follow up: Response: No adverse reaction jb4 Disposition Summary: 06/26/22 00:31 Discharge Ordered Location: Home [facility] Condition: Stable jr11 Diagnosis - COVID 19 infection, acute back pain, constipation jr11 Discharge Instructions: - Discharge Summary Sheet jr11 - Constipation, Adult jr11 - COVID-19 jr11 - 10 Things You Can Do to Manage Your COVID-19 Symptoms at Home - [facility] Forms: - Medication Reconciliation Form jr11 - Thank You Letter jr11 - Antibiotic Education jr11 - Prescription Opioid Use jr11 Prescriptions: - Miralax - take 17 gram by ORAL route bid to TID; 1 bottle; Refills: 0, Product Selection jr11 Permitted - molnupiravir 200 mg Oral capsule - take 4 capsule by ORAL route every 12 hours for 5 days; 40 capsule; Refills: 0, jr11 Product Selection Permitted Signatures: Dispatcher [employer] EDTN Claus Chanel RN RN jb4 Oskar Davidson MD MD jr11 Guillermina caputo RN RN pf1 Corrections: (The following items were deleted from the chart) 00:30 06/25 23:43 Chest Single View+RAD.RAD.BRZ ordered. EDMS EDMS
--- NOTE | 2022-06-26 00:32 | ER ---
Nurse's Notes [facility] Name: Rachna Peña Age: 87 yrs Sex: Female : 1935 Arrival Date: 06/25/2022 Time: 21:36 Bed 6 Private MD: Diagnosis: COVID 19 infection, acute back pain, constipation Presentation: 06/25 21:46 Chief complaint: Patient states: Lower back pain,onset 2-3 days with position change pf1 with sore throat pain for 3-4 days. Coronavirus screen: Client presents with at least one sign or symptom that may indicate coronavirus-19. Standard/surgical mask placed on the client. Ebola Screen: Patient negative for fever greater than or equal to 101.5 degrees Fahrenheit, and additional compatible Ebola Virus Disease symptoms. Initial Sepsis Screen: Does the patient meet any 2 criteria? No. Patient's initial sepsis screen is negative. Does the patient have a suspected source of infection? No. Patient's initial sepsis screen is negative. Risk Assessment: Do you want to hurt yourself or someone else? Patient reports no desire to harm self or others. 21:46 Method Of Arrival: EMS pf1 21:46 Acuity: JENNIFER 3 pf1 06/26 02:00 Onset of symptoms was June 23, 2022. pf1 Historical: - Allergies: 06/25 21:47 Bactrim; pf1 - PMHx: 21:47 Arthritis; Atrial Fib; COPD; Gout; High Cholesterol; Hypertension; Hypothyroidism; pf1 - Immunization history:: Adult Immunizations unknown. - Social history:: Smoking status: unknown. Screenin:48 [facility] ED Fall Risk Assessment (Adult) History of falling in the last 3 months, pf1 including since admission No falls in past 3 months (0 pts) Confusion or Disorientation No (0 pts) Intoxicated or Sedated No (0 pts) Impaired Gait Yes (1 pt) Mobility Assist Device Used Yes (1 pt) Altered Elimination Yes (1 pt) Score/Fall Risk Level 3 or more points = High Risk Oriented to surroundings, Maintained a safe environment, Educated pt \T\ family on fall prevention, incl call for assistance when getting out of bed, Assessed \T\ reinforced patient's understanding of fall precautions, Provided non-skid footwear, Hourly rounding (assess needs \T\ fall precautionary measures) done, Used ambulatory aids as needed (educated on \T\ assisted with), Used gait belt as appropriate Implemented a Fall Risk Plan of Care, Apply high fall risk patient identification: yellow non skid footwear/ fall signage, Remained w/in arm's length of patient and in sight while toileting, Offered frequent toileting (1:1 observation), Remained with patient while ambulating, Utilized family, sitter, or virtual trolley operator as indicated. 21:48 Abuse screen: Denies threats or abuse. Nutritional screening: No deficits noted. pf1 Tuberculosis screening: No symptoms or risk factors identified. Assessment: 22:30 General: Appears in no apparent distress. comfortable, Behavior is calm, cooperative, jb4 appropriate for age. Pain: Complains of pain in back Pain does not radiate. Pain currently is 5 out of 10 on a pain scale. Neuro: Level of Consciousness is awake, alert, obeys commands, Oriented to person, place, time, situation. Cardiovascular: Patient's skin is warm and dry. Respiratory: Airway is patent Respiratory effort is even, unlabored, Respiratory pattern is regular, symmetrical. GI: No signs and/or symptoms were reported involving the gastrointestinal system. : No signs and/or symptoms were reported regarding the genitourinary system. EENT: No signs and/or symptoms were reported regarding the EENT system. Derm: Skin is intact, Skin is pink, warm \T\ dry. Musculoskeletal: Circulation, motion, and sensation intact. Range of motion: intact in all extremities. 23:29 Reassessment: Patient appears in no apparent distress at this time. Patient and/or jb4 family updated on plan of care and expected duration. Pain level reassessed. Patient is alert, oriented x 3, equal unlabored respirations, skin warm/dry/pink. 02/04 00:30 Reassessment: Patient appears in no apparent distress at this time. Patient and/or jb4 family updated on plan of care and expected duration. Pain level reassessed. Patient is alert, oriented x 3, equal unlabored respirations, skin warm/dry/pink. 01:30 Reassessment: Patient appears in no apparent distress at this time. Patient and/or jb4 family updated on plan of care and expected duration. Pain level reassessed. Patient is alert, oriented x 3, equal unlabored respirations, skin warm/dry/pink. Pt is resting in bed with eyes closed, placed on 2L NC per family reporting pt being on 2L NC at home. 02:57 Reassessment: Pt resting in bed with eyes closed, respirations are even and unlabored jb4 with no s/s of pain or distress noted. Vital Signs: 06/25 21:46 BP 102 / 54; Pulse 75; Resp 18; Temp 98.3; Pulse Ox 96% on R/A; Weight 112.04 kg; pf1 Height 5 ft. 8 in. (172.72 cm); 23:19 BP 114 / 59; Pulse 85; Resp 17; Pulse Ox 94% on R/A; jb4 06/26 00:13 BP 113 / 49; Pulse 68; Resp 18; Pulse Ox 94% on R/A; jb4 01:30 BP 103 / 51; Pulse 71; Resp 16; Pulse Ox 97% on 2 lpm NC; jb4 02:30 BP 114 / 63; Pulse 56; Resp 18; Pulse Ox 96% on 2 lpm NC; jb4 06/25 21:46 Body Mass Index 37.56 (112.04 kg, 172.72 cm) pf1 ED Course: 06/25 21:36 Patient arrived in ED. wm 21:40 Oskar Davidson MD is Attending Physician. jr11 21:47 Triage completed. pf1 21:48 Patient has correct armband on for positive identification. Placed in gown. Bed in low pf1 position. Call light in reach. Side rails up X2. 21:50 Arm band placed on left wrist. pf1 22:13 Claus Chanel, RN is Primary Nurse. jb4 23:41 CT Abd/Pelvis - Without Contrast In Process Unspecified. EDMS 06/26 02:58 No provider procedures requiring assistance completed. Patient did not have IV access jb4 during this emergency room visit. Administered Medications: 06/25 22:30 Drug: Tylenol 1000 mg Route: PO; jb4 06/26 02:56 Follow up: Response: No adverse reaction jb4 Medication: 02:50 VIS not applicable for this client. pf1 Outcome: 00:31 Discharge ordered by . jr11 02:58 Discharged to home via ambulance. jb4 02:58 Condition: stable 02:58 Discharge instructions given to patient, Instructed on discharge instructions, follow up and referral plans. medication usage, Demonstrated understanding of instructions, follow-up care, medications, Prescriptions given X 1. 02:58 Patient left the ED. jb4 Signatures: Dispatcher [employer] Claus De La Cruz, RN RN jb4 Shonna Jones Jose, MD MD jr11 Guillermina caputo RN RN pf1 Corrections: (The following items were deleted from the chart) 02:57 01:30 Reassessment: Pt is resting in bed with eyes closed, placed on 2L NC per family jb4 reporting pt being on 2L NC at home. jb4 04:20 04:20 Onset of symptoms was June 23, 2022 pf1 pf1
[2022-06-26 03:03] VITALS: TEMP 98.3
[2022-06-26 03:08] VITALS: BP 114/63; O2SAT 96
--- NOTE | 2022-06-26 22:13 | RAD REPORT ---
EXAM DESCRIPTION: CT - Abdomen Pelvis Wo Contrast - 06/26/2022 6:39 am CLINICAL HISTORY: 87 years Female, acute back pain flank pain TECHNIQUE: Helical CT axial images are obtained from the lung bases to the pubic symphysis without I V contrast. No oral contrast was administered. Multiplanar reconstruction. This exam was performed ac cording to our departmental dose-optimization program, which includes automated exposure control, adj ustment of the mA and/or kV according to patient size and/or use of iterative reconstruction techniqu e. COMPARISON: 03/22/2021 FINDINGS: LUNG BASES: No basilar consolidation or effusions. Minimal bibasilar subsegmental atelect asis. LIVER: Normal in size. Normal attenuation. No change of several well-circumscribed hypodense lesio ns scattered throughout the liver with the largest measuring up to 2.5 cm compatible with benign proc ess such as cyst or hemangioma, no further workup is warranted. No suspicious hepatic lesions are see n on this nonenhanced exam. Mild hepatic surface nodularity is unchanged. HEPATOBILIARY: Contracted gallbladder with cholelithiasis. No intra- or extrahepatic ductal dilata tion. SPLEEN: Normal size. Sub-5 mm calcified granulomata. PANCREAS: Mild fatty replacement. No acute or focal abnormality. ADRENAL GLANDS: Normal size. No adrenal masses. KIDNEYS: No obstructing calculi or hydronephrosis bilaterally. No nephrolithiasis. No significant cysts are present. BOWEL AND MESENTERY: Diffuse colonic fecal retention without bowel dilatation. No small or large bow el dilatation. Sigmoid colon diverticulosis. Normal appendix. No abnormal mesenteric lymphadenopath y. No free fluid or pneumoperitoneum. RETROPERITONEUM: Normal caliber abdominal aorta without aneurysm. Mild ASVD with tortuosity. No abno rmal retroperitoneal lymphadenopathy. PELVIS: Urinary bladder is unremarkable. Bilateral ovarian cysts remain unchanged in size and mo rphology, with the largest on the left measuring up to 5.0 cm, and largest on the right measuring up to 5.5 cm. Unremarkable uterus. ABDOMINAL WALL: The abdominal wall is intact. No change of left lateral abdominal wall intercostal i ntramuscular lipoma, benign. BONES: Moderate dextroconvex scoliosis centered at L3 with severe multilevel degenerative changes of the lumbar spine and visualized thoracic spine, unchanged. No acute osseous abnormality. No suspic ious osseous lytic or blastic lesions seen. IMPRESSION: 1. No obstructing calculi or hydronephrosis bilaterally. 2. No acute intra-abdominal or pelvic disease. Normal appendix. 3. Diffuse colonic fecal retention without bowel dilatation. Correlate for constipation. 4. Sigmoid colon diverticulosis without diverticulitis. 5. Bilateral ovarian cysts remain unchanged in size and morphology, with the largest on the left me asuring up to 5.0 cm, and largest on the right measuring up to 5.5 cm. Yearly follow-up is recommende d. 6. Mild hepatic surface nodularity, suggestive of cirrhosis. 7. Contracted gallbladder with cholelithiasis. 8. Moderate dextroconvex scoliosis with severe multilevel degenerative changes of the lumbar spine and visualized thoracic spine, unchanged. Electronically signed by: Sergio Álvarez MD 06/26/2022 12:02 AM [employer] ARCHITECT Due to temporary technical issues with the PACS/Fluency reporting system, reports are being signed by the in house radiologists without review as a courtesy to insure prompt reporting. The interpreting radiologist is fully responsible for the content of the report.
== END 2022-06-26 02:58 | disposition home or self-care (01) ==
LOC: ER 21:28
DX: U07.1 COVID-19 (principal); K59.00 Constipation, unspecified; M54.9 Dorsalgia, unspecified; J44.9 Chronic obstructive pulmonary disease, unspecified; I10 Essential (primary) hypertension; I48.91 Unspecified atrial fibrillation; Z88.1 Allergy status to other antibiotic agents
CPT/HCPCS: 87070; 36415; 87081; 83690; 80053; 0241U; 74176; 99284; 81003; 81015

== ENCOUNTER 2024-02-27 23:59 | Inpatient (IN) | payer OTHER ==
[2024-02-28] MEDS ORDERED: ALBUTEROL 2.5 MG/3 ML NEB SOL ONE (00:19)
[2024-02-28] MEDS ORDERED: IPRATROPIUM BROM 0.5MG/2.5ML ONE (00:19)
[2024-02-28] MEDS ORDERED: METHYLPREDNISOLONE 125 MG INJ ONE (00:20)
[2024-02-28 01:05] LABS: Absolute Lymphocytes (CBC) 0.6 K/uL (0.7-4.9); Absolute Monocytes 0.6 K/uL (0.1-1.3); Absolute Neutrophil 4.8 K/uL (1.8-8.0); Basophils % 0.4 % (0-1.3); Eosinophils % 0.3 % (0-4.4); Hematocrit 35.2 % (36.0-45.0); Hemoglobin 11.4 g/dL (12.0-15.0); Lymphocytes % 9.9 % (15.3-44.8); MCH 29.2 pg (27.0-35.0); MCHC 32.4 g/dL (32.0-36.0); MCV 89.9 fL (80-100); MPV 7.4 fL (7.6-11.3); Monocytes % 9.5 % (3.3-12.3); Neutrophils % 79.9 % (41.7-73.7); Platelets 143 thou/uL (152-406); RBC Red Blood Cell Count 3.92 M/uL (3.86-4.86); Red Cell Distribution Width 14.8 % (12.1-15.2)
[2024-02-28 01:24] LABS: Albumin 3.2 g/dL (3.4-5.0); Albumin/Globulin Ratio 0.7 (1.1-1.8); Bilirubin Direct 0.2 mg/dL (0-0.2); Bilirubin Indirect, Calculated 0.3 mg/dL (0.2-0.8); Bilirubin Total 0.5 mg/dL (0.2-1.0); Globulin 4.6 g/dL (2.3-3.5); Magnesium 2.1 mg/dL (1.6-2.4); Protein, Total 7.8 g/dL (6.4-8.2); Troponin High Sensitivity 11.9 pg/mL (<58.9)
--- NOTE | 2024-02-28 02:47 | ER ---
Nurse's Notes [facility] Name: Rachna Peña Age: 89 yrs Sex: Female : 1935 Arrival Date: 02/27/2024 Time: 23:59 Bed 15 Private MD: Diagnosis: COPD/ Chronic obstructive pulmonary disease, unspecified;Hypoxemia;Hypo-osmolality and hyponatremia Presentation: 02/27 00:00 Chief complaint: EMS states: SHORTNESS OF BREATH. Coronavirus screen: Client denies kj2 travel out of the [place] in the last 14 days. Ebola Screen: No symptoms or risks identified at this time. Initial Sepsis Screen: Does the patient meet any 2 criteria? No. Patient's initial sepsis screen is negative. Does the patient have a suspected source of infection? No. Patient's initial sepsis screen is negative. Risk Assessment: Do you want to hurt yourself or someone else? Patient reports no desire to harm self or others. Onset of symptoms was February 27, 2024. 00:00 Method Of Arrival: [facility] kj2 00:00 Acuity: JENNIFER 3 kj2 Triage Assessment: 00:05 General: Appears in no apparent distress. Behavior is calm, cooperative. Pain: Denies kj2 pain. Neuro: Level of Consciousness is awake, alert, obeys commands, Oriented to person, place, situation. Cardiovascular: Patient's skin is warm and dry. Respiratory: Reports shortness of breath at rest since YESTERDAY Onset: The symptoms/episode began/occurred yesterday, the patient has moderate shortness of breath. GI: No signs and/or symptoms were reported involving the gastrointestinal system. : No signs and/or symptoms were reported regarding the genitourinary system. Historical: - Allergies: 00:52 Bactrim; kj2 - Home Meds: 00:52 allopurinol 300 mg Oral tab 1 tab once daily [Active]; amlodipine 2.5 mg tab 1 tab once kj2 daily [Active]; duloxetine 60 mg Oral cpDR 1 cap once daily [Active]; gabapentin 400 mg Oral cap 1 cap 3 times per day [Active]; levetiracetam 500 mg Oral tab 1 tab 2 times per day [Active]; levothyroxine 75 mcg tab 1 tab once daily [Active]; meloxicam 7.5 mg Oral tab 1 tab once daily [Active]; metoprolol tartrate 25 mg Oral tab [Active]; simvastatin 10 mg Oral tab 1 tab once daily [Active]; - PMHx: 02:18 Arthritis; Atrial Fib; COPD; Gout; High Cholesterol; Hypertension; Hypothyroidism; knee kj2 pain; Myocardial infarction; Seizures; Sleep Apnea; - Immunization history:: Adult Immunizations up to date. - Infectious Disease History:: Denies. - Family history:: not pertinent. - Social history:: Smoking status: Patient denies any tobacco usage or history of. Screenin:10 [facility] ED Fall Risk Assessment (Adult) History of falling in the last 3 months, kj2 including since admission No falls in past 3 months (0 pts) Confusion or Disorientation No (0 pts) Intoxicated or Sedated No (0 pts) Impaired Gait No (0 pts) Mobility Assist Device Used No (0 pt) Altered Elimination No (0 pt) Score/Fall Risk Level 0 - 2 = Low Risk Maintained a safe environment, Hourly rounding (assess needs \T\ fall precautionary measures) done. Abuse screen: Denies threats or abuse. Denies injuries from another. Nutritional screening: No deficits noted. Tuberculosis screening: No symptoms or risk factors identified. Assessment: 00:05 General: SEE TRIAGE ASSESSMENT. kj2 00:10 Respiratory: Respiratory effort is unlabored, Breath sounds with crackles bilaterally. kj2 01:05 Reassessment: Patient appears in no apparent distress at this time. Patient and/or kj2 family updated on plan of care and expected duration. Pain level reassessed. Patient is alert, oriented x 3, equal unlabored respirations, skin warm/dry/pink. 02:18 Reassessment: BREATHING IS UNLABORED WHILE ON NONREBREATHER. Respiratory: Airway is kj2 patent. 03:00 Reassessment: Patient appears in no apparent distress at this time. Patient and/or kj2 family updated on plan of care and expected duration. Pain level reassessed. Patient is alert, oriented x 3, equal unlabored respirations, skin warm/dry/pink. 04:13 Reassessment: Patient appears in no apparent distress at this time. Patient and/or kj2 family updated on plan of care and expected duration. Pain level reassessed. Patient is alert, oriented x 3, equal unlabored respirations, skin warm/dry/pink. 04:15 Reassessment: REPORT GIVEN TO SHAWN SANCHEZ. kj2 Vital Signs: 00:00 BP 154 / 81; Pulse 74; Resp 18; Pulse Ox 100% on NONREBREATHER 10lITERS; kj2 00:54 BP 146 / 72; Pulse 59; Resp 20; Pulse Ox 100% on NC; kj2 02:19 BP 154 / 81; Pulse 76; Resp 20; Pulse Ox 93% on 4 lpm NC; kj2 04:13 BP 152 / 62; Pulse 73; Resp 20; Pulse Ox 96% on 4 lpm NC; kj2 04:13 Temp 98(O); kj2 ED Course: 00:04 Patient arrived in ED. lg3 00:04 Britton Haddad MD is Attending Physician. rt 00:06 Adriane Boyce RN is Primary Nurse. kj2 00:50 Inserted saline lock: 22 gauge in left forearm, using aseptic technique. Blood lg3 collected. 00:52 Triage completed. kj2 00:56 XRAY Chest (1 view) In Process Unspecified. EDMS 00:57 Patient has correct armband on for positive identification. Bed in low position. Call kj2 light in reach. Side rails up X 1. Adult w/ patient. Provided Education on: CALL LIGHT. 01:27 EKG done, by ED staff. kj2 02:34 D-Dimer Sent. kj2 02:46 Stanley Lawson MD is Hospitalizing Provider. rt 04:30 Patient admitted, IV remains in place. rg5 Administered Medications: 00:27 Drug: DuoNeb Nebulize (3:1) (2.5 mg - 0.5 mg) 3 ml Nebulizer once Route: Nebulizer; rg5 02:11 Follow up: Response: No adverse reaction; Marked relief of symptoms kj2 00:47 Drug: MethylPrednisoLONE IVP 125 mg IVP once Route: IVP; Site: left wrist; kj2 02:11 Follow up: Response: No adverse reaction kj2 Medication: 02:15 VIS not applicable for this client. kj2 Outcome: 02:46 Decision to Hospitalize by Provider. rt 04:30 Admitted to Med/surg accompanied by nurse, rg5 04:30 Condition: stable 04:30 Instructed on the need for admit, 04:30 Patient left the ED. rg5 Signatures: Dispatcher [employer] Kathy Goetz, RN RN lg3 Britton Haddad MD MD rt Rajiv Chambers, RN RN rg5 Adriane Boyce RN RN kj2 Corrections: (The following items were deleted from the chart) 04:15 04:13 Pulse Ox 98%; kj2 kj2
--- NOTE | 2024-02-28 02:47 | EDPHYS ---
Physician Documentation [facility] Name: Rachna Peña Age: 89 yrs Sex: Female : 1935 Arrival Date: 02/27/2024 Time: 23:59 Bed 15 Private MD: ED Physician Britton Haddad HPI: 02/27 00:15 This 89 yrs old Female presents to ER via Unassigned with complaints of Shortness Of rt Breath. 00:15 Patient presents to the ED with shortness of breath. Patient does have a history of rt COPD, is chronically on 2 L of oxygen. Patient was noted to have an oxygen saturation in the low 80s on 2 L, the family bumped it up to 4 L, Bernice states that she was still 84%. They placed patient on nonrebreather which rapidly corrected her oxygen. She received no further medications. Denies other acute complaints at this time, symptoms are moderate in severity, no other aggravating or alleviating factors.. Historical: - Allergies: 00:52 Bactrim; kj2 - Home Meds: 00:52 allopurinol 300 mg Oral tab 1 tab once daily [Active]; amlodipine 2.5 mg tab 1 tab once kj2 daily [Active]; duloxetine 60 mg Oral cpDR 1 cap once daily [Active]; gabapentin 400 mg Oral cap 1 cap 3 times per day [Active]; levetiracetam 500 mg Oral tab 1 tab 2 times per day [Active]; levothyroxine 75 mcg tab 1 tab once daily [Active]; meloxicam 7.5 mg Oral tab 1 tab once daily [Active]; metoprolol tartrate 25 mg Oral tab [Active]; simvastatin 10 mg Oral tab 1 tab once daily [Active]; - PMHx: 02:18 Arthritis; Atrial Fib; COPD; Gout; High Cholesterol; Hypertension; Hypothyroidism; knee kj2 pain; Myocardial infarction; Seizures; Sleep Apnea; - Immunization history:: Adult Immunizations up to date. - Infectious Disease History:: Denies. - Family history:: not pertinent. - Social history:: Smoking status: Patient denies any tobacco usage or history of. ROS: 00:15 Constitutional: Negative for fever, chills, and weight loss, Cardiovascular: Negative rt for chest pain, palpitations, and edema, Abdomen/GI: Negative for abdominal pain, nausea, vomiting, diarrhea, and constipation, MS/Extremity: Negative for injury and deformity, Skin: Negative for injury, rash, and discoloration, Neuro: Negative for headache, weakness, numbness, tingling, and seizure, 00:15 Respiratory: Positive for cough, shortness of breath, Exam: 00:15 Constitutional: This is a well developed, well nourished patient who is awake, alert, rt and in no acute distress. Head/Face: Normocephalic, atraumatic. Chest/axilla: Normal chest wall appearance and motion. Nontender with no deformity. No lesions are appreciated. Cardiovascular: Regular rate and rhythm with a normal S1 and S2. No gallops, murmurs, or rubs. Normal PMI, no JVD. No pulse deficits. Abdomen/GI: Soft, non-tender, with normal bowel sounds. No distension or tympany. No guarding or rebound. No evidence of tenderness throughout. Skin: Warm, dry with normal turgor. Normal color with no rashes, no lesions, and no evidence of cellulitis. MS/ Extremity: Pulses equal, no cyanosis. Neurovascular intact. Full, normal range of motion. Neuro: Awake and alert, GCS 15, oriented to person, place, time, and situation. Cranial nerves II-XII grossly intact. Motor strength 5/5 in all extremities. Sensory grossly intact. Cerebellar exam normal. Normal gait. 00:15 Respiratory: Wheezes, diminished breath sounds heart RRR lung lehman, no respiratory distress, 01:38 ECG was reviewed by the Attending Physician. rt Vital Signs: 00:00 BP 154 / 81; Pulse 74; Resp 18; Pulse Ox 100% on NONREBREATHER 10lITERS; kj2 00:54 BP 146 / 72; Pulse 59; Resp 20; Pulse Ox 100% on NC; kj2 02:19 BP 154 / 81; Pulse 76; Resp 20; Pulse Ox 93% on 4 lpm NC; kj2 04:13 BP 152 / 62; Pulse 73; Resp 20; Pulse Ox 96% on 4 lpm NC; kj2 04:13 Temp 98(O); kj2 MDM: 00:04 Patient medically screened. rt 02:46 Differential diagnosis: COPD, CHF, pneumonia, electrolyte disturbance. Data reviewed: rt vital signs, nurses notes, lab test result(s), EKG, radiologic studies. Consideration of Admission/Observation Patient was admitted/placed on observation. Management of patient was discussed with the following: Hospitalist: Agrees to admit. I considered the following discharge prescriptions or medication management in the emergency department Medications were administered in the Emergency Department. See MAR. Independent interpretation of the following test(s) in the Emergency Department X-Ray: My interpretation is No infiltrate seen on my interpretation of x-ray images. Test considered but Not performed: CT: Low suspicion for pulmonary embolus, CT angiogram not indicated. Care significantly affected by the following chronic conditions: Hypertension, Congestive Heart Failure, Chronic Obstructive Pulmonary Disease. Counseling: I had a detailed discussion with the patient and/or guardian regarding the historical points, exam findings, and any diagnostic results supporting the discharge/admit diagnosis, lab results, radiology results, the need for further work-up and treatment in the hospital. Response to treatment: the patient's symptoms have markedly improved after treatment. 02/27 00:04 Order name: Basic Metabolic Panel rt 02/27 00:04 Order name: CBC with Diff; Complete Time: 01:25 rt 02/27 00:04 Order name: LFT's rt 02/27 00:04 Order name: Magnesium rt 02/27 00:04 Order name: NT PRO-BNP rt 02/27 00:04 Order name: Troponin HS rt 02/27 02:17 Order name: D-Dimer; Complete Time: 03:20 rt 02/27 03:41 Order name: Influenza Screen (A EDMS 02/27 03:41 Order name: Respiratory Syncytial Virus Ag EDMS 02/27 03:47 Order name: Urinalysis w/ reflexes EDMS 02/27 03:48 Order name: Osmolality, Urine EDMS 02/27 03:48 Order name: Thyroid Stimulating Hormone EDMS 02/27 03:48 Order name: UR SODIUM EDMS 02/27 00:04 Order name: XRAY Chest (1 view) rt 02/27 03:41 Order name: Chest For Pe Angio EDMS 02/27 00:04 Order name: Cardiac monitoring; Complete Time: 01:26 rt 02/27 00:04 Order name: EKG - Nurse/Tech; Complete Time: 01:26 rt 02/27 00:04 Order name: IV Saline Lock; Complete Time: 00:48 rt 02/27 00:04 Order name: Labs collected and sent; Complete Time: 00:48 rt 02/27 00:04 Order name: O2 Per Protocol; Complete Time: rt 02/27 00:04 Order name: O2 Sat Monitoring; Complete Time: rt EC:38 Rate is 86 beats/min. Rhythm is regular, A fib with Occasional PVCs. QRS Belle is rt Normal. ND interval is normal. QRS interval is normal. QT interval is normal. No Q waves. Administered Medications: 00:27 Drug: DuoNeb Nebulize (3:1) (2.5 mg - 0.5 mg) 3 ml Nebulizer once Route: Nebulizer; rg5 02:11 Follow up: Response: No adverse reaction; Marked relief of symptoms kj2 00:47 Drug: MethylPrednisoLONE IVP 125 mg IVP once Route: IVP; Site: left wrist; kj2 02:11 Follow up: Response: No adverse reaction kj2 Disposition Summary: 02/28/24 02:46 Hospitalization Ordered Notes: Hospitalization Status: Inpatient Admission rt Provider: Stanley Lawson rt [facility] rt Condition: Stable rt Problem: an acute exacerbation rt Symptoms: have improved rt Bed/Room Type: Standard rt Room Assignment: 430(02/28/24 03:55) rv1 Diagnosis - COPD/ Chronic obstructive pulmonary disease, unspecified rt - Hypoxemia rt - Hypo-osmolality and hyponatremia rt Forms: - Medication Reconciliation Form rt - SBAR form rt - Leadership Thank You Letter rt Signatures: Dispatcher [employer] Britton Winkler MD MD rt Yoselin Skelton rv1 Rajiv Chambers RN RN rg5 Adriane Boyce RN RN kj2 Corrections: (The following items were deleted from the chart) 03:55 02:46 rt rv1
--- NOTE | 2024-02-28 03:36 | P.HP ---
Certification for Inpatient With expected LOS: >2 Midnights Practitioner: I am a practitioner with admitting privileges, knowledge of patient current condition, hospital course, and medical plan of care. Services: Services provided to patient in accordance with Admission requirements found in Title 42 Section 412.3 of the Code of Federal Regulations Patient History Date of Service: 02/28/24 Reason for admission: sob History of Present Illness: Shortness of breath 89-year-old female with history of COPD, baseline on 2 L of oxygen hard of hearing, A-fib, hypothyroidism, CAD presented to the emergency room with worsening shortness of breath and hypoxemia. The patient reports that she is chronically feel short of breath. But symptoms had progressed in the last several days. She denies any fevers chills or productive cough. Patient was initially placed on nonrebreather. Currently on 4 to 5 L. Imaging was suggestive of some vascular congestion. She was also noted to have a low sodium. An elevated D-dimer. Allergies No Known Allergies Allergy (Verified 10/06/21 23:28) Home Medications: Amlodipine Besylate [Norvasc] 10 mg PO DAILY 09/01/18 Duloxetine [Cymbalta *] 60 mg PO DAILY 09/01/18 Gabapentin [Neurontin*] 400 mg PO TID 09/01/18 Levothyroxine [Synthroid*] 75 mcg PO [id number] 09/01/18 Simvastatin 10 mg PO BEDTIME 09/01/18 allopurinoL [Zyloprim*] 300 mg PO DAILY 09/01/18 levETIRAcetam [Keppra*] 500 mg PO BID #60 tab 03/27/21 Docusate [Colace Cap*] 100 mg PO DAILY PRN 10/06/21 Metoprolol Tartrate 25 mg PO BID 10/06/21 - Past Medical/Surgical History Diabetic: No -: arthritis -: gout -: HLD -: HTN -: atrial fibrillation -: hypothyroid -: [place] -: irwin cataract -: right foot sx Psychosocial/ Personal History: Patient is a and lives at home alone. Her daughter lives nearby. - Family History Father -: Cancer - Social History Alcohol use: No CD- Drugs: No Caffeine use: No Review of Systems 10-point ROS is otherwise unremarkable Respiratory: Cough, Shortness of Breath Physical Examination - Physical Exam General: Alert HEENT: Atraumatic Respiratory: Other (wheeze) Cardiovascular: Normal pulses, Regular rate/rhythm Gastrointestinal: Normal bowel sounds, Soft and benign Neurological: Normal speech - Studies Laboratory Data (last 24 hrs) 02/28/24 02/28/24 00:45 00:45 WBC 6.00 Hgb 11.4 L Hct 35.2 L Plt Count 143 L Sodium 122 L Potassium 5.0 BUN 16 Creatinine 0.82 Glucose 147 H Magnesium 2.1 Total Bilirubin 0.5 AST 11 L ALT 25 Alkaline Phosphatase 76 Assessment and Plan - Problems (Diagnosis) (1) COPD (chronic obstructive pulmonary disease) Current Visit: Yes Status: Acute (2) Hard of hearing Current Visit: No Status: Chronic Qualifiers: - Plan Shortness of breath 89-year-old female with history of COPD, baseline on 2 L of oxygen hard of hearing, A-fib, hypothyroidism, CAD presented to the emergency room with worsening shortness of breath and hypoxemia. The patient reports that she is chronically feel short of breath. But symptoms had progressed in the last several days. She denies any fevers chills or productive cough. Patient was initially placed on nonrebreather. Currently on 4 to 5 L. Imaging was suggestive of some vascular congestion. She was also noted to have a low sodium. An elevated D-dimer. #acute hypoxemic respiratory failure --likely 2/2 copd exacerbation --admit to telemetry --check ABG --check covid, flu, rsv --IV solumedrol, duo nebs, rocephin --noted to have elevated d-dimer, order CTA #LOLI --consult RT, continous pulse ox #Hyponatremia --check urine Na, urine osmolality --check TSH, await results, may benefit from fluid restriction --she mentioned she did not consume much salt #Afib #HTN #CAD #Gout #hypothyroidism --await medication reconciliation to be completed DVT: Lovenox - Advance Directives Does patient have a Living Will: Yes Does patient have a Durable POA for Healthcare: Yes
[2024-02-28 04:36] LABS: Thyroid Stimulating Hormone 2.15 uIU/mL (0.358-3.740)
[2024-02-28 04:39] LABS: Blood Gas Oxyhemoglobin 89.5 % (94-97); Blood O2 Saturation 92.7 % (92-98.5)
[2024-02-28 04:40] LABS: Arterial Blood Carboxyhemoglob 1.7 % (0-1.5)
[2024-02-28 04:41] LABS: Blood Gas THB 11.1 g/dl (12-18)
--- NOTE | 2024-02-28 05:57 | RAD REPORT ---
EXAM: XR Chest, 1 View CLINICAL HISTORY: COPD. TECHNIQUE: Frontal view of the chest. COMPARISON: XR Chest 10/12/2021 (report only). FINDINGS: Lungs: Central pulmonary vascular and interstitial prominence and patchy bibasilar opacities, left greater than right. Pleural space: Blunting of the costophrenic angles bilaterally. No pneumothorax. Heart: The cardiac silhouette is moderately enlarged, in part accentuated by portable technique. Mediastinum: Unremarkable. Normal mediastinal contour. Bones/joints: Well-corticated deformities of the humeral head bilaterally which may reflect sequela of avascular necrosis. Severe degenerative changes at the glenohumeral joints bilaterally. Multilevel spondylosis. No acute fracture. Vasculature: Thoracic aortic atherosclerosis. IMPRESSION: Findings which may be related to pulmonary congestion including possible small bilateral pleural effu sions. Superimposed infection not excluded. Electronically signed by: Lyubov Hernandez MD 02/28/2024 02:03 AM CDT RP Due to temporary technical issues with the PACS/[employer] reporting system, reports are being annette d by the in-house radiologist without review as a courtesy to ensure prompt reporting the interpreting radiologist is fully responsible for the content of the report. Transcribed Date/Time: 02/28/2024 6:46 AM
--- NOTE | 2024-02-28 06:03 | RAD REPORT ---
CTA THORAX - PULMONARY ARTERIES HISTORY: Suspected pulmonary embolus. COMPARISON: Chest x-ray 02/28/2024 TECHNIQUE: Intravenous low osmolar contrast. Coronal and sagittal reformations including 3D maxim um intensity projections. This exam was performed according to our departmental dose-optimization program, which includes autom ated exposure control, adjustment of the mA and/or kV according to patient size and/or use of iterative reconstruction technique. FINDINGS: PULMONARY ARTERIAL SYSTEM: Contrast bolus is adequate. No CT evidence for pulmonary embolism. CARDIAC: Cardiomegaly. Coronary artery calcifications. AORTA/VASCULAR: No aneurysm. Thoracic aortic atherosclerosis. LYMPH NODES/MEDIASTINUM: No thoracic adenopathy. CENTRAL AIRWAYS: Central airways are patent. LUNGS: Bilateral dependent reticular opacities likely atelectasis. Mild bilateral interstitial septal thickening. PLEURA: Small bilateral pleural effusions. ESOPHAGUS: Collapsed and not well assessed by CT, without obvious abnormality. THYROID: Negative, where seen. CHEST WALL: Normal. UPPER ABDOMEN: Liver is enlarged. Calcified granulomas in the liver and spleen. THORACIC SKELETAL: No acute finding. ADDITIONAL CHEST FINDINGS: None. IMPRESSION: 1. No evidence of acute pulmonary embolus. 2. Cardiomegaly with mild bilateral interstitial septal thickening, suggesting pulmonary edema. 3. Small bilateral pleural effusions. 4. Hepatomegaly. Electronically signed by: Brenda Dubois MD 02/28/2024 05:58 AM T Z9 Due to temporary technical issues with the PACS/[employer] reporting system, reports are being annette d by the in-house radiologist without review as a courtesy to ensure prompt reporting the interpreting radiologist is fully responsible for the content of the report. Transcribed Date/Time: 02/28/2024 6:48 AM
[2024-02-28] MEDS: METHYLPREDNISOLONE 125 MG INJ IV SCH (06:04)
[2024-02-28] MEDS: IPRATROPIUM BROM 0.5MG/2.5ML NEB SCH (06:45)
[2024-02-28] MEDS: ALBUTEROL 2.5 MG/3 ML NEB SOL NEB SCH (06:45)
--- NOTE | 2024-02-28 08:31 | P.PN ---
Date of Service: 02/28/24 Subjective Patient was having persistent nausea and vomiting. NG tube was attempted by nursing staff. It was placed in the right mainstem and patient became hypoxic.NG tube removed. Patient's oxygenation improved. Decided to with the patient to the ICU for better monitoring. As long as patient is doing well through the night then we should be able to downgrade him back to the general medical floor. Will scan abdomen pelvis to further evaluate nausea and vomiting. Physical Examination - Vitals reviewed - Physical Exam General: Alert HEENT: WNL; headphones to assist in her hearing Respiratory: End expiratory wheezing Cardiovascular: Normal pulses, Regular rate/rhythm Gastrointestinal: Normal bowel sounds, Soft and benign; Abdominal wall hernia Neurological: No focal deficits; difficulty hearing Ext: No C/C/E Assessment and Plan - Problems (Diagnosis) (1) COPD (chronic obstructive pulmonary disease), Acute COPD exacerbation; Acute hypoxic and hypercapnic respiratory failure Current Visit: Yes Status: Acute (2) Hard of hearing Current Visit: No Status: Chronic Qualifiers: (3) Abdominal wall hernia Current Visit: No Status: Chronic (4) Intractable nausea and vomiting Current Visit: No Status: Acute (5) Hypertension Current Visit: No Status: Acute (6) Atrial fibrillation Current Visit: No Status: Acute (7) CAD Current Visit: No Status: Acute - Plan 1. Acute hypoxemic and hypercapnic respiratory failure; Most likely related to COPD exacerbation. Continue with nebs, steroids, antibiotics. 2. Obstructive sleep apnea; continue with CPAP/BiPAP at night 3. Hyponatremia; continue with gentle hydration and monitor sodium level 4. Atrial fibrillation with rapid ventricular response; continue with medication for rate control 5. History of CAD and hypertension; continue with cardiac meds and strict blood pressure control 6. History of gouty arthropathy; continue with allopurinol 7. History of hypothyroidism; monitor thyroid levels and continue with Synthroid 8. GI and DVT prophylaxis - Advance Directives Does patient have a Living Will: Yes Does patient have a Durable POA for Healthcare: Yes
[2024-02-28] MEDS: ENOXAPARIN 40 MG/0.4 ML SQ SCH (09:26)
[2024-02-28] MEDS: CEFTRIAXONE 1,000 MG in NA CHLORIDE 0.9% 50 ML IVPB SCH (09:27)
[2024-02-28 11:35] LABS: Arterial Blood Carboxyhemoglob 1.8 % (0-1.5); Blood Gas Oxyhemoglobin 88.5 % (94-97); Blood O2 Saturation 91.2 % (92-98.5)
--- NOTE | 2024-02-28 12:26 | EKG ---
Test Date: 2024-02-28 Test Time: 01:16:23 Air Analysis Technician: AN MEASUREMENT RESULTS: Intervals: Rate: 86 ND: QRSD: 82 QT: 370 QTc: 442 [place]: P: ND: QRS: 44 T: 71 INTERPRETIVE STATEMENTS: Atrial fibrillation with premature ventricular or aberrantly conducted complexes Low voltage QRS Abnormal ECG Compared to ECG 10/06/2021 09:57:00 Low QRS voltage now present Prolonged QT interval no longer present Electronically Signed On 02-28-24 12:24:50 CDT by Wenceslao Johnson
[2024-02-28] MEDS ORDERED: SODIUM CHLORIDE 0.9% 10ML INJ IV PRN (15:43)
[2024-02-28] MEDS: METOCLOPRAMIDE 10 MG/2mL INJ IV SCH (16:12)
[2024-02-28] MEDS: NITROGLYCERIN 1 GM PKT TD ONE (16:50)
[2024-02-28] MEDS: ONDANSETRON 4 MG/2 ML VIAL IV PRN (19:13)
[2024-02-28] MEDS: PANTOPRAZOLE 40 MG INJ IVP SCH (20:43)
[2024-02-28 20:54] LABS: Specific Gravity 1.011 (1.005-1.030); Sqamous Epithelial <5 /HPF (None Seen); Urine Bacteria <20 /HPF (<20); Urine Bilirubin NEGATIVE (Negative); Urine Blood Trace (Negative); Urine Clarity Clear (Clear); Urine Color Colorless (Yellow); Urine Culture Reflex Order NOT NEEDED; Urine Glucose 1+ (Negative); Urine Ketones NEGATIVE (Negative); Urine Microscopic Reflex YN ORDER UMIC; Urine Nitrite NEGATIVE (Negative); Urine Protein TRACE (Negative); Urine RBC <5 /HPF (None Seen); Urine Urobilinogen Normal (Normal); Urine WBC <5 /HPF (<5)
[2024-02-28] MEDS: FUROSEMIDE 20 MG/ 2ML VIAL ONE (21:04)
[2024-02-28] MEDS: PROMETHAZINE INJ 25 MG/ML AMP IV ONE (21:20)
[2024-02-29] MEDS: DILTIAZEM HCL 125 MG/25 ML VIAL IVP ONE (07:00)
[2024-02-29] MEDS: METOCLOPRAMIDE 10 MG/2mL INJ IV ONE (07:13)
[2024-02-29] MEDS ORDERED: DILTIAZEM HCL 125 MG/25 ML VIAL IVP ONE (07:15)
[2024-02-29] MEDS ORDERED: dilTIAZem HCL 25 MG/5 ML VIAL IV SCH (07:30)
--- NOTE | 2024-02-29 07:35 | RAD REPORT ---
EXAMINATION: ONE VIEW CHEST XR CLINICAL INDICATION: pneumonia TECHNIQUE: Frontal chest projection is submitted. Examination is limited by patient positioning and t echnique. COMPARISON: 02/28/2024 FINDINGS: Mild bilateral pulmonary edema is suspected. The heart is moderately enlarged in size. No displaced f ractures identified. IMPRESSION: Mild CHF versus volume overload pattern is suspected.
--- NOTE | 2024-02-29 07:36 | RAD REPORT ---
EXAM: XR of the abdomen HISTORY: Abdominal pain Black emesis, R/O SBO COMPARISON: 10/08/2021 FINDINGS: XR of the abdomen shows a significant gaseous distention of the stomach.. No bowel obstruct ion. No suspicious calcifications are seen. Degenerative change involves the lumbar spine. IMPRESSION: Marked gaseous distention of the stomach suspected.
[2024-02-29] MEDS: Magnesium Sulfate 2gm IVPB 2 G/50 ML BAG IV ONE (07:47)
[2024-02-29 07:59] LABS: Absolute Lymphocytes (CBC) 0.2 K/uL (0.7-4.9); Absolute Monocytes 0.5 K/uL (0.1-1.3); Absolute Neutrophil 7.9 K/uL (1.8-8.0); Basophils % 0.1 % (0-1.3); Hematocrit 35.9 % (36.0-45.0); Hemoglobin 11.4 g/dL (12.0-15.0); Lymphocytes % 2.6 % (15.3-44.8); MCH 28.3 pg (27.0-35.0); MCHC 31.8 g/dL (32.0-36.0); MCV 89.1 fL (80-100); MPV 7.9 fL (7.6-11.3); Monocytes % 6.3 % (3.3-12.3); Platelets 162 thou/uL (152-406); RBC Red Blood Cell Count 4.03 M/uL (3.86-4.86); Red Cell Distribution Width 15.2 % (12.1-15.2)
[2024-02-29 08:05] LABS: C-Reactive Protein 6.55 mg/L (<3.00); Magnesium 2.2 mg/dL (1.6-2.4)
[2024-02-29] MEDS ORDERED: DOCUSATE NA 100 MG CAP PO PRN (10:29)
--- NOTE | 2024-02-29 10:38 | P.PN ---
Subjective Date of Service: 02/29/24 Chief Complaint: sob Physical Examination - Vital Signs Temperature: 98.1 F Blood Pressure: 183/87 Pulse: 122 Respirations: 13 Pulse Ox (%): 100 - Studies Microbiology Data (last 24 hrs): 02/28/24 03:39 Nasopharnyx Respiratory Syncytial Virus Ag Scrn - Final Assessment And Plan - Current Problems (Diagnosis) (1) COPD exacerbation Current Visit: Yes Status: Acute (2) Acute respiratory failure with hypoxia and hypercapnia Current Visit: Yes Status: Acute (3) Nausea and vomiting Current Visit: Yes Status: Acute (4) Hyponatremia Current Visit: No Status: Acute - Plan Physical examination General: Patient is drowsy, not in acute distress HEENT: anicteric sclera, oxygen by nasal cannula. Neck: Supple, no elevated JVD Heart: Heart sounds 1 and 2 normal, regular rhythm, normal rate, bilateral lower extremity edema. Lungs: Diminished bilaterally, bilateral upper airway transmitted sounds, mild scattered wheezes. Abdomen: Soft, nondistended, nontender, normal bowel sounds. Extremities: No tenderness, no deformity Skin: Normal skin turgor, no rash, no nodules or ulcers. Neuro: No focal motor deficit. Normal speech. Psychiatry: Drowsy, no agitation. Assessment and plan Diagnosis Acute respiratory failure with hypoxia and hypercapnia COPD exacerbation Acute metabolic encephalopathy Obstructive sleep apnea Acute on chronic diastolic heart failure Uncontrolled hypertension Hyponatremia Morbid obesity Plan: Acute respiratory failure with hypoxia and hypercapnia COPD exacerbation Continue IV Solu-Medrol, scheduled bronchodilators. Empiric IV Rocephin. BiPAP as needed for hypercapnia once vomiting stops. Titrate oxygen to SpO2 of 88 to 92% to preserve hypoxic drive. Pulmonary consult. Obstructive sleep apnea BiPAP during sleep as tolerated. Hyponatremia Patient is hypervolemic Hyponatremia could also be secondary to sodium loss from vomiting. Fluid restriction. Patient may need sodium tablets. Nephrology consult Check serum osmolality and urine sodium. Monitor BMP. Acute on chronic diastolic heart failure Will treat with intermittent Lasix. Uncontrolled hypertension Resume home medications-amlodipine and metoprolol Labetalol as needed for BP spikes. Rapid atrial fibrillation Heart rate controlled on with metoprolol. Cardiology consult. Morbid obesity Weight loss by diet and exercise advised. DVT prophylaxis: Lovenox Advanced directive: Full code
[2024-02-29] MEDS: AMLODIPINE 10 MG TAB PO SCH (10:43)
[2024-02-29] MEDS: allopurinoL 300 MG TAB PO SCH (10:43)
[2024-02-29 10:44] LABS: Blood Morphology Comment NOT SEEN (NOT SEEN); Platelet Estimate ADEQ; White Blood Cell Scan OK (OK)
[2024-02-29] MEDS: METOPROLOL TAR 25 MG TAB PO SCH (10:44)
[2024-02-29] MEDS: levETIRAcetam 500 MG TAB PO SCH (10:44)
[2024-02-29] MEDS: PANTOPRAZOLE INJ 80 MG in NA CHLORIDE 0.9% 250 ML IV SCH (12:13)
[2024-02-29] MEDS: ALBUTEROL 2.5 MG/3 ML NEB SOL NEB SCH (13:00)
[2024-02-29] MEDS: GABAPENTIN 400 MG CAP PO SCH (13:43)
[2024-02-29] MEDS: LABETALOL 20 MG/4ML SYRINGE IV PRN (15:31)
[2024-02-29] MEDS: METOPROLOL TAR 50 MG TAB PO SCH (21:00)
[2024-02-29] MEDS: ATORVASTATIN 10 MG TAB PO SCH (21:00)
[2024-02-29 21:25] LABS: Blood O2 Saturation 95.7 % (92-98.5)
[2024-02-29 21:26] LABS: Arterial Blood Carboxyhemoglob 1.8 % (0-1.5); Blood Gas Oxyhemoglobin 92.9 % (94-97); Blood Gas THB 11.3 g/dl (12-18)
[2024-03-01] MEDS: HYDRALAZINE HCL 20 MG/ML VIAL IV ONE (02:19)
[2024-03-01 05:07] LABS: Absolute Lymphocytes (CBC) 0.3 K/uL (0.7-4.9); Absolute Monocytes 0.3 K/uL (0.1-1.3); Absolute Neutrophil 5.1 K/uL (1.8-8.0); Basophils % 0.1 % (0-1.3); Hematocrit 34.4 % (36.0-45.0); Lymphocytes % 4.9 % (15.3-44.8); MCH 28.9 pg (27.0-35.0); MCV 90.4 fL (80-100); MPV 7.2 fL (7.6-11.3); Monocytes % 5.5 % (3.3-12.3); Neutrophils % 89.5 % (41.7-73.7); Nucleated Red Blood Cells % 0.1 % (0-0); Platelets 146 thou/uL (152-406); Red Cell Distribution Width 15.3 % (12.1-15.2)
[2024-03-01 05:21] LABS: Anion Gap 6.8 mEq/L (5.0-15.0); Magnesium 2.3 mg/dL (1.6-2.4); Phosphorus 2.5 mg/dL (2.5-4.9); Potassium 3.8 mEq/L (3.5-5.1)
[2024-03-01] MEDS: LEVOTHYROXINE SOD 0.075 MG TAB PO SCH (06:00)
[2024-03-01] MEDS: POTASSIUM PHOS IN 0.9 % NACL 15 MMOL/250 ML BAG IV ONE (08:41)
[2024-03-01] MEDS: DULOXETINE 30 MG CAP PO SCH (08:42)
[2024-03-01] MEDS: FUROSEMIDE 40 MG/4 ML VIAL IV SCH (09:00)
[2024-03-01] MEDS: ACETAZOLAMIDE 500 MG IV IV SCH (09:00)
[2024-03-01] MEDS ORDERED: WATER FOR INJ,STERILE 10 ML IV PRN (09:03)
--- NOTE | 2024-03-01 10:47 | P.PN ---
Subjective Date of Service: 03/01/24 Chief Complaint: sob Patient is more awake today and interactive. She states she feels better. She denies shortness of breath. She used BiPAP all night. She has good oxygen saturation with 3 L of oxygen by nasal cannula Physical Examination - Vital Signs Temperature: 97.2 F Blood Pressure: 146/75 Pulse: 92 Respirations: 14 Pulse Ox (%): 93 Assessment And Plan - Current Problems (Diagnosis) (1) COPD exacerbation Current Visit: Yes Status: Acute (2) Acute respiratory failure with hypoxia and hypercapnia Current Visit: Yes Status: Acute (3) Nausea and vomiting Current Visit: Yes Status: Acute (4) Hyponatremia Current Visit: No Status: Acute - Plan Physical examination General: Patient is awake and interactive, not in acute distress HEENT: oxygen by nasal cannula. Neck: Supple, no elevated JVD Heart: Heart sounds 1 and 2 normal, irregular rhythm, rapid, bilateral lower extremity edema. Lungs: Diminished bilaterally, mild scattered wheezes. Abdomen: Soft, nondistended, nontender, normal bowel sounds. Obese abdomen Extremities: No tenderness. Skin: Normal skin turgor, no rash, no nodules or ulcers. Neuro: No focal motor deficit. Normal speech. Hard of hearing. Psychiatry: Awake, no agitation. Assessment and plan Diagnosis Acute respiratory failure with hypoxia and hypercapnia COPD exacerbation Acute metabolic encephalopathy Obstructive sleep apnea Acute on chronic diastolic heart failure Uncontrolled hypertension Hyponatremia Morbid obesity Plan: Acute respiratory failure with hypoxia and hypercapnia COPD exacerbation Obstructive sleep apnea Acute metabolic encephalopathy Improving Continue IV Solu-Medrol, scheduled bronchodilators. Continue IV Rocephin. BiPAP during sleep Titrate oxygen to SpO2 of 88 to 92% to preserve hypoxic drive. Pulmonary consulted. Resume diet as tolerated. Hyponatremia Patient is hypervolemic. Urine not concentrated, serum osmolality within normal limits. Sodium level improved from yesterday. Fluid restriction. Nephrology consulted Monitor BMP. Acute on chronic diastolic heart failure Will treat with intermittent Lasix. Uncontrolled hypertension Continue home medications-amlodipine and metoprolol. Metoprolol dose increased to 50 mg twice daily. Labetalol as needed for BP spikes. Rapid atrial fibrillation Heart rate controlled on with metoprolol. Cardiology consulted Morbid obesity Weight loss by diet and exercise advised. Coffee-ground emesis Suspected GI bleeding. No more vomiting since yesterday GI input appreciated. IV Protonix Full liquid diet. Impaired mobility PT consulted DVT prophylaxis: Rosenox Advanced directive: Full code
--- NOTE | 2024-03-01 11:35 | P.CNS ---
Date of Consult: 03/01/24 Reason for Consult: Respiratory failure Chief Complaint: Short of breath History of Present Illness: Patient is 89 years of age very hard of hearing admitted with respiratory failure hypoxemia was found to have hypoxic hypercarbic heart failure treated with BiPAP is currently stable no history of any fever or chills Allergies No Known Allergies Allergy (Verified 10/06/21 23:28) Home Medications: Amlodipine Besylate [Norvasc] 10 mg PO DAILY 09/01/18 Duloxetine [Cymbalta *] 60 mg PO DAILY 09/01/18 Gabapentin [Neurontin*] 400 mg PO TID 09/01/18 Levothyroxine [Synthroid*] 75 mcg PO [id number] 09/01/18 Simvastatin 10 mg PO BEDTIME 09/01/18 allopurinoL [Zyloprim*] 300 mg PO DAILY 09/01/18 levETIRAcetam [Keppra*] 500 mg PO BID #60 tab 03/27/21 Docusate [Colace Cap*] 100 mg PO DAILY PRN 10/06/21 Metoprolol Tartrate 25 mg PO BID 10/06/21 - Past Medical/Surgical History Diabetic: No -: arthritis -: gout -: HLD -: HTN -: atrial fibrillation -: hypothyroid -: [place] -: [place] cataract -: right foot sx Psychosocial/ Personal History: Patient is a and lives at home alone. Her daughter lives nearby. - Family History Father Medical History: Cancer - Social History Alcohol use: No CD- Drugs: No Caffeine use: No Place of Residence: Home Review of Systems is unable to be obtained Physical Examination Temp Pulse Resp BP Pulse Ox 97.2 F 92 H 14 146/75 H 93 03/01/24 10:51 03/01/24 10:51 03/01/24 10:51 03/01/24 10:51 03/01/24 10:51 General: Alert, Cooperative Respiratory: Clear to auscultation bilaterally Cardiovascular: No edema, Regular rate/rhythm, Normal S1 S2, Irregular heart rate/rhythm Gastrointestinal: Normal bowel sounds, Soft and benign, No ascites Musculoskeletal: No swelling - Problems (1) Acute respiratory failure with hypoxia and hypercapnia Current Visit: Yes Status: Acute Plan: Patient is 89 years of age admitted with presumed acute on chronic respiratory failure and reviewed patient has bronchovascular edema bilateral pleural effusion most likely CHF patient had BNP is also elevated his white count is normal mild hyponatremia on admission which seems to be improving bicarbonate elevated most likely is chronic hypercapnia acid show acidosis combination of metabolic and respiratory acidosis is also in A-fib. An echo with Doppler start patient on diuretics including Diamox pressure is also elevated operatory data CT scan all reviewed
--- NOTE | 2024-03-01 12:26 | ECHO ---
HEIGHT: 5 ft 8 in WEIGHT: 268 lb 14.4 oz DATE OF STUDY: 03/01/[address]: Ti Gifford MD 2-DIMENSIONAL: YES M.MODE: YES DOPPLER: YES COLOR FLOW: YES TDS: PORTABLE: YES DEFINITY: BUBBLE STUDY: DIAGNOSIS: CONGESTIVE HEART FAILURE CARDIAC HISTORY: CATHERIZATION: NO SURGERY: NO PROSTHETIC VALVE: NO PACEMAKER: NO MEASUREMENTS (cm) DIASTOLIC (NORMALS) SYSTOLIC (NORMALS) IVSd 1.3 (0.6-1.2) LA Diam 3.3 (1.9-4.0) LVEF 60% LVIDd 5.0 (3.5-5.7) LVIDs 3.2 (2.0-3.5) %FS 37% LVPWd 1.4 (0.6-1.2) Ao Diam 2.9 (2.0-3.7) 2 DIMENSIONAL ASSESSMENT: RIGHT ATRIUM: NORMAL LEFT ATRIUM: MODERATELY DILATED RIGHT VENTRICLE: NORMAL LEFT VENTRICLE: NORMAL TRICUSPID VALVE: TRACE TRICUSPID REGURGITATION MITRAL VALVE: MILD MITRAL REGURGITATION PULMONIC VALVE: NORMAL AORTIC VALVE: NORMAL PERICARDIAL EFFUSION: NONE AORTIC ROOT: NORMAL LEFT VENTRICULAR WALL MOTION: NORMAL DOPPLER/COLOR FLOW: GRADE III DIASTOLIC DYSFUNCTION COMMENTS: 1. NORMAL LEFT VENTRICULAR FUNCTION, EJECTION FRACTION 60%, NORMAL WALL MOTION 2. GRADE III DIASTOLIC DYSFUNCTION 3. ELEVATED FILLING PRESSURE (RIGHT ATRIAL PRESSURE 15-20 mmHg) 4. MODERATE DILATED LEFT ATRIUM TECHNOLOGIST: KENISHA BARBER
--- NOTE | 2024-03-01 12:28 | P.CNS ---
Date of Consult: 03/01/24 Chief Complaint: Short of breath History of Present Illness: Patient with PMH of COPD, HTN, AF, CAD presented with worsening SOB, lower extremities edema and palpitations, denies chest pain, no syncope. Allergies No Known Allergies Allergy (Verified 10/06/21 23:28) Home medications list reviewed: Yes Home Medications: Amlodipine Besylate [Norvasc] 10 mg PO DAILY 09/01/18 Duloxetine [Cymbalta *] 60 mg PO DAILY 09/01/18 Gabapentin [Neurontin*] 400 mg PO TID 09/01/18 Levothyroxine [Synthroid*] 75 mcg PO [id number] 09/01/18 Simvastatin 10 mg PO BEDTIME 09/01/18 allopurinoL [Zyloprim*] 300 mg PO DAILY 09/01/18 levETIRAcetam [Keppra*] 500 mg PO BID #60 tab 03/27/21 Docusate [Colace Cap*] 100 mg PO DAILY PRN 10/06/21 Metoprolol Tartrate 25 mg PO BID 10/06/21 - Past Medical/Surgical History Diabetic: No -: arthritis -: gout -: HLD -: HTN -: atrial fibrillation -: hypothyroid -: [place] -: [place] cataract -: right foot sx Psychosocial/ Personal History: Patient is a and lives at home alone. Her daughter lives nearby. - Family History Father Medical History: Cancer - Social History Alcohol use: No CD- Drugs: No Caffeine use: No Place of Residence: Home Review of Systems 10-point ROS is otherwise unremarkable Physical Examination Temp Pulse Resp BP Pulse Ox 97.2 F 92 H 14 146/75 H 93 03/01/24 10:51 03/01/24 10:51 03/01/24 10:51 03/01/24 10:51 03/01/24 10:51 General: Alert, In no apparent distress HEENT: Atraumatic, PERRLA, Mucous membr. moist/pink, EOMI, Sclerae nonicteric Neck: Supple, 2+ carotid pulse no bruit, No LAD, Without JVD or thyroid abnormality Respiratory: Diminished, Crackles/rales Cardiovascular: Edema, Irregular heart rate/rhythm Gastrointestinal: Normal bowel sounds, No tenderness Musculoskeletal: No tenderness Integumentary: No rashes Neurological: Normal gait, Normal speech, Normal tone, Normal affect Lymphatics: No axilla or inguinal lymphadenopathy - Problems (1) Acute on chronic diastolic heart failure Current Visit: Yes Status: Acute Plan: Increase LASIX TO 40 MG iv bid Continue Diamox Monitor input and output closely monitor and correct electrolytes. (2) Atrial fibrillation Current Visit: No Status: Chronic Plan: Continue Lopressor 50 mg po BID Eliquis 2.5 mg po BID Qualifiers: Atrial fibrillation type: unspecified Qualified Code(s): I48.91 - Unspecified atrial fibrillation
[2024-03-01 20:37] VITALS: BMI 40.1
[2024-03-02 09:46] LABS: Absolute Lymphocytes (CBC) 0.6 K/uL (0.7-4.9); Absolute Neutrophil 5.7 K/uL (1.8-8.0); Basophils % 0.1 % (0-1.3); Eosinophils % 0.2 % (0-4.4); Hemoglobin 12.1 g/dL (12.0-15.0); Lymphocytes % 7.7 % (15.3-44.8); MCH 29.5 pg (27.0-35.0); MCHC 32.7 g/dL (32.0-36.0); MCV 90.1 fL (80-100); Monocytes % 13.5 % (3.3-12.3); Neutrophils % 78.5 % (41.7-73.7); Nucleated Red Blood Cells % 0.1 % (0-0); Platelets 161 thou/uL (152-406); RBC Red Blood Cell Count 4.11 M/uL (3.86-4.86); Red Cell Distribution Width 15.7 % (12.1-15.2)
[2024-03-02 10:07] LABS: Albumin 2.8 g/dL (3.4-5.0); Albumin/Globulin Ratio 0.7 (1.1-1.8); Anion Gap 4.7 mEq/L (5.0-15.0); Bilirubin Total 0.4 mg/dL (0.2-1.0); Magnesium 2.4 mg/dL (1.6-2.4); Phosphorus 3.2 mg/dL (2.5-4.9); Potassium 3.7 mEq/L (3.5-5.1); Protein, Total 6.8 g/dL (6.4-8.2)
[2024-03-02] MEDS ORDERED: ALBUTEROL 2.5 MG/3 ML NEB SOL NEB PRN (12:17)
--- NOTE | 2024-03-02 12:18 | P.PN ---
Subjective Date of Service: 03/02/24 (Hospitalist) Chief Complaint: Congestive heart failure Subjective: Improving (Is improving doing well no new complaints stable) Review of Systems is unable to be obtained Physical Examination - Vital Signs Temperature: 97.2 F Blood Pressure: 127/63 Pulse: 74 Respirations: 12 Pulse Ox (%): 94 - Physical Exam General: Alert, Cooperative Respiratory: Clear to auscultation bilaterally Cardiovascular: No edema, Normal pulses, Regular rate/rhythm Assessment And Plan - Current Problems (Diagnosis) (1) Acute respiratory failure with hypoxia and hypercapnia Current Visit: Yes Status: Acute Plan: Is doing much better patient satisfactory cussed with the nursing staff no convincing history of GI bleed fentanyl sleepy today will check her ABGs again bicarb level is declining (2) Acute on chronic diastolic heart failure Current Visit: Yes Status: Acute Plan: Patient admitted with acute on chronic diastolic heart failure confirmed by echocardiogram doing much better continue with diuretic therapy stable to be transferred to the floor
--- NOTE | 2024-03-02 13:48 | P.PN ---
Subjective Date of Service: 03/02/24 Chief Complaint: Congestive heart failure Subjective: No new changes, No C/O voiced, Tolerating diet, Ambulating, Improving Review of Systems 10-point ROS is otherwise unremarkable Physical Examination - Vital Signs Temperature: 97.2 F Blood Pressure: 127/63 Pulse: 74 Respirations: 12 Pulse Ox (%): 94 - Physical Exam General: Alert, In no apparent distress HEENT: Atraumatic, PERRLA, EOMI Neck: Supple, JVD not distended Respiratory: Clear to auscultation bilaterally, Normal air movement Cardiovascular: Regular rate/rhythm, Normal S1 S2 Gastrointestinal: Normal bowel sounds, No tenderness Musculoskeletal: No tenderness Integumentary: No rashes Neurological: Normal speech, Normal tone, Normal affect Lymphatics: No axilla or inguinal lymphadenopathy - Studies Medications List Reviewed: Yes Assessment And Plan - Current Problems (Diagnosis) (1) Acute on chronic diastolic heart failure Current Visit: Yes Status: Acute Plan: Increase LASIX TO 40 MG iv bid Continue Diamox Monitor input and output closely monitor and correct electrolytes. (2) Atrial fibrillation Current Visit: No Status: Chronic Plan: Continue Lopressor 50 mg po BID Eliquis 2.5 mg po BID Qualifiers: Atrial fibrillation type: unspecified Qualified Code(s): I48.91 - Unspecified atrial fibrillation
[2024-03-02 14:22] LABS: Arterial Blood Carboxyhemoglob 1.8 % (0-1.5); Blood Gas Oxyhemoglobin 92.9 % (94-97); Blood O2 Saturation 95.6 % (92-98.5)
[2024-03-02] MEDS: FUROSEMIDE 40 MG/4 ML VIAL IV SCH (20:52)
[2024-03-03 08:18] LABS: Anion Gap 4.9 mEq/L (5.0-15.0); Potassium 3.9 mEq/L (3.5-5.1)
--- NOTE | 2024-03-03 08:49 | P.PN ---
Subjective Date of Service: 03/03/24 Chief Complaint: Congestive heart failure Subjective: Improving (Is improving doing much better very alert responsive cooperative feeling very weak) Review of Systems General: Weakness Respiratory: Shortness of Breath Physical Examination - Vital Signs Temperature: 97.5 F Blood Pressure: 119/59 Pulse: 76 Respirations: 18 Pulse Ox (%): 98 - Physical Exam General: Alert, Oriented x3 Respiratory: Clear to auscultation bilaterally Cardiovascular: No edema, Irregular heart rate/rhythm Gastrointestinal: Normal bowel sounds, Soft and benign - Studies Medications List Reviewed: Yes Assessment And Plan - Current Problems (Diagnosis) (1) Acute on chronic diastolic heart failure Current Visit: Yes Status: Acute Plan: Patient is doing much better add spironolactone continue with Lasix once a day and Diamox physical therapy (2) Chronic respiratory failure with hypoxia and hypercapnia Current Visit: Yes Status: Acute Plan: Patient has I suspect chronic hypoventilation with hypoxemia and hypercarbia has any prior history of smoking or COPD see if she qualifies qualifies for a noninvasive ventilator labs reviewed hyponatremia improving no history of obstructive sleep apnea or COPD evidence of hypothyroidism
[2024-03-03] MEDS: APIXABAN 2.5 MG TABLET PO SCH (09:53)
[2024-03-03] MEDS: SPIRONOLACTONE 25 MG TABLET PO SCH (09:53)
[2024-03-03] MEDS: acetaZOLAMIDE 250 MG TAB PO SCH (09:53)
[2024-03-03] MEDS: FUROSEMIDE 40 MG/4 ML VIAL IV SCH (09:54)
[2024-03-03] MEDS: POTASSIUM 25 MEQ EFFERV TAB PO ONE (15:41)
[2024-03-04 06:10] LABS: Absolute Eosinophils 0.1 K/uL (0-0.5); Absolute Lymphocytes (CBC) 0.5 K/uL (0.7-4.9); Absolute Monocytes 0.5 K/uL (0.1-1.3); Absolute Neutrophil 4.1 K/uL (1.8-8.0); Basophils % 0.1 % (0-1.3); Eosinophils % 2.7 % (0-4.4); Hemoglobin 10.8 g/dL (12.0-15.0); MCH 28.7 pg (27.0-35.0); MCHC 31.8 g/dL (32.0-36.0); MCV 90.4 fL (80-100); MPV 7.1 fL (7.6-11.3); Monocytes % 10.1 % (3.3-12.3); Neutrophils % 78.1 % (41.7-73.7); Platelets 134 thou/uL (152-406); RBC Red Blood Cell Count 3.76 M/uL (3.86-4.86); Red Cell Distribution Width 15.3 % (12.1-15.2)
[2024-03-04 06:25] LABS: Albumin 2.8 g/dL (3.4-5.0); Albumin/Globulin Ratio 0.9 (1.1-1.8); Anion Gap 3.7 mEq/L (5.0-15.0); Bilirubin Total 0.3 mg/dL (0.2-1.0); Globulin 3.1 g/dL (2.3-3.5); Potassium 3.7 mEq/L (3.5-5.1); Protein, Total 5.9 g/dL (6.4-8.2)
[2024-03-04] MEDS: POTASSIUM CL SA 10 MEQ TAB PO ONE (09:06)
[2024-03-04] MEDS: ARFORMOTEROL TARTRATE 15 MCG/2 ML VIAL.NEB NEB SCH (09:27)
--- NOTE | 2024-03-04 09:27 | P.PN ---
Subjective Date of Service: 03/04/24 Chief Complaint: Congestive heart failure Subjective: Improving (Patient's condition is improving is very weak to use BiPAP) Review of Systems General: Weakness Respiratory: Shortness of Breath Physical Examination - Vital Signs Temperature: 97.4 F Blood Pressure: 133/62 Pulse: 62 Respirations: 15 Pulse Ox (%): 97 - Physical Exam General: Alert, Oriented x3 Respiratory: Clear to auscultation bilaterally Cardiovascular: No edema, Regular rate/rhythm, Normal S1 S2 - Studies Medications List Reviewed: Yes Assessment And Plan - Current Problems (Diagnosis) (1) Acute on chronic diastolic heart failure Current Visit: Yes Status: Acute Plan: Congestive heart failure patient is improving labs vital signs all reviewed changed to p.o. Lasix continue with spironolactone therapy possible SNF placement (2) Chronic respiratory failure with hypoxia and hypercapnia Current Visit: Yes Status: Acute Plan: Patient has hypoxic hypercapnic respiratory failure refusing BiPAP we will add nebulized bronchodilators for the possibility of obstructive airways disease
[2024-03-04] MEDS: BUDESONIDE 0.5 MG/2 ML NEB NEB SCH (09:28)
[2024-03-05 05:02] LABS: Anion Gap 5.4 mEq/L (5.0-15.0); Potassium 3.4 mEq/L (3.5-5.1)
[2024-03-05 07:37] LABS: Absolute Lymphocytes (CBC) 0.5 K/uL (0.7-4.9); Absolute Monocytes 0.6 K/uL (0.1-1.3); Absolute Neutrophil 6.8 K/uL (1.8-8.0); Basophils % 0.2 % (0-1.3); Eosinophils % 0.6 % (0-4.4); Hematocrit 36.9 % (36.0-45.0); Hemoglobin 12.1 g/dL (12.0-15.0); Lymphocytes % 5.8 % (15.3-44.8); MCH 29.2 pg (27.0-35.0); MCHC 32.8 g/dL (32.0-36.0); MPV 6.9 fL (7.6-11.3); Monocytes % 7.6 % (3.3-12.3); Neutrophils % 85.8 % (41.7-73.7); Nucleated Red Blood Cells % 0.1 % (0-0); Platelets 150 thou/uL (152-406); RBC Red Blood Cell Count 4.14 M/uL (3.86-4.86)
[2024-03-05 07:51] LABS: Albumin 3.2 g/dL (3.4-5.0); Anion Gap 4.5 mEq/L (5.0-15.0); Phosphorus 2.4 mg/dL (2.5-4.9); Potassium 3.5 mEq/L (3.5-5.1)
[2024-03-05 08:22] LABS: Blood Morphology Comment NOT SEEN (NOT SEEN); Platelet Estimate DECR; White Blood Cell Scan OK (OK)
[2024-03-05] MEDS: POTASSIUM CL SA 10 MEQ TAB PO ONE (08:51)
[2024-03-05] MEDS: FUROSEMIDE 40 MG TABLET PO SCH (08:51)
--- NOTE | 2024-03-05 11:10 | P.PN ---
Date of Service: 03/05/24 Subjective BiPAP overnight, O2 3 L of oxygen by nasal cannula pending DC planning NIV, SNF vs IPR Review of Systems 10 point review of system negative unless listed in HPI - Vital Signs reviewed Physical Examination - Physical Exam General: Patient is awake and interactive, [place], HEENT: oxygen by nasal cannula. Neck: Supple, no elevated JVD Heart: Heart sounds 1 and 2 normal, irregular RR, lower extremity edema Lungs: Diminished bilateral wheezes Abdomen: Soft, nondistended, nontender, normal bowel sounds. Obese abdomen Extremities: No tenderness. Skin: Normal skin turgor, no rash, Neuro: No focal motor deficit. Normal speech Psychiatry: Awake, no agitation. Assessment And Plan - Current Problems (Diagnosis) Acute respiratory failure with hypoxia and hypercapnia COPD exacerbation Acute metabolic encephalopathy Obstructive sleep apnea Acute on chronic diastolic heart failure Uncontrolled hypertension Hyponatremia Morbid obesity Plan: BiPAP during sleep Continue IV Solu-Medrol, scheduled bronchodilators. Continue IV Rocephin. Titrate oxygen to SpO2 of 88 to 92% Pulmonary following Resume diet as tolerated. Hyponatremia Patient is hypervolemic. Urine not concentrated, serum osmolality within normal limits. Sodium level improved from yesterday. Fluid restriction. Nephrology consulted Monitor BMP. Acute on chronic diastolic heart failure Will treat with intermittent Lasix. Uncontrolled hypertension Continue home medications-amlodipine and metoprolol. Metoprolol dose increased to 50 mg twice daily. Labetalol as needed for BP spikes. atrial fibrillation RVR controlled chronic anticoagualtion Heart rate controlled on with metoprolol. Cardiology consulted Morbid obesity Weight loss by diet and exercise advised. Coffee-ground emesis resolved Suspected GI bleeding. HH stable IV Protonix Full liquid diet. Impaired mobility PT consulted DVT prophylaxis: Lovenox Advanced directive: Full code Time spent with patient 25 minutes <Priyanka Villanueva - Last Filed: 03/05/24 21:30> Patient was seen and examined. Events of the last 24 hours have been noted. Spoke with with JONI regarding patient's clinical picture after evaluating and examining the patient independently. I performed a substantial part of the MDM during this patient's care today. I personally made or approved the documented management plan and acknowledge its risk of complications. I agree with the findings and documentation provided in the JONI's notes. <Jonnie Patel - Last Filed: 03/26/24 00:04>
[2024-03-05] MEDS: ENSURE MAX PROTEIN 330 ML LIQUID PO SCH (20:32)
[2024-03-06 08:16] LABS: Absolute Eosinophils 0.1 K/uL (0-0.5); Absolute Lymphocytes (CBC) 0.8 K/uL (0.7-4.9); Absolute Monocytes 0.7 K/uL (0.1-1.3); Absolute Neutrophil 7.2 K/uL (1.8-8.0); Basophils % 0.1 % (0-1.3); Eosinophils % 1.2 % (0-4.4); Hematocrit 36.4 % (36.0-45.0); Hemoglobin 11.7 g/dL (12.0-15.0); Lymphocytes % 9.1 % (15.3-44.8); MCH 28.7 pg (27.0-35.0); MCHC 32.1 g/dL (32.0-36.0); MCV 89.6 fL (80-100); MPV 7.6 fL (7.6-11.3); Monocytes % 8.4 % (3.3-12.3); Neutrophils % 81.2 % (41.7-73.7); Platelets 155 thou/uL (152-406); RBC Red Blood Cell Count 4.07 M/uL (3.86-4.86); Red Cell Distribution Width 15.7 % (12.1-15.2)
[2024-03-06 08:26] LABS: Albumin 2.8 g/dL (3.4-5.0); Anion Gap 5.9 mEq/L (5.0-15.0); Phosphorus 3.2 mg/dL (2.5-4.9); Potassium 3.9 mEq/L (3.5-5.1)
--- NOTE | 2024-03-06 12:23 | P.PN ---
Subjective Date of Service: 03/06/24 Chief Complaint: Congestive heart failure/ Resp failure Subjective: Improving (Stable no change) Review of Systems General: Weakness Respiratory: Shortness of Breath Physical Examination - Vital Signs Temperature: 98.3 F Blood Pressure: 124/58 Pulse: 64 Respirations: 15 Pulse Ox (%): 97 - Physical Exam General: Alert, Cooperative Neck: Supple Respiratory: Clear to auscultation bilaterally, Diminished - Studies Medications List Reviewed: Yes Assessment And Plan - Current Problems (Diagnosis) (1) Acute on chronic diastolic heart failure Current Visit: Yes Status: Acute Plan: Stable doing well/ Continue with lasix and sprionolactone (2) Chronic respiratory failure with hypoxia and hypercapnia Current Visit: Yes Status: Acute Plan: Stable refused BIPAP. Bicarb declined
--- NOTE | 2024-03-06 18:00 | P.PN ---
Date of Service: 03/06/24 Subjective O2 3 L of oxygen by nasal cannula Review of Systems 10 point review of system negative unless listed in HPI - Vital Signs reviewed Physical Examination - Physical Exam General: Patient is awake and interactive, [place], HEENT: oxygen by nasal cannula. Neck: Supple, no elevated JVD Heart: Heart sounds 1 and 2 normal, Lungs: Diminished bilateral wheezes Abdomen: Soft, nondistended, nontender, normal bowel sounds. Obese abdomen Extremities: No tenderness. Skin: Normal skin turgor, no rash, Neuro: No focal motor deficit. Normal speech Assessment And Plan - Current Problems (Diagnosis) Acute respiratory failure with hypoxia and hypercapnia COPD exacerbation Acute metabolic encephalopathy Obstructive sleep apnea Acute on chronic diastolic heart failure Uncontrolled hypertension Hyponatremia Morbid obesity Plan: BiPAP during sleep Continue IV Solu-Medrol, scheduled bronchodilators. Continue IV Rocephin. Titrate oxygen to SpO2 of 88 to 92% Pulmonary following Resume diet as tolerated. Hyponatremia Patient is hypervolemic. Urine not concentrated, serum osmolality within normal limits. Sodium level improved from yesterday. Fluid restriction. Nephrology consulted Monitor BMP. Acute on chronic diastolic heart failure Will treat with intermittent Lasix. Uncontrolled hypertension Continue home medications-amlodipine and metoprolol. Metoprolol dose increased to 50 mg twice daily. Labetalol as needed for BP spikes. atrial fibrillation RVR controlled chronic anticoagualtion Heart rate controlled on with metoprolol. Cardiology consulted Morbid obesity Weight loss by diet and exercise advised. Coffee-ground emesis resolved Suspected GI bleeding. HH stable IV Protonix Full liquid diet. Impaired mobility PT consulted DVT prophylaxis: Lovenox Advanced directive: Full code Time spent with patient 25 minutes <Priyanka Villanueva - Last Filed: 03/06/24 18:01> Patient was seen and examined. Events of the last 24 hours have been noted. Spoke with with JONI regarding patient's clinical picture after evaluating and examining the patient independently. I performed a substantial part of the MDM during this patient's care today. I personally made or approved the documented management plan and acknowledge its risk of complications. I agree with the fi ndings and documentation provided in the [facility]'s notes. <Jonnie Patel - Last Filed: 03/26/24 00:04>
[2024-03-07 04:48] LABS: Albumin 2.9 g/dL (3.4-5.0); Magnesium 2.3 mg/dL (1.6-2.4); Phosphorus 2.7 mg/dL (2.5-4.9)
--- NOTE | 2024-03-07 09:22 | P.DS ---
Admission Date: 02/28/24 Discharge Date: 03/07/24 Reason for Admission: Congestive heart failure/ Resp failure Brief History of Present Illness: 89-year-old female with history of COPD, baseline on 2 L of oxygen hard of hearing, A-fib, hypothyroidism, CAD presented to the emergency room with worsening shortness of breath and hypoxemia. The patient reports that she is chronically feel short of breath. But symptoms had progressed in the last several days. She denies any fevers chills or productive cough. Patient was initially placed on nonrebreather. Currently on 4 to 5 L. Imaging was suggestive of some vascular congestion. She was also noted to have a low sodium. An elevated D-dimer. - Physical Exam General: Patient is awake and interactive, INUPIAT, HEENT: oxygen by nasal cannula. Neck: Supple, no elevated JVD Heart: Heart sounds 1 and 2 normal, Lungs: Diminished bilateral wheezes Abdomen: Soft, nondistended, nontender, normal bowel sounds. Obese abdomen Extremities: No tenderness. Skin: Normal skin turgor, no rash, Neuro: No focal motor deficit. Normal speech Hospital Course: 89-year-old female with history of COPD, baseline on 2 L of oxygen hard of hearing, A-fib, hypothyroidism, CAD presented to the emergency room with worsening shortness of breath and hypoxemia. The patient reports that she is chronically feel short of breath. But symptoms had progressed in the last several days. She denies any fevers chills or productive cough. Patient was initially placed on nonrebreather. Currently on 4 to 5 L. Imaging was suggestive of some vascular congestion. Noted to have acute on chronic heart failure, treated with BiPAP, hyponatremia and treated with gentle IV fluids, uncontrolled atrial fibrillation, on metoprolol, cardiology following, was noted to have GI bleeding with coffee-ground emesi that resolved. H&H has been stable 11.0, 10.8, 11.7. She is tolerating diet, stable to discharge home with home health, follow-up with cardiology after discharge Assessment Acute on chronic heart failure, treated with Diamox, Lasix, GI bleeding with coffee-ground emesi that resolved. chronic anticoagulation on eliquis Atrial fibrillation, treated with metoprolol, 50 twice daily, Eliquis 2.5 twice daily Acute on chronic hypoxia with hypercapnia respiratory failure, treated with BiPAP, nebulizers, was seen by pulmonary while inpatient copd on home , resume home nebs, inhalers, Echocardiogram GRADE III DIASTOLIC DYSFUNCTION-EF 60% treated with diuretics, Toprol CT of the chest IMPRESSION: 1. No evidence of acute pulmonary embolus. 2. Cardiomegaly with mild bilateral interstitial septal thickening, suggesting pulmonary edema. 3. Small bilateral pleural effusions. 4. Hepatomegaly. KUB Marked gaseous distention of the stomach suspected. No obstruction Continue home medicines as previously prescribed GOAL: Clear understanding of disease process INSTRUCTIONS: Physician Discharge Instructions: -Plan to discharge home with home health, -Follow-up with PCP in 1 to 2 weeks -Please call Dr. Patel at [phone] if any questions regarding hospital stay -Please call nursing station at [phone] if any nursing or medication questions -Return to the emergency room if symptoms worsen Diet: ADA, low sodium Activity: Fall precautions <Priyanka Villanueva - Last Filed: 03/12/24 17:49> Admission Date: 02/28/24 Discharge Date: 03/07/24 Hospital Course: Patient was seen and examined. Events of the last 24 hours have been noted. Spoke with with JONI regarding patient's clinical picture after evaluating and examining the patient independently. I performed a substantial part of the MDM during this patient's care today. I personally made or approved the documented management plan and acknowledge its risk of complications. I agree with the findings and documentation provided in the JONI's notes. Patient was diuresed. Continue with diuretics. Hemoglobin is stable. Will refrain from Eliquis for 1 week. Outpatient follow-up with Cardiology and Pulmonary at the time of discharge. <Jonnie Patel - Last Filed: 03/26/24 00:05> Disposition: [facility] HOME/HOME HEALTH CARE Discharge Condition: GOOD Vital Signs/Physical Exam: Temp Pulse Resp BP Pulse Ox 96.6 F L 61 16 94/46 L 99 03/07/24 04:00 03/07/24 04:00 03/07/24 04:00 03/07/24 04:00 03/07/24 04:00 Laboratory Data at Discharge: WBC 8.90 thou/uL (4.3-10.9) 03/06/24 07:33 Hgb 11.7 g/dL (12.0-15.0) L 03/06/24 07:33 Hct 36.4 % (36.0-45.0) 03/06/24 07:33 Plt Count 155 thou/uL (152-406) 03/06/24 07:33 Sodium Cancelled 03/07/24 07:11 Potassium Cancelled 03/07/24 07:11 BUN Cancelled 03/07/24 07:11 Creatinine Cancelled 03/07/24 07:11 Glucose Cancelled 03/07/24 07:11 Phosphorus Cancelled 03/07/24 07:11 Magnesium 2.3 mg/dL (1.6-2.4) 03/07/24 04:06 Total Bilirubin 0.3 mg/dL (0.2-1.0) 03/04/24 05:43 AST 19 U/L (15-37) 03/04/24 05:43 ALT 53 U/L (13-56) 03/04/24 05:43 Alkaline Phosphatase 46 U/L (45-117) 03/04/24 05:43 <Priyanka Villanueva - Last Filed: 03/12/24 17:49> Vital Signs/Physical Exam: Temp Pulse Resp BP Pulse Ox 98.0 F 50 16 112/55 L 99 03/07/24 16:00 03/07/24 16:00 03/07/24 16:00 03/07/24 16:00 03/07/24 16:00 Laboratory Data at Discharge: WBC 8.90 thou/uL (4.3-10.9) 03/06/24 07:33 Hgb 11.7 g/dL (12.0-15.0) L 03/06/24 07:33 Hct 36.4 % (36.0-45.0) 03/06/24 07:33 Plt Count 155 thou/uL (152-406) 03/06/24 07:33 Sodium Cancelled 03/07/24 07:11 Potassium Cancelled 03/07/24 07:11 BUN Cancelled 03/07/24 07:11 Creatinine Cancelled 03/07/24 07:11 Glucose Cancelled 03/07/24 07:11 Phosphorus Cancelled 03/07/24 07:11 Magnesium 2.3 mg/dL (1.6-2.4) 03/07/24 04:06 Total Bilirubin 0.3 mg/dL (0.2-1.0) 03/04/24 05:43 AST 19 U/L (15-37) 03/04/24 05:43 ALT 53 U/L (13-56) 03/04/24 05:43 Alkaline Phosphatase 46 U/L (45-117) 03/04/24 05:43 <Jonnie Patel - Last Filed: 03/26/24 00:05> Activity: Fall precautions Time spent managing pt's care (in minutes): 55 <Priyanka Villanueva - Last Filed: 03/12/24 17:49> <Jonnie Patel - Last Filed: 03/26/24 00:05> Home Medications: Amlodipine Besylate [Norvasc] 10 mg PO DAILY 09/01/18 Duloxetine [Cymbalta *] 60 mg PO DAILY 09/01/18 Gabapentin [Neurontin*] 400 mg PO TID 09/01/18 Levothyroxine [Synthroid*] 75 mcg PO [id number] 09/01/18 Simvastatin 10 mg PO BEDTIME 09/01/18 allopurinoL [Zyloprim*] 300 mg PO DAILY 09/01/18 levETIRAcetam [Keppra*] 500 mg PO BID #60 tab 03/27/21 Docusate [Colace Cap*] 100 mg PO DAILY PRN 10/06/21 Metoprolol Tartrate 25 mg PO BID 10/06/21 Albuterol Neb [Proventil 0.083% Neb Soln] 2.5 mg NEB [id number] PRN amp 03/07/24 Apixaban [Eliquis] 2.5 mg PO BID 30 Days #60 tablet 03/07/24 Arformoterol Tartrate [Brovana] 15 mcg NEB BIDRESP vial.neb 03/07/24 Furosemide [Lasix*] 40 mg PO DAILY tab 03/07/24 acetaZOLAMIDE [Acetazolamide] 250 mg PO DAILY #30 tab 03/07/24 New Medications: acetaZOLAMIDE [Acetazolamide] 250 mg PO DAILY #30 tab Apixaban [Eliquis] 2.5 mg PO BID 30 Days #60 tablet Physician Discharge Instructions: Order for NIV has been submitted to: [facility] [address] [facility] [address] [place] [id number] *Home oxygen is already in place with [facility]. Order to resume home health has been sent to: [facility] [phone] fax [phone] Otilio hu [phone] (cell) 89-year-old female with history of COPD, baseline on 2 L of oxygen hard of hearing, A-fib, hypothyroidism, CAD presented to the emergency room with worsening shortness of breath and hypoxemia. The patient reports that she is chronically feel short of breath. But symptoms had progressed in the last several days. She denies any fevers chills or productive cough. Patient was initially placed on nonrebreather. Currently on 4 to 5 L. Imaging was suggestive of some vascular congestion. Noted to have acute on chronic heart failure, treated with BiPAP, hyponatremia and treated with gentle IV fluids, uncontrolled atrial fibrillation, on metoprolol, cardiology following, was noted to have GI bleeding with coffee-ground emesi that resolved. Did not need transfusion. H&H has been stable 11.0, 10.8, 11.7. She is tolerating diet, stable to discharge home with home health, follow-up with cardiology after discharge Assessment Acute on chronic heart failure, treated with Diamox, Lasix, Atrial fibrillation, treated with metoprolol, 50 twice daily, Eliquis 2.5 twice daily Acute on chronic hypoxia with hypercapnia respiratory failure, treated with BiPAP, nebulizers, was seen by pulmonary while inpatient GI bleeding, resolved, did not need transfusion Echocardiogram GRADE III DIASTOLIC DYSFUNCTION-EF 60% treated with diuretics, Toprol CT of the chest IMPRESSION: 1. No evidence of acute pulmonary embolus. 2. Cardiomegaly with mild bilateral interstitial septal thickening, suggesting pulmonary edema. 3. Small bilateral pleural effusions. 4. Hepatomegaly. KUB Marked gaseous distention of the stomach suspected. No obstruction Continue home medicines as previously prescribed GOAL: Clear understanding of disease process INSTRUCTIONS: Physician Discharge Instructions: -Plan to discharge home with home health, -Follow-up with PCP in 1 to 2 weeks -Please call Dr. Patel at [phone] if any questions regarding hospital stay -Please call nursing station at [phone] if any nursing or medication questions -Return to the emergency room if symptoms worsen Diet: ADA, low sodium Activity: Fall precautions Followup: Wenceslao Johnson MD [ACTIVE - CAN ADMIT] - 1-2 Weeks OOT,OOT [Primary Care Provider] -
[2024-03-07 16:55] VITALS: BP 112/55; TEMP 98
[2024-03-07 19:56] VITALS: O2SAT 95
== END 2024-03-07 19:44 | disposition home health service (06) | DRG 291 ==
LOC: ER 23:59 → ERHOLD 02-28 03:41 → 4TH 02-28 04:14 → 3RD-ICU 02-28 17:10 → 2ND 03-02 22:15
PROVIDERS: ADMIT Nurse Practitioner; ATTEND Hospitalist
PROC: 4A033R1 Measurement of Arterial Saturation, Peripheral, Percutaneous Approach (ICD-10-PCS; principal; 2024-02-28)
PROC: 5A09557 Assistance with Respiratory Ventilation, Greater than 96 Consecutive Hours, Continuous Positive Airway Pressure (ICD-10-PCS; 2024-02-28)
DX: I11.0 Hypertensive heart disease with heart failure (principal); G93.41 Metabolic encephalopathy; I50.33 Acute on chronic diastolic (congestive) heart failure; J96.01 Acute respiratory failure with hypoxia; J96.02 Acute respiratory failure with hypercapnia; E87.1 Hypo-osmolality and hyponatremia; J44.1 Chronic obstructive pulmonary disease with (acute) exacerbation; K92.2 Gastrointestinal hemorrhage, unspecified; M10.9 Gout, unspecified; E03.9 Hypothyroidism, unspecified; E78.00 Pure hypercholesterolemia, unspecified; I48.91 Unspecified atrial fibrillation; K43.9 Ventral hernia without obstruction or gangrene; G47.33 Obstructive sleep apnea (adult) (pediatric); H91.90 Unspecified hearing loss, unspecified ear; J44.9 Chronic obstructive pulmonary disease, unspecified; I25.10 Atherosclerotic heart disease of native coronary artery without angina pectoris; I25.2 Old myocardial infarction; Z60.2 Problems related to living alone; Z88.1 Allergy status to other antibiotic agents; Z99.81 Dependence on supplemental oxygen; Z79.890 Hormone replacement therapy; Z79.899 Other long term (current) drug therapy
CPT/HCPCS: 36415; 36600; 71045; 71275; 74018; 80048; 80053; 80069; 80076; 81001; 82805; 83735; 83880; 83930; 83935; 84100; 84145; 84300; 84443; 84484; 85025; 85379; 86140; 87804; 87807; 93005; 93306; 94640; 94660; 96374; 97116; 97161; 97530; 99285; J0360; J0696; J1120; J1650; J1940; J2405; J2470; J2550; J2765; J2919; J7050; J7605; J7613; J7626; J7644; Q9967

== ENCOUNTER 2024-05-31 21:45 | Emergency (ER) | payer OTHER ==
--- NOTE | 2024-05-31 21:57 | ER ---
Nurse's Notes [facility] Name: Rachna Peña Age: 89 yrs Sex: Female : 1935 Arrival Date: 05/31/2024 Time: 21:45 Bed 8 Private MD: Diagnosis: Other infective otitis externa, right ear;Physical debility, complications of immobility Presentation: 05/31 21:48 Chief complaint: EMS states: right ear pain. Patient has been on antibiotics for an ear cp4 infection. Coronavirus screen: Client denies travel out of the [place] in the last 14 days. At this time, the client does not indicate any symptoms associated with coronavirus-19. Ebola Screen: Patient negative for fever greater than or equal to 101.5 degrees Fahrenheit, and additional compatible Ebola Virus Disease symptoms Patient denies exposure to infectious person. Patient denies travel to an Ebola-affected area in the 21 days before illness onset. No symptoms or risks identified at this time. Initial Sepsis Screen: Does the patient meet any 2 criteria? No. Patient's initial sepsis screen is negative. Does the patient have a suspected source of infection? No. Patient's initial sepsis screen is negative. Risk Assessment: Do you want to hurt yourself or someone else? Patient reports no desire to harm self or others. Onset of symptoms is unknown. 21:48 Method Of Arrival: EMS: [facility] cp4 21:48 Acuity: JENNIFER 4 cp4 Triage Assessment: 21:50 General: Appears in no apparent distress. uncomfortable, Behavior is calm, cooperative, cp4 appropriate for age. Pain: Complains of pain in right ear Pain does not radiate. Pain currently is 7 out of 10 on a pain scale. EENT: Reports pain in right ear. Neuro: Level of Consciousness is awake, alert, obeys commands, Oriented to person, place, time, situation. Cardiovascular: Patient's skin is warm and dry. Respiratory: Airway is patent Respiratory effort is even, unlabored. GI: No signs and/or symptoms were reported involving the gastrointestinal system. GI: No signs and/or symptoms were reported involving the gastrointestinal system. : No signs and/or symptoms were reported regarding the genitourinary system. Derm: No signs and/or symptoms reported regarding the dermatologic system. Musculoskeletal: No signs and/or symptoms reported regarding the musculoskeletal system. Historical: - Allergies: 21:50 Bactrim; cp4 - Home Meds: 21:50 allopurinol 300 mg Oral tab 1 tab once daily [Active]; amlodipine 2.5 mg tab 1 tab once cp4 daily [Active]; duloxetine 60 mg Oral cpDR 1 cap once daily [Active]; gabapentin 400 mg Oral cap 1 cap 3 times per day [Active]; levetiracetam 500 mg Oral tab 1 tab 2 times per day [Active]; levothyroxine 75 mcg tab 1 tab once daily [Active]; meloxicam 7.5 mg Oral tab 1 tab once daily [Active]; metoprolol tartrate 25 mg Oral tab [Active]; simvastatin 10 mg Oral tab 1 tab once daily [Active]; - PMHx: 21:50 Arthritis; Atrial Fib; COPD; Gout; High Cholesterol; Hypertension; Hypothyroidism; knee cp4 pain; Myocardial infarction; Seizures; Sleep Apnea; - Immunization history:: Adult Immunizations up to date. - Infectious Disease History:: Denies. - Social history:: Smoking status: unknown. - Family history:: not pertinent. Screenin:[facility] ED Fall Risk Assessment (Adult) History of falling in the last 3 months, cp4 including since admission No falls in past 3 months (0 pts) Confusion or Disorientation No (0 pts) Intoxicated or Sedated No (0 pts) Impaired Gait Yes (1 pt) Mobility Assist Device Used Yes (1 pt) Altered Elimination No (0 pt) Score/Fall Risk Level 0 - 2 = Low Risk Oriented to surroundings, Maintained a safe environment, Assessed \T\ reinforced patient's understanding of fall precautions, Hourly rounding (assess needs \T\ fall precautionary measures) done. Abuse screen: Denies threats or abuse. Nutritional screening: No deficits noted. Tuberculosis screening: No symptoms or risk factors identified. Assessment: 21:53 Reassessment: No changes from previously documented assessment. cp4 Vital Signs: 21:48 BP 126 / 74; Pulse 87; Resp 18; Temp 98.3; Pulse Ox 99% ; cp4 [place] Coma Score: 06/01 05:39 Eye Response: spontaneous(4). Motor Response: obeys commands(6). Verbal Response: sp4 oriented(5). Total: 15. ED Course: 05/31 21:48 Patient arrived in ED. cp4 21:48 Alecia Jose is Primary Nurse. cp4 21:50 Triage completed. cp4 21:50 Arm band placed on right wrist. Patient placed in an exam room, on a stretcher. cp4 21:53 Placed in gown. Bed in low position. Call light in reach. Side rails up X2. cp4 21:53 No provider procedures requiring assistance completed. cp4 21:55 Yves Lujan MD is Attending Physician. sp4 21:56 Jannet Rodriguez MD is Referral Physician. sp4 Administered Medications: 22:15 Drug: Ondansetron PO 4 mg PO once Route: PO; cp4 22:16 Drug: Rocephin (cefTRIAXone) IM 1 grams IM once Route: IM; Site: left ventrogluteal; cp4 22:16 Drug: HYDROcodone-acetaminophen PO 5 mg-325 mg 2 tabs PO once Route: PO; cp4 22:16 Drug: Ibuprofen PO 800 mg PO once Route: PO; cp4 Medication: 21:53 VIS not applicable for this client. cp4 Outcome: 21:57 Discharge ordered by . sp4 23:07 Patient left the ED. al5 Signatures: Yves Lujan MD MD sp4 Alecia Jose cp4 Darby Burk, RN RN al5
--- NOTE | 2024-05-31 21:57 | EDPHYS ---
Physician Documentation [facility] Name: Rachna Peña Age: 89 yrs Sex: Female : 1935 Arrival Date: 05/31/2024 Time: 21:45 Bed 8 Private MD: ED Physician Yves Lujan HPI: 05/31 21:55 This 89 yrs old Female presents to ER via EMS with complaints of Ear Pain. sp4 06/01 05:39 89-year-old female presents with complaint of the right ear pain. Patient is heavily sp4 debilitated immobilized female who is very hard of hearing.. Historical: - Allergies: 05/31 21:50 Bactrim; cp4 - Home Meds: 21:50 allopurinol 300 mg Oral tab 1 tab once daily [Active]; amlodipine 2.5 mg tab 1 tab once cp4 daily [Active]; duloxetine 60 mg Oral cpDR 1 cap once daily [Active]; gabapentin 400 mg Oral cap 1 cap 3 times per day [Active]; levetiracetam 500 mg Oral tab 1 tab 2 times per day [Active]; levothyroxine 75 mcg tab 1 tab once daily [Active]; meloxicam 7.5 mg Oral tab 1 tab once daily [Active]; metoprolol tartrate 25 mg Oral tab [Active]; simvastatin 10 mg Oral tab 1 tab once daily [Active]; - PMHx: 21:50 Arthritis; Atrial Fib; COPD; Gout; High Cholesterol; Hypertension; Hypothyroidism; knee cp4 pain; Myocardial infarction; Seizures; Sleep Apnea; - Immunization history:: Adult Immunizations up to date. - Infectious Disease History:: Denies. - Social history:: Smoking status: unknown. - Family history:: not pertinent. ROS: 06/01 05:39 Constitutional: Negative for fever, chills, and weight loss, positive for right sp4 earache All other systems are negative, Exam: 05:39 Constitutional: This is a well developed, overweight female with signs of moderate sp4 physical debility and prolonged immobility.. Head/Face: Normocephalic, atraumatic. Eyes: Pupils equal round and reactive to light, extra-ocular motions intact. Lids and lashes normal. Conjunctiva and sclera are not injected. Cornea within normal limits. Periorbital areas with no swelling, redness, or edema. ENT: Nares patent. No nasal discharge, no septal abnormalities noted. . Oropharynx with no redness, swelling, or masses, exudates, or evidence of obstruction, uvula midline. Mucous membranes moist. Left ear canal occluded with cerumen, right ear canal appears full of purulent debris , moderate amount of bloody to purulent discharge. Neck: Trachea midline, no thyromegaly or masses palpated, and no cervical lymphadenopathy. Supple, full range of motion without nuchal rigidity, or vertebral point tenderness. Chest/axilla: Normal chest wall appearance and motion. Nontender with no deformity. No lesions are appreciated. Cardiovascular: Regular rate and rhythm with a normal S1 and S2. No gallops, murmurs, or rubs. Normal PMI, no JVD. No pulse deficits. Respiratory: Lungs have equal breath sounds bilaterally, clear to auscultation and percussion. No rales, rhonchi or wheezes noted. No increased work of breathing, no retractions or nasal flaring. Abdomen/GI: Soft, with normal bowel sounds. No distension or tympany. No guarding or rebound. No evidence of tenderness throughout. Back: No spinal tenderness. No costovertebral tenderness. Skin: Warm, dry with normal turgor. Normal color with no rashes, no lesions, and no evidence of cellulitis. MS/ Extremity: Pulses equal, no cyanosis. Neurovascular intact. Severe physical debility and signs of prolonged immobility Neuro: Awake and alert, GCS 15, oriented to person patient is very hard of hearing which limits examination, grossly no lateralizing deficits. Vital Signs: 05/31 21:48 BP 126 / 74; Pulse 87; Resp 18; Temp 98.3; Pulse Ox 99% ; cp4 [place] Coma Score: 06/01 05:39 Eye Response: spontaneous(4). Motor Response: obeys commands(6). Verbal Response: sp4 oriented(5). Total: 15. MDM: 05/31 21:57 Medical Screening Exam initiated sp4 06/01 05:41 Differential diagnosis: otitis media, otitis externa, ruptured TM, foreign body, acute sp4 otalgia. Data reviewed: vital signs, nurses notes, EMS record, old medical records. ED course: Purulent debris was partially evacuated from the right ear canal. 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 Administered Medications: 05/31 22:15 Drug: Ondansetron PO 4 mg PO once Route: PO; cp4 22:16 Drug: Rocephin (cefTRIAXone) IM 1 grams IM once Route: IM; Site: left ventrogluteal; cp4 22:16 Drug: HYDROcodone-acetaminophen PO 5 mg-325 mg 2 tabs PO once Route: PO; cp4 22:16 Drug: Ibuprofen PO 800 mg PO once Route: PO; cp4 Disposition: 06/01 05:43 Chart complete. sp4 Disposition Summary: 05/31/24 21:57 Discharge Ordered Notes: Location: Home sp4 Problem: new sp4 Symptoms: have improved sp4 Condition: Stable sp4 Diagnosis - Other infective otitis externa, right ear sp4 - Physical debility, complications of immobility sp4 Followup: sp4 - With: Jannet Rodriguez MD - When: 7 - 10 days - Reason: Recheck today's complaints Discharge Instructions: - Discharge Summary Sheet sp4 - Otitis Externa, [id number] sp4 Forms: - Patient Portal Instructions sp4 Prescriptions: - cefdinir 300 mg Oral capsule - take 1 capsule ORAL route 2 times per day for 10 days; 20 capsule; Refills: 0, sp4 Product Selection Permitted Signatures: Yves Lujan MD MD sp4 Alecia Jose cp4
[2024-05-31] MEDS ORDERED: HYDROCODONE/APAP 5/325 MG TAB ONE (22:08)
[2024-05-31] MEDS ORDERED: CEFTRIAXONE 1000 MG/VIAL ONE (22:08)
[2024-05-31] MEDS ORDERED: IBUPROFEN 400 MG TAB ONE (22:08)
[2024-05-31] MEDS ORDERED: LIDOCAINE 1% MPF 2 ML AMPULE ONE (22:08)
[2024-05-31] MEDS ORDERED: ONDANSETRON 4 MG (ODT) TAB ONE (22:09)
[2024-05-31 23:13] VITALS: BP 126/74; TEMP 98.3; O2SAT 99
== END 2024-05-31 23:07 | disposition home or self-care (01) ==
LOC: ER 21:45
DX: H60.391 Other infective otitis externa, right ear (principal); Z74.09 Other reduced mobility
CPT/HCPCS: 96372; 99284; Q0162; J0696

== ENCOUNTER 2024-06-10 16:58 | Inpatient (IN) | payer OTHER ==
[2024-06-10] MEDS ORDERED: FAMOTIDINE 20 MG/2 ML VIAL IV ONE (17:09)
[2024-06-10] MEDS ORDERED: NA CHLORIDE 0.9% 1,000 ML ONE (17:09)
[2024-06-10] MEDS ORDERED: FOLIC ACID 5 MG/ML VIAL ONE (17:09)
[2024-06-10] MEDS ORDERED: VANCOMYCIN 1 GM/VIAL ONE (17:18)
[2024-06-10] MEDS ORDERED: Meropenem 1000 MG/VIAL IV ONE (17:18)
[2024-06-10] MEDS ORDERED: NA CHLORIDE 0.9% 2,000 ML ONE (17:19)
[2024-06-10] MEDS ORDERED: NA CHLORIDE 0.9% 250 ML ONE (17:19)
[2024-06-10] MEDS ORDERED: NA CHLORIDE 0.9% 100 ML ONE ×2 (17:19→19:21)
[2024-06-10] MEDS ORDERED: ACETAMINOPHEN 650MG/RECT SUPP PR ONE (17:22)
[2024-06-10 17:38] LABS: Absolute Lymphocytes (CBC) 0.6 K/uL (0.7-4.9); Absolute Monocytes 0.5 K/uL (0.1-1.3); Absolute Neutrophil 5.3 K/uL (1.8-8.0); Basophils % 0.2 % (0-1.3); Eosinophils % 0.5 % (0-4.4); Hematocrit 40.8 % (36.0-45.0); Hemoglobin 12.8 g/dL (12.0-15.0); Lymphocytes % 9.9 % (15.3-44.8); MCH 27.4 pg (27.0-35.0); MCHC 31.3 g/dL (32.0-36.0); MCV 87.6 fL (80-100); MPV 7.5 fL (7.6-11.3); Monocytes % 8.1 % (3.3-12.3); Neutrophils % 81.3 % (41.7-73.7); Nucleated Red Blood Cells % 0.1 % (0-0); Platelets 152 thou/uL (152-406); RBC Red Blood Cell Count 4.66 M/uL (3.86-4.86); Red Cell Distribution Width 16.4 % (12.1-15.2)
[2024-06-10 17:45] LABS: SARS-CoV-2 Antigen CONTROL BLUE LINE VIS/BG OK; SARS-CoV-2 Antigen Rapid Res Negative (Negative)
[2024-06-10 17:47] LABS: PT Prothrombin Time 13.8 SECONDS (9.4-12.5); Protime INR 1.32
--- NOTE | 2024-06-10 17:47 | RAD REPORT ---
EXAM: CT Ct Stroke Brain Wo Cont HISTORY: STROKE ALERT COMPARISON: Noncontrast head CT 03/27/2021 TECHNIQUE: Multiple contiguous axial images were obtained for a CT of the brain without contrast. Sag ittal and coronal reformats were performed. One or more of the following dose reduction techniques were used: Automated exposure control, adjus tment of the mA and kV according to patient size, and iterative reconstruction. Unless otherwise specified, incidental findings do not require dedicated imaging follow-up. FINDINGS: No evidence of hydrocephalus, intracranial hemorrhage, or extra-axial fluid collection. The brain is normal in morphology. The calvarium is intact. The visualized paranasal sinuses and mastoid air cells are essentially clear . IMPRESSION: No evidence of acute intracranial abnormality. THIS REPORT CONTAINS FINDINGS THAT MAY BE CRITICAL TO PATIENT CARE. The findings were verbally commun icated via telephone to Leo Davis MD on 06/10/2024 5:41 PM.
[2024-06-10 17:48] LABS: ALT/SGPT 19 U/L (13-56); Albumin 3.1 g/dL (3.4-5.0); Albumin/Globulin Ratio 0.7 (1.1-1.8); Alkaline Phosphatase 58 U/L (45-117); Anion Gap 7.7 mEq/L (5.0-15.0); BUN Blood Urea Nitrogen 19 mg/dL (7-18); Bicarbonate 31 mEq/L (21-32); Bilirubin Total 0.3 mg/dL (0.2-1.0); Globulin 4.4 g/dL (2.3-3.5); Glomerular Filtration Rate 44 ml/min (=/>90); Glucose Level 144 mg/dL (74-106); Lipase 25 U/L (13-75); Magnesium 2.3 mg/dL (1.6-2.4); NT PRO-BNP 749 pg/mL (<450); PTT, Activated Partial Thromb 43.7 SECONDS (24.3-36.9); Potassium 4.7 mEq/L (3.5-5.1); Protein, Total 7.5 g/dL (6.4-8.2); Sodium Level 136 mEq/L (136-145)
[2024-06-10 18:01] LABS: AST/SGOT < 10 U/L (15-37); Bilirubin Direct < 0.2 mg/dL (0-0.2); Bilirubin Indirect, Calculated 0.1 mg/dL (0.2-0.8)
[2024-06-10 18:02] LABS: Troponin High Sensitivity 68.4 pg/mL (<58.9)
--- NOTE | 2024-06-10 18:11 | RAD REPORT ---
EXAMINATION: CTA HEAD CLINICAL INDICATION: Female, 89 years old. PAIN TECHNIQUE: Axial CT images were obtained through the head after intravenous contrast utilizing angiog raphic protocol with 3D post-processing (maximum intensity projection images, volume rendered images and/or shaded surface rendered images). One or more of the following dose reduction technique s were used: Automated exposure control, adjustment of the mA and/or kV according to patient size, and/or iterative reconstruction. Unless otherwise specified, incidental findings do not require dedic ated imaging follow-up. COMPARISON: Noncontrast head CT of the same day FINDINGS: Venous contamination somewhat limits evaluation. ICA: The petrous, cavernous, and supraclinoid segments of the bilateral internal carotid arteries are normal. ZAIN: Anterior cerebral arteries are normal bilaterally. The anterior communicating artery is patent. MCA: Middle cerebral arteries are normal bilaterally. [employer]: Posterior cerebral arteries are patent bilaterally, although with proximal right P2 segment mild tortuosity and caliber attenuation. Vertebrobasilar: The vertebral arteries are patent. The basilar artery is normal in appearance. 3D images confirm these findings. IMPRESSION: No large vessel occlusion or critical stenosis. Mild right P2 short segment tortuosity and caliber attenuation.
--- NOTE | 2024-06-10 18:20 | RAD REPORT ---
EXAMINATION: CT Neck Angio CLINICAL INDICATION: Female, 89 years old. [facility] MAIN PAIN Bed Name: 6 TECHNIQUE: Axial CT images were obtained from the aortic arch to the skull base after intravenous con trast utilizing angiographic protocol. Multiplanar reformats, as well as 3D post-processing (maximum intensity projection images, volume rendered images and/or shaded surface rendered images) w ere generated and reviewed. One or more of the following dose reduction techniques were used: Automated exposure control, adjustment of the mA and/or kV according to patient size, and/or iterativ e reconstruction. Unless otherwise specified, incidental findings do not require dedicated imaging follow-up. COMPARISON: Noncontrast head CT of the same day FINDINGS: AORTA: The imaged aortic arch is normal. Normal three-vessel configuration of the arch. CCA: No artifact The common carotid arteries are patent and normal in caliber. ICA/ECA: Up to moderate right carotid bulb atherosclerotic calcifications, with approximately 50% fior nosis. Bilateral internal and external carotid arteries are otherwise patent. There is no significant left internal carotid artery stenosis. VERTEBRAL: The cervical vertebral arteries are patent to the skull base. Right vertebral artery is do minant. SOFT TISSUE: No significant neck soft tissue abnormalities. The visualized lung apices show atelectat ic changes. 3D images confirm these findings. IMPRESSION: Approximately 50% stenosis of the right ICA origin. No other significant flow abnormality of the neck vessels is identified. NASCET criteria used to quantify ICA stenosis, with the following grading scheme: Mild 0-49% stenosis Moderate 50-69% stenosis Severe 70-99% stenosis Reference: [place] Symptomatic Carotid Endarterectomy Trial Collaborators; Felix JERONIMO, Zuleima DW, Dora RB, et al. Beneficial effect of carotid endarterectomy in symptomatic patients with high-grade carotid stenosis. N Engl J Med. 1990Jan 04;325(7):445-53.
--- NOTE | 2024-06-10 18:29 | RAD REPORT ---
EXAM: CT CHEST, ABDOMEN AND PELVIS WITHOUT CONTRAST CLINICAL INDICATION: Female, 89 years old. [facility] MAIN Cough;Dyspnea;SOB Bed Name: 6 TECHNIQUE: CT chest, abdomen and pelvis was performed, without IV contrast, as per department protoco l. Axial, sagittal and coronal reconstructions were obtained. One or more of the following dose reduction techniques were used: Automated exposure control, adjustment of the mA and/or kV according to the patient size, and/or iterative reconstruction. Unless otherwise specified, incidental findings do not require dedicated imaging follow-up. COMPARISON: 02/28/2024 FINDINGS: The lack of intravenous contrast limits the sensitivity of this exam for evaluation of solid visceral organs, vascular structures, and retroperitoneum. Chest: LOWER NECK/CHEST WALL: Visualized thyroid gland and soft tissues are normal. LUNGS AND AIRWAYS: Airways are clear. Platelike atelectatic changes. No focal consolidation. No nodul es. PLEURA: Trace bilateral layering effusions. No pneumothorax. Hemidiaphragms are normally positioned. MEDIASTINUM AND LYMPH NODES: No mediastinal mass or fluid collection. Normal size mediastinal, hilar, and axillary lymph nodes. THORACIC AORTA: Normal caliber and configuration. PULMONARY ARTERIES: Normal caliber. HEART: Moderately enlarged. Small pericardial effusion.. Abdomen/Pelvis LIVER: Nodular contour again seen anteriorly. Multiple hypoattenuating lesions largest is in the subc apsular segment 6 measuring 3 cm, stable. These are suggestive of cysts or hemangiomas. GALLBLADDER/BILE DUCTS: Cholelithiasis. PANCREAS: No mass, ductal dilation, or jose-pancreatic fluid. SPLEEN: Normal size. No focal lesion. ADRENALS: Normal; no mass. KIDNEYS AND URETERS: Normal size and contour. No hydronephrosis. GASTROINTESTINAL TRACT: Stomach is non-dilated. Small bowel has normal course and caliber. No colonic wall thickening or pericolonic inflammatory changes. Sigmoid diverticulosis with no evidence of acute diverticulitis. PERITONEUM: No free fluid. LYMPH NODES: No lymphadenopathy. ABDOMINAL AORTA AND OTHER VESSELS: Normal caliber aorta and IVC. URINARY BLADDER: Normal contour. REPRODUCTIVE ORGANS: Bilateral adnexal lesions. Largest on the right measures 6.4 cm, and on the left measures 6.1 cm, with some focal calcifications. MUSCULOSKELETAL: No acute or suspicious osseous abnormality. ADDITIONAL FINDINGS: None IMPRESSION: No acute intrathoracic or intra-abdominal process. Stable findings including cardiomegaly, nodular liver contour which may relate to sclerotic or fibrot ic change, cholelithiasis, and bilateral adnexal cystic lesions.
--- NOTE | 2024-06-10 18:31 | RAD REPORT ---
EXAMINATION: ONE VIEW CHEST XR CLINICAL INDICATION: Female, 89 years old.,COUGH TECHNIQUE: Frontal chest projection is submitted. Examination is limited by patient positioning and t echnique. COMPARISON: 02/29/2024 FINDINGS: The lungs are grossly clear although suboptimal inspiratory effort somewhat limits evaluation. Stable interstitial prominence, which may reflect atelectatic changes or mild congestion. No pneumothorax or sizable effusion. The heart is normal in size. Mediastinal contours are unremarkable. IMPRESSION: Stable findings as above.
[2024-06-10] MEDS ORDERED: NEOMY/POLY/HC 1% OTIC DROPS ONE (18:41)
[2024-06-10 18:47] LABS: Renal Epithelial <5 /HPF (None Seen); Sqamous Epithelial None Seen /HPF (None Seen); Urine Bacteria <20 /HPF (<20); Urine Bilirubin NEGATIVE (Negative); Urine Blood Negative (Negative); Urine Clarity Clear (Clear); Urine Color Light-Yellow (Yellow); Urine Culture Reflex Order NOT NEEDED; Urine Glucose NEGATIVE (Negative); Urine Ketones NEGATIVE (Negative); Urine Microscopic Reflex YN ORDER UMIC; Urine Mucus Slight /HPF (None Seen); Urine Nitrite NEGATIVE (Negative); Urine Protein NEGATIVE (Negative); Urine RBC <5 /HPF (None Seen); Urine Urobilinogen Normal (Normal); Urine WBC <5 /HPF (<5); Urine pH 5.5 (5.0-7.0)
--- NOTE | 2024-06-10 18:49 | ER ---
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 EMS reports that patient recently started Eliquis and is being treated for ear infection. Coronavirus screen: Client denies travel out of the [place] in the last 14 days. Ebola Screen: Patient denies travel to an Ebola-affected area in the 21 days before illness onset. Initial Sepsis Screen: Does the patient meet any 2 criteria? Altered Mental Status. HR > 90 bpm. Does the patient have a suspected source of infection? No. Patient's initial sepsis screen is negative. Risk Assessment: Do you want to hurt yourself or someone else? Unable to obtain. Onset of symptoms was June 10, 2024. 17:03 Method Of Arrival: [facility]: [facility] cm10 17:03 Acuity: JENNIFER 2 cm10 17:17 Care prior to arrival: Glucose check: 128 Oxygen administered. via nasal cannula. cm10 Triage Assessment: 17:18 General: Appears ill, Behavior is calm. Neuro: No deficits noted. Level of cm10 Consciousness is awake, confused, Oriented to none. Respiratory: No deficits noted. Airway is patent Respiratory effort is even, unlabored, Respiratory pattern is regular, symmetrical. 17:18 GI: Abdomen is round obese. cm10 Historical: - Allergies: 17:09 Bactrim; cm10 - Home Meds: 17:09 allopurinol 300 mg Oral tab 1 tab once daily [Active]; levetiracetam 500 mg Oral tab 1 cm10 tab 2 times per day [Active]; amlodipine 2.5 mg tab 1 tab once daily [Active]; duloxetine 60 mg Oral cpDR 1 cap once daily [Active]; gabapentin 400 mg Oral cap 1 cap 3 times per day [Active]; levothyroxine 75 mcg tab 1 tab once daily [Active]; meloxicam 7.5 mg Oral tab 1 tab once daily [Active]; metoprolol tartrate 25 mg Oral tab [Active]; simvastatin 10 mg Oral tab 1 tab once daily [Active]; Eliquis 2.5 mg oral tablet 2 times per day [Active]; - PMHx: 17:09 Arthritis; Atrial Fib; COPD; Gout; High Cholesterol; Hypertension; Hypothyroidism; knee cm10 pain; Myocardial infarction; Seizures; Sleep Apnea; - Immunization history:: Adult Immunizations unknown. - Infectious Disease History:: Denies. - Social history:: Smoking status: unknown. Screenin:20 [facility] ED Fall Risk Assessment (Adult) History of falling in the last 3 months, cm10 including since admission Yes- single mechanical fall (1 pt) Confusion or Disorientation Yes (5 pts) Intoxicated or Sedated No (0 pts) Impaired Gait Yes (1 pt) Mobility Assist Device Used Yes (1 pt) Altered Elimination Yes (1 pt) Score/Fall Risk Level 3 or more points = High Risk Oriented to surroundings, Maintained a safe environment, Hourly rounding (assess needs \T\ fall precautionary measures) done. Abuse screen: Denies threats or abuse. Denies injuries from another. Nutritional screening: No deficits noted. Tuberculosis screening: No symptoms or risk factors identified. Assessment: 19:50 General: Appears ill, Behavior is flat. Pain: Unable to use pain scale. FLACC scale ha1 score is 0 out of 10. Neuro: Level of Consciousness is lethargic, Oriented to person. Cardiovascular: Patient's skin is warm and dry. Respiratory: Airway is patent Respiratory effort is even, unlabored, Respiratory pattern is regular, symmetrical. GI: Abdomen is round non-distended, obese. : No signs and/or symptoms were reported regarding the genitourinary system. Derm: Skin is fragile, Skin is dry, Skin is normal. Musculoskeletal: Swelling present in leg. 20:45 Reassessment: notified Dr. Cardoza of elevated troponin results. ha1 Vital Signs: 17:03 BP 114 / 63; Pulse 93; Resp 18; Temp 100.7(A); Pulse Ox 96% on 3 lpm NC; Weight 121.11 cm10 kg (M); 18:18 BP 153 / 82; Pulse 96; Resp 18; Pulse Ox 100% on 3 lpm NC; ld1 19:08 Temp 98.7(TE); ld1 19:08 BP 136 / 72; Pulse 84; Resp 18; Pulse Ox 97% on 3 lpm NC; ld1 19:59 BP 130 / 78; Pulse 82; Resp 18 S; Pulse Ox 94% on 2 lpm NC; ha1 ED Course: 17:01 Patient arrived in ED. cm10 17:03 Leo Davis MD is Attending Physician. [facility] 17:09 Triage completed. cm10 17:17 Arm band placed on right wrist. Patient placed in an exam room, on a stretcher, on cm10 oxygen, on court recording monitor, on pulse oximetry. 17:18 SARS RAPID Sent. ld1 17:18 Flu Sent. ld1 17:19 Initial lab(s) drawn, by me, sent to lab. Inserted saline lock: 22 gauge in left ap3 antecubital area, using aseptic technique. Blood collected. Flushed with 10 mL NS. 17:20 Patient has correct armband on for positive identification. Bed in low position. Call cm10 light in reach. Side rails up X2. Provided Education on: ER process and procedures.. Client placed on continuous cardiac and pulse oximetry monitoring. NIBP monitoring applied. site monitor on. 17:20 RN/CASHIER PAYMENTS RECEIVED escort patient out of department to CT scan with facilities maintenance technician. cm10 17:41 CT Stroke Brain w/o Contrast In Process Unspecified. EDMS 17:41 CT Head Angio In Process Unspecified. EDMS 17:41 CT Neck Angio In Process Unspecified. EDMS 17:41 CT Chest Abdomen Pelvis W/O Contrast In Process Unspecified. EDMS 18:10 Lactate w/ 2H reflex if indic. Sent. ld1 18:10 Blood Culture Adult (2) Sent. ld1 18:11 No provider procedures requiring assistance completed. [place] cath inserted, using ld1 sterile technique, 16 Fr., by ga, balloon inflated, to gravity drainage, urine specimen collected. returned clear yellow urine. Patient tolerated well. 18:18 XRAY Chest (1 view) In Process Unspecified. EDMS 18:31 Urinalysis w/ reflexes Sent. ld1 18:46 Jerrod Cardoza MD is Hospitalizing Provider. [facility] 19:09 Inserted saline lock: 22 gauge in right in left hand, using aseptic technique. Flushed cm10 with 10 mL NS. 19:55 Resendez, Kathy, RN is Primary Nurse. ha1 21:55 Patient admitted, IV remains in place. ha1 Administered Medications: 18:10 Drug: Acetaminophen WI Suppository 650 mg WI once Route: WI; ld1 18:30 Follow up: Response: No adverse reaction ld1 18:11 Drug: NS 0.9% IV (30 ml/kg) 30 ml/kg IV at bolus once; Sepsis Protocol; to be given as ld1 a bolus over 90 minutes Route: IV; Rate: bolus; Site: left forearm; 21:45 Follow up: Response: No adverse reaction; IV Status: Completed infusion; IV Intake: ha1 3666ml 18:11 Drug: foLIC Acid IVPB 1 mg IVPB once Route: IVPB; Site: left forearm; ld1 19:01 Follow up: Response: No adverse reaction; IV Status: Completed infusion ld1 18:31 Drug: Famotidine IVP 20 mg IVP once; dilute with 10 mL 0.9% NaCl; give over 2 minutes ld1 Route: IVP; Site: left forearm; 19:01 Follow up: Response: No adverse reaction ld1 19:09 Drug: Meropenem IV 1 grams IV at per protocol once; (mix in NS 100 mL) Route: IV; Rate: ld1 per protocol; Site: left hand; 20:10 Follow up: Response: No adverse reaction; IV Status: Completed infusion; IV Intake: ha1 100ml 19:30 Drug: Keppra IV 1000 mg IV at per protocol once Route: IV; Rate: per protocol; Site: [facility] right hand; 19:45 Follow up: Response: No adverse reaction; IV Status: Completed infusion; IV Intake: ha1 100ml 19:40 Drug: vancoMYCIN IVPB 1 grams IVPB once over 2 hrs Route: IVPB; Infused Over: 2 hrs; ha1 Site: left hand; 21:25 Follow up: Response: No adverse reaction; IV Status: Completed infusion; IV Intake: ha1 250ml 19:55 Not Given (not in inventory ): ciprodexdrops 4 drops Otic once; pt has her drop/ ha1 perscriptions Medication: 17:20 VIS not applicable for this client. cm10 Intake: 19:45 IV: 100ml; Total: 100ml. ha1 20:10 IV: 100ml; Total: 200ml. ha1 21:25 IV: 250ml; Total: 450ml. ha1 21:45 IV: 3666ml; Total: 4116ml. ha1 Outcome: 18:48 Decision to Hospitalize by Provider. summer 21:53 Admitted to Tele accompanied by tech, via stretcher, room 404, with chart, ha1 21:53 Condition: stable 21:53 Instructed on the need for admit, Demonstrated understanding of instructions, 21:55 Patient left the ED. ha1 Signatures: Dispatcher [employer] EDLeo Cabrera MD MD cha Prokisch, Amanda, RN RN ap3 Priscila Allen RN RN aries1 Kathy Resendez RN RN ha1 Jasmyn Mayes RN RN cm10 Corrections: (The following items were deleted from the chart) 18:12 17:18 Neuro: No deficits noted. Level of Consciousness is awake, confused, Oriented to cm10 none cm10
--- NOTE | 2024-06-10 18:49 | EDPHYS ---
Physician Documentation [facility] Name: Rachna Peña Age: 89 yrs Sex: Female : 1935 Arrival Date: 06/10/2024 Time: 16:58 Bed 6 Private MD: ED Physician Leo Davis HPI: 06/10 18:35 This 89 yrs old Female presents to ER via EMS with complaints of Altered summer Mental Status. 18:35 The patient presents with agitation, confusion, decreased responsiveness, trouble summer concentrating. Onset: The symptoms/episode began/occurred 1 day(s) ago. Possible causes: CVA or TIA, head injury, low blood sugar, seizure, sepsis, the patient has had a history of a fever. Associated signs and symptoms: Pertinent positives: combativeness, confusion, dizziness. Current symptoms: In the emergency department the patient's symptoms have improved, mildly. Patient's baseline: Neuro: alert and fully oriented. It is unknown whether or not the patient has had similar symptoms in the past. Historical: - Allergies: 17:09 Bactrim; cm10 - Home Meds: 17:09 allopurinol 300 mg Oral tab 1 tab once daily [Active]; levetiracetam 500 mg Oral tab 1 cm10 tab 2 times per day [Active]; amlodipine 2.5 mg tab 1 tab once daily [Active]; duloxetine 60 mg Oral cpDR 1 cap once daily [Active]; gabapentin 400 mg Oral cap 1 cap 3 times per day [Active]; levothyroxine 75 mcg tab 1 tab once daily [Active]; meloxicam 7.5 mg Oral tab 1 tab once daily [Active]; metoprolol tartrate 25 mg Oral tab [Active]; simvastatin 10 mg Oral tab 1 tab once daily [Active]; Eliquis 2.5 mg oral tablet 2 times per day [Active]; - PMHx: 17:09 Arthritis; Atrial Fib; COPD; Gout; High Cholesterol; Hypertension; Hypothyroidism; knee cm10 pain; Myocardial infarction; Seizures; Sleep Apnea; - Immunization history:: Adult Immunizations unknown. - Infectious Disease History:: Denies. - Social history:: Smoking status: unknown. ROS: 18:37 Eyes: Negative for injury, pain, redness, and discharge, Neck: Negative for injury, summer pain, and swelling, Cardiovascular: Negative for chest pain, palpitations, and edema, Respiratory: Negative for shortness of breath, cough, wheezing, and pleuritic chest pain, Abdomen/GI: Negative for abdominal pain, nausea, vomiting, diarrhea, and constipation, Back: Negative for injury and pain, : Negative for injury, bleeding, discharge, and swelling, MS/Extremity: Negative for injury and deformity, Skin: Negative for injury, rash, and discoloration, Psych: Negative for depression, anxiety, suicide ideation, homicidal ideation, and hallucinations, Allergy/Immunology: Negative for hives, rash, and allergies, Endocrine: Negative for neck swelling, polydipsia, polyuria, polyphagia, and marked weight changes, Hematologic/Lymphatic: Negative for swollen nodes, abnormal bleeding, and unusual bruising, 18:37 Constitutional: Positive for body aches, fever, malaise, 18:37 Constitutional: Positive for fatigue, poor PO intake, 18:37 ENT: Positive for ear pain, 18:37 Cardiovascular: Positive for palpitations, 18:37 Respiratory: Positive for cough, 18:37 Abdomen/GI: Positive for abdominal pain, nausea, 18:37 Neuro: Positive for altered mental status, seizure activity, weakness, Exam: 18:37 Head/Face: Normocephalic, atraumatic. Eyes: Pupils equal round and reactive to light, summer extra-ocular motions intact. Lids and lashes normal. Conjunctiva and sclera are non-icteric and not injected. Cornea within normal limits. Periorbital areas with no swelling, redness, or edema. Neck: Trachea midline, no thyromegaly or masses palpated, and no cervical lymphadenopathy. Supple, full range of motion without nuchal rigidity, or vertebral point tenderness. No Meningismus. Chest/axilla: Normal chest wall appearance and motion. Nontender with no deformity. No lesions are appreciated. Abdomen/GI: Soft, non-tender, with normal bowel sounds. No distension or tympany. No guarding or rebound. No evidence of tenderness throughout. Back: No spinal tenderness. No costovertebral tenderness. Full range of motion. Skin: Warm, dry with normal turgor. Normal color with no rashes, no lesions, and no evidence of cellulitis. MS/ Extremity: Pulses equal, no cyanosis. Neurovascular intact. Full, normal range of motion., bilateral aka Neuro: Awake and alert, GCS 15, oriented to person, place, time, and situation. Cranial nerves II-XII grossly intact. Motor strength 5/5 in all extremities. Sensory grossly intact. Cerebellar exam normal. Normal gait. Psych: Awake, alert, with orientation to person, place and time. Behavior, mood, and affect are within normal limits. 18:37 Constitutional: The patient appears febrile, 18:37 ENT: TM's: erythema, bilaterally, Mouth: is normal, Posterior pharynx: Airway: normal, no evidence of obstruction, 18:48 ECG was reviewed by the Attending Physician. [facility] Vital Signs: 17:03 BP 114 / 63; Pulse 93; Resp 18; Temp 100.7(A); Pulse Ox 96% on 3 lpm NC; Weight 121.11 cm10 kg (M); 18:18 BP 153 / 82; Pulse 96; Resp 18; Pulse Ox 100% on 3 lpm NC; ld1 19:08 Temp 98.7(TE); ld1 19:08 BP 136 / 72; Pulse 84; Resp 18; Pulse Ox 97% on 3 lpm NC; ld1 19:59 BP 130 / 78; Pulse 82; Resp 18 S; Pulse Ox 94% on 2 lpm NC; ha1 MDM: 17:03 Medical Screening Exam initiated summer 18:40 Differential diagnosis: otitis media, otitis externa, ruptured TM, acute otalgia, summer cerumen impaction, viral Infection, bacterial infection, URI, bronchitis, pneumonia UTI. Differential Diagnosis altered mental status, sepsis, flu. Differential Diagnosis: CVA, electrolyte abnormality, hypoglycemia, intracranial bleed, meningitis, pneumonia, sepsis, TIA, UTI. Data reviewed: vital signs, nurses notes, EMS record, lab test result(s), EKG, radiologic studies, CT scan, plain films. Consideration of Admission/Observation Patient was admitted/placed on observation. Escalation of care including admission/observation considered. I considered the following discharge prescriptions or medication management in the emergency department Medications were administered in the Emergency Department. See MAR. Independent interpretation of the following test(s) in the Emergency Department EKG: See my EKG interpretation above X-Ray: My interpretation is cxr . Test considered but Not performed: MRI: no mri brain. Care significantly affected by the following chronic conditions: Hypertension, Chronic Obstructive Pulmonary Disease, Obesity, arthritis , a fib, gout, high chloesterol. 06/10 17:06 Order name: Basic Metabolic Panel; Complete Time: 18:17 [facility] 06/10 17:06 Order name: CBC with Diff; Complete Time: 18:17 [facility] 06/10 17:06 Order name: LFT's; Complete Time: 18:17 [facility] 06/10 17:06 Order name: Magnesium; Complete Time: 18:17 [facility] 06/10 17:06 Order name: NT PRO-BNP; Complete Time: 18:17 [facility] 06/10 17:06 Order name: PT-INR; Complete Time: 18:17 [facility] 06/10 17:06 Order name: Troponin HS; Complete Time: 18:17 [facility] 06/10 17:06 Order name: Lipase; Complete Time: 18:17 [facility] 06/10 17:06 Order name: Ptt, Activated; Complete Time: 18:17 [facility] 06/10 17:06 Order name: Urinalysis w/ reflexes [facility] 06/10 17:06 Order name: Flu; Complete Time: 18:17 [facility] 06/10 17:06 Order name: SARS RAPID; Complete Time: 18:17 [facility] 06/10 17:14 Order name: Blood Culture Adult (2) [facility] 06/10 17:14 Order name: Lactate w/ 2H reflex if indic.; Complete Time: 18:17 [facility] 06/10 17:19 Order name: Glucose, Ancillary Testing; Complete Time: 17:34 EDNM 06/10 19:38 Order name: Urinalysis w/ reflexes EDMS 06/10 19:38 Order name: CBC with Automated Diff EDMS 06/10 19:38 Order name: CBC with Automated Diff EDMS 06/10 19:38 Order name: Comprehensive Metabolic Panel EDMS 06/10 19:38 Order name: Comprehensive Metabolic Panel EDMS 06/10 19:38 Order name: Magnesium EDMS 06/10 19:38 Order name: Magnesium EDMS 06/10 19:38 Order name: Phosphorus EDMS 06/10 19:38 Order name: Phosphorus EDMS 06/10 19:38 Order name: Troponin High Sensitivity EDMS 06/10 19:38 Order name: Troponin High Sensitivity EDMS 06/10 19:38 Order name: Troponin High Sensitivity EDMS 06/10 19:38 Order name: Troponin High Sensitivity EDMS 06/10 17:06 Order name: XRAY Chest (1 view); Complete Time: 18:34 [facility] 06/10 17:06 Order name: CT Stroke Brain w/o Contrast; Complete Time: 18:17 [facility] 06/10 17:06 Order name: CT Head Angio; Complete Time: 18:17 [facility] 06/10 17:06 Order name: CT Neck Angio; Complete Time: 18:31 [facility] 06/10 17:14 Order name: CT Chest Abdomen Pelvis W/O Contrast; Complete Time: 18:31 [facility] 06/10 17:06 Order name: Cardiac monitoring; Complete Time: 18:10 [facility] 06/10 17:06 Order name: EKG - Nurse/Tech; Complete Time: 18:10 [facility] 06/10 17:06 Order name: IV Saline Lock; Complete Time: 17:18 [facility] 06/10 17:06 Order name: Labs collected and sent; Complete Time: 18:30 [facility] 06/10 17:06 Order name: O2 Per Protocol; Complete Time: 17:18 [facility] 06/10 17:06 Order name: O2 Sat Monitoring; Complete Time: 17:18 [facility] 06/10 17:14 Order name: [place]; Complete Time: 18:18 [facility] 06/10 17:15 Order name: IV Saline Lock - Large Bore; Complete Time: 18:10 [facility] 06/10 18:34 Order name: IV Saline Lock - Large Bore; Complete Time: 19:16 summer EC:48 Rate is 91 beats/min. Rhythm is irregularly irregular. QRS [place] is Normal. WI interval summer is normal. QRS interval is normal. QT interval is normal. No Q waves. T waves are Normal. No ST changes noted. Clinical impression: Atrial Fibrillation. Interpreted by me. Reviewed by me. Administered Medications: 18:10 Drug: Acetaminophen WI Suppository 650 mg WI once Route: WI; ld1 18:30 Follow up: Response: No adverse reaction ld1 18:11 Drug: NS 0.9% IV (30 ml/kg) 30 ml/kg IV at bolus once; Sepsis Protocol; to be given as ld1 a bolus over 90 minutes Route: IV; Rate: bolus; Site: left forearm; 21:45 Follow up: Response: No adverse reaction; IV Status: Completed infusion; IV Intake: ha1 3666ml 18:11 Drug: foLIC Acid IVPB 1 mg IVPB once Route: IVPB; Site: left forearm; ld1 19:01 Follow up: Response: No adverse reaction; IV Status: Completed infusion ld1 18:31 Drug: Famotidine IVP 20 mg IVP once; dilute with 10 mL 0.9% NaCl; give over 2 minutes ld1 Route: IVP; Site: left forearm; 19:01 Follow up: Response: No adverse reaction ld1 19:09 Drug: Meropenem IV 1 grams IV at per protocol once; (mix in NS 100 mL) Route: IV; Rate: ld1 per protocol; Site: left hand; 20:10 Follow up: Response: No adverse reaction; IV Status: Completed infusion; IV Intake: ha1 100ml 19:30 Drug: Keppra IV 1000 mg IV at per protocol once Route: IV; Rate: per protocol; Site: [facility] right hand; 19:45 Follow up: Response: No adverse reaction; IV Status: Completed infusion; IV Intake: ha1 100ml 19:40 Drug: vancoMYCIN IVPB 1 grams IVPB once over 2 hrs Route: IVPB; Infused Over: 2 hrs; ha1 Site: left hand; 21:25 Follow up: Response: No adverse reaction; IV Status: Completed infusion; IV Intake: ha1 250ml 19:55 Not Given (not in inventory ): ciprodexdrops 4 drops Otic once; pt has her drop/ ha1 perscriptions Disposition Summary: 06/10/24 18:48 Hospitalization Ordered Notes: Hospitalization Status: Inpatient Admission summer Provider: Jerrod Cardoza cha Location: Telemetry/MedSurg (Inpatient) summer Condition: Fair summer Problem: new summer Symptoms: have improved summer Bed/Room Type: Standard summer Room Assignment: [id number](06/10/24 20:21) kmf Diagnosis - Altered mental status, unspecified summer - Fever, unspecified summer - Acute serous otitis media, right ear summer - Diffuse otitis externa, right ear summer - Persistent atrial fibrillation summer - residential (current) use of anticoagulants summer - Other seizures summer Forms: - Medication Reconciliation Form summer - SBAR form summer - Leadership Thank You Letter summer Signatures: Dispatcher [employer] Leo Beck MD MD cha Sims, Lauren, RN RN ld1 Kathy Resendez RN RN ha1 Jasmyn Mayes RN RN cm10 Sadie Pierson kmf Corrections: (The following items were deleted from the chart) 17:07 17:07 BASIC METABOLIC PANEL+C.LAB.BRZ ordered. EDMS EDMS 17: 17:07 CBC+H.LAB.BRZ ordered. EDMS EDMS 17: 17:07 HEPATIC FUNCTION+C.LAB.BRZ ordered. EDMS EDMS 17: 17:07 MAGNESIUM+C.LAB.BRZ ordered. EDMS EDMS 17: 17:07 PROBNP+C.LAB.BRZ ordered. EDMS EDMS 17: 17:07 PROTIME (+INR)+COAG.LAB.BRZ ordered. EDMS EDMS 17: 17:07 Troponin High Sensitivity+C.LAB.BRZ ordered. EDMS EDMS 17: 17:07 LIPASE+C.LAB.BRZ ordered. EDMS EDMS 17: 17:07 PTT, ACTIVATED+COAG.LAB.BRZ ordered. EDMS EDMS 17: 17:07 Urinalysis+U.LAB.BRZ ordered. EDMS EDMS 17:07 17:07 Influenza Screen (A \T\ B)+BA.LAB.BRZ ordered. EDMS EDMS 17: 17:07 SARS-COV-2 Antigen Rapid+I.LAB.BRZ ordered. EDMS EDMS 17:07 17:07 Chest Single View+RAD.RAD.BRZ ordered. EDMS EDMS 17:07 17:07 CT-STROKE BRAIN W/O CONTRAST+CT.RAD.BRZ ordered. EDMS EDMS 17:07 17:07 Head Angio+CT.RAD.BRZ ordered. EDMS EDMS 17:07 17:07 Neck Angio+CT.RAD.BRZ ordered. EDMS EDMS 20:21 18:48 summer kmf
[2024-06-10] MEDS ORDERED: LEVETIRACETAM 500 MG/5 ML VIAL IV ONE (19:21)
[2024-06-10] MEDS ORDERED: ONDANSETRON 4 MG/2 ML VIAL IV PRN (19:32)
[2024-06-10] MEDS ORDERED: ACETAMINOPHEN 325 MG TABLET PO PRN (19:32)
--- NOTE | 2024-06-10 19:38 | P.HP ---
Certification for Inpatient Patient admitted to: Inpatient With expected LOS: >2 Midnights Practitioner: I am a practitioner with admitting privileges, knowledge of patient current condition, hospital course, and medical plan of care. Services: Services provided to patient in accordance with Admission requirements found in Title 42 Section 412.3 of the Code of Federal Regulations Patient History Date of Service: 06/11/24 Reason for admission: AMS History of Present Illness: 89 yrs old Female with past medical history of hypertension, hyperlipidemia, hypothyroidism, CAD history of myocardial infarction, seizures, COPD, arthritis, sleep apnea, atrial fibrillation, gout who was brought to ER with altered mental status . The patient is a poor historian hence most of the history is obtained from the chart review and also talking to the ER physician. The patient presents with agitation, confusion, decreased responsiveness, trouble concentrating. Started 2 days ago and has been progressively worsening. Denies any nausea vomiting or diarrhea. No sick contacts. Patient was assessed in the ER and was admitted for further management. Allergies No Known Allergies Allergy (Verified 10/06/21 23:28) Home medications list reviewed: Yes Home Medications: Amlodipine Besylate [Norvasc] 10 mg PO DAILY 09/01/18 Duloxetine [Cymbalta *] 60 mg PO DAILY 09/01/18 Gabapentin [Neurontin*] 400 mg PO TID 09/01/18 Levothyroxine [Synthroid*] 75 mcg PO [id number] 09/01/18 Simvastatin 10 mg PO BEDTIME 09/01/18 allopurinoL [Zyloprim*] 300 mg PO DAILY 09/01/18 levETIRAcetam [Keppra*] 500 mg PO BID #60 tab 03/27/21 Docusate [Colace Cap*] 100 mg PO DAILY PRN 10/06/21 Metoprolol Tartrate 25 mg PO BID 10/06/21 Albuterol Neb [Proventil 0.083% Neb Soln] 2.5 mg NEB [id number] PRN amp 03/07/24 Apixaban [Eliquis] 2.5 mg PO BID 30 Days #60 tablet 03/07/24 Arformoterol Tartrate [Brovana] 15 mcg NEB BIDRESP vial.neb 03/07/24 Furosemide [Lasix*] 40 mg PO DAILY tab 03/07/24 acetaZOLAMIDE [Acetazolamide] 250 mg PO DAILY #30 tab 03/07/24 - Past Medical/Surgical History Diabetic: No Past Medical History: Reviewed- Non-Contributory -: arthritis -: gout -: HLD -: HTN -: atrial fibrillation -: hypothyroid -: [place] Past Surgical History: Reviewed- Non-Contributory -: irwin cataract -: right foot sx Psychosocial/ Personal History: Patient is a and lives at home alone. Her daughter lives nearby. - Family History Father -: Cancer - Social History Smoking Status: Never smoker Alcohol use: No CD- Drugs: No Caffeine use: No Review of Systems is unable to be obtained Physical Examination - Vital Signs Temperature: 100.7 F Blood Pressure: 114/68 Pulse: 93 Respirations: 18 Pulse Ox (%): 94 - Physical Exam General: Confused HEENT: Atraumatic, Normocephalic Neck: Supple Respiratory: Clear to auscultation bilaterally Cardiovascular: Normal pulses, Regular rate/rhythm Capillary refill: <2 Seconds Gastrointestinal: Soft and benign, W/out hepatosplenomegaly Musculoskeletal: No clubbing Integumentary: No rashes Neurological: Other (Drowsy, Arousable , Confused ) Lymphatics: No axilla or inguinal lymphadenopathy - Studies Laboratory Data (last 24 hrs) 06/10/24 06/10/24 06/10/24 17:16 17:16 17:16 WBC 6.50 Hgb 12.8 Hct 40.8 Plt Count 152 PT 13.8 H INR 1.32 APTT 43.7 H Sodium 136 Potassium 4.7 BUN 19 H Creatinine 1.19 H Glucose 144 H Magnesium 2.3 Total Bilirubin 0.3 AST < 10 L ALT 19 Alkaline Phosphatase 58 Lipase 25 Microbiology Data (last 24 hrs): 06/10/24 17:16 Nasopharnyx Influenza Type A Antigen Screen - Final 06/10/24 17:16 Nasopharnyx Influenza Type B Antigen Screen - Final Assessment and Plan - Plan Acute encephalopathy No focal weakness CT CTA findings noted Monitor neuro vital signs Monitor under telemetry Acute febrile illness Possibly viral syndrome UA negative X-ray negative for pneumonia Received antibiotic in ER Will continue antibiotic for now Possible DC antibiotic if cultures are negative NSTEMI possibly type II Will trend cardiac enzymes Will monitor telemetry Started on aspirin and statin EKG did not show any acute changes suggestive of ischemia Patient denies any chest pain Cardiology consult Hypertension Antihypertensives titrated Continue home medications and titrate as needed Hypothyroidism Monitor TSH level Continue home medications and titrate as needed GI/DVT prophylaxis Advanced directive full code Discharge Plan: Care Home Plan to discharge in: 48 Hours - Advance Directives Does patient have a Living Will: No Does patient have a Durable POA for Healthcare: No - Code Status/Comfort Care Code Status: Do Not Attempt Resuscitat Time Spent Managing Pts Care (In Minutes): 48
[2024-06-11 06:18] LABS: Absolute Lymphocytes (CBC) 0.6 K/uL (0.7-4.9); Absolute Monocytes 0.5 K/uL (0.1-1.3); Absolute Neutrophil 3.5 K/uL (1.8-8.0); Basophils % 0.4 % (0-1.3); Eosinophils % 0.8 % (0-4.4); Hematocrit 35.1 % (36.0-45.0); Hemoglobin 11.2 g/dL (12.0-15.0); Lymphocytes % 12.4 % (15.3-44.8); MCV 87.6 fL (80-100); MPV 7.5 fL (7.6-11.3); Monocytes % 10.6 % (3.3-12.3); Neutrophils % 75.8 % (41.7-73.7); Platelets 125 thou/uL (152-406)
[2024-06-11 06:33] LABS: ALT/SGPT 17 U/L (13-56); Albumin 2.6 g/dL (3.4-5.0); Albumin/Globulin Ratio 0.7 (1.1-1.8); Alkaline Phosphatase 46 U/L (45-117); Anion Gap 5.2 mEq/L (5.0-15.0); BUN Blood Urea Nitrogen 16 mg/dL (7-18); Bicarbonate 30 mEq/L (21-32); Bilirubin Total 0.3 mg/dL (0.2-1.0); Globulin 3.7 g/dL (2.3-3.5); Glomerular Filtration Rate 73 ml/min (=/>90); Glucose Level 135 mg/dL (74-106); Magnesium 2.3 mg/dL (1.6-2.4); Phosphorus 2.6 mg/dL (2.5-4.9); Potassium 4.2 mEq/L (3.5-5.1); Protein, Total 6.3 g/dL (6.4-8.2); Sodium Level 139 mEq/L (136-145)
[2024-06-11 06:34] LABS: AST/SGOT < 10 U/L (15-37)
[2024-06-11] MEDS: ENOXAPARIN 40 MG/0.4 ML SQ SCH (07:37)
[2024-06-11] MEDS: AZITHROMYCIN IV 500 MG in NA CHLORIDE 0.9% 250 ML IVPB SCH (07:38)
[2024-06-11] MEDS: CEFTRIAXONE 1,000 MG in NA CHLORIDE 0.9% 50 ML IVPB SCH (07:38)
--- NOTE | 2024-06-11 13:03 | P.CNS ---
Date of Consult: 06/11/24 Chief Complaint: AMS History of Present Illness: Patient with PMH of CAD, Atrial fibrillation, presented with altered mental status, weakness, patient hard of hearing and she is wake but will not answer questions appropriately, denies having any complaints though. Allergies No Known Allergies Allergy (Verified 10/06/21 23:28) Home medications list reviewed: Yes Home Medications: Duloxetine [Cymbalta *] 60 mg PO DAILY 09/01/18 Gabapentin [Neurontin*] 400 mg PO TID 09/01/18 Levothyroxine [Synthroid*] 75 mcg PO [id number] 09/01/18 Simvastatin 10 mg PO BEDTIME 09/01/18 Metoprolol Tartrate 25 mg PO BID 10/06/21 Apixaban [Eliquis] 2.5 mg PO BID 30 Days #60 tablet 03/07/24 acetaZOLAMIDE [Acetazolamide] 250 mg PO DAILY #30 tab 03/07/24 Aspirin Chewable [Aspirin Chewable*] 81 mg PO DAILY 06/11/24 Bumetanide [Bumex] 1 mg PO DAILY 06/11/24 Loratadine [Claritin] 10 mg PO DAILY 06/11/24 Valacyclovir HCl [Valacyclovir] 1 tab PO DAILY 06/11/24 levETIRAcetam [Keppra Tab] 500 mg PO BID 06/11/24 - Past Medical/Surgical History Diabetic: No -: arthritis -: gout -: HLD -: HTN -: atrial fibrillation -: hypothyroid -: [place] -: irwin cataract -: right foot sx Psychosocial/ Personal History: Patient is a and lives at home alone. Her daughter lives nearby. - Family History Father Medical History: Cancer - Social History Smoking Status: Unknown if ever smoked Alcohol use: No CD- Drugs: No Caffeine use: No Review of Systems 10-point ROS is otherwise unremarkable Physical Examination Temp Pulse Resp BP Pulse Ox 98.2 F 76 18 137/71 95 06/11/24 08:00 06/11/24 08:00 06/11/24 08:00 06/11/24 08:00 06/11/24 08:00 General: Alert, In no apparent distress HEENT: Atraumatic, PERRLA, Mucous membr. moist/pink, EOMI, Sclerae nonicteric Neck: Supple, 2+ carotid pulse no bruit, No LAD, Without JVD or thyroid abnormality Respiratory: Clear to auscultation bilaterally, Normal air movement Cardiovascular: Normal S1 S2, Irregular heart rate/rhythm Gastrointestinal: Normal bowel sounds, No tenderness Musculoskeletal: No tenderness Integumentary: No rashes Neurological: Normal gait, Normal speech, Normal tone, Normal affect Lymphatics: No axilla or inguinal lymphadenopathy Laboratory Data (last 24 hrs) 06/10/24 06/10/24 06/10/24 17:16 17:16 17:16 WBC 6.50 Hgb 12.8 Hct 40.8 Plt Count 152 PT 13.8 H INR 1.32 APTT 43.7 H Sodium 136 Potassium 4.7 BUN 19 H Creatinine 1.19 H Glucose 144 H Magnesium 2.3 Total Bilirubin 0.3 AST < 10 L ALT 19 Alkaline Phosphatase 58 Lipase 25 - Problems (1) NSTEMI (non-ST elevated myocardial infarction) Current Visit: Yes Status: Acute Plan: cardiac enzymes mild elevated and trended down, no significant EKG changes, Type 2 ME. no further cardiac work up needed. (2) Atrial fibrillation Current Visit: No Status: Chronic Plan: Patient is currently rate controlled. continue Lopressor 25 mg po BID continue Eliquis 2.5 mg po BID Qualifiers: Atrial fibrillation type: unspecified Qualified Code(s): I48.91 - Unspecified atrial fibrillation
[2024-06-12 07:47] LABS: Anion Gap 5.9 mEq/L (5.0-15.0); Magnesium 2.2 mg/dL (1.6-2.4); Potassium 3.9 mEq/L (3.5-5.1)
[2024-06-12 07:51] LABS: Phosphorus 1.5 mg/dL (2.5-4.9)
[2024-06-12] MEDS: POTASS/SODIUM PHOSPHATE 1 PKT POWD.PACK PO SCH (10:32)
[2024-06-12] MEDS: POTASSIUM CL SA 10 MEQ TAB PO ONE (11:37)
[2024-06-12] MEDS: METOPROLOL TAR 50 MG TAB PO ONE (15:50)
[2024-06-12] MEDS: METOPROLOL TAR 25 MG TAB PO SCH (17:59)
[2024-06-12] MEDS ORDERED: METOPROLOL TAR 50 MG TAB PO SCH (21:00)
[2024-06-12] MEDS: ATORVASTATIN 10 MG TAB PO SCH (21:33)
[2024-06-12] MEDS: GABAPENTIN 400 MG CAP PO SCH (21:33)
[2024-06-12] MEDS: levETIRAcetam 500 MG TAB PO SCH (21:33)
[2024-06-12] MEDS: HYDRALAZINE HCL 20 MG/ML VIAL IV PRN (21:42)
[2024-06-13] MEDS: LEVOTHYROXINE SOD 0.075 MG TAB PO SCH (06:15)
[2024-06-13 07:03] LABS: Anion Gap 5.8 mEq/L (5.0-15.0); Magnesium 2.2 mg/dL (1.6-2.4); Phosphorus 2.1 mg/dL (2.5-4.9); Potassium 3.8 mEq/L (3.5-5.1)
[2024-06-13] MEDS: acetaZOLAMIDE 250 MG TAB PO SCH (09:33)
[2024-06-13] MEDS: ASPIRIN 81 MG CHEWABLE TABLET PO SCH (09:33)
[2024-06-13] MEDS: LORATADINE 10 MG TAB PO SCH (09:34)
[2024-06-13] MEDS: DULOXETINE 20 MG CAP PO SCH (09:34)
[2024-06-13] MEDS: APIXABAN 2.5 MG TABLET PO SCH (09:34)
[2024-06-13] MEDS: BUMETANIDE 1 MG TABLET PO SCH (10:42)
--- NOTE | 2024-06-13 14:51 | P.PN ---
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 She was also noted to hav e right facial weakness/paralysis of unknown duration, possibly 1-[address] temporal bone and CRP were ordered stat due to findings and on review and family communication, it was noted that the patient had gone back to the ER over the weekend with ear pain and was admitted for altered mental status. Chart review performed as care continuity and discussed details with Dr Patel with consideration for MRI / MRV to look for [employer] extent of mastoid infection or venous obstruction as part of differential diagnosis. No acutely surgical issues noted on CT temporal bone based on Jun 08 images.
--- NOTE | 2024-06-13 20:21 | RAD REPORT ---
EXAMINATION: MRI BRAIN WITHOUT AND WITH CONTRAST CLINICAL INDICATION: AMS; mastoiditis TECHNIQUE: Multiplanar multisequence MR images of the brain were obtained without and with intravenou s contrast. Unless otherwise specified, incidental findings do not require dedicated imaging follow-up. COMPARISON: No prior exam. FINDINGS: INTRACRANIAL: Diffusion-weighted images show no acute or early subacute infarction. No abnormal brain parenchymal signal. The ventricles are normal in size and morphology. No augmented susceptibility. There is no mass effect or midline shift. No abnormal extraaxial fluid collection. VASCULATURE: Normal signal voids in the larger intracranial arteries and dural venous sinuses. SINUSES: Right mastoid is opacified. BONE: The marrow signal pattern is within normal limits. CONTRAST: No pathologic postcontrast enhancement to indicate tumor or infection. OTHER FINDINGS: IMPRESSION: No significant intracranial abnormalities. Right mastoid is opacified presumably related to mastoidit is.
--- NOTE | 2024-06-13 20:25 | RAD REPORT ---
EXAM: Sup. Sag. Sinus CLINICAL INDICATION: AMS; mastoiditis. TECHNIQUE: 2D [id number] MRV of the head with maximum intensity projections (MIPs). COMPARISON: None. FINDINGS: Major Dural Venous Sinuses and Cortical Veins: Normal flow related signal IMPRESSION: Normal MRV of the head without contrast.
--- NOTE | 2024-06-14 00:48 | P.PN ---
Date of Service: 06/12/24 Subjective Date of Service: 06/11/24 Chart has been reviewed. Patient lives at home with her family. She has home healthcare. She used to get around with her walker up until a couple of weeks ago when she started having issues with her ear pain. Patient had a facial droop that started 2 weeks ago. Patient has been treating herself for a urine infection. Patient follows up with ENT. Patient was found to have mastoiditis. Patient will need IV antibiotics. Patient clinically looks to be fairly weak and at her age, her prognosis is very poor. Will get further imaging to evaluate. Physical therapy consulted. Review of Systems 10-point ROS is otherwise unremarkable Physical Examination - Vital Signs Temperature: 97.7 F Blood Pressure: 120/65 Pulse: 65 Respirations: 18 Pulse Ox (%): 97 - Physical Exam General: Alert, In no apparent distress, Oriented x2, Confused HEENT: Other ( Right facial droop) Respiratory: Clear to auscultation bilaterally, Normal air movement Cardiovascular: Regular rate/rhythm, Normal S1 S2, No murmurs Gastrointestinal: Normal bowel sounds, Soft and benign, Non-distended, No tenderness, Other ( obese) Musculoskeletal: No tenderness Integumentary: No rashes Neurological: Sensation intact, Abnormal strength, Abnormal cranial nerve function - Studies Medications List Reviewed: Yes Assessment & Plan - Problems (Diagnosis) (1) Acute mastoiditis of right side Current Visit: Yes Status: Acute (2) NSTEMI (non-ST elevated myocardial infarction) Current Visit: Yes Status: Acute (3) COPD (chronic obstructive pulmonary disease) Current Visit: No Status: Acute (4) Hyponatremia Current Visit: No Status: Acute (5) Intractable nausea and vomiting Current Visit: No Status: Acute (6) Sepsis Current Visit: No Status: Acute (7) Atrial fibrillation Current Visit: No Status: Chronic Qualifiers: Atrial fibrillation type: unspecified Qualified Code(s): I48.91 - Unspecified atrial fibrillation (8) Hyperlipidemia Current Visit: No Status: Chronic Qualifiers: Hyperlipidemia type: mixed hyperlipidemia Qualified Code(s): E78.2 - Mixed hyperlipidemia (9) Hypertension Current Visit: No Status: Chronic Qualifiers: Hypertension type: primary hypertension Qualified Code(s): I10 - Essential (primary) hypertension (10) Hypothyroid Current Visit: No Status: Chronic Qualifiers: Hypothyroidism type: acquired Qualified Code(s): E03.9 - Hypothyroidism, unspecified - Plan 1. Altered mental status with right-sided facial weakness; possibly related to sepsis vs CVA. Continue with broad-spectrum antibiotic coverage. Blood cultures are negative. Will try to get a MRI of the brain for further evaluation of mentation. CT scan does show mastoiditis. Will continue with IV antibiotics; continue with anti-platelet therapy and statin therapy. Physical therapy and speech therapy evaluation 2. Hypothyroidism; continue Synthroid 3. Atrial fibrillation; continue with medication for rate control and anticoagulation 4. Metabolic syndrome; strict blood pressure blood sugar control 5. GI/DVT prophylaxis Discharge Plan: Home Plan to discharge in: Greater than 2 days - Advance Directives Does patient have a Living Will: No Does patient have a Durable POA for Healthcare: No - Code Status/Comfort Care Code Status Assessed: Yes Code Status: Full Code Critical Care: No Time Spent Managing PTS Care (In Minutes): 45
--- NOTE | 2024-06-14 01:02 | P.PN ---
Date of Service: 06/13/24 Subjective patient's altered mentation most likely related to acute mastoiditis; continue with IV antibiotics. MRI and MRV of the brain was negative. Patient with no acute CVA and no thrombosis. Patient with right mastoiditis with right-sided facial droop. Continue with anti-platelet therapy and statin therapy. Continue with physical therapy. SNF placement. Spoke with daughter regarding patient's plan of care. She is in agreement with SNF placement at this time. Physical Examination - Vital Signs Reviewed - Physical Exam General: Alert, In no apparent distress, Oriented x2, Confused HEENT: Other (Right facial droop) Respiratory: Clear to auscultation bilaterally, Normal air movement Cardiovascular: Irregularly irregular rate and rhythm Gastrointestinal: Normal bowel sounds, Soft and benign, Non-distended, No tenderness, Other ( obese) Neurological: no focal deficits except for right facial droop; generalized weakness. Assessment & Plan - Problems (Diagnosis) (1) Acute mastoiditis of right side Current Visit: Yes Status: Acute (2) NSTEMI (non-ST elevated myocardial infarction) Current Visit: Yes Status: Acute (3) COPD (chronic obstructive pulmonary disease) Current Visit: No Status: Acute (4) Hyponatremia Current Visit: No Status: Acute (5) Intractable nausea and vomiting Current Visit: No Status: Acute (6) Sepsis Current Visit: No Status: Acute (7) Atrial fibrillation Current Visit: No Status: Chronic Qualifiers: Atrial fibrillation type: unspecified Qualified Code(s): I48.91 - Unspecified atrial fibrillation (8) Hyperlipidemia Current Visit: No Status: Chronic Qualifiers: Hyperlipidemia type: mixed hyperlipidemia Qualified Code(s): E78.2 - Mixed hyperlipidemia (9) Hypertension Current Visit: No Status: Chronic Qualifiers: Hypertension type: primary hypertension Qualified Code(s): I10 - Essential (primary) hypertension (10) Hypothyroid Current Visit: No Status: Chronic Qualifiers: Hypothyroidism type: acquired Qualified Code(s): E03.9 - Hypothyroidism, unspecified - Plan Continue with plan of care as mentioned below: 1. Acute mastoiditis of the right side; most likely cause of altered mental status with sepsis. Patient will need continued IV antibiotic therapy. MR I of the brain and MRV were negative. Patient does have right-sided mastoiditis. Appreciate ENT input regarding patient's care. Arrange for 2 weeks of IV antibiotics. Continue with outpatient physical therapy. [facility]. Spoke with daughter and she is agreement with plan of care. Work on discharge planning at this time. 2. Hypothyroidism; continue Synthroid 3. Atrial fibrillation; continue with medication for rate control and anticoagulation 4. Metabolic syndrome; strict blood pressure blood sugar control 5. GI/DVT prophylaxis Discharge Plan: SNF Plan to discharge in: Greater than 2 days - Advance Directives Does patient have a Living Will: No Does patient have a Durable POA for Healthcare: No - Code Status/Comfort Care Code Status Assessed: Yes Code Status: Full Code Critical Care: No Time Spent Managing PTS Care (In Minutes): 35
[2024-06-14 06:40] LABS: Absolute Eosinophils 0.1 K/uL (0-0.5); Absolute Lymphocytes (CBC) 0.8 K/uL (0.7-4.9); Absolute Monocytes 0.5 K/uL (0.1-1.3); Absolute Neutrophil 4.4 K/uL (1.8-8.0); Basophils % 0.4 % (0-1.3); Eosinophils % 1.9 % (0-4.4); Hematocrit 38.3 % (36.0-45.0); Hemoglobin 12.4 g/dL (12.0-15.0); Lymphocytes % 13.3 % (15.3-44.8); MCH 27.7 pg (27.0-35.0); MCHC 32.4 g/dL (32.0-36.0); MCV 85.3 fL (80-100); MPV 7.6 fL (7.6-11.3); Monocytes % 8.5 % (3.3-12.3); Neutrophils % 75.9 % (41.7-73.7); Platelets 149 thou/uL (152-406); RBC Red Blood Cell Count 4.49 M/uL (3.86-4.86); Red Cell Distribution Width 16.3 % (12.1-15.2)
[2024-06-14 07:23] LABS: ALT/SGPT 19 U/L (13-56); Albumin 2.8 g/dL (3.4-5.0); Albumin/Globulin Ratio 0.7 (1.1-1.8); Alkaline Phosphatase 52 U/L (45-117); BUN Blood Urea Nitrogen 16 mg/dL (7-18); Bicarbonate 31 mEq/L (21-32); Bilirubin Total 0.3 mg/dL (0.2-1.0); C-Reactive Protein 5.96 mg/L (<3.00); Glomerular Filtration Rate 79 ml/min (=/>90); Glucose Level 123 mg/dL (74-106); Magnesium 2.2 mg/dL (1.6-2.4); Protein, Total 6.8 g/dL (6.4-8.2); Sodium Level 139 mEq/L (136-145)
[2024-06-14 07:30] LABS: AST/SGOT < 10 U/L (15-37)
[2024-06-14] MEDS: POTASS/SODIUM PHOSPHATE 1 PKT POWD.PACK PO SCH (10:40)
--- NOTE | 2024-06-14 13:06 | EKG ---
Test Date: 2024-06-10 Test Time: 17:42:07 Agriculture Intern: AMANDA MEASUREMENT RESULTS: Intervals: Rate: 91 MO: QRSD: 86 QT: 358 QTc: 440 [place]: P: MO: QRS: -43 T: 58 INTERPRETIVE STATEMENTS: Atrial fibrillation Left axis deviation Septal infarct, age undetermined Abnormal ECG Compared to ECG 02/28/2024 01:16:23 Left-axis deviation now present Myocardial infarct finding now present Ventricular premature complex(es) no longer present Electronically Signed On 06-14-24 13:00:43 AIRPLANE TESTER by Wenceslao Johnson
[2024-06-14] MEDS: AMPICILLIN/SULBACT 3 GM in NA CHLORIDE 0.9% 100 ML IV SCH (13:48)
[2024-06-14] MEDS: Mupirocin NASAL 2 APPL/1 GM TUBE NAS SCH (20:48)
--- NOTE | 2024-06-15 05:51 | RAD REPORT ---
EXAM: XR Chest, 1 View CLINICAL HISTORY: The patient is 89 years old and is Female; PICC placement verification TECHNIQUE: Frontal view of the chest. COMPARISON: No relevant prior studies available. FINDINGS: Lungs: Mildly prominent interstitial markings. Hazy opacity in the mid right lung. Pleural space: Unremarkable. No pneumothorax. Heart: Unremarkable. Mediastinum: Unremarkable. Normal mediastinal contour. Bones/joints: No acute findings. Tubes, lines and devices: Right PICC with tip in the SVC. IMPRESSION: 1. Right PICC with tip in the SVC. 2. Mildly prominent interstitial markings. 3. Hazy opacity in the mid right lung. Electronically signed by: Sergio Phelps MD 06/15/2024 03:15 AM [facility] 8 Due to temporary technical issues with the PACS/[employer] reporting system, reports are being annette d by the in-house radiologist without review as a courtesy to ensure prompt reporting the interpreting radiologist is fully responsible for the content of the report. Transcribed Date/Time: 06/15/2024 5:51 AM
[2024-06-15 06:41] VITALS: BMI 36.7
[2024-06-15 09:00] VITALS: BP 137/73
[2024-06-15] MEDS: METHYLPREDNISOLONE 125 MG INJ IV ONE (09:58)
[2024-06-15 10:03] VITALS: TEMP 97.2
[2024-06-15 10:20] VITALS: O2SAT 92
[2024-06-15] MEDS ORDERED: CYANOCOBALAMIN 1000MCG/ML INJ IM ONE (11:00)
[2024-06-15 11:32] LABS: Magnesium 2.1 mg/dL (1.6-2.4); Phosphorus 2.9 mg/dL (2.5-4.9); Potassium 3.6 mEq/L (3.5-5.1)
== END 2024-06-15 11:05 | DRG 871 ==
LOC: ER 16:58 → ERHOLD 19:32 → 4TH 21:41
PROVIDERS: ADMIT Family Medicine; ATTEND Hospitalist
PROC: 02HV33Z Insertion of Infusion Device into Superior Vena Cava, Percutaneous Approach (ICD-10-PCS; principal; 2024-06-15)
DX: A41.9 Sepsis, unspecified organism (principal); I21.A1 Myocardial infarction type 2; H70.001 Acute mastoiditis without complications, right ear; I48.19 Other persistent atrial fibrillation; E87.1 Hypo-osmolality and hyponatremia; H65.01 Acute serous otitis media, right ear; I10 Essential (primary) hypertension; E03.9 Hypothyroidism, unspecified; M10.9 Gout, unspecified; E78.2 Mixed hyperlipidemia; E88.810 Metabolic syndrome; M19.90 Unspecified osteoarthritis, unspecified site; E66.9 Obesity, unspecified; J44.9 Chronic obstructive pulmonary disease, unspecified; I25.2 Old myocardial infarction; I25.10 Atherosclerotic heart disease of native coronary artery without angina pectoris; Z60.2 Problems related to living alone; Z88.1 Allergy status to other antibiotic agents; Z79.01 Long term (current) use of anticoagulants; Z79.890 Hormone replacement therapy; Z79.899 Other long term (current) drug therapy; Z68.38 Body mass index [BMI] 38.0-38.9, adult; Z11.52 Encounter for screening for COVID-19
CPT/HCPCS: 36415; 51702; 70450; 70496; 70498; 70544; 70553; 71045; 71250; 74176; 80048; 80053; 80076; 81001; 82140; 82607; 82947; 83605; 83690; 83735; 83880; 84100; 84132; 84145; 84484; 85025; 85610; 85730; 86140; 87040; 87804; 87811; 92610; 93005; 97161; 97530; 99285; A9577; J0295; J0360; J0696; J1650; J1953; J2185; J2919; J7030; J7050; Q9967

== ENCOUNTER 2024-08-18 00:17 | Inpatient (IN) | payer OTHER ==
[2024-08-18] MEDS ORDERED: METHYLPREDNISOLONE 125 MG INJ ONE (01:08)
[2024-08-18] MEDS ORDERED: LEVALBUTEROL 1.25 MG/3 ML NEB ONE (01:08)
[2024-08-18] MEDS ORDERED: Meropenem 1000 MG/VIAL IV ONE (01:08)
[2024-08-18] MEDS ORDERED: IPRATROPIUM BROM 0.5MG/2.5ML ONE (01:08)
[2024-08-18] MEDS ORDERED: NA CHLORIDE 0.9% 100 ML ONE (01:09)
[2024-08-18] MEDS ORDERED: FAMOTIDINE 20 MG/2 ML VIAL IV ONE (01:09)
[2024-08-18 01:21] LABS: Absolute Lymphocytes (CBC) 0.7 K/uL (0.7-4.9); Absolute Monocytes 0.4 K/uL (0.1-1.3); Absolute Neutrophil 4.2 K/uL (1.8-8.0); Basophils % 0.3 % (0-1.3); Eosinophils % 0.6 % (0-4.4); Hematocrit 30.5 % (36.0-45.0); Hemoglobin 9.8 g/dL (12.0-15.0); Lymphocytes % 13.4 % (15.3-44.8); MCH 28.8 pg (27.0-35.0); MCHC 32.2 g/dL (32.0-36.0); MCV 89.5 fL (80-100); MPV 7.7 fL (7.6-11.3); Monocytes % 7.9 % (3.3-12.3); Neutrophils % 77.8 % (41.7-73.7); Nucleated Red Blood Cells % 0.3 % (0-0); Platelets 136 thou/uL (152-406); RBC Red Blood Cell Count 3.41 M/uL (3.86-4.86); Red Cell Distribution Width 18.1 % (12.1-15.2)
[2024-08-18 01:31] LABS: PT Prothrombin Time 17.1 SECONDS (10-13.0); Protime INR 1.53
[2024-08-18 01:43] LABS: Albumin 2.8 g/dL (3.4-5.0); Albumin/Globulin Ratio 0.7 (1.1-1.8); Anion Gap 7.7 mEq/L (5.0-15.0); Bilirubin Direct 0.2 mg/dL (0-0.2); Bilirubin Indirect, Calculated 0.2 mg/dL (0.2-0.8); Bilirubin Total 0.4 mg/dL (0.2-1.0); Globulin 4.2 g/dL (2.3-3.5); Magnesium 2.1 mg/dL (1.6-2.4); Potassium 4.7 mEq/L (3.5-5.1); Troponin High Sensitivity 10.7 pg/mL (<58.9)
--- NOTE | 2024-08-18 02:13 | EDPHYS ---
Physician Documentation [facility] Name: Rachna Peña Age: 89 yrs Sex: Female : 1935 Arrival Date: 08/18/2024 Time: 00:17 Bed 23 Private MD: TORRIE Physician Leo Davis HPI: 08/18 01:53 This 89 yrs old Female presents to ER via EMS with complaints of Shortness Of summer Breath. 01:53 The patient has shortness of breath at rest. Onset: The symptoms/episode began/occurred summer 3 day(s) ago. Duration: The symptoms are continuous, and are steadily getting worse. The patient's shortness of breath has no apparent modifying factors. Associated signs and symptoms: The patient has no apparent associated signs or symptoms. Severity of symptoms: At their worst the symptoms were. The patient has not experienced similar symptoms in the past. Historical: - Allergies: 00:47 Bactrim; bm8 - Home Meds: 00:47 allopurinol 300 mg Oral tab 1 tab once daily [Active]; amlodipine 2.5 mg tab 1 tab once bm8 daily [Active]; duloxetine 60 mg Oral cpDR 1 cap once daily [Active]; Eliquis 2.5 mg Oral tablet 2 times per day [Active]; gabapentin 400 mg Oral cap 1 cap 3 times per day [Active]; levetiracetam 500 mg Oral tab 1 tab 2 times per day [Active]; levothyroxine 75 mcg tab 1 tab once daily [Active]; meloxicam 7.5 mg Oral tab 1 tab once daily [Active]; metoprolol tartrate 25 mg Oral tab [Active]; simvastatin 10 mg Oral tab 1 tab once daily [Active]; - PMHx: 00:47 Arthritis; Atrial Fib; COPD; Gout; High Cholesterol; Hypertension; Hypothyroidism; knee bm8 pain; Myocardial infarction; Seizures; Sleep Apnea; - Immunization history:: Adult Immunizations up to date. - Infectious Disease History:: Denies. - Social history:: Smoking status: Patient denies any tobacco usage or history of. ROS: 01:53 Constitutional: Negative for fever, chills, and weight loss, Eyes: Negative for injury, summer pain, redness, and discharge, ENT: Negative for injury, pain, and discharge, Neck: Negative for injury, pain, and swelling, Cardiovascular: Negative for chest pain, palpitations, and edema, Abdomen/GI: Negative for abdominal pain, nausea, vomiting, diarrhea, and constipation, Back: Negative for injury and pain, : Negative for injury, bleeding, discharge, and swelling, Skin: Negative for injury, rash, and discoloration, Neuro: Negative for headache, weakness, numbness, tingling, and seizure, Psych: Negative for depression, anxiety, suicide ideation, homicidal ideation, and hallucinations, Allergy/Immunology: Negative for hives, rash, and allergies, Endocrine: Negative for neck swelling, polydipsia, polyuria, polyphagia, and marked weight changes, Hematologic/Lymphatic: Negative for swollen nodes, abnormal bleeding, and unusual bruising, :53 Cardiovascular: Positive for orthopnea, :53 Respiratory: Positive for cough, shortness of breath, wheezing, expiratory, Exam: :54 Constitutional: This is a well developed, well nourished patient who is awake, alert, summer and in no acute distress. Head/Face: Normocephalic, atraumatic. Eyes: Pupils equal round and reactive to light, extra-ocular motions intact. Lids and lashes normal. Conjunctiva and sclera are non-icteric and not injected. Cornea within normal limits. Periorbital areas with no swelling, redness, or edema. ENT: Nares patent. No nasal discharge, no septal abnormalities noted. Tympanic membranes are normal and external auditory canals are clear. Oropharynx with no redness, swelling, or masses, exudates, or evidence of obstruction, uvula midline. Mucous membranes moist. Neck: Trachea midline, no thyromegaly or masses palpated, and no cervical lymphadenopathy. Supple, full range of motion without nuchal rigidity, or vertebral point tenderness. No Meningismus. Chest/axilla: Normal chest wall appearance and motion. Nontender with no deformity. No lesions are appreciated. Cardiovascular: Regular rate and rhythm with a normal S1 and S2. No gallops, murmurs, or rubs. Normal PMI, no JVD. No pulse deficits. Abdomen/GI: Soft, non-tender, with normal bowel sounds. No distension or tympany. No guarding or rebound. No evidence of tenderness throughout. Back: No spinal tenderness. No costovertebral tenderness. Full range of motion. Skin: Warm, dry with normal turgor. Normal color with no rashes, no lesions, and no evidence of cellulitis. MS/ Extremity: Pulses equal, no cyanosis. Neurovascular intact. Full, normal range of motion., bilateral aka Neuro: Awake and alert, GCS 15, oriented to person, place, time, and situation. Cranial nerves II-XII grossly intact. Motor strength 5/5 in all extremities. Sensory grossly intact. Cerebellar exam normal. Normal gait. Psych: Awake, alert, with orientation to person, place and time. Behavior, mood, and affect are within normal limits. 01:54 ECG was reviewed by the Attending Physician. 01:54 Respiratory: the patient does not display signs of respiratory distress, Respirations: labored breathing, that is moderate, Breath sounds: rales, that are moderate, are located in both bases, bronchial sounds, that are mild, are scattered, decreased breath sounds, that are mild, are scattered, rhonchi, that are mild, are scattered, stridor, is not appreciated, + upper airway congestion. Vital Signs: 00:23 BP 154 / 96; Pulse 71; Resp 18; Temp 98.4; Pulse Ox 98% on 3 lpm NC; Weight 127.01 kg; bm8 Height 5 ft. 6 in. ; Pain 0/10; 01:19 BP 138 / 90; Pulse 72; Resp 17; Temp 98.4; Pulse Ox 100% on Nebulizer Mask; Pain 0/10; bm8 03:47 BP 160 / 79; Pulse 82; Resp 18; Temp 98.4; Pulse Ox 99% on 3 lpm NC; Pain 0/10; bm8 00:23 Body Mass Index 45.19 (127.01 kg, 167.64 cm) bm8 00:23 Pain Scale: Adult bm8 01:19 Pain Scale: Adult bm8 03:47 Pain Scale: Adult bm8 Primitivo Coma Score: 01:19 Eye Response: spontaneous(4). Motor Response: obeys commands(6). Verbal Response: bm8 oriented(5). Total: 15. 03:47 Eye Response: to voice(3). Motor Response: obeys commands(6). Verbal Response: bm8 confused(4). Total: 13. Procedures: 02:08 Peripheral line: by aseptic technique a peripheral line was placed in the right summer external jugular vein. MDM: 00:30 Medical Screening Exam initiated summer 01:59 Differential diagnosis: Anemia Anxiety Reaction asthma, Bronchitis CHF exacerbation, summer Chronic Obstructive Pulmonary Disease Myocardial Infarction pulmonary edema, reactive airway disease, Sepsis Unstable Angina. Antibiotic administration: Not indicated. Differential Diagnosis altered mental status, sepsis, flu. Immunization status: Pneumococcal vaccine: within last 5 years. Influenza vaccine: Data reviewed: vital signs, nurses notes, lab test result(s), EKG, radiologic studies. Consideration of Admission/Observation Patient was admitted/placed on observation. Escalation of care including admission/observation considered. I considered the following discharge prescriptions or medication management in the emergency department Medications were administered in the Emergency Department. See MAR. Independent interpretation of the following test(s) in the Emergency Department EKG: See my EKG interpretation above X-Ray: My interpretation is cxr. Test considered but Not performed: CT: ct chest. Historians other than the Patient: Family Member: all family well informed. Care significantly affected by the following chronic conditions: Hypertension, Congestive Heart Failure, Chronic Obstructive Pulmonary Disease, Obesity, high chlesterol. Counseling: I had a detailed discussion with the patient and/or guardian regarding the historical points, exam findings, and any diagnostic results supporting the discharge/admit diagnosis, the presence of at least one elevated blood pressure reading (>120/80) during this emergency department visit, lab results, radiology results. 08/18 00:33 Order name: Basic Metabolic Panel; Complete Time: 01:[address] [facility] 08/18 00:33 Order name: CBC with Diff; Complete Time: :[address] [facility] 08/18 00:33 Order name: LFT's; Complete Time: :[address] [facility] 08/18 00:33 Order name: Magnesium; Complete Time: :[address] [facility] 08/18 00:33 Order name: NT PRO-BNP; Complete Time: :[address] [facility] 08/18 00:33 Order name: PT-INR; Complete Time: :[address] [facility] 08/18 00:33 Order name: Troponin HS; Complete Time: :[address] [facility] 08/18 00:33 Order name: Lipase; Complete Time: :[address] [facility] 08/18 00:33 Order name: Blood Culture Adult (2) [facility] 08/18 00:33 Order name: Lactate w/ 2H reflex if indic.; Complete Time: 04:[address] [facility] 08/18 01:52 Order name: ABG [facility] 08/18 02:53 Order name: Basic Metabolic Panel [facility] 08/18 02:53 Order name: Basic Metabolic Panel [facility] 08/18 02:53 Order name: CBC with Automated Diff [facility] 08/18 02:53 Order name: CBC with Automated Diff [facility] 08/18 02:53 Order name: NT PRO-BNP [facility] 08/18 02:53 Order name: NT PRO-BNP [facility] 08/18 02:53 Order name: Troponin High Sensitivity; Complete Time: 04:54 [facility] 08/18 04:56 Order name: Urinalysis w/ reflexes [facility] 08/18 08:57 Order name: Glucose, Ancillary Testing [facility] 08/18 12:40 Order name: Glucose, Ancillary Testing [facility] 08/18 17:21 Order name: Glucose, Ancillary Testing [facility] 08/18 00:33 Order name: XRAY Chest (1 view) [facility] 08/18 03:00 Order name: Echo with Doppler [facility] 08/18 03:02 Order name: Occupational Therapy Consult [facility] 08/18 03:02 Order name: Physical Therapy Consult [facility] 08/18 00:33 Order name: Cardiac monitoring; Complete Time: 01:[address] [facility] 08/18 00:33 Order name: EKG - Nurse/Tech; Complete Time: 01:[address] [facility] 08/18 00:33 Order name: IV Saline Lock; Complete Time: 01:[address] [facility] 08/18 00:33 Order name: Labs collected and sent; Complete Time: 01:[address] [facility] 08/18 00:33 Order name: O2 Per Protocol; Complete Time: 01:[address] [facility] 08/18 00:33 Order name: O2 Sat Monitoring; Complete Time: 01:[address] [facility] 08/18 00:33 Order name: [place]; Complete Time: 03:[address] [facility] EC:54 Rate is 74 beats/min. Rhythm is irregularly irregular. QRS [place] is Normal. [place] interval summer is normal. QRS interval is normal. QT interval is normal. No Q waves. T waves are Normal. No ST changes noted. Clinical impression: Atrial Fibrillation and No evidence of ischemia. Interpreted by me. Reviewed by me. Administered Medications: 01:17 Drug: Ipratropium Inhalation Aerosol 0.5 mg Inhalation once Route: Inhalation; bm8 03:48 Follow up: Response: No adverse reaction 8 01:17 Drug: MethylPrednisoLONE IVP 125 mg IVP once Route: IVP; Site: right antecubital; bm8 03:48 Follow up: Response: No adverse reaction bm8 01:17 Drug: Meropenem IV 1 grams IV at per protocol once; (mix in NS 100 mL) Route: IV; Rate: bm8 per protocol; Site: right antecubital; 03:48 Follow up: Response: No adverse reaction; IV Status: Completed infusion bm8 01:17 Drug: Famotidine IVP 20 mg IVP once; dilute with 10 mL 0.9% NaCl; give over 2 minutes bm8 Route: IVP; Site: right antecubital; 03:52 Follow up: Response: No adverse reaction bm8 01:18 Drug: Levalbuterol Inhalation 2.5 mg Inhalation once Route: Inhalation; bm8 03:49 Follow up: Response: No adverse reaction bm8 03:46 Drug: Furosemide IVP 20 mg IVP once; give over 2 minutes Route: IVP; Site: right bm8 jugular; 03:48 Follow up: Response: No adverse reaction bm8 Disposition Summary: 08/18/24 02:13 Hospitalization Ordered Notes: Hospitalization Status: Inpatient Admission summer Provider: Prince summer Chaudhary Condition: Fair summer Problem: new summer Symptoms: have improved summer Bed/Room Type: Standard summer Location: Telemetry/MedSurg (Inpatient)(08/18/24 14:54) sp Room Assignment: 229(08/18/24 17:34) hb Diagnosis - Dyspnea summer - Persistent atrial fibrillation summer - [facility] (current) use of anticoagulants summer - Combined systolic (congestive) and diastolic (congestive) heart failure summer - COPD/ Chronic obstructive pulmonary disease with (acute) exacerbation summer - Obesity, unspecified summer - Pneumonia due to other specified bacteria summer Forms: - Medication Reconciliation Form summer - SBAR form summer - Leadership Thank You Letter summer Signatures: Dispatcher [employer] Bailey Jaffe RN RN dw Anderson, Corey, MD MD cha Pinkerton, Shawna sp Garcia, Cindy, RN RN cg Baxter, Heather, RN RN hb McDonald, Brad, RN RN bm8 Corrections: (The following items were deleted from the chart) 00:34 00:33 BASIC METABOLIC PANEL+C.LAB.BRZ ordered. EDMS EDMS 00:34 00:33 CBC+H.LAB.BRZ ordered. EDMS EDMS 00:34 00:33 HEPATIC FUNCTION+C.LAB.BRZ ordered. EDMS EDMS 00:34 00:33 MAGNESIUM+C.LAB.BRZ ordered. EDMS EDMS 00:34 00:33 PROBNP+C.LAB.BRZ ordered. EDMS EDMS 00:34 00:33 PROTIME (+INR)+COAG.LAB.BRZ ordered. EDMS EDMS 00:34 00:33 Troponin High Sensitivity+C.LAB.BRZ ordered. EDMS EDMS 00:34 00:33 LIPASE+C.LAB.BRZ ordered. EDMS EDMS 00:34 00:33 BLOOD CULTURE*+BA.LAB.BRZ ordered. EDMS EDMS 00:34 00:33 LACTATE+C.LAB.BRZ ordered. EDMS EDMS 01:53 01:53 BiPap ([employer] Only)+RC.RAD.BRZ ordered. EDMS EDMS 03:29 02:13 Telemetry/MedSurg (Inpatient) summer cg 03:29 02:13 summer cg 14:54 03:29 BR ER HOLD cg sp 14:54 03:29 ERHOLD- cg sp 17:27 14:54 229 sp dw 17:34 17:27 223 dw hb
--- NOTE | 2024-08-18 02:13 | ER ---
Nurse's Notes [facility] Name: Rachna Peña Age: 89 yrs Sex: Female : 1935 Arrival Date: 08/18/2024 Time: 00:17 Bed 23 Private MD: Diagnosis: Dyspnea;Persistent atrial fibrillation;penitentiary (current) use of anticoagulants;Combined systolic (congestive) and diastolic (congestive) heart failure;COPD/ Chronic obstructive pulmonary disease with (acute) exacerbation;Obesity, unspecified;Pneumonia due to other specified bacteria Presentation: 08/18 00:23 Chief complaint: EMS states: Family states that her 02 reading is showing in the low 70.bm8 00:23 Method Of Arrival: [facility] bm8 00:23 Coronavirus screen: Vaccine status: At this time, the client does not indicate any bm8 symptoms associated with coronavirus-19. Ebola Screen: Patient negative for fever greater than or equal to 101.5 degrees Fahrenheit, and additional compatible Ebola Virus Disease symptoms Patient denies exposure to infectious person. Patient denies travel to an Ebola-affected area in the 21 days before illness onset. No symptoms or risks identified at this time. Initial Sepsis Screen: Does the patient meet any 2 criteria? No. Patient's initial sepsis screen is negative. Does the patient have a suspected source of infection? No. Patient's initial sepsis screen is negative. Risk Assessment: Do you want to hurt yourself or someone else? Patient reports no desire to harm self or others. Onset of symptoms is unknown. 00:23 Acuity: JENNIFER 2 bm8 Triage Assessment: 00:23 General: Appears in no apparent distress. comfortable, Behavior is calm, appropriate bm8 for age, flat. Pain: Denies pain. EENT: No deficits noted. No signs and/or symptoms were reported regarding the EENT system. Neuro: Level of Consciousness is awake, obeys commands, Oriented to person, Appropriate for age Cardiovascular: Denies chest pain, Heart tones S1 S2 present Capillary refill < 3 seconds in bilateral fingers Patient's skin is warm and dry. Rhythm is atrial fibrillation. 00:23 Respiratory: Reports shortness of breath at rest Airway is patent Breath sounds are bm8 clear bilaterally. Onset: The symptoms/episode began/occurred at an unknown time. the patient has mild shortness of breath. GI: Parent/caregiver reports the patient having diarrhea. : No signs and/or symptoms were reported regarding the genitourinary system. Derm: No signs and/or symptoms reported regarding the dermatologic system. Musculoskeletal: No signs and/or symptoms reported regarding the musculoskeletal system. Historical: - Allergies: 00:47 Bactrim; bm8 - Home Meds: 00:47 allopurinol 300 mg Oral tab 1 tab once daily [Active]; amlodipine 2.5 mg tab 1 tab once bm8 daily [Active]; duloxetine 60 mg Oral cpDR 1 cap once daily [Active]; Eliquis 2.5 mg Oral tablet 2 times per day [Active]; gabapentin 400 mg Oral cap 1 cap 3 times per day [Active]; levetiracetam 500 mg Oral tab 1 tab 2 times per day [Active]; levothyroxine 75 mcg tab 1 tab once daily [Active]; meloxicam 7.5 mg Oral tab 1 tab once daily [Active]; metoprolol tartrate 25 mg Oral tab [Active]; simvastatin 10 mg Oral tab 1 tab once daily [Active]; - PMHx: 00:47 Arthritis; Atrial Fib; COPD; Gout; High Cholesterol; Hypertension; Hypothyroidism; knee bm8 pain; Myocardial infarction; Seizures; Sleep Apnea; - Immunization history:: Adult Immunizations up to date. - Infectious Disease History:: Denies. - Social history:: Smoking status: Patient denies any tobacco usage or history of. Screenin:19 [facility] ED Fall Risk Assessment (Adult) History of falling in the last 3 months, bm8 including since admission Yes- fall prone (multiple falls) (3 pts) Confusion or Disorientation Yes (5 pts) Intoxicated or Sedated No (0 pts) Impaired Gait Yes (1 pt) Mobility Assist Device Used No (0 pt) Altered Elimination Yes (1 pt) Score/Fall Risk Level 3 or more points = High Risk Oriented to surroundings, Maintained a safe environment, Educated pt \T\ family on fall prevention, incl call for assistance when getting out of bed, Assessed \T\ reinforced patient's understanding of fall precautions, Hourly rounding (assess needs \T\ fall precautionary measures) done, Used ambulatory aids as needed (educated on \T\ assisted with), Used gait belt as appropriate Implemented a Fall Risk Plan of Care. Abuse screen: Denies threats or abuse. Nutritional screening: No deficits noted. Tuberculosis screening: No symptoms or risk factors identified. Assessment: 01:19 Reassessment: Patient appears in no apparent distress at this time. Patient and/or bm8 family updated on plan of care and expected duration. Pain level reassessed. Patient states symptoms have improved. Cardiovascular: Denies chest pain, Heart tones S1 S2 present Capillary refill < 3 seconds in bilateral fingers Patient's skin is warm and dry. Rhythm is atrial fibrillation. Respiratory: Airway is patent Respiratory effort is even, unlabored, Respiratory pattern is regular, symmetrical, Breath sounds are clear bilaterally. 03:47 Reassessment: Patient appears in no apparent distress at this time. Patient and/or bm8 family updated on plan of care and expected duration. Pain level reassessed. Patient is alert, oriented x 3, equal unlabored respirations, skin warm/dry/pink. Patient denies pain at this time. Patient states symptoms have improved. Vital Signs: 00:23 BP 154 / 96; Pulse 71; Resp 18; Temp 98.4; Pulse Ox 98% on 3 lpm NC; Weight 127.01 kg; bm8 Height 5 ft. 6 in. ; Pain 0/10; 01:19 BP 138 / 90; Pulse 72; Resp 17; Temp 98.4; Pulse Ox 100% on Nebulizer Mask; Pain 0/10; bm8 03:47 BP 160 / 79; Pulse 82; Resp 18; Temp 98.4; Pulse Ox 99% on 3 lpm NC; Pain 0/10; bm8 00:23 Body Mass Index 45.19 (127.01 kg, 167.64 cm) bm8 00:23 Pain Scale: Adult bm8 01:19 Pain Scale: Adult bm8 03:47 Pain Scale: Adult bm8 [place] Coma Score: 01:19 Eye Response: spontaneous(4). Motor Response: obeys commands(6). Verbal Response: bm8 oriented(5). Total: 15. 03:47 Eye Response: to voice(3). Motor Response: obeys commands(6). Verbal Response: bm8 confused(4). Total: 13. ED Course: 00:23 Patient arrived in ED. [id number] 00:23 Arm band placed on right wrist. bm8 00:30 Leo Davis MD is Attending Physician. summer 00:45 Matthews, Vitaliy, RN is Primary Nurse. bm8 00:47 Triage completed. bm8 01:00 Initial lab(s) drawn, by me, sent to lab. First set of blood cultures drawn by me, EKG bm8 done, by ED staff, reviewed by Leo Davis MD. Inserted saline lock: 20 gauge in right antecubital area, using aseptic technique. Blood collected. Flushed with 10 mL NS. Oxygen administration via nasal cannula \T\ 3L/min Response to oxygen therapy: symptoms improved. 01:00 First set of blood cultures drawn by me, Second set of blood cultures drawn. bm8 01:01 XRAY Chest (1 view) In Process Unspecified. EDMS 01:19 Patient has correct armband on for positive identification. Placed in gown. Bed in low bm8 position. Call light in reach. Side rails up X2. Adult w/ patient. Client placed on continuous cardiac and pulse oximetry monitoring. NIBP monitoring applied. groundwater monitoring technician on. Pulse ox on. NIBP on. Door closed. Noise minimized. Pillow given. Verbal reassurance given. Head of bed elevated. 01:19 No provider procedures requiring assistance completed. bm8 02:09 Prince Chaudhary MD is Hospitalizing Provider. [facility] 03:47 Provided Education on: need for admission. bm8 03:47 IV discontinued, intact, bleeding controlled, No redness/swelling at site. Pressure bm8 dressing applied, pt's right ac IV infiltrated and DC'ed. 03:50 Inserted saline lock: 18 gauge in right EJ, using aseptic technique. bm8 03:50 [place] cath inserted, using sterile technique, 16 Fr., by me, by top collar baster, balloon bm8 inflated, to gravity drainage, returned clear yellow urine. Patient tolerated well. Administered Medications: 01:17 Drug: Ipratropium Inhalation Aerosol 0.5 mg Inhalation once Route: Inhalation; bm8 03:48 Follow up: Response: No adverse reaction bm8 01:17 Drug: MethylPrednisoLONE IVP 125 mg IVP once Route: IVP; Site: right antecubital; bm8 03:48 Follow up: Response: No adverse reaction bm8 01:17 Drug: Meropenem IV 1 grams IV at per protocol once; (mix in NS 100 mL) Route: IV; Rate: bm8 per protocol; Site: right antecubital; 03:48 Follow up: Response: No adverse reaction; IV Status: Completed infusion bm8 01:17 Drug: Famotidine IVP 20 mg IVP once; dilute with 10 mL 0.9% NaCl; give over 2 minutes bm8 Route: IVP; Site: right antecubital; 03:52 Follow up: Response: No adverse reaction bm8 01:18 Drug: Levalbuterol Inhalation 2.5 mg Inhalation once Route: Inhalation; bm8 03:49 Follow up: Response: No adverse reaction bm8 03:46 Drug: Furosemide IVP 20 mg IVP once; give over 2 minutes Route: IVP; Site: right bm8 jugular; 03:48 Follow up: Response: No adverse reaction bm8 Medication: 01:19 VIS not applicable for this client. bm8 Outcome: 02:13 Decision to Hospitalize by Provider. summer 03:50 Admitted to [facility] 03:50 Admitted to ER Hold. Please see [facility] for further documentation. 8 03:50 Condition: stable 03:50 Instructed on follow up and referral plans. the need for admit, Demonstrated understanding of instructions, follow-up care, medications, 17:34 Patient left the ED. hb Signatures: Dispatcher [employer] EDWV Leo Davis MD MD cha Baxter, Heather, RN RN Missy Simons Brad, RN RN bm8
[2024-08-18] MEDS ORDERED: IPRATROPIUM BROM 0.5MG/2.5ML NEB PRN (02:49)
[2024-08-18] MEDS ORDERED: ALBUTEROL 2.5 MG/3 ML NEB SOL NEB PRN (02:49)
[2024-08-18] MEDS ORDERED: ONDANSETRON 4 MG/2 ML VIAL IV PRN (02:49)
[2024-08-18] MEDS: DULERA 200/5 (MOMETASONE/FORMOTEROL) INHALER IH SCH (02:56)
--- NOTE | 2024-08-18 02:56 | P.HP ---
Certification for Inpatient Patient admitted to: Inpatient With expected LOS: >2 Midnights Practitioner: I am a practitioner with admitting privileges, knowledge of patient current condition, hospital course, and medical plan of care. Services: Services provided to patient in accordance with Admission requirements found in Title 42 Section 412.3 of the Code of Federal Regulations Patient History Date of Service: 08/18/24 Reason for admission: shortness of breath History of Present Illness: Patient is a 89-year-old history hypertension, lipidemia hypothyroidism, coronary disease status post stent, seizure disorder, COPD morbid obesity and obstructive sleep she also has chronic respiratory failure. She is being admitted for acute on chronic respiratory failure. She lives with her daughter son and all. They have noticed that her O2 sat dropped in 80s and 70s range. Patient uses supplemental oxygen continuous basis. During my evaluation was requiring 5 L. She is being admitted for COPD exacerbation Allergies No Known Allergies Allergy (Verified 10/06/21 23:28) Home Medications: Duloxetine [Cymbalta *] 60 mg PO DAILY 09/01/18 Gabapentin [Neurontin*] 400 mg PO TID 09/01/18 Levothyroxine [Synthroid*] 75 mcg PO [id number] 09/01/18 Simvastatin 10 mg PO BEDTIME 09/01/18 Apixaban [Eliquis *] 2.5 mg PO BID 30 Days #60 tablet 03/07/24 acetaZOLAMIDE [Acetazolamide] 250 mg PO DAILY #30 tab 03/07/24 Aspirin Chewable [Aspirin Chewable*] 81 mg PO DAILY 06/11/24 Bumetanide [Bumex*] 1 mg PO DAILY 06/11/24 Loratadine [Claritin*] 10 mg PO DAILY 06/11/24 Tramadol HCl [Ultram] 50 mg PO Q6H 06/11/24 Valacyclovir HCl [Valacyclovir] 1 tab PO DAILY 06/11/24 levETIRAcetam [Keppra*] 500 mg PO BID 06/11/24 Metoprolol Tartrate [Lopressor*] 25 mg PO BID 6AM 6PM #60 tab 06/14/24 Mupirocin Calcium [Bactroban Nasal*] 1 appl MARY BID #1 tube 06/14/24 Cyanocobalamin/Cobamamide [Vitamin B-12 5,000 Mcg Tab Sl] 1 each SL DAILY #30 tab 06/15/24 predniSONE [Deltasone] 20 mg PO BID #20 tab 06/15/24 - Past Medical/Surgical History Diabetic: No -: arthritis -: gout -: HLD -: HTN -: atrial fibrillation -: hypothyroid -: [place] -: irwin cataract -: right foot sx Psychosocial/ Personal History: Patient is a and lives at home alone. Her daughter lives nearby. - Family History Father -: Cancer - Social History Alcohol use: No CD- Drugs: No Caffeine use: No Physical Examination - Physical Exam General: Acute distress, Obese (Morbidly) Respiratory: Diminished Cardiovascular: No edema, Normal pulses, Normal S1 S2, Irregular heart rate/rhythm - Studies Laboratory Data (last 24 hrs) 08/18/24 08/18/24 08/18/24 00:40 00:40 00:40 WBC 5.40 Hgb 9.8 L Hct 30.5 L Plt Count 136 L PT 17.1 H INR 1.53 Sodium 128 L Potassium 4.7 BUN 11 Creatinine 0.70 Glucose 128 H Magnesium 2.1 Total Bilirubin 0.4 AST 11 L ALT 19 Alkaline Phosphatase 63 Lipase 25 Assessment and Plan - Problems (Diagnosis) (1) Acute respiratory failure with hypoxia and hypercapnia Current Visit: No Status: Acute (2) COPD exacerbation Current Visit: No Status: Acute (3) Gout Current Visit: No Status: Acute (4) Atrial fibrillation Current Visit: No Status: Chronic Qualifiers: (5) Hard of hearing Current Visit: No Status: Chronic Qualifiers: (6) Hyperlipidemia Current Visit: No Status: Chronic Qualifiers: (7) Hypertension Current Visit: No Status: Chronic Qualifiers: (8) Hypothyroid Current Visit: No Status: Chronic Qualifiers: - Plan Assessment This is a 89-year-old female who is being admitted for COPD exacerbation and acute on chronic respiratory failure. She has a history of morbid obesity, obstructive sleep apnea, atrial fibrillation, coronary disease as well. She was brought in because she was desatting at home while on supplemental oxygen. Acute on chronic respiratory failure COPD exacerbation Morbid obesity Obstructive sleep apnea Atrial fibrillation Hypothyroidism Hypertension Hard of hearing Plan: Will admit inpatient with telemetry Continue scheduled Solu-Medrol, levofloxacin and as needed DuoNebs Will add Dulera to her regimen Consult placed for pulmonology Lasix trial 2D echo Monitor ins and As needed IV hydralazine PT/OT before discharge Resume rest of home medication upon reconciliation - Advance Directives Does patient have a Living Will: No Does patient have a Durable POA for Healthcare: No
[2024-08-18] MEDS ORDERED: HYDRALAZINE HCL 20 MG/ML VIAL IV PRN (02:59)
[2024-08-18] MEDS ORDERED: FUROSEMIDE 20 MG/ 2ML VIAL ONE (03:45)
[2024-08-18] MEDS ORDERED: Levofloxacin 750mg IV 750 MG/150 ML BAG IV ONE ×2 (04:00→05:46)
--- NOTE | 2024-08-18 04:14 | RAD REPORT ---
CLINICAL HISTORY: Cough, dyspnea. COMPARISON: None. TECHNIQUE: XR CHEST 1 VIEW 08/18/2024 12:33 AM CDT FINDINGS: The heart is moderately enlarged. There are vague opacities within both upper lobes and possibly both lung bases. There is no pleural effusion. There is no pneumothorax. There are no acute osseous findings. IMPRESSION: Suspect mild nearly diffuse areas of pneumonia bilaterally. Electronically signed by: Mauro Kinney MD 08/18/2024 01:45 AM CDT RP Due to temporary technical issues with the PACS/[employer] reporting system, reports are being annette d by the in-house radiologist without review as a courtesy to ensure prompt reporting the interpreting radiologist is fully responsible for the content of the report. Transcribed Date/Time: 08/18/2024 4:14 AM
[2024-08-18] MEDS ORDERED: FUROSEMIDE 40 MG/4 ML VIAL ONE (05:46)
[2024-08-18] MEDS: FUROSEMIDE 40 MG/4 ML VIAL IV ONE (05:51)
[2024-08-18] MEDS: Levofloxacin 750mg IV 750 MG/150 ML BAG IV SCH (05:52)
[2024-08-18] MEDS ORDERED: METHYLPREDNISOLONE 40 MG INJ ONE (08:16)
[2024-08-18] MEDS ORDERED: ASPIRIN EC 81 MG TAB PO ONE (08:16)
[2024-08-18] MEDS: ASPIRIN EC 81 MG TAB PO SCH (09:00)
[2024-08-18] MEDS: METHYLPREDNISOLONE 40 MG INJ IV SCH (09:00)
[2024-08-18 09:24] LABS: Specific Gravity 1.006 (1.005-1.030); Sqamous Epithelial None Seen /HPF (None Seen); Urine Bacteria <20 /HPF (<20); Urine Bilirubin NEGATIVE (Negative); Urine Blood Negative (Negative); Urine Clarity Clear (Clear); Urine Color Colorless (Yellow); Urine Culture Reflex Order NOT NEEDED; Urine Glucose NEGATIVE (Negative); Urine Ketones NEGATIVE (Negative); Urine Microscopic Reflex YN ORDER UMIC; Urine Nitrite NEGATIVE (Negative); Urine Protein NEGATIVE (Negative); Urine RBC <5 /HPF (None Seen); Urine Urobilinogen Normal (Normal); Urine WBC <5 /HPF (<5); Urine pH 6.5 (5.0-7.0)
--- NOTE | 2024-08-18 09:56 | P.PN ---
Date of Service: 08/18/24 Subjective: patient seen during lunch, eating lunch tray without difficulty feels slight improvement ROS: 10 point ROS as noted above, otherwise negative Physical Exam: GEN: Alert, oriented, Hard of hearing CV: Regular rate and rhythm, no edema Pulm: Nonlabored respirations on 3L NC, wheeze ABD: soft, nontender, nondistended Neuro: Left-sided droop, slightly slurred speech (~baseline per family) rodriguez placed overnight (08/18) Problem List: Acute on chronic hypoxic respiratory failure secondary to acute on chronic COPD exacerbation (on Home O2 - 2-3L NC) Diarrhea Atrial fibrillation Seizure disorder Obstructive sleep apnea Hypothyroidism Hypertension Hx Phipps's Palsy Hx Gout Hx CAD Acute on chronic hypoxic respiratory failure secondary to acute on chronic COPD exacerbation (on Home O2 - 2-3L NC) on admission, presents with worsening shortness of breath associated with oxygen desaturation to 70-80% CXR noted vague opacities within both upper lobes and possibly both lung bases. Read as possible bilateral pneumonia wean oxygen as tolerated. on 2-3L NC home oxygen. Echo ordered to eval EF / stenosis - prior echo from 02/2024 with 60% EF, grade 2 diastolic dysfunction, moderately dilated left atrium Follow blood cultures. Dr. Gifford, pulm consult IV steroids, duonebs PT/OT consult 08/18 - DC Levaquin. No evidence of infection/pneumonia. spironolactone, diamox, brovana added per pulm DC lasix Diarrhea family reports liquid diarrhea at home. Monitor for diarrhea. Atrial fibrillation Seizure disorder Obstructive sleep apnea Hypothyroidism Hypertension Hx Phipps's Palsy Hx Gout Hx CAD confirm home meds, restart as appropriate resume home eliquis, asa 81 mg, keprra, metoprolol VTE: home eliquis Code: Full Dispo: Home, ~ 2 days Pending further improvement, pulm recs Time Spent Managing Pts Care (In Minutes): 55
[2024-08-18] MEDS: levETIRAcetam 500 MG TAB PO SCH (10:30)
[2024-08-18] MEDS: APIXABAN 2.5 MG TABLET PO SCH (10:30)
[2024-08-18] MEDS: METOPROLOL TAR 25 MG TAB PO SCH (10:30)
[2024-08-18] MEDS ORDERED: levETIRAcetam 500 MG TAB ONE (10:38)
[2024-08-18] MEDS ORDERED: METOPROLOL TAR 25 MG TAB ONE (10:38)
[2024-08-18] MEDS ORDERED: APIXABAN 2.5 MG TABLET ONE (10:38)
--- NOTE | 2024-08-18 11:53 | P.CNS ---
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 stable does not appear to be any distress vital signs all stable Allergies No Known Allergies Allergy (Verified 10/06/21 23:28) Home Medications: Duloxetine [Cymbalta *] 60 mg PO DAILY 09/01/18 Gabapentin [Neurontin*] 400 mg PO TID 09/01/18 Levothyroxine [Synthroid*] 75 mcg PO [id number] 09/01/18 Simvastatin 10 mg PO BEDTIME 09/01/18 Apixaban [Eliquis *] 2.5 mg PO BID 30 Days #60 tablet 03/07/24 acetaZOLAMIDE [Acetazolamide] 250 mg PO DAILY #30 tab 03/07/24 Aspirin Chewable [Aspirin Chewable*] 81 mg PO DAILY 06/11/24 Bumetanide [Bumex*] 1 mg PO DAILY 06/11/24 Loratadine [Claritin*] 10 mg PO DAILY 06/11/24 Tramadol HCl [Ultram] 50 mg PO Q6H 06/11/24 Valacyclovir HCl [Valacyclovir] 1 tab PO DAILY 06/11/24 levETIRAcetam [Keppra*] 500 mg PO BID 06/11/24 Metoprolol Tartrate [Lopressor*] 25 mg PO BID 6AM 6PM #60 tab 06/14/24 Mupirocin Calcium [Bactroban Nasal*] 1 appl MARY BID #1 tube 06/14/24 Cyanocobalamin/Cobamamide [Vitamin B-12 5,000 Mcg Tab Sl] 1 each SL DAILY #30 tab 06/15/24 predniSONE [Deltasone] 20 mg PO BID #20 tab 06/15/24 - Past Medical/Surgical History Diabetic: No -: arthritis -: gout -: HLD -: HTN -: atrial fibrillation -: hypothyroid -: [place] -: COPD -: Sleep apnea -: Seizures -: Palsy of the left face -: irwin cataract -: right foot sx Psychosocial/ Personal History: Patient is a and lives at home alone. Her daughter lives nearby. - Family History Father Medical History: Cancer - Social History Smoking Status: Unknown if ever smoked Alcohol use: No CD- Drugs: No Caffeine use: No Place of Residence: Home Review of Systems is unable to be obtained Physical Examination Temp Pulse Resp BP Pulse Ox 97.8 F 72 20 147/75 H 97 08/18/24 08:00 08/18/24 10:30 08/18/24 08:00 08/18/24 10:30 08/18/24 08:00 General: Alert, Cooperative Respiratory: Clear to auscultation bilaterally, Diminished Cardiovascular: No edema, Irregular heart rate/rhythm Gastrointestinal: Normal bowel sounds, Soft and benign Musculoskeletal: No clubbing, No swelling, No contractures Laboratory Data (last 24 hrs) 08/18/24 08/18/24 08/18/24 00:40 00:40 00:40 WBC 5.40 Hgb 9.8 L Hct 30.5 L Plt Count 136 L PT 17.1 H INR 1.53 Sodium 128 L Potassium 4.7 BUN 11 Creatinine 0.70 Glucose 128 H Magnesium 2.1 Total Bilirubin 0.4 AST 11 L ALT 19 Alkaline Phosphatase 63 Lipase 25 - Problems (1) Chronic respiratory failure with hypoxia and hypercapnia Current Visit: No Status: Acute Plan: Patient is 89 years of age admitted with hypoxemia her echo has shown diastolic heart failure chronic interstitial changes bicarb is elevated ABGs were canceled vital signs oxygenation satisfactory there is no prior history of smoking he probably has underlying obesity hypoventilation syndrome and Lasix DC antibiotics/add spironolactone and Diamox DC steroids
[2024-08-18] MEDS: ARFORMOTEROL TARTRATE 15 MCG/2 ML VIAL.NEB NEB SCH (11:56)
[2024-08-18] MEDS ORDERED: acetaZOLAMIDE 250 MG TAB ONE (12:16)
[2024-08-18] MEDS: acetaZOLAMIDE 250 MG TAB PO SCH (13:00)
[2024-08-18] MEDS: SPIRONOLACTONE 25 MG TABLET PO SCH (13:00)
[2024-08-19 08:24] LABS: Absolute Lymphocytes (CBC) 0.5 K/uL (0.7-4.9); Absolute Monocytes 0.7 K/uL (0.1-1.3); Absolute Neutrophil 4.2 K/uL (1.8-8.0); Basophils % 0.2 % (0-1.3); Hematocrit 30.6 % (36.0-45.0); Hemoglobin 9.9 g/dL (12.0-15.0); Lymphocytes % 9.8 % (15.3-44.8); MCH 28.5 pg (27.0-35.0); MCHC 32.3 g/dL (32.0-36.0); MCV 88.2 fL (80-100); MPV 7.8 fL (7.6-11.3); Monocytes % 13.1 % (3.3-12.3); Neutrophils % 76.9 % (41.7-73.7); Nucleated Red Blood Cells % 0.2 % (0-0); Platelets 141 thou/uL (152-406); RBC Red Blood Cell Count 3.46 M/uL (3.86-4.86); Red Cell Distribution Width 18.8 % (12.1-15.2)
--- NOTE | 2024-08-19 10:06 | P.PN ---
Date of Service: 08/19/24 Subjective: breathing feels a little easier today Reports no longer having diarrhea feels overall improvement very hard of hearing, but can read needs meds crushed due to poor dentation afebrile ROS: 10 point ROS as noted above, otherwise negative Physical Exam: GEN: Alert, oriented, Hard of hearing CV: Regular rate and rhythm, no edema Pulm: Nonlabored respirations on 4L NC, wheeze ABD: soft, nontender, nondistended Neuro: right-sided droop, slightly slurred speech (~baseline per family) rodriguez placed 08/18 Problem List: Acute on chronic hypoxic respiratory failure secondary to acute on chronic COPD exacerbation (on Home O2 - 2-3L NC) Diarrhea Atrial fibrillation Seizure disorder Obstructive sleep apnea Hypothyroidism Hypertension Hx Phipps's Palsy Hx Gout Hx CAD Acute on chronic hypoxic respiratory failure secondary to acute on chronic COPD exacerbation (on Home O2 - 2-3L NC) on admission, presents with worsening shortness of breath associated with oxygen desaturation to 70-80% CXR noted vague opacities within both upper lobes and possibly both lung bases. Read as possible bilateral pneumonia wean oxygen as tolerated. on 2-3L NC home oxygen. Echo ordered to eval EF / stenosis - prior echo from 02/2024 with 60% EF, grade 2 diastolic dysfunction, moderately dilated left atrium Follow blood cultures. Dr. Gifford, pulm consult IV steroids, duonebs PT/OT consult 08/18 - DC Levaquin. No evidence of infection/pneumonia. spironolactone, diamox, brovana added per pulm DC lasix, IV steroids 08/19 - Breathing feels slightly easier today feels overall improvement. Denies any new / worsening problems. Diarrhea family reports liquid diarrhea prior to admission Monitor for diarrhea. No BM reported since admission. 08/19 -patient reports no longer having diarrhea Atrial fibrillation Seizure disorder Obstructive sleep apnea Hypothyroidism Hypertension Hx Phipps's Palsy Hx Gout Hx CAD confirm home meds, restart as appropriate resume home eliquis, asa 81 mg, keprra, metoprolol 08/19 -awaiting home med verification VTE: home eliquis Code: Full Dispo: Home, ~ 2 days Pending further improvement, pulm recs Time Spent Managing Pts Care (In Minutes): 55
[2024-08-20 04:33] LABS: Absolute Lymphocytes (CBC) 0.6 K/uL (0.7-4.9); Absolute Monocytes 0.7 K/uL (0.1-1.3); Absolute Neutrophil 5.9 K/uL (1.8-8.0); Basophils % 0.5 % (0-1.3); Eosinophils % 0.6 % (0-4.4); Hematocrit 31.3 % (36.0-45.0); Hemoglobin 9.8 g/dL (12.0-15.0); Lymphocytes % 8.1 % (15.3-44.8); MCH 28.3 pg (27.0-35.0); MCHC 31.2 g/dL (32.0-36.0); MCV 90.5 fL (80-100); MPV 7.6 fL (7.6-11.3); Monocytes % 10.2 % (3.3-12.3); Neutrophils % 80.6 % (41.7-73.7); Nucleated Red Blood Cells % 0.1 % (0-0); Platelets 144 thou/uL (152-406); RBC Red Blood Cell Count 3.46 M/uL (3.86-4.86); Red Cell Distribution Width 18.5 % (12.1-15.2)
[2024-08-20 04:46] LABS: ALT/SGPT 17 U/L (13-56); Albumin 2.6 g/dL (3.4-5.0); Albumin/Globulin Ratio 0.7 (1.1-1.8); Alkaline Phosphatase 56 U/L (45-117); Anion Gap 5.5 mEq/L (5.0-15.0); BUN Blood Urea Nitrogen 25 mg/dL (7-18); Bicarbonate 38 mEq/L (21-32); Bilirubin Total 0.3 mg/dL (0.2-1.0); Globulin 3.7 g/dL (2.3-3.5); Glomerular Filtration Rate 65 ml/min (=/>90); Glucose Level 126 mg/dL (74-106); Magnesium 2.4 mg/dL (1.6-2.4); Potassium 3.5 mEq/L (3.5-5.1); Protein, Total 6.3 g/dL (6.4-8.2); Sodium Level 134 mEq/L (136-145)
[2024-08-20 04:47] LABS: AST/SGOT < 10 U/L (15-37)
[2024-08-20] MEDS: POTASSIUM 25 MEQ EFFERV TAB PO ONE (05:38)
--- NOTE | 2024-08-20 11:25 | EKG ---
Test Date: 2024-08-18 Test Time: 00:26:26 Curtain Hemmer Automatic: AKBAR MEASUREMENT RESULTS: Intervals: Rate: 74 NE: QRSD: 78 QT: 394 QTc: 437 [place]: P: NE: QRS: 27 T: 50 INTERPRETIVE STATEMENTS: Atrial fibrillation Abnormal ECG Compared to ECG 06/10/2024 17:42:07 Left-axis deviation no longer present Myocardial infarct finding no longer present Electronically Signed On 08-20-24 11:20:37 CDT by Wenceslao Johnson
--- NOTE | 2024-08-20 12:05 | P.PN ---
Date of Service: 08/20/24 Subjective: continues with daily improvement Breathing feels easier very large loose stool this morning Physical Exam: GEN: Alert, oriented, Hard of hearing CV: Regular rate and rhythm, no edema Pulm: Nonlabored respirations on 4L NC, wheeze Neuro: right-sided droop, slightly slurred speech (~baseline per family) rodriguez placed 08/18 Problem List: Acute on chronic hypoxic respiratory failure secondary to acute on chronic COPD exacerbation (on Home O2 - 2-3L NC) Diarrhea Atrial fibrillation Seizure disorder Obstructive sleep apnea Hypothyroidism Hypertension Hx Phipps's Palsy Hx Gout Hx CAD Acute on chronic hypoxic respiratory failure secondary to acute on chronic COPD exacerbation (on Home O2 - 2-3L NC) on admission, presents with worsening shortness of breath associated with oxygen desaturation to 70-80% CXR noted vague opacities within both upper lobes and possibly both lung bases. Read as possible bilateral pneumonia wean oxygen as tolerated. on 2-3L NC home oxygen. Follow blood cultures. Dr. Gifford, pulm consulted IV steroids, duonebs PT/OT consult 08/18 - DC Levaquin. No evidence of infection/pneumonia. spironolactone, diamox, brovana added per pulm DC lasix, IV steroids 08/19 - Breathing feels slightly easier today feels overall improvement. Denies any new / worsening problems. 08/20 - Continues with daily improvement Echo with normal EF, wall motion, mild TR, trace MR no events overnight Diarrhea family reports liquid diarrhea prior to admission Monitor for diarrhea. 08/19 - patient reports no longer having diarrhea 08/20 - large loose BM this morning Atrial fibrillation Seizure disorder Obstructive sleep apnea Hypothyroidism Hypertension Hx Phipps's Palsy Hx Gout Hx CAD confirm home meds, restart as appropriate resume home eliquis, asa 81 mg, keprra, metoprolol 08/19 -awaiting home med verification VTE: home eliquis Code: Full Dispo: Home, ~1-2 days Pending further improvement, pulm recs diarrhea improving Time Spent Managing Pts Care (In Minutes): 55
--- NOTE | 2024-08-20 12:11 | ECHO ---
HEIGHT: 5 ft 6 in WEIGHT: 280 lb 0 oz DATE OF STUDY: 08/20/[address]: Prince Ana Lilia Chaudhary MD 2-DIMENSIONAL: YES M.MODE: YES DOPPLER: YES COLOR FLOW: YES TDS: YES PORTABLE: YES DEFINITY: BUBBLE STUDY: DIAGNOSIS: SHORTNESS OF BREATH CARDIAC HISTORY: CATHERIZATION: NO SURGERY: NO PROSTHETIC VALVE: NO PACEMAKER: NO MEASUREMENTS (cm) DIASTOLIC (NORMALS) SYSTOLIC (NORMALS) IVSd 1.3 (0.6-1.2) LA Diam 3.3 (1.9-4.0) LVEF 60-65% LVIDd 4.5 (3.5-5.7) LVIDs 3.1 (2.0-3.5) %FS 31% LVPWd 1.3 (0.6-1.2) Ao Diam 3.0 (2.0-3.7) 2 DIMENSIONAL ASSESSMENT: RIGHT ATRIUM: NORMAL LEFT ATRIUM: NORMAL RIGHT VENTRICLE: NORMAL LEFT VENTRICLE: NORMAL TRICUSPID VALVE: MILD TRICUSPID REGURGITATION MITRAL VALVE: TRACE MITRAL REGURGITATION PULMONIC VALVE: NORMAL AORTIC VALVE: NORMAL PERICARDIAL EFFUSION: NONE AORTIC ROOT: NORMAL LEFT VENTRICULAR WALL MOTION: NORMAL DOPPLER/COLOR FLOW: POOR DOPPLER SIGNAL TO ESTIMATE DIASTOLIC FUNCTION COMMENTS: 1. NORMAL LEFT VENTRICULAR SYSTOLIC FUNCTION, EJECTION FRACTION 60-65%, NORMAL WALL MOTION 2. NORMAL FILLING PRESSURE (RIGHT ATRIAL PRESSURE 0-5 mmHg) 3. MILD TRICUSPID REGURGITATION TECHNOLOGIST: KENISHA BARBER
[2024-08-21 06:00] LABS: Absolute Eosinophils 0.1 K/uL (0-0.5); Absolute Lymphocytes (CBC) 0.7 K/uL (0.7-4.9); Absolute Monocytes 0.6 K/uL (0.1-1.3); Absolute Neutrophil 4.6 K/uL (1.8-8.0); Basophils % 0.5 % (0-1.3); Eosinophils % 1.3 % (0-4.4); Hematocrit 31.7 % (36.0-45.0); Hemoglobin 9.9 g/dL (12.0-15.0); Lymphocytes % 11.6 % (15.3-44.8); MCH 28.4 pg (27.0-35.0); MCHC 31.3 g/dL (32.0-36.0); MCV 90.8 fL (80-100); MPV 7.5 fL (7.6-11.3); Monocytes % 9.4 % (3.3-12.3); Neutrophils % 77.2 % (41.7-73.7); Platelets 149 thou/uL (152-406); RBC Red Blood Cell Count 3.49 M/uL (3.86-4.86); Red Cell Distribution Width 18.4 % (12.1-15.2)
[2024-08-21 06:09] LABS: ALT/SGPT 16 U/L (13-56); Albumin 2.5 g/dL (3.4-5.0); Albumin/Globulin Ratio 0.7 (1.1-1.8); Alkaline Phosphatase 50 U/L (45-117); BUN Blood Urea Nitrogen 19 mg/dL (7-18); Bicarbonate 36 mEq/L (21-32); Bilirubin Total 0.4 mg/dL (0.2-1.0); Globulin 3.6 g/dL (2.3-3.5); Glomerular Filtration Rate 83 ml/min (=/>90); Glucose Level 124 mg/dL (74-106); Magnesium 2.5 mg/dL (1.6-2.4); Protein, Total 6.1 g/dL (6.4-8.2); Sodium Level 136 mEq/L (136-145)
[2024-08-21 06:15] LABS: AST/SGOT < 10 U/L (15-37)
[2024-08-21] MEDS: DULERA 200/5 (MOMETASONE/FORMOTEROL) INHALER IH SCH (12:00)
[2024-08-21] MEDS ORDERED: levETIRAcetam 500 MG TAB PO SCH (12:50)
[2024-08-21] MEDS: allopurinoL 300 MG TAB PO SCH (14:16)
[2024-08-21] MEDS: DULOXETINE 30 MG CAP PO SCH (14:16)
[2024-08-21] MEDS: GABAPENTIN 400 MG CAP PO SCH (14:16)
--- NOTE | 2024-08-21 16:13 | P.PN ---
Subjective Date of Service: 08/21/24 Chief Complaint: shortness of breath Patient has no new complaint. Oxygen saturation stable on 2 L oxygen by nasal cannula. No recorded fever. Physical Examination - Vital Signs Temperature: 98.7 F Blood Pressure: 107/55 Pulse: 70 Respirations: 16 Pulse Ox (%): 95 Assessment And Plan - Plan Physical Exam: GEN: Alert, oriented, Hard of hearing CV: Regular rate and rhythm, no edema Pulm: Nonlabored respirations on 4L NC, wheeze Neuro: right-sided droop, slightly slurred speech-old findings. rodriguez placed 08/18 Problem List: Acute on chronic hypoxic respiratory failure secondary to acute on chronic COPD exacerbation (on Home O2 - 2-3L NC) Diarrhea Atrial fibrillation Seizure disorder Obstructive sleep apnea Hypothyroidism Hypertension Hx Phipps's Palsy Hx Gout Hx CAD Acute on chronic hypoxic respiratory failure secondary to acute on chronic COPD exacerbation (on Home O2 - 2-3L NC) on admission, presents with worsening shortness of breath associated with oxygen desaturation to 70-80% CXR noted vague opacities within both upper lobes and possibly both lung bases. Read as possible bilateral pneumonia Oxygen weaned down to baseline 2 to 3 L by nasal cannula Blood cultures: No growth to date Dr. Gifford, pulm is following. Steroid discontinued. Continue duonebs and Dulera IV Lasix discontinued. Normal echocardiogram PT/OT consult Continue spironolactone, diamox, brovana added per pulm. Obtain arterial blood gas. Diarrhea family reports liquid diarrhea prior to admission Monitor for diarrhea. No reported diarrhea. Atrial fibrillation Seizure disorder Obstructive sleep apnea Hypothyroidism Hypertension Hx Phipps's Palsy Hx Gout Hx CAD Continue home eliquis, asa 81 mg, keprra, metoprolol VTE: home eliquis Code: Full Dispo: Home with home health.
[2024-08-21 17:45] LABS: Arterial Blood Carboxyhemoglob 1.6 % (0-1.5); Blood Gas Oxyhemoglobin 91.6 % (94-97)
[2024-08-21] MEDS ORDERED: METOPROLOL TAR 25 MG TAB PO SCH (18:00)
[2024-08-21] MEDS: ATORVASTATIN 10 MG TAB PO SCH (20:17)
[2024-08-22 04:55] LABS: Absolute Eosinophils 0.1 K/uL (0-0.5); Absolute Lymphocytes (CBC) 0.7 K/uL (0.7-4.9); Absolute Monocytes 0.6 K/uL (0.1-1.3); Absolute Neutrophil 4.6 K/uL (1.8-8.0); Basophils % 0.3 % (0-1.3); Eosinophils % 1.6 % (0-4.4); Hematocrit 30.7 % (36.0-45.0); Hemoglobin 9.9 g/dL (12.0-15.0); Lymphocytes % 12.1 % (15.3-44.8); MCHC 32.1 g/dL (32.0-36.0); MCV 90.3 fL (80-100); MPV 7.9 fL (7.6-11.3); Monocytes % 9.3 % (3.3-12.3); Neutrophils % 76.7 % (41.7-73.7); Platelets 147 thou/uL (152-406); RBC Red Blood Cell Count 3.39 M/uL (3.86-4.86); Red Cell Distribution Width 18.1 % (12.1-15.2)
[2024-08-22] MEDS: LEVOTHYROXINE SOD 0.075 MG TAB PO SCH (06:31)
[2024-08-22] MEDS: AMLODIPINE 2.5 MG TAB PO SCH (09:24)
--- NOTE | 2024-08-22 12:53 | P.PN ---
Subjective Date of Service: 08/22/24 Chief Complaint: Respiratory failure Morning patient is unresponsive has been requiring BiPAP has hypoxic hypercapnic respiratory failure Review of Systems is unable to be obtained Physical Examination - Vital Signs Temperature: 98.1 F Blood Pressure: 115/59 Pulse: 63 Respirations: 20 Pulse Ox (%): 99 - Physical Exam General: Unresponsive Respiratory: Clear to auscultation bilaterally, Diminished Cardiovascular: No edema, Regular rate/rhythm Assessment And Plan - Current Problems (Diagnosis) (1) Chronic respiratory failure with hypoxia and hypercapnia Current Visit: No Status: Acute Plan: Patient has chronic respiratory failure likely due to underlying severe obstructive disease patient will benefit from a noninvasive ventilator she is able to use her BiPAP labs chemistries all reviewed recent thyroid function was normal continue with the combination of spironolactone and Diamox probably has underlying diastolic heart failure vital signs stable
--- NOTE | 2024-08-22 16:55 | P.PN ---
Subjective Date of Service: 08/22/24 Chief Complaint: Respiratory failure Patient has no new complaint. She is more awake today, seen sitting up in bed and eating her breakfast by herself. Oxygen saturation stable on 2 L oxygen by nasal cannula. Physical Examination - Vital Signs Temperature: 98.3 F Blood Pressure: 141/65 Pulse: 83 Respirations: 20 Pulse Ox (%): 99 Assessment And Plan - Plan Physical Exam: GEN: Alert, oriented, Hard of hearing, obese. CV: Regular rate and rhythm, no edema Pulm: Diminished breath sound bilateral, no wheezing, no crackles Neuro: right-sided droop, slightly slurred speech-old findings. rodriguez placed 08/18 Problem List: Acute on chronic hypoxic respiratory failure secondary to acute on chronic COPD exacerbation (on Home O2 - 2-3L NC) Diarrhea Atrial fibrillation Seizure disorder Obstructive sleep apnea Hypothyroidism Hypertension Hx Phipps's Palsy Hx Gout Hx CAD Acute on chronic hypoxic respiratory failure secondary to acute on chronic COPD exacerbation (on Home O2 - 2-3L NC) on admission, presents with worsening shortness of breath associated with oxygen desaturation to 70-80% CXR noted vague opacities within both upper lobes and possibly both lung bases. Read as possible bilateral pneumonia Oxygen weaned down to baseline 2 to 3 L by nasal cannula Blood cultures: No growth to date Dr. Gifford, pulm is following. Steroid discontinued. Continue duonebs and Dulera IV Lasix discontinued. Normal echocardiogram PT/OT consult Continue spironolactone, diamox, brovana added per pulm. Obtain arterial blood gas. Diarrhea family reports liquid diarrhea prior to admission Monitor for diarrhea. No reported diarrhea. Atrial fibrillation Seizure disorder Obstructive sleep apnea Hypothyroidism Hypertension Hx Phipps's Palsy Hx Gout Hx CAD Continue home eliquis, asa 81 mg, keprra, metoprolol. 08/22 Patient is more awake today. Arterial blood gas done yesterday showed significant CO2 retention with COVID causing some somnolence. She used BiPAP last night. Pulmonary input appreciated. Dr. Gifford is assisting with arrangement for NIV for home. Continue BiPAP at night and oxygen by nasal cannula during the day Continue PT Out of bed as tolerated Continue bronchodilators, Aldactone and Diamox. VTE: home eliquis Code: Full Dispo: Home with home health.
[2024-08-23 05:20] LABS: Anion Gap 5.3 mEq/L (5.0-15.0); Potassium 4.3 mEq/L (3.5-5.1)
[2024-08-23] MEDS: ACETAMINOPHEN 500 MG TAB PO PRN (13:26)
--- NOTE | 2024-08-23 17:01 | P.PN ---
Subjective Date of Service: 08/23/24 Chief Complaint: Respiratory failure No issues overnight. Patient is tolerating BiPAP at night and oxygen by nasal cannula during the day. Patient has no new complaint. Physical Examination - Vital Signs Temperature: 97.7 F Blood Pressure: 136/61 Pulse: 66 Respirations: 20 Pulse Ox (%): 94 - Studies Microbiology Data (last 24 hrs): 08/18/24 00:40 Blood - Blood Aerobic Blood Culture - Final No growth in 5 days. 08/18/24 00:40 Blood - Blood Anaerobic Blood Culture - Final No growth in 5 days. 08/18/24 01:00 Blood - Blood Aerobic Blood Culture - Final No growth in 5 days. 08/18/24 01:00 Blood - Blood Anaerobic Blood Culture - Final No growth in 5 days. Assessment And Plan - Plan Physical Exam: GEN: Alert, oriented, Hard of hearing, obese. CV: Regular rate and rhythm, no edema Pulm: Diminished breath sound bilateral, no wheezing, no crackles Neuro: right-sided droop, slightly slurred speech-old findings. jennifer lara 08/18 Problem List: Acute on chronic hypoxic respiratory failure secondary to acute on chronic COPD exacerbation (on Home O2 - 2-3L NC) Diarrhea Atrial fibrillation Seizure disorder Obstructive sleep apnea Hypothyroidism Hypertension Hx Phipps's Palsy Hx Gout Hx CAD Acute on chronic hypoxic respiratory failure secondary to acute on chronic COPD exacerbation (on Home O2 - 2-3L NC) on admission, presents with worsening shortness of breath associated with oxygen desaturation to 70-80% CXR noted vague opacities within both upper lobes and possibly both lung bases. Read as possible bilateral pneumonia Oxygen weaned down to baseline 2 to 3 L by nasal cannula Blood cultures: No growth to date Dr. Gifford, pulm is following. Steroid discontinued. Continue duonebs and Dulera IV Lasix discontinued. Normal echocardiogram PT/OT consult Continue spironolactone, diamox, brovana added per pulm. Obtain arterial blood gas. Diarrhea family reports liquid diarrhea prior to admission Monitor for diarrhea. No reported diarrhea. Atrial fibrillation Seizure disorder Obstructive sleep apnea Hypothyroidism Hypertension Hx Phipps's Palsy Hx Gout Hx CAD Continue home eliquis, asa 81 mg, keprra, metoprolol. 08/22 Patient is more awake today. Arterial blood gas done yesterday showed significant CO2 retention with COVID causing some somnolence. She used BiPAP last night. Pulmonary input appreciated. Dr. Gifford is assisting with arrangement for NIV for home. Continue BiPAP at night and oxygen by nasal cannula during the day Continue PT Out of bed as tolerated Continue bronchodilators, Aldactone and Diamox. 08/23 Patient is tolerating BiPAP at night. Patient is tolerating 2 to 4 L oxygen by nasal cannula during the day. Pulmonary Dr. Serna is following. Social service looking into NIV arrangement. Continue PT. Continue current medications. VTE: home eliquis Code: Full Dispo: Home with home health.
[2024-08-24 05:30] VITALS: TEMP 98.1
[2024-08-24 07:25] LABS: Anion Gap 4.3 mEq/L (5.0-15.0); Potassium 4.3 mEq/L (3.5-5.1)
[2024-08-24 07:30] LABS: Absolute Eosinophils 0.1 K/uL (0-0.5); Absolute Lymphocytes (CBC) 0.7 K/uL (0.7-4.9); Absolute Monocytes 0.5 K/uL (0.1-1.3); Absolute Neutrophil 4.2 K/uL (1.8-8.0); Basophils % 0.5 % (0-1.3); Eosinophils % 2.1 % (0-4.4); Hematocrit 32.6 % (36.0-45.0); Hemoglobin 10.4 g/dL (12.0-15.0); Lymphocytes % 12.5 % (15.3-44.8); MCH 28.6 pg (27.0-35.0); MCHC 31.9 g/dL (32.0-36.0); MCV 89.7 fL (80-100); MPV 7.9 fL (7.6-11.3); Monocytes % 8.6 % (3.3-12.3); Neutrophils % 76.3 % (41.7-73.7); Platelets 147 thou/uL (152-406); RBC Red Blood Cell Count 3.64 M/uL (3.86-4.86); Red Cell Distribution Width 17.5 % (12.1-15.2)
[2024-08-24 09:12] VITALS: O2SAT 99
--- NOTE | 2024-08-24 14:41 | P.PN ---
Subjective Date of Service: 08/24/24 Chief Complaint: Respiratory failure Patient noted to be somnolent this morning on the BiPAP Patient taking low tidal volumes on the BiPAP. Physical Examination - Vital Signs Temperature: 98.2 F Blood Pressure: 115/47 Pulse: 65 Respirations: 18 Pulse Ox (%): 99 Assessment And Plan - Plan Physical Exam: GEN: Alert, oriented, Hard of hearing, obese. CV: Regular rate and rhythm, no edema Pulm: Diminished breath sound bilateral, no wheezing, no crackles Neuro: right-sided droop, slightly slurred speech-old findings. rodriguez placed 08/18 Problem List: Acute on chronic hypoxic respiratory failure secondary to acute on chronic COPD exacerbation (on Home O2 - 2-3L NC) Diarrhea Atrial fibrillation Seizure disorder Obstructive sleep apnea Hypothyroidism Hypertension Hx Phipps's Palsy Hx Gout Hx CAD Acute on chronic hypoxic respiratory failure secondary to acute on chronic COPD exacerbation (on Home O2 - 2-3L NC) on admission, presents with worsening shortness of breath associated with oxygen desaturation to 70-80% CXR noted vague opacities within both upper lobes and possibly both lung bases. Read as possible bilateral pneumonia Oxygen weaned down to baseline 2 to 3 L by nasal cannula Blood cultures: No growth to date Dr. Gifford, keiko is following. Steroid discontinued. Continue duonebs and Dulera IV Lasix discontinued. Normal echocardiogram PT/OT consult Continue spironolactone, diamox, brovana added per pulm. Obtain arterial blood gas. Diarrhea family reports liquid diarrhea prior to admission Monitor for diarrhea. No reported diarrhea. Atrial fibrillation Seizure disorder Obstructive sleep apnea Hypothyroidism Hypertension Hx Phipps's Palsy Hx Gout Hx CAD Continue home eliquis, asa 81 mg, keprra, metoprolol. 08/22 Patient is more awake today. Arterial blood gas done yesterday showed significant CO2 retention with COVID causing some somnolence. She used BiPAP last night. Pulmonary input appreciated. Dr. Gifford is assisting with arrangement for NIV for home. Continue BiPAP at night and oxygen by nasal cannula during the day Continue PT Out of bed as tolerated Continue bronchodilators, Aldactone and Diamox. 08/23 Patient is tolerating BiPAP at night. Patient is tolerating 2 to 4 L oxygen by nasal cannula during the day. Pulmonary Dr. Serna is following. Social service looking into NIV arrangement. Continue PT. Continue current medications. 08/24 Patient is somnolent today compared to yesterday. Also noted low tidal volumes on the BiPAP. Possible air leak Respiratory therapy to examine BiPAP facemask and application to improve ventilation Continue PT. As per social work supervisor, patient already has an NIV at home and has been noncompliant with it. Continue bronchodilators, Aldactone and Diamox. VTE: home eliquis Code: Full Dispo: Home with home health.
[2024-08-25 05:26] LABS: Anion Gap 6.1 mEq/L (5.0-15.0); Potassium 4.1 mEq/L (3.5-5.1)
--- NOTE | 2024-08-25 16:14 | P.PN ---
Subjective Date of Service: 08/25/24 Chief Complaint: Respiratory failure Patient has no new complain. No issues overnight. Patient is tolerating diet and feeding herself. Physical Examination - Vital Signs Temperature: 97.8 F Blood Pressure: 132/69 Pulse: 75 Respirations: 16 Pulse Ox (%): 97 Assessment And Plan - Plan Physical Exam: GEN: Alert, oriented, Hard of hearing, obese. CV: Regular rate and rhythm, no edema Pulm: Diminished breath sound bilateral, no wheezing, no crackles Neuro: right-sided droop, slightly slurred speech-old findings, hard of hearing. rodriguez placed 08/18 Problem List: Acute on chronic hypoxic respiratory failure secondary to acute on chronic COPD exacerbation (on Home O2 - 2-3L NC) Diarrhea Atrial fibrillation Seizure disorder Obstructive sleep apnea Hypothyroidism Hypertension Hx Phipps's Palsy Hx Gout Hx CAD Acute on chronic hypoxic respiratory failure secondary to acute on chronic COPD exacerbation (on Home O2 - 2-3L NC) on admission, presents with worsening shortness of breath associated with oxygen desaturation to 70-80% CXR noted vague opacities within both upper lobes and possibly both lung bases. Read as possible bilateral pneumonia Oxygen weaned down to baseline 2 to 3 L by nasal cannula Blood cultures: No growth to date keiko Huynh is following. Steroid discontinued. Continue duonebs and Dulera IV Lasix discontinued. Normal echocardiogram PT/OT consult Continue spironolactone, diamox, brovana added per pulm. Obtain arterial blood gas. Diarrhea family reports liquid diarrhea prior to admission Monitor for diarrhea. No reported diarrhea. Atrial fibrillation Seizure disorder Obstructive sleep apnea Hypothyroidism Hypertension Hx Phipps's Palsy Hx Gout Hx CAD Continue home eliquis, asa 81 mg, keprra, metoprolol. 08/22 Patient is more awake today. Arterial blood gas done yesterday showed significant CO2 retention with COVID causing some somnolence. She used BiPAP last night. Pulmonary input appreciated. Dr. Gifford is assisting with arrangement for NIV for home. Continue BiPAP at night and oxygen by nasal cannula during the day Continue PT Out of bed as tolerated Continue bronchodilators, Aldactone and Diamox. 08/23 Patient is tolerating BiPAP at night. Patient is tolerating 2 to 4 L oxygen by nasal cannula during the day. Pulmonary Dr. Serna is following. Social service looking into NIV arrangement. Continue PT. Continue current medications. 08/24 Patient is somnolent today compared to yesterday. Also noted low tidal volumes on the BiPAP. Possible air leak Respiratory therapy to examine BiPAP facemask and application to improve ventilation Continue PT. As per addiction social worker, patient already has an NIV at home and has been noncompliant with it. Continue bronchodilators, Aldactone and Diamox. 08/25 No major changes from yesterday Continue BiPAP at night. Continue PT Discontinue Rodriguez catheter Anticipating discharge to home with home health in am. Diet as tolerated. VTE: home eliquis Code: Full Dispo: Home with home health.
--- NOTE | 2024-08-26 15:07 | P.PN ---
Subjective Date of Service: 08/26/24 Chief Complaint: Respiratory failure Patient is more awake today. No issues overnight. Nursing staff report patient ate 50% of her breakfast. Physical Examination - Vital Signs Temperature: 97.9 F Blood Pressure: 113/57 Pulse: 70 Respirations: 13 Pulse Ox (%): 98 Assessment And Plan - Plan Physical Exam: GEN: Alert, oriented, Hard of hearing, obese. CV: Regular rate and rhythm, no edema Pulm: Diminished breath sound bilateral, no wheezing, no crackles Neuro: right-sided droop, slightly slurred speech-old findings, hard of hearing. rodriguez placed 08/18 Problem List: Acute on chronic hypoxic respiratory failure secondary to acute on chronic COPD exacerbation (on Home O2 - 2-3L NC) Diarrhea Atrial fibrillation Seizure disorder Obstructive sleep apnea Hypothyroidism Hypertension Hx Phipps's Palsy Hx Gout Hx CAD Acute on chronic hypoxic respiratory failure secondary to acute on chronic COPD exacerbation (on Home O2 - 2-3L NC) on admission, presents with worsening shortness of breath associated with oxygen desaturation to 70-80% CXR noted vague opacities within both upper lobes and possibly both lung bases. Read as possible bilateral pneumonia Oxygen weaned down to baseline 2 to 3 L by nasal cannula Blood cultures: No growth to date keiko Huynh is following. Steroid discontinued. Continue duonebs and Dulera IV Lasix discontinued. Normal echocardiogram PT/OT consult Continue spironolactone, diamox, brovana added per pulm. Obtain arterial blood gas. Diarrhea family reports liquid diarrhea prior to admission Monitor for diarrhea. No reported diarrhea. Atrial fibrillation Seizure disorder Obstructive sleep apnea Hypothyroidism Hypertension Hx Phipps's Palsy Hx Gout Hx CAD Continue home eliquis, asa 81 mg, keprra, metoprolol. 08/22 Patient is more awake today. Arterial blood gas done yesterday showed significant CO2 retention with COVID causing some somnolence. She used BiPAP last night. Pulmonary input appreciated. Dr. Gifford is assisting with arrangement for NIV for home. Continue BiPAP at night and oxygen by nasal cannula during the day Continue PT Out of bed as tolerated Continue bronchodilators, Aldactone and Diamox. 08/23 Patient is tolerating BiPAP at night. Patient is tolerating 2 to 4 L oxygen by nasal cannula during the day. Pulmonary Dr. Serna is following. Social service looking into NIV arrangement. Continue PT. Continue current medications. 08/24 Patient is somnolent today compared to yesterday. Also noted low tidal volumes on the BiPAP. Possible air leak Respiratory therapy to examine BiPAP facemask and application to improve ventilation Continue PT. As per social worker psychiatric, patient already has an NIV at home and has been noncompliant with it. Continue bronchodilators, Aldactone and Diamox. 08/25 No major changes from yesterday Continue BiPAP at night. Continue PT Discontinue Rodriguez catheter Anticipating discharge to home with home health in am. Diet as tolerated. 08/26 Remove Rodriguez catheter. Encourage oral intake. BiPAP at night. VTE: home eliquis Code: Full Dispo: Home with home health.
--- NOTE | 2024-08-26 15:40 | P.DS ---
Admission Date: 08/18/24 Discharge Date: 08/26/24 Disposition: DC HOME/HOME HEALTH CARE Discharge Condition: FAIR Reason for Admission: Respiratory failure Hospital Course: Problem List: Acute on chronic hypoxic respiratory failure secondary to acute on chronic COPD exacerbation (on Home O2 - 2-3L NC) Diarrhea Atrial fibrillation Seizure disorder Obstructive sleep apnea Hypothyroidism Hypertension Hx Phipps's Palsy Hx Gout Hx CAD Patient presented with worsening shortness of breath, hypoxemia secondary to acute on chronic COPD exacerbation. She received IV steroids, duonebs, IV lasix, IV merrem in the ED and had improvement of her symptoms. CXR noted vague opacities within both upper lobes and possibly both lung bases. Dr. Gifford, pulm was consulted. Antibiotics were stopped as there was no e vidence of infection/pneumonia. She remained afebrile without leukocytosis. Patient was noted to have CO2 retention and was placed on BiPAP during sleep. NIV for patient to use at home was recommended. workers compensation claims specialist reports patient already has an NIV but has been noncompliant with it. I discussed the importance of using the NIV at home with her daughter. Patient was initially somnolent. She became more awake, was able to sit up in bed and feed herself after she started using BiPAP at night. Patient was given spironolactone, diamox, brovana while hospitalized and continued to improve. Her respiratory status improved. Patient was feeling better, breathing more comfortably on her home oxygen settings, afebrile without leukocytosis, and deemed stable for discharge. Vital Signs/Physical Exam: Temp Pulse Resp BP Pulse Ox 97.9 F 70 13 113/57 L 98 08/26/24 15:06 08/26/24 15:06 08/26/24 15:06 08/26/24 15:06 08/26/24 15:06 General: Alert, In no apparent distress, Obese HEENT: Mucous membr. moist/pink Neck: JVD not distended Respiratory: Clear to auscultation bilaterally, Normal air movement Cardiovascular: Regular rate/rhythm, Normal S1 S2 Gastrointestinal: Normal bowel sounds, Soft and benign Musculoskeletal: No swelling Integumentary: No cyanosis Neurological: Other (Right facial droop) Laboratory Data at Discharge: WBC 5.50 thou/uL (4.3-10.9) 08/24/24 06:51 Hgb 10.4 g/dL (12.0-15.0) L 08/24/24 06:51 Hct 32.6 % (36.0-45.0) L 08/24/24 06:51 Plt Count 147 thou/uL (152-406) L 08/24/24 06:51 PT 17.1 SECONDS (10-13.0) H 08/18/24 00:40 INR 1.53 08/18/24 00:40 Sodium 138 mEq/L (136-145) 08/25/24 04:52 Potassium 4.1 mEq/L (3.5-5.1) 08/25/24 04:52 BUN 22 mg/dL (7-18) H 08/25/24 04:52 Creatinine 0.73 mg/dL (0.55-1.02) 08/25/24 04:52 Glucose 123 mg/dL (74-106) H 08/25/24 04:52 Magnesium 2.5 mg/dL (1.6-2.4) H 08/21/24 05:36 Total Bilirubin 0.4 mg/dL (0.2-1.0) 08/21/24 05:36 AST < 10 U/L (15-37) L 08/21/24 05:36 ALT 16 U/L (13-56) 08/21/24 05:36 Alkaline Phosphatase 50 U/L (45-117) 08/21/24 05:36 Lipase 25 U/L (13-75) 08/18/24 00:40 Home Medications: Duloxetine [Cymbalta *] 60 mg PO DAILY 09/01/18 Levothyroxine [Synthroid*] 75 mcg PO [id number] 09/01/18 Simvastatin 10 mg PO BEDTIME 09/01/18 Apixaban [Eliquis *] 2.5 mg PO BID 30 Days #60 tablet 03/07/24 levETIRAcetam [Keppra*] 500 mg PO BID 06/11/24 Metoprolol Tartrate [Lopressor*] 25 mg PO BID 6AM 6PM #60 tab 06/14/24 Allopurinol 300 mg PO DAILY 08/19/24 Amlodipine [Norvasc*] 2.5 mg PO DAILY 08/19/24 Aspirin [Aspirin EC 81 MG] 81 mg PO DAILY #30 tab 08/26/24 Gabapentin [Neurontin*] 100 mg PO TID #90 cap 08/26/24 Ipratropium/Albuterol Sulfate [Iprat-Albut 0.5-3(2.5) mg/3 ml] 3 ml IH TID #90 amp 08/26/24 Mometasone/Formoterol [Dulera 200 Mcg/5 Mcg Inhaler] 2 puff IH BID #1 inhaler 08/26/24 Nebulizer 1 each MC TID #1 ea 08/26/24 Spironolactone [Aldactone*] 25 mg PO BID #60 tab 08/26/24 acetaZOLAMIDE [Acetazolamide] 250 mg PO BID #60 tab 08/26/24 New Medications: acetaZOLAMIDE [Acetazolamide] 250 mg PO BID #60 tab Spironolactone [Aldactone*] 25 mg PO BID #60 tab Aspirin [Aspirin EC 81 MG] 81 mg PO DAILY #30 tab Mometasone/Formoterol [Dulera 200 Mcg/5 Mcg Inhaler] 2 puff IH BID #1 inhaler Ipratropium/Albuterol Sulfate [Iprat-Albut 0.5-3(2.5) mg/3 ml] 3 ml IH TID #90 a mp Nebulizer 1 each MC TID #1 ea Gabapentin [Neurontin*] 100 mg PO TID #90 cap Physician Discharge Instructions: Physician discharge instructions: Patient presented with worsening shortness of breath, hypoxemia secondary to acute on chronic COPD exacerbation. She received IV steroids, duonebs, IV lasix, IV merrem in the ED and had improvement of her symptoms. CXR noted vague opacities within both upper lobes and possibly both lung bases. Dr. Gifford, pulm was consulted. Antibiotics were stopped as there was no evidence of infection/pneumonia. She remained afebrile without leukocytosis. Patient was given spironolactone, diamox, brovana while hospitalized and continued to improve. Her respiratory status improved. Patient was feeling better, breathing more comfortably on her home oxygen settings, afebrile without leukocytosis, and was deemed stable for discharge. Medications: Acetazolamide Spironolactone Aspirin. Gabapentin dose has been reduced from 400 mg 3 times a day to 100 mg 3 times a day to reduce drowsiness. Please it is important patient with the NIV(home ventilator machine) whenever she is sleeping. Follow up: PCP 3-5 days Please call to schedule / confirm appointments Diet: AHA Activity: Fall precautions Followup: NONE,NONE [Primary Care Provider] - 1-2 Weeks Time spent managing pt's care (in minutes): 40
[2024-08-27 09:43] VITALS: BP 125/68
[2024-08-27 09:44] VITALS: BMI 39.2
== END 2024-08-26 19:10 | disposition home health service (06) | DRG 189 ==
LOC: ER 00:17 → ERHOLD 04:53 → 2ND 16:40
PROVIDERS: ADMIT Internal Medicine; ATTEND Internal Medicine
PROC: 4A033R1 Measurement of Arterial Saturation, Peripheral, Percutaneous Approach (ICD-10-PCS; principal; 2024-08-18)
PROC: 5A09357 Assistance with Respiratory Ventilation, Less than 24 Consecutive Hours, Continuous Positive Airway Pressure (ICD-10-PCS; 2024-08-18)
DX: J96.01 Acute respiratory failure with hypoxia (principal); J44.1 Chronic obstructive pulmonary disease with (acute) exacerbation; I50.32 Chronic diastolic (congestive) heart failure; E87.1 Hypo-osmolality and hyponatremia; I48.91 Unspecified atrial fibrillation; Z79.01 Long term (current) use of anticoagulants; I11.0 Hypertensive heart disease with heart failure; E66.9 Obesity, unspecified; Z68.39 Body mass index [BMI] 39.0-39.9, adult; I25.10 Atherosclerotic heart disease of native coronary artery without angina pectoris; Z98.61 Coronary angioplasty status; G40.909 Epilepsy, unspecified, not intractable, without status epilepticus; G47.33 Obstructive sleep apnea (adult) (pediatric)
CPT/HCPCS: 36415; 51702; 71045; 80048; 80053; 80076; 81001; 82805; 82947; 83605; 83690; 83735; 83880; 84484; 85025; 85610; 87040; 93005; 93306; 94640; 94660; 94760; 97110; 97161; 97165; 97530; 99285; J1940; J2185; J2919; J3535; J7605; J7614; J7644